=== PATIENT | male | born 1950 | race Caucasian/White ===

== ENCOUNTER 2018-08-16 16:22 | Inpatient (IN) ==
[2018-08-16] MEDS ORDERED: Bisacodyl 10 MG Supp RECTAL PRN (22:28)
[2018-08-16] MEDS ORDERED: Acetaminophen 325 MG Tablet PO PRN (22:28)
[2018-08-16] MEDS ORDERED: Morphine Inj 4 MG/ML Vial IV.PUSH PRN (22:28)
[2018-08-16] MEDS: Enoxaparin Inj 40 MG/0.4 ML Syringe SQ SCH (22:55)
[2018-08-16] MEDS: Azithromycin Inj 500 MG in Sodium Chlor 0.9% Inj 250 ML IV.SIG SCH (22:55)
--- NOTE | 2018-08-16 23:38 | P.HPCC ---
History of Present Illness Primary Care Physician: UNKNOWN History of Present Illness: 68-year-old gentleman with COPD and chronic cough who continues to smoke presented to [facility] emergency department for an evaluation of altered mental status and shortness of breath. The patient went to [employer] this morning and returned on the bus and sat in the garage. The lady that takes care of him did talk to him and he said he was fine and sat down in his chair in the garage. He however did not come to his lunch and she went out and found him unresponsive with labored breathing. This occurred at 2 PM today. Patient was brought into the emergency department with altered mental status and respiratory distress. Pulse ox was in the 60s. Patient was put on high flow oxygen and later changed to BiPAP with improvement in mentation and oxygenation. The chest x-ray obtained in the emergency department shows almost complete opacification of left hemithorax. The CT without contrast shows severe cardiomegaly and no pleural effusion or pericardial effusion. The patient has been transferred to [facility] ICU for higher level of care. Inpatient Certification: I certify that the inpatient services were ordered in accordance with Medicare regulations governing the order. This includes certification that hospital inpatient services are reasonable and necessary and in the case of services not specified as inpatient-only under 42 CFR 419.22(n), that they are appropriately provided as inpatient services in accordance to with the 2-midnight benchmark under 43 CFR 412.3(e) Estimated Total Length of Stay (Days): 5 Plans for Post Hospital Care: Not yet determined Review of Systems unobtainable due to mental condition PMFSH - History History Provided By: Friend - Medical History Medical History: Medical History (Last Reviewed 08/16/18 @ 17:36 by Sakina Gauthier RN) COPD (chronic obstructive pulmonary disease) Surgical history unknown - Tobacco History Tobacco Use In Past 30 Days: Yes Smoking Status: Smoker, status unknown Tobacco Type: Cigarettes - Alcohol History How Often Do You Have a Drink Containing Alcohol: Unable to Obtain - Substance Use History Substance History: Unable to Obtain Medications and Allergies Active Medications: Active Medications Acetaminophen (Tylenol) 650 mg PO Q6H PRN PRN Reason: PAIN 1-10 AND/OR FEVER >101F Al Hydroxide/Mg Hydroxide (Milk Of Magnesia Liq) 30 ml PO Q12H PRN PRN Reason: Mild Constipation Albuterol (Duoneb Neb (Prn)) 1 ampul NEB Q2HR NEB PRN PRN Reason: WHEEZING Albuterol (Duoneb Neb (Sandee)) 1 ampul NEB Q4HR NEB [facility] Last Admin: 08/16/18 23:05 Dose: 1 ampul Bisacodyl (Dulcolax Supp) 10 mg RECTAL DAILY PRN PRN Reason: SEVERE CONSITIPATION Bupropion HCl (Wellbutrin Sr) 150 mg PO DAILY [facility] Chlorhexidine Gluconate (Chlorhexidine 2% Cloth) 3 pack TOPICAL DAILY@0400 [facility]DE[facility] Stop: 08/22/18 03:59 Chlorhexidine Gluconate (Chlorhexidine 2% Cloth) 3 pack TOPICAL DAILY@0400 PRN PRN Reason: Extra cloth needed Stop: 08/22/18 03:59 Enoxaparin Sodium (Lovenox Inj) 40 mg SQ Q24H [facility] Last Admin: 08/16/18 22:55 Dose: 40 mg Famotidine (Pepcid Pf Inj) 20 mg IV.PUSH Q12HR [facility] Gabapentin (Neurontin) 600 mg PO BID [facility] Azithromycin 500 mg/ Sodium (Chloride) 250 mls @ 250 mls/hr IV.SIG Q24H [facility] Last Admin: 08/16/18 22:55 Dose: 250 mls/hr Cefepime HCl 2,000 mg/ Sodium (Chloride) 100 mls @ 200 mls/hr IV.SIG Q12H [facility] Last Admin: 08/16/18 22:59 Dose: 200 mls/hr Lactulose (Lactulose Liq) 30 ml PO DAILY PRN PRN Reason: SEVERE CONSITIPATION Methylprednisolone Sodium Succinate (Solumedrol Inj) 40 mg IV.PUSH Q8HR [facility] Morphine Sulfate (Morphine Inj) 2 mg IV.PUSH Q2H PRN PRN Reason: PAIN SCALE 6 TO 10 Ondansetron HCl (Zofran Inj) 4 mg IV.PUSH Q6H PRN PRN Reason: NAUSEA OR VOMITING Senna/Docusate Sodium (Clare-Colace) 1 tab PO BID [facility] Sennosides (Senokot) 17.2 mg PO Q12H PRN PRN Reason: Moderate Constipation Sodium Chloride (Ns Flush) 2 ml IV.FLUSH BID [facility] Sodium Chloride (Ns Flush) 2 ml IV.FLUSH PRN PRN PRN Reason: FLUSH AFTER USING IV ACCESS Allergies Allergy/AdvReac Type Severity Reaction Status Date / Time No Known Allergies Allergy Unverified 08/16/18 16:33 Home Medications Medication Instructions Recorded Confirmed Type bupropion HCl (smoking deter) 150 mg PO DAILY 08/16/18 08/16/18 History gabapentin 600 mg PO BID 08/16/18 08/16/18 History ibuprofen 800 mg PO TID 08/16/18 08/16/18 History varenicline [Chantix] 1 mg PO BID 08/16/18 08/16/18 History Results - Labs CBC & Chem 7: 08/17/18 00:53 08/17/18 00:53 Exam Vital signs: Vital Signs 08/16/18 22:25 08/16/18 22:29 08/16/18 22:31 Temperature Pulse Rate 116 H 114 H Respiratory Rate 8 L 4 L Blood Pressure 150/88 H 146/93 H Pulse Oximetry 100 98 98 08/16/18 22:33 08/16/18 23:00 08/16/18 23:06 Temperature 100.1 F H Pulse Rate 104 H 104 H Respiratory Rate 21 15 Blood Pressure 139/80 Pulse Oximetry 99 92 L 08/16/18 23:08 Temperature Pulse Rate Respiratory Rate Blood Pressure Pulse Oximetry 92 L Intake & Output 08/16/18 08/16/18 08/17/18 06:59 18:59 06:59 Weight 112.3 kg Other: Weight On Admission 112.3 kg - Constitutional moderate distress, morbidly obese - Routine HEENT Exam Head: Present: atraumatic Eye: Present: PERRL ENT: Present: mucous membranes moist - Routine Neck Exam Present: full ROM. Absent: JVD, carotid bruit - Routine Respiratory Exam Present: accessory muscle use, rhonchi, wheezes. Absent: stridor, crackles - Routine Cardiovascular Exam Present: RRR, S1, S2 - Routine Abdominal Exam Present: soft, normoactive bowel sounds, distended. Absent: tenderness, rebound - Routine Extremities Exam Absent: cyanosis, clubbing, edema - Routine Skin Exam Present: intact. Absent: cyanosis, erythema - Routine Neurological Exam Present: moving all extremities Septic Shock Reassessment Septic shock perfusion: reassessment completed Caprini VTE Risk Assessment Caprini VTE Risk Assessment: Moderate/High Risk (score >= 2) Caprini Risk Assessment Model: Point Value = 1 Point Value = 2 Point Value = 3 Point Value = 5 Age 41-60 Minor surgery BMI > 25 kg/m2 Swollen legs Varicose veins or History of unexplained or recurrent spontaneous Oral contraceptives or hormone replacement Sepsis (< 1 month) Serious lung disease, including pneumonia (< 1 month) Abnormal pulmonary function Acute myocardial infarction Congestive heart failure (< 1 month) History of inflammatory bowel disease Medical patient at bed rest Age 61-74 Arthroscopic surgery Major open surgery (> 45 min) Laparoscopic surgery (> 45 min) Malignancy Confined to bed (> 72 hours) Immobilizing plaster cast Central venous access Age >= 75 History of VTE Family history of VTE Factor V Leiden Prothrombin [id number] Lupus anticoagulant Anticardiolipin antibodies Elevated serum homocysteine Heparin-induced thrombocytopenia Other congenital or acquired thrombophilia Stroke (< 1 month) Elective arthroplasty Hip, pelvis, or leg fracture Acute spinal cord injury (< 1 month) Prophylaxis Regimen: Total Risk Factor Score Risk Level Prophylaxis Regimen 0-1 Low Early ambulation 2 Moderate Order ONE of the following: *Sequential Compression Device (SCD) *Heparin 5000 units SQ BID 3-4 Higher Order ONE of the following medications: *Heparin 5000 units SQ TID *Enoxaparin/Lovenox 40 mg SQ daily (WT < 150 kg, CrCl > 30 mL/min) *Enoxaparin/Lovenox 30 mg SQ daily (WT < 150 kg, CrCl > 10-29 mL/min) *Enoxaparin/Lovenox 30 mg SQ BID (WT < 150 kg, CrCl > 30 mL/min) AND/OR *Sequential Compression Device (SCD) 5 or more Highest Order ONE of the following medications: *Heparin 5000 units SQ TID (Preferred with Epidurals) *Enoxaparin/Lovenox 40 mg SQ daily (WT < 150 kg, CrCl > 30 mL/min) *Enoxaparin/Lovenox 30 mg SQ daily (WT < 150 kg, CrCl > 10-29 mL/min) *Enoxaparin/Lovenox 30 mg SQ BID (WT < 150 kg, CrCl > 30 mL/min) AND *Sequential Compression Device (SCD) Assessment and Plan - Assessment and Plan Plan: Respiratory failure -COPD exacerbation -Obesity hypoventilation syndrome -Lung volume was due to severe cardiomegaly -IV steroid -DuoNeb scheduled and as needed -BiPAP as needed -Empiric antibiotic Cardiomegaly -Unknown EF -2D echo pending Lung nodule -High risk for malignancy -Pulmonary consultation Tobacco dependency -Continue Wellbutrin DVT GI prophylaxis -Teds SCDs -Subcu Lovenox -Pepcid 35 minutes of critical care
[2018-08-17 00:58] LABS: Baso # (Auto) 0.1 th/mm3 (0.0-0.2); Baso % (Auto) 0.4 % (0.0-2.0); Hematocrit 52.5 % (39.0-51.0); Hemoglobin 16.7 gm/dL (13.0-17.0); Lymph # (Auto) 1.1 th/mm3 (1.0-4.8); Lymph % (Auto) 8.4 % (9.0-44.0); Mean Corpuscular HGB Conc 31.8 % (32.0-36.0); Mean Corpuscular Hemoglobin 33.4 pg (27.0-34.0); Mean Corpuscular Volume 104.9 fL (80.0-100.0); Mean Platelet Volume 9.3 fL (7.0-11.0); Mono % (Auto) 7.5 % (0.0-8.0); Neut # (Auto) 11.5 th/mm3 (1.8-7.7); Neut % (Auto) 83.7 % (16.0-70.0); Platelet Count 182 th/mm3 (150-450); Red Blood Count 5.01 mil/mm3 (4.50-5.90); Red Cell Distribution Width 14.8 % (11.6-17.2); White Blood Count 13.7 th/mm3 (4.0-11.0)
[2018-08-17 01:12] LABS: Activated Partial Thrombo Time 28.9 sec (24.3-30.1); INR 1.4 Ratio
[2018-08-17 01:28] LABS: Calcium 8.2 mg/dL (8.5-10.1); Phosphorus 6.6 mg/dL (2.5-4.9); Potassium 4.7 meq/L (3.5-5.1)
[2018-08-17] MEDS ORDERED: Chlorhexidine Gluconate 2% 1 Pack (2 Cloths) TOPICAL PRN (04:00)
[2018-08-17] MEDS: Chlorhexidine Gluconate 2% 1 Pack (2 Cloths) TOPICAL SCH (04:12)
[2018-08-17] MEDS: MethylPREDNISolone Sod Succinate Inj 40 MG/ML Vial IV.PUSH SCH ×3 (05:06→21:09)
[2018-08-17 05:47] LABS: Baso % (Auto) 0.2 % (0.0-2.0); Hematocrit 50.3 % (39.0-51.0); Hemoglobin 16.5 gm/dL (13.0-17.0); Lymph # (Auto) 1.3 th/mm3 (1.0-4.8); Lymph % (Auto) 8.2 % (9.0-44.0); Mean Corpuscular HGB Conc 32.7 % (32.0-36.0); Mean Corpuscular Hemoglobin 33.8 pg (27.0-34.0); Mean Corpuscular Volume 103.2 fL (80.0-100.0); Mean Platelet Volume 9.9 fL (7.0-11.0); Mono # (Auto) 1.2 th/mm3 (0.0-0.9); Neut % (Auto) 83.6 % (16.0-70.0); Platelet Count 184 th/mm3 (150-450); Red Blood Count 4.88 mil/mm3 (4.50-5.90); Red Cell Distribution Width 14.8 % (11.6-17.2); White Blood Count 15.6 th/mm3 (4.0-11.0)
[2018-08-17 05:55] LABS: Activated Partial Thrombo Time 29.2 sec (24.3-30.1); INR 1.4 Ratio; Prothrombin Time 14.2 sec (9.8-11.6)
[2018-08-17 06:19] LABS: Anion Gap 9 meq/L (5-15); Aspartate Aminotransferase 941 U/L (15-37); Blood Urea Nitrogen 41 mg/dL (7-18); Calcium 8.4 mg/dL (8.5-10.1); Carbon Dioxide 27.8 meq/L (21.0-32.0); Chloride 106 meq/L (98-107); Glomerular Filtration Rate 23 mL/min (>89); Glucose,Random 75 mg/dL (74-106); Magnesium 1.9 mg/dL (1.5-2.5); Potassium 4.4 meq/L (3.5-5.1); Sodium 143 meq/L (136-145)
[2018-08-17 06:21] LABS: Alanine Aminotransferase 670 U/L (12-78)
[2018-08-17 06:23] LABS: Alkaline Phosphatase 83 U/L (45-117); Phosphorus 5.9 mg/dL (2.5-4.9); Total Protein 7.3 g/dL (6.4-8.2)
[2018-08-17] MEDS ORDERED: Propofol Inj 500 MG/50 ML Vial ONE (08:09)
[2018-08-17 08:20] LABS: ABG PCO2 74 mmHg (38-42); ABG PO2 187 mmHG (61-120)
[2018-08-17] MEDS ORDERED: Etomidate Inj 40 MG/20 ML Vial IV.PUSH ONE (08:26)
[2018-08-17] MEDS ORDERED: Succinylcholine Inj 200 MG/10 ML Vial ONE (08:26)
[2018-08-17] MEDS ORDERED: Etomidate Inj 20 MG/10 ML Ampul IV.PUSH ONE (08:45)
[2018-08-17] MEDS ORDERED: Succinylcholine Inj 200 MG/10 ML Vial IV.PUSH ONE (08:45)
[2018-08-17] MEDS ORDERED: Famotidine PF Inj 20 MG/2 ML Vial IV.PUSH SCH (09:00)
--- NOTE | 2018-08-17 09:05 | XR ---
EXAM DATE: 08/17/2018 9:01 AM EDT AGE/SEX: 68 years / Male INDICATIONS: Post intubation. CLINICAL DATA: This is the patient's subsequent encounter. Patient reports that signs and symptoms h ave been present for 2 days and indicates a pain score of Nonresponsive. MEDICAL/SURGICAL HISTORY: Chronic obstructive pulmonary disease. None. COMPARISON: [facility], CHEST 1V SINGLE AP, 08/16/2018. . FINDINGS: ETT at the level of the clavicles. NGT coursing beyond the GE junction with tip omitted from the imag e. Improved aeration of the left upper lung zone with persistent pleural-parenchymal opacities at the left lower lung zone and slightly progressed patchy airspace disease in the right lower lung zone. C ardiomediastinal contours are stable. Remainder of exam is unchanged. CONCLUSION: 1. ETT in good position. NGT beyond the GE junction. 2. Improved aeration of the left upper lung zone with persistent pleural-parenchymal disease in the left lower lung zone and worsening patchy airspace disease in the right lower lung zone, presumably a telectasis. Electronically signed by: Pollo Harris MD 08/17/2018 9:03 AM EDT
[2018-08-17 10:06] LABS: ABG Base Excess 2.6 mmol/L (-2-2); ABG PCO2 58 mmHg (38-42); ABG PO2 120 mmHG (61-120)
[2018-08-17] MEDS: buPROPion 150 MG 12 HR Tablet PO SCH (10:07)
[2018-08-17] MEDS: Gabapentin 300 MG Capsule PO SCH ×2 (10:07→21:00)
[2018-08-17] MEDS: Senna/Docusate Sodium 8.6/50 MG Tablet PO SCH ×2 (10:07→21:10)
[2018-08-17] MEDS: Propofol 1000 mg/100 ml Inj 1,000 MG/100 ML BOTTLE IV.CONT PRN ×3 (10:09→21:10)
[2018-08-17] MEDS: Oral Hygiene Kit OROPHARYNG SCH ×2 (11:34→15:48)
--- NOTE | 2018-08-17 11:37 | P.PNCC ---
Subjective Subjective Remarks/Hospital Course: Hospital Course: 68-year-old gentleman with COPD and chronic cough who continues to smoke presented to [facility] emergency department for an evaluation of altered mental status and shortness of breath. The patient went to [employer] this morning and returned on the bus and sat in the garage. The lady that takes care of him did talk to him and he said he was fine and sat down in his chair in the garage. He however did not come to his lunch and she went out and found him unresponsive with labored breathing. This occurred at 2 PM today. Patient was brought into the emergency department with altered mental status and respiratory distress. Pulse ox was in the 60s. Patient was put on high flow oxygen and later changed to BiPAP with improvement in mentation and oxygenation. The chest x-ray obtained in the emergency department shows almost complete opacification of left hemithorax. The CT without contrast shows severe cardiomegaly and no pleural effusion or pericardial effusion. The patient has been transferred to [facility] ICU for higher level of care. Subjective: 08/17: no improvement in respiratory distress- mental status worsened. abg no improvement. clinically declined and emergently intubated. on bedside echo, very difficult windows due to lung disease and obesity, but dilated ivc without respiratory variation and no pericardial effusion. formal echo pending. Objective Vital Signs / I&O: Vital Signs 08/16/18 22:25 08/16/18 22:29 08/16/18 22:31 Temperature Pulse Rate 116 H 114 H Respiratory Rate 8 L 4 L Blood Pressure 150/88 H 146/93 H Pulse Oximetry 100 98 98 08/16/18 22:33 08/16/18 23:00 08/16/18 23:06 Temperature 37.8 C H Pulse Rate 104 H 104 H Respiratory Rate 21 15 Blood Pressure 139/80 Pulse Oximetry 99 92 L 08/16/18 23:08 08/16/18 23:30 08/16/18 23:31 Temperature Pulse Rate 105 H Respiratory Rate 25 H Blood Pressure 108/75 Pulse Oximetry 92 L 94 L 89 L 08/17/18 00:00 08/17/18 00:01 08/17/18 00:30 Temperature Pulse Rate 106 H 106 H 107 H Respiratory Rate 28 H 30 H 28 H Blood Pressure 112/72 110/73 Pulse Oximetry 90 L 92 L 91 L 08/17/18 01:00 08/17/18 01:01 08/17/18 01:21 Temperature Pulse Rate 109 H 111 H Respiratory Rate 30 H 36 H Blood Pressure 92/51 L Pulse Oximetry 90 L 91 L 93 L 08/17/18 01:30 08/17/18 02:00 08/17/18 02:30 Temperature Pulse Rate 105 H 101 H 102 H Respiratory Rate 29 H 28 H 27 H Blood Pressure 126/71 114/68 118/73 Pulse Oximetry 92 L 91 L 91 L 08/17/18 03:00 08/17/18 03:23 08/17/18 03:30 Temperature Pulse Rate 106 H 109 H 108 H Respiratory Rate 30 H 26 H 29 H Blood Pressure 128/80 118/72 Pulse Oximetry 90 L 94 L 08/17/18 03:45 08/17/18 04:00 08/17/18 04:31 Temperature 37.7 C H Pulse Rate 112 H 109 H Respiratory Rate 36 H 36 H Blood Pressure 115/78 140/77 Pulse Oximetry 92 L 92 L 92 L 08/17/18 05:00 08/17/18 05:30 08/17/18 06:00 Temperature Pulse Rate 108 H 109 H 106 H Respiratory Rate 31 H 30 H 29 H Blood Pressure 140/78 140/75 131/71 Pulse Oximetry 92 L 93 L 92 L 08/17/18 06:17 08/17/18 07:00 08/17/18 07:38 Temperature Pulse Rate 108 H 108 H Respiratory Rate 29 H 29 H Blood Pressure 129/79 Pulse Oximetry 93 L 92 L 08/17/18 07:42 08/17/18 08:00 08/17/18 08:30 Temperature 38.6 C H Pulse Rate 111 H Respiratory Rate 30 H 18 Blood Pressure 129/83 Pulse Oximetry 93 L 93 L 100 08/17/18 09:00 08/17/18 10:00 08/17/18 11:15 Temperature Pulse Rate 112 H 86 83 Respiratory Rate 18 18 18 Blood Pressure 113/71 82/54 L Pulse Oximetry 98 93 L 93 L Intake & Output 08/16/18 08/17/18 08/17/18 18:59 06:59 18:59 Intake Total 350 / 350 Output Total 200 / 200 Balance 150 / 150 Weight 117.5 kg Intake: IV 350 / 350 Azithromycin Inj 500 MG In NS 250 / 250 Inj 250 ML @ 250 mls/hr IV.SIG Q24H [facility] Rx#:[id number] Maxipime Inj 2,000 MG In NS Inj 100 / 100 100 ML @ 200 mls/hr IV.SIG Q12H [facility] Rx#:[id number] Output: Urine Amount (Catheter) 200 / 200 Indwelling Urethral Catheter 200 / 200 Other: # Bowel Movements 0 Weight On Admission 112.3 kg Result Diagrams: 08/17/18 05:17 08/17/18 05:17 Objective Remarks: GENERAL: Middle-age male, lying in bed, obtunded on BiPAP HEENT: Normocephalic. Atraumatic. Pupils equal, round, reactive, conjugate. Mucous membranes are moist NECK: Trachea is midline. JVD difficult to assess due to BiPAP and navarro. CHEST: Tachypneic. Labored. Barrel chested. SPO2 88% on 100% FiO2 BiPAP CARDIOVASCULAR: Tachycardic rate, regular rhythm. Sinus. ABDOMEN: Obese, soft, nontender, nondistended. No guarding. MUSCULOSKELETAL: Pulses 2+. 1+ peripheral edema NEUROLOGICAL: RASS -2/-3. Will arouse to sternal rub and weakly follows commands, but more somnolent than previously documented. Assessment and Plan - Assessment and Plan Plan: Assessment: 68-year-old male with most likely COPD, obesity hypoventilation, and likely congestive heart failure, unknown type who presents with acute hypoxic hypercarbic respiratory failure likely combination of COPD exacerbation , OHS exacerbation, and possibly CHF exacerbation. Now intubated with worsening respiratory failure. Critically ill. Acute hypoxic and hypercarbic Respiratory failure- worsening Acute severe COPD Exacerbation Obesity Hypoventilation Syndrome -COPD exacerbation -Obesity hypoventilation syndrome -Lung volume loss due to severe cardiomegaly -IV steroid -DuoNeb scheduled and as needed -vent bundle - hob elevated -Empiric antibiotic Cardiomegaly Congestive Heart Failure, unknown type Suspected Acute CHF Exacerbation, unknown type -Unknown EF -2D echo pending - does not appear to need mivf - may need diuresis, will await formal echo. Lung nodule -High risk for malignancy -Pulmonary consultation Tobacco dependency -Continue Wellbutrin Obesity - place OG tube - start tube feeds DVT GI prophylaxis -Teds SCDs -Subcu Lovenox -Pepcid Critical care time: 33 minutes, exclusive of separately billed procedures. specifically managed decompensating respiratory failure.
--- NOTE | 2018-08-17 11:38 | P.PCN ---
Date of procedure: 08/17/18 Pre-op diagnosis: Acute hypoxic and hypercarbic respiratory failure Post-op diagnosis: same Procedure: Endotracheal Intubation Diagnosis: Acute hypoxic hypercarbic respiratory failure Indications: Worsening acute hypoxic and hypercarbic respiratory failure Consent: Emergent Anesthesia: Etomidate 10 mg IV, succinylcholine 160 mg IV Description of the Procedure: The patient was positioned in the sniffing position. Pre-oxygenation was performed using a 100% FiO2 BiPAP. Anesthesia was induced via rapid sequence. Initially, a video laryngoscope was used, but due to a floppy epiglottis, only a grade 3 view was obtained. On second direct laryngoscopy, a Queen #3 was used and a grade 1 view of the cords was obtained. A 8.0 cuffed endotracheal tube was inserted atraumatically through the vocal cords. Confirmation of correct endotracheal tube placement was made by equal and bilateral breath sounds and colorimetric CO2 detection. The endotracheal tube was secured at 23 cm at the teeth. There were no immediate complications noted. The patient remained hemodynamically stable throughout the procedure. A chest x-ray has been ordered. I personally performed the procedure.
[2018-08-17] MEDS ORDERED: Potassium Chlor 40 mEq Premix 40 MEQ/100 ML PIGGYBACK IV.SIG PRN ×2 (11:39)
[2018-08-17] MEDS ORDERED: Potassium Phosphate Inj 30 MMOL in Sodium Chlor 0.9% Inj 250 ML IV.SIG PRN (11:39)
[2018-08-17] MEDS ORDERED: Magnesium Oxide 400 MG Tablet PO PRN (11:39)
[2018-08-17] MEDS ORDERED: Magnesium Sulfate Inj 4 GM in Sodium Chlor 0.9% Inj 92 ML IV.SIG PRN (11:39)
[2018-08-17] MEDS ORDERED: Potassium Phosphate 500 MG Soluble Tablet PO PRN ×2 (11:39)
[2018-08-17] MEDS ORDERED: Magnesium Sulfate Inj 2 GM in Sodium Chlor 0.9% Inj 96 ML IV.SIG PRN (11:39)
[2018-08-17] MEDS ORDERED: Sodium Phosphate Inj 30 MMOL in Sodium Chlor 0.9% Inj 250 ML IV.SIG PRN (11:39)
[2018-08-17] MEDS ORDERED: Potassium Chlor 20 mEq Premix 20 MEQ/100 ML PIGGYBACK IV.SIG PRN ×2 (11:39)
[2018-08-17] MEDS ORDERED: Potassium Chloride 25 MEQ Effervescent Tablet PO PRN (11:39)
--- NOTE | 2018-08-17 17:25 | ECHRPT ---
Indication: Cardiomyopathy CONCLUSIONS The left ventricular systolic function is severely reduced with an estimated ejection fraction in th e range of 30-35%. Moderately dilated left ventricle with normal wall thickness. There is diffuse global hypokinesis. Findings consistent with Grade 1 diastolic dysfunction. The RV is likely moderately enlarged with decreased systolic function. No significant valvular heart disease seen on the images that were obtained. Unable to obtain a proper maximum TR velocity to estimate the RVSP. Using the pulmonary regurgitant velocity at the begining of diastole, the mean PA is estimated at 31 mmHg. The inferior vena cava is normal in size with less than 50% collape with inspiration. (RAP is estima grace at 15 mmHg) There is a small pericardial effusion present. Overall images are poor quality making regional wall motion assessment and RV assessment less accura te. BP: / HR: Rhythm: sinus MEASUREMENTS (Male / Female) Normal Values Technical Quality:very poor 2D ECHO LV Diastolic Diameter PLAX 5.5 cm 4.2 - 5.9 / 3.9 - 5.3 cm LV Systolic Diameter PLAX 4.9 cm IVS Diastolic Thickness 1.4 cm 0.6 - 1.0 / 0.6 - 0.9 cm LVPW Diastolic Thickness 1.5 cm 0.6 - 1.0 / 0.6 - 0.9 cm LV Relative Wall Thickness 0.5 RV Internal Dim ED PLAX 4.2 cm LVOT Diameter 1.8 cm Aortic Root Diameter 3.6 cm LA Systolic Diameter LX 3.4 cm 3.0 - 4.0 / 2.7 - 3.8 cm LV Ejection Fraction MOD BP 32.0 % >= 55 % LV Ejection Fraction MOD 4C 34.2 % LV Ejection Fraction 4C AL 36.4 % LV Ejection Fraction MOD 2C 30.4 % LV Ejection Fraction 2C AL 32.8 % M-MODE Aortic Root Diameter MM 3.7 cm LA Systolic Diameter MM 3.1 cm LA Ao Ratio MM 0.8 AV Cusp Separation MM 1.8 cm DOPPLER AV Peak Velocity 129.0 cm/s AV Peak Gradient 6.7 mmHg LVOT Peak Velocity 112.0 cm/s LVOT Peak Gradient 5.0 mmHg AV Area Cont Eq pk 2.2 cm Mitral E Point Velocity 44.4 cm/s Mitral A Point Velocity 62.2 cm/s Mitral E to A Ratio 0.7 LV E' Lateral Velocity 5.7 cm/s Mitral E to LV E' Lateral Ratio 7.9 LV E' Septal Velocity 4.3 cm/s Mitral E to LV E' Septal Ratio 10.3 TV Peak Velocity 138.0 cm/s TR Peak Velocity 145.0 cm/s TR Peak Gradient 8.4 mmHg Right Atrial Pressure 10.0 mmHg Pulmonary Artery Systolic Pressu 18.4 mmHg Right Ventricular Systolic Press 18.4 mmHg PV Peak Velocity 138.0 cm/s PV Peak Gradient 7.6 mmHg FINDINGS LEFT VENTRICLE Moderately dilated left ventricle. Wall thickness is normal. The left ventricular systolic function is severely reduced with an estimated ejection fraction in th e range of 30-35%. There is diffuse global hypokinesis with distinct regional wall motion abnormalities. Findings consistent with Grade 1 diastolic dysfunction. RIGHT VENTRICLE Likely moderately enlarged RV with reduced systolic function. LEFT ATRIUM The left atrial size is normal. RIGHT ATRIUM The right atrial size is normal. ATRIAL SEPTUM Normal atrial septal thickness without atrial level shunting by limited color doppler interrogation. AORTA The aortic root and proximal ascending aorta are normal in size on limited imaging. MITRAL VALVE Structurally normal mitral valve. No mitral valve stenosis or regurgitation. AORTIC VALVE Trileaflet aortic valve. No aortic valve stenosis or regurgitation. TRICUSPID VALVE There is trace tricuspid valve regurgitation. The estimated pulmonary arterial pressure is 18. mmHg. PULMONARY VALVE No pulmonary valve regurgitation or stenosis. VESSELS The inferior vena cava is normal in size with less than 50% collape with inspiration. PERICARDIUM There is a small pericardial effusion present. Sameer Best MD (Electronically Signed) Final Date:17 August 2018 17:24
[2018-08-17] MEDS: Chlorhexidine 0.12% Oral Kit 15 ML UDC OROPHARYNG SCH (21:10)
[2018-08-17] MEDS: Enoxaparin Inj 40 MG/0.4 ML Syringe SQ SCH (22:11)
[2018-08-17] MEDS: Azithromycin Inj 500 MG in Sodium Chlor 0.9% Inj 250 ML IV.SIG SCH (22:11)
--- NOTE | 2018-08-17 22:47 | MB ---
cc: Randall Ott MD DATE: 08/17/2018 REQUESTING PHYSICIAN: Darron Grider MD REASON FOR CONSULTATION: Respiratory failure. HISTORY OF PRESENT ILLNESS: Mr. Menchaca is a 68-year-old white male with history of COPD. The patient presented to the Emergency Room because he was found to be in altered mental status and nonresponsive while he was sitting in the garage and he did not report for the dinner. The patient was brought to the emergency room. He was put on BiPAP. The patient was transferred to the intensive care. He is now intubated and sedated. Initially, CT scan of the chest showed that he had significant volume loss on the left lung. His blood gas shows pH 7.31, pCO2 58, pO2 120 on 100% oxygen. He has a CBC with WBC count 15.6, hemoglobin 16.5, hematocrit 50.3, MCV 103, platelet count is 184. Sodium 143, potassium 4.4, chloride 106, CO2 27, BUN 41, creatinine 2.76. PAST MEDICAL HISTORY: Significant for history of COPD. No other history available. The patient is unresponsive. No family member available. MEDICATIONS: He is currently takin. Albuterol nebulizer treatment with Atrovent. 2. Zithromax 500 mg a day. 2. Fluconazole 150 mg a day. 3. Cefepime 2 g every 24 hours. 4. Lovenox 40 mg a day. 5. Famotidine 10 mg every 12 hours. 6. Lasix 40 mg IV push. ALLERGIES: NO KNOWN DRUG ALLERGIES. SOCIAL HISTORY: Not available. FAMILY HISTORY: Not available. REVIEW OF SYSTEMS: Cannot assess. PHYSICAL EXAMINATION: GENERAL: WBWN WM , on ventilator. He is sedated. VITAL SIGNS: His blood pressure 100/60, heart rate 82, respirations 18, temperature 99.6. HEENT: Pupils equal, reactive to light. He had a lesion 1.5 x 1 cm in the right temporal area suspicious for skin cancer. NECK: Supple. JVP not raised. CHEST: Good BS. No rhonchi. HEART: S1, S2 normal. ABDOMEN: Distended. Bowel sounds are present. EXTREMITIES: No edema. IMPRESSION: 1. Hypoxic, hypercapnic respiratory failure. 2. Left lung volume loss, possible atelectasis or infiltrate. 3. Left lung nodule. 4. Chronic obstructive pulmonary disease. 5. Renal insufficiency. PLAN: We will maintain on the ventilator. He is currently on FiO2 of 80%. Continue aerosol treatment, antibiotics, check cultures. Monitor his renal function. Once he gets better, he will need a workup for his COPD as well as repeat CT scan for follow up of the lung nodule. Further treatment pending the course in the hospital. Thank you, Dr. Grider, for this consult. MD JOSHUA Bran/rik/ , 06:49 PM , 06:59 PM ABIGAIL
[2018-08-18] MEDS: Propofol 1000 mg/100 ml Inj 1,000 MG/100 ML BOTTLE IV.CONT PRN ×4 (00:40→20:02)
[2018-08-18] MEDS: Oral Hygiene Kit OROPHARYNG SCH ×4 (01:03→19:22)
[2018-08-18 05:04] LABS: Hemoglobin 15.9 gm/dL (13.0-17.0); Mean Corpuscular HGB Conc 33.1 % (32.0-36.0); Mean Corpuscular Hemoglobin 33.7 pg (27.0-34.0); Mean Corpuscular Volume 101.8 fL (80.0-100.0); Mean Platelet Volume 9.8 fL (7.0-11.0); Platelet Count 184 th/mm3 (150-450); Red Blood Count 4.71 mil/mm3 (4.50-5.90); Red Cell Distribution Width 15.1 % (11.6-17.2); White Blood Count 14.4 th/mm3 (4.0-11.0)
[2018-08-18 05:14] LABS: INR 1.3 Ratio; Prothrombin Time 13.5 sec (9.8-11.6)
[2018-08-18 05:27] LABS: Alanine Aminotransferase 542 U/L (12-78); Albumin 2.8 g/dL (3.4-5.0); Alkaline Phosphatase 73 U/L (45-117); Anion Gap 11 meq/L (5-15); Aspartate Aminotransferase 420 U/L (15-37); Blood Urea Nitrogen 55 mg/dL (7-18); Calcium 8.6 mg/dL (8.5-10.1); Carbon Dioxide 28.1 meq/L (21.0-32.0); Chloride 106 meq/L (98-107); Glomerular Filtration Rate 22 mL/min (>89); Glucose,Random 101 mg/dL (74-106); Phosphorus 4.4 mg/dL (2.5-4.9); Potassium 4.1 meq/L (3.5-5.1); Sodium 145 meq/L (136-145); Total Protein 6.8 g/dL (6.4-8.2)
[2018-08-18] MEDS: Chlorhexidine Gluconate 2% 1 Pack (2 Cloths) TOPICAL SCH (05:56)
--- NOTE | 2018-08-18 06:05 | XR ---
EXAM DATE: 08/18/2018 5:43 AM EDT AGE/SEX: 68 years / Male INDICATIONS: Short of breath. CLINICAL DATA: This is the patient's subsequent encounter. Patient reports that signs and symptoms h ave been present for 2 days and indicates a pain score of 0/10. MEDICAL/SURGICAL HISTORY: Chronic obstructive pulmonary disease. None. COMPARISON: DL, CT CHEST W/O CONTRAST, 08/16/2018. . FINDINGS: 2 AP views of the chest. Endotracheal tube and nasogastric tube remain in place. There is now near co mplete opacification of the left hemithorax. Air-fluid level is seen at the top of the opacity. Shift of the mediastinum to the left. Confluent left lower lung zone opacity is now seen likely representi ng a combination of parenchymal opacity and pleural effusion. CONCLUSION: 1. Marked interval increase in left hemithorax opacity with near complete opacification of the left hemithorax. Air-fluid level is seen at the top of the opacity. Findings may represent a hydropneumoth orax and left lung collapse versus postsurgical change. 2. Right lung base consolidation versus atelectasis and small pleural effusion now seen. Electronically signed by: Gt Menon MD 08/18/2018 6:03 AM EDT
[2018-08-18 06:11] LABS: ABG Base Excess 3.1 mmol/L (-2-2); ABG PCO2 52 mmHg (38-42); ABG PO2 91 mmHG (61-120)
[2018-08-18] MEDS: MethylPREDNISolone Sod Succinate Inj 40 MG/ML Vial IV.PUSH SCH ×3 (06:12→22:42)
--- NOTE | 2018-08-18 07:42 | P.PNCC ---
Subjective Subjective Remarks/Hospital Course: Hospital Course: 68-year-old gentleman with COPD and chronic cough who continues to smoke presented to [facility] emergency department for an evaluation of altered mental status and shortness of breath. The patient went to [employer] this morning and returned on the bus and sat in the garage. The lady that takes care of him did talk to him and he said he was fine and sat down in his chair in the garage. He however did not come to his lunch and she went out and found him unresponsive with labored breathing. This occurred at 2 PM today. Patient was brought into the emergency department with altered mental status and respiratory distress. Pulse ox was in the 60s. Patient was put on high flow oxygen and later changed to BiPAP with improvement in mentation and oxygenation. The chest x-ray obtained in the emergency department shows almost complete opacification of left hemithorax. The CT without contrast shows severe cardiomegaly and no pleural effusion or pericardial effusion. The patient has been transferred to [facility] ICU for higher level of care. Subjective: 08/17: no improvement in respiratory distress- mental status worsened. abg no improvement. clinically declined and emergently intubated. on bedside echo, very difficult windows due to lung disease and obesity, but dilated ivc without respiratory variation and no pericardial effusion. formal echo pending. 08/18: remains intubated. abg slowly improving. tran removed yesterday but unable to straight cath. Objective Vital Signs / I&O: Vital Signs 08/17/18 07:38 08/17/18 07:42 08/17/18 08:00 Temperature 38.6 C H Pulse Rate 108 H 111 H Respiratory Rate 29 H 30 H Blood Pressure 129/83 Pulse Oximetry 93 L 93 L 08/17/18 08:30 08/17/18 09:00 08/17/18 10:00 Temperature Pulse Rate 112 H 86 Respiratory Rate 18 18 18 Blood Pressure 113/71 82/54 L Pulse Oximetry 100 98 93 L 08/17/18 11:00 08/17/18 11:15 08/17/18 11:30 Temperature Pulse Rate 83 83 83 Respiratory Rate 18 18 18 Blood Pressure 88/57 L 90/57 L Pulse Oximetry 93 L 93 L 92 L 08/17/18 12:00 08/17/18 12:30 08/17/18 13:00 Temperature 37.7 C H Pulse Rate 84 85 85 Respiratory Rate 18 18 18 Blood Pressure 90/57 L 96/57 L 95/57 L Pulse Oximetry 92 L 93 L 93 L 08/17/18 13:30 08/17/18 14:00 08/17/18 14:30 Temperature Pulse Rate 85 85 86 Respiratory Rate 18 18 18 Blood Pressure 94/57 L 96/60 L 102/64 Pulse Oximetry 93 L 93 L 93 L 08/17/18 15:00 08/17/18 15:23 08/17/18 15:30 Temperature Pulse Rate 86 85 86 Respiratory Rate 18 18 18 Blood Pressure 101/62 102/62 Pulse Oximetry 93 L 93 L 93 L 08/17/18 16:00 08/17/18 16:30 08/17/18 17:00 Temperature 37.6 C Pulse Rate 89 92 H 91 H Respiratory Rate 17 19 16 Blood Pressure 111/69 116/71 99/62 L Pulse Oximetry 93 L 93 L 92 L 08/17/18 17:30 08/17/18 18:00 08/17/18 18:30 Temperature Pulse Rate 86 82 81 Respiratory Rate 18 18 18 Blood Pressure 96/62 L 97/62 L 100/64 Pulse Oximetry 93 L 92 L 92 L 08/17/18 19:00 08/17/18 19:31 08/17/18 20:00 Temperature 37.7 C H Pulse Rate 81 80 80 Respiratory Rate 18 15 11 L Blood Pressure 104/67 113/74 111/69 Pulse Oximetry 93 L 93 L 93 L 08/17/18 20:05 08/17/18 20:30 08/17/18 21:00 Temperature Pulse Rate 82 79 81 Respiratory Rate 18 18 18 Blood Pressure 109/70 114/74 Pulse Oximetry 93 L 94 L 08/17/18 22:00 08/17/18 22:10 08/17/18 22:30 Temperature Pulse Rate 82 81 80 Respiratory Rate 13 18 18 Blood Pressure 111/73 109/74 Pulse Oximetry 93 L 92 L 92 L 08/17/18 23:00 08/17/18 23:30 08/17/18 23:51 Temperature Pulse Rate 81 82 81 Respiratory Rate 47 H 18 18 Blood Pressure 92/67 L 94/68 L Pulse Oximetry 91 L 91 L 93 L 08/18/18 00:00 08/18/18 00:30 08/18/18 01:00 Temperature Pulse Rate 80 82 82 Respiratory Rate 18 18 18 Blood Pressure 103/73 108/76 113/74 Pulse Oximetry 92 L 92 L 92 L 08/18/18 01:30 08/18/18 02:00 08/18/18 02:30 Temperature Pulse Rate 81 82 81 Respiratory Rate 18 18 18 Blood Pressure 109/73 112/77 114/78 Pulse Oximetry 91 L 93 L 92 L 08/18/18 03:00 08/18/18 03:30 08/18/18 04:00 Temperature 36.9 C Pulse Rate 80 79 80 Respiratory Rate 18 18 18 Blood Pressure 116/78 115/77 118/78 Pulse Oximetry 92 L 92 L 93 L 08/18/18 04:29 08/18/18 04:30 08/18/18 05:00 Temperature Pulse Rate 79 79 79 Respiratory Rate 18 18 19 Blood Pressure 111/77 113/74 Pulse Oximetry 92 L 92 L 91 L 08/18/18 05:30 08/18/18 06:00 08/18/18 06:01 Temperature Pulse Rate 78 77 79 Respiratory Rate 19 30 H 61 H Blood Pressure 110/69 110/67 Pulse Oximetry 92 L 93 L 96 08/18/18 06:30 Temperature Pulse Rate 77 Respiratory Rate 18 Blood Pressure 112/73 Pulse Oximetry 92 L Intake & Output 08/17/18 08/18/18 08/18/18 18:59 06:59 18:59 Intake Total 200 / 200 550 / 550 Output Total 550 / 550 0 / 0 Balance -350 / -350 550 / 550 Weight 114.5 kg Intake: IV 200 / 200 550 / 550 Diprivan 1000 mg/100 ml Inj 1, 100 / 100 300 / 300 000 mg In 100 ml @ 5 MCG/KG/MIN 3.525 mls/hr IV.CONT TITRATE PRN Rx#:[id number] Azithromycin Inj 500 MG In NS 250 / 250 Inj 250 ML @ 250 mls/hr IV.SIG Q24H HORACE Rx#:[id number] Maxipime Inj 2,000 MG In NS Inj 100 / 100 100 ML @ 200 mls/hr IV.SIG Q12H HORACE Rx#:[id number] Output: Urine 0 / 0 Urine Amount (Catheter) 550 / 550 Indwelling Urethral Catheter 550 / 550 Other: Date of Last Bowel Movement 08/17/18 08/18/18 # Bowel Movements 1 Result Diagrams: 08/18/18 03:58 08/18/18 03:58 Objective Remarks: GENERAL: Middle-age male, lying in bed, intubated, sedated HEENT: Normocephalic. Atraumatic. Pupils equal, round, reactive, conjugate. Mucous membranes are moist NECK: Trachea is midline. no JVD. CHEST: prvc, peep 5, fio2 70%. spo2 93%. CARDIOVASCULAR: normal rate, regular rhythm. Sinus. ABDOMEN: Obese, soft, nontender, nondistended. No guarding. MUSCULOSKELETAL: Pulses 2+. 1+ peripheral edema NEUROLOGICAL: RASS -2. withdraws x 4. does not follow commands this morning. Assessment and Plan - Assessment and Plan Plan: Assessment: 68-year-old male with most likely COPD, obesity hypoventilation, and likely congestive heart failure, unknown type who presents with acute hypoxic hypercarbic respiratory failure likely combination of COPD exacerbation , OHS exacerbation, and possibly CHF exacerbation. Now intubated with worsening respiratory failure. Critically ill. Acute hypoxic and hypercarbic Respiratory failure Acute severe COPD Exacerbation Obesity Hypoventilation Syndrome -COPD exacerbation -Obesity hypoventilation syndrome -Lung volume loss due to severe cardiomegaly -IV steroid -DuoNeb scheduled and as needed -vent bundle - hob elevated -Empiric antibiotic - start daily SBTs Cardiomegaly Congestive Heart Failure, unknown type Suspected Acute CHF Exacerbation, unknown type -Unknown EF -2D echo pending - does not appear to need mivf - may need diuresis, will await formal echo. Lung nodule -High risk for malignancy -Pulmonary consultation Tobacco dependency -Continue Wellbutrin Obesity - tube feeds DVT GI prophylaxis -Teds SCDs -Subcu Lovenox -Pepcid Critical care time: 31 minutes, exclusive of separately billed procedures.
[2018-08-18] MEDS: Gabapentin 300 MG Capsule PO SCH ×2 (08:59→20:03)
[2018-08-18] MEDS: Senna/Docusate Sodium 8.6/50 MG Tablet PO SCH ×2 (08:59→20:04)
[2018-08-18] MEDS: buPROPion 150 MG 12 HR Tablet PO SCH (09:00)
[2018-08-18] MEDS: Chlorhexidine 0.12% Oral Kit 15 ML UDC OROPHARYNG SCH ×2 (09:00→20:04)
[2018-08-18] MEDS: Famotidine PF Inj 20 MG/2 ML Vial IV.PUSH SCH ×2 (09:00→20:03)
--- NOTE | 2018-08-18 11:21 | P.PNPL ---
Subjective Interval history: 68 YOWM with VDRF, COPD CXr worsening left lung aeration On AC, Fi02 80%, PEEP increased to 10 Sedated with Diprivan Physical Exam Vital signs: Vital Signs 08/17/18 11:30 08/17/18 12:00 08/17/18 12:30 Temperature 99.8 F H Pulse Rate 83 84 85 Respiratory Rate 18 18 18 Blood Pressure 90/57 L 90/57 L 96/57 L Pulse Oximetry 92 L 92 L 93 L 08/17/18 13:00 08/17/18 13:30 08/17/18 14:00 Temperature Pulse Rate 85 85 85 Respiratory Rate 18 18 18 Blood Pressure 95/57 L 94/57 L 96/60 L Pulse Oximetry 93 L 93 L 93 L 08/17/18 14:30 08/17/18 15:00 08/17/18 15:23 Temperature Pulse Rate 86 86 85 Respiratory Rate 18 18 18 Blood Pressure 102/64 101/62 Pulse Oximetry 93 L 93 L 93 L 08/17/18 15:30 08/17/18 16:00 08/17/18 16:30 Temperature 99.6 F Pulse Rate 86 89 92 H Respiratory Rate 18 17 19 Blood Pressure 102/62 111/69 116/71 Pulse Oximetry 93 L 93 L 93 L 08/17/18 17:00 08/17/18 17:30 08/17/18 18:00 Temperature Pulse Rate 91 H 86 82 Respiratory Rate 16 18 18 Blood Pressure 99/62 L 96/62 L 97/62 L Pulse Oximetry 92 L 93 L 92 L 08/17/18 18:30 08/17/18 19:00 08/17/18 19:31 Temperature Pulse Rate 81 81 80 Respiratory Rate 18 18 15 Blood Pressure 100/64 104/67 113/74 Pulse Oximetry 92 L 93 L 93 L 08/17/18 20:00 08/17/18 20:05 08/17/18 20:30 Temperature 99.8 F H Pulse Rate 80 82 79 Respiratory Rate 11 L 18 18 Blood Pressure 111/69 109/70 Pulse Oximetry 93 L 93 L 08/17/18 21:00 08/17/18 22:00 08/17/18 22:10 Temperature Pulse Rate 81 82 81 Respiratory Rate 18 13 18 Blood Pressure 114/74 111/73 Pulse Oximetry 94 L 93 L 92 L 08/17/18 22:30 08/17/18 23:00 08/17/18 23:30 Temperature Pulse Rate 80 81 82 Respiratory Rate 18 47 H 18 Blood Pressure 109/74 92/67 L 94/68 L Pulse Oximetry 92 L 91 L 91 L 08/17/18 23:51 08/18/18 00:00 08/18/18 00:30 Temperature Pulse Rate 81 80 82 Respiratory Rate 18 18 18 Blood Pressure 103/73 108/76 Pulse Oximetry 93 L 92 L 92 L 08/18/18 01:00 08/18/18 01:30 08/18/18 02:00 Temperature Pulse Rate 82 81 82 Respiratory Rate 18 18 18 Blood Pressure 113/74 109/73 112/77 Pulse Oximetry 92 L 91 L 93 L 08/18/18 02:30 08/18/18 03:00 08/18/18 03:30 Temperature Pulse Rate 81 80 79 Respiratory Rate 18 18 18 Blood Pressure 114/78 116/78 115/77 Pulse Oximetry 92 L 92 L 92 L 08/18/18 04:00 08/18/18 04:29 08/18/18 04:30 Temperature 98.5 F Pulse Rate 80 79 79 Respiratory Rate 18 18 18 Blood Pressure 118/78 111/77 Pulse Oximetry 93 L 92 L 92 L 08/18/18 05:00 08/18/18 05:30 08/18/18 06:00 Temperature Pulse Rate 79 78 77 Respiratory Rate 19 19 30 H Blood Pressure 113/74 110/69 Pulse Oximetry 91 L 92 L 93 L 08/18/18 06:01 08/18/18 06:30 08/18/18 07:00 Temperature Pulse Rate 79 77 78 Respiratory Rate 61 H 18 18 Blood Pressure 110/67 112/73 115/73 Pulse Oximetry 96 92 L 93 L 08/18/18 07:37 08/18/18 08:00 Temperature 98.4 F Pulse Rate 77 77 Respiratory Rate 18 18 Blood Pressure 112/73 Pulse Oximetry 92 L 92 L Intake & Output 08/17/18 08/18/18 08/18/18 18:59 06:59 18:59 Intake Total 200 / 200 550 / 550 Output Total 550 / 550 0 / 0 Balance -350 / -350 550 / 550 Weight 114.5 kg Intake: IV 200 / 200 550 / 550 Diprivan 1000 mg/100 ml Inj 1, 100 / 100 300 / 300 000 mg In 100 ml @ 5 MCG/KG/MIN 3.525 mls/hr IV.CONT TITRATE PRN Rx#:[id number] Azithromycin Inj 500 MG In NS 250 / 250 Inj 250 ML @ 250 mls/hr IV.SIG Q24H HORACE Rx#:[id number] Maxipime Inj 2,000 MG In NS Inj 100 / 100 100 ML @ 200 mls/hr IV.SIG Q12H HORACE Rx#:[id number] Output: Urine 0 / 0 Urine Amount (Catheter) 550 / 550 Indwelling Urethral Catheter 550 / 550 Other: Date of Last Bowel Movement 08/17/18 08/18/18 08/18/18 # Bowel Movements 1 GENERAL: WBWN, on Vent sedated SKIN: Warm and dry. HEAD: Normocephalic. EYES: No scleral icterus. No injection or drainage. NECK: Supple, trachea midline. No JVD or lymphadenopathy. CARDIOVASCULAR: Regular rate and rhythm without murmurs, gallops, or rubs. RESPIRATORY: Breath sounds equal bilaterally. No accessory muscle use. Decreased BS left GASTROINTESTINAL: Abdomen soft, non-tender, nondistended. MUSCULOSKELETAL: No cyanosis, or edema. BACK: Nontender without obvious deformity. No CVA tenderness. - Urinary Catheter Management Indwelling Urethral Catheter Cath placed during this visit: yes, but has since been removed by the nurse Reason for continuing: Decision to DC catheter Removal date: 08/17/18 Removal time: 16:30 Assessment and Plan - Plan IMPRESSION: 1. Hypoxic, hypercapnic respiratory failure. 2. Left lung volume loss, possible atelectasis or infiltrate. 3. Left lung nodule. 4. Chronic obstructive pulmonary disease. 5. Renal insufficiency. 6. Atelactesis left lung PLAN: Vent Support, ACV, Fi02 80%, PEEP 10 Aerosol nebs Add Mucomyst nebs Cont Abx Sedation with Diprivan Cont Abx If CXr does;t improve, may need Bronch
[2018-08-18] MEDS: Enoxaparin Inj 40 MG/0.4 ML Syringe SQ SCH (22:41)
[2018-08-18] MEDS: Azithromycin Inj 500 MG in Sodium Chlor 0.9% Inj 250 ML IV.SIG SCH (22:42)
[2018-08-19] MEDS: Oral Hygiene Kit OROPHARYNG SCH ×4 (00:26→15:31)
[2018-08-19] MEDS: Propofol 1000 mg/100 ml Inj 1,000 MG/100 ML BOTTLE IV.CONT PRN ×5 (01:11→20:25)
[2018-08-19] MEDS: Chlorhexidine Gluconate 2% 1 Pack (2 Cloths) TOPICAL SCH (04:22)
[2018-08-19 04:32] LABS: INR 1.2 Ratio
[2018-08-19 04:48] LABS: Hemoglobin 16.3 gm/dL (13.0-17.0); Mean Corpuscular HGB Conc 32.5 % (32.0-36.0); Mean Corpuscular Hemoglobin 33.6 pg (27.0-34.0); Mean Corpuscular Volume 103.3 fL (80.0-100.0); Mean Platelet Volume 9.8 fL (7.0-11.0); Platelet Count 169 th/mm3 (150-450); Red Blood Count 4.85 mil/mm3 (4.50-5.90); White Blood Count 13.9 th/mm3 (4.0-11.0)
[2018-08-19 04:56] LABS: Alanine Aminotransferase 491 U/L (12-78); Albumin 2.8 g/dL (3.4-5.0); Alkaline Phosphatase 77 U/L (45-117); Anion Gap 12 meq/L (5-15); Aspartate Aminotransferase 266 U/L (15-37); Blood Urea Nitrogen 72 mg/dL (7-18); Calcium 8.5 mg/dL (8.5-10.1); Carbon Dioxide 27.1 meq/L (21.0-32.0); Chloride 104 meq/L (98-107); Glomerular Filtration Rate 19 mL/min (>89); Glucose,Random 126 mg/dL (74-106); Magnesium 2.1 mg/dL (1.5-2.5); Phosphorus 5.4 mg/dL (2.5-4.9); Potassium 4.1 meq/L (3.5-5.1); Sodium 143 meq/L (136-145); Total Protein 6.9 g/dL (6.4-8.2)
[2018-08-19 05:22] LABS: ABG PCO2 47 mmHg (38-42); ABG PO2 116 mmHG (61-120)
[2018-08-19] MEDS: MethylPREDNISolone Sod Succinate Inj 40 MG/ML Vial IV.PUSH SCH ×3 (05:42→22:20)
[2018-08-19] MEDS: buPROPion 150 MG 12 HR Tablet PO SCH (08:52)
[2018-08-19] MEDS: Chlorhexidine 0.12% Oral Kit 15 ML UDC OROPHARYNG SCH ×2 (08:52→20:26)
[2018-08-19] MEDS: Senna/Docusate Sodium 8.6/50 MG Tablet PO SCH ×2 (08:52→20:25)
[2018-08-19] MEDS: Gabapentin 300 MG Capsule PO SCH ×2 (08:52→20:25)
[2018-08-19] MEDS: Famotidine PF Inj 20 MG/2 ML Vial IV.PUSH SCH (08:53)
--- NOTE | 2018-08-19 12:40 | P.PNCC ---
Subjective Subjective Remarks/Hospital Course: 68-year-old gentleman with COPD and chronic cough who continues to smoke presented to [facility] emergency department for an evaluation of altered mental status and shortness of breath. The patient went to [employer] this morning and returned on the bus and sat in the garage. The lady that takes care of him did talk to him and he said he was fine and sat down in his chair in the garage. He however did not come to his lunch and she went out and found him unresponsive with labored breathing. This occurred at 2 PM today. Patient was brought into the emergency department with altered mental status and respiratory distress. Pulse ox was in the 60s. Patient was put on high flow oxygen and later changed to BiPAP with improvement in mentation and oxygenation. The chest x-ray obtained in the emergency department shows almost complete opacification of left hemithorax. The CT without contrast shows severe cardiomegaly and no pleural effusion or pericardial effusion. The patient has been transferred to [facility] ICU for higher level of care. 08/17: no improvement in respiratory distress- mental status worsened. abg no improvement. clinically declined and emergently intubated. on bedside echo, very difficult windows due to lung disease and obesity, but dilated ivc without respiratory variation and no pericardial effusion. formal echo pending. 08/18: remains intubated. abg slowly improving. tran removed yesterday but unable to straight cath. Subjective: 08/19: FiO2 down to 55%. Will re-CT the chest today. Likely just a gigantic heart causing opacification left hemithorax.. No other issues overnight. Creatinine slowly increasing. Objective Vital Signs / I&O: Vital Signs 08/18/18 13:00 08/18/18 13:30 08/18/18 14:00 Temperature Pulse Rate 81 81 81 Respiratory Rate 18 18 18 Blood Pressure 123/79 123/81 124/81 Pulse Oximetry 93 L 94 L 94 L 08/18/18 14:30 08/18/18 15:00 08/18/18 15:30 Temperature Pulse Rate 82 85 83 Respiratory Rate 18 18 18 Blood Pressure 127/86 131/89 128/84 Pulse Oximetry 94 L 94 L 94 L 08/18/18 15:43 08/18/18 15:44 08/18/18 16:00 Temperature 98.7 F Pulse Rate 83 81 Respiratory Rate 18 18 18 Blood Pressure 127/82 Pulse Oximetry 94 L 94 L 08/18/18 16:30 08/18/18 17:00 08/18/18 17:30 Temperature Pulse Rate 81 84 86 Respiratory Rate 18 18 18 Blood Pressure 126/82 131/88 131/86 Pulse Oximetry 94 L 94 L 94 L 08/18/18 18:00 08/18/18 18:30 08/18/18 19:00 Temperature Pulse Rate 87 87 89 Respiratory Rate 18 18 18 Blood Pressure 131/89 133/88 133/89 Pulse Oximetry 94 L 94 L 94 L 08/18/18 19:30 08/18/18 19:57 08/18/18 20:00 Temperature 99.3 F Pulse Rate 90 92 H 91 H Respiratory Rate 18 18 18 Blood Pressure 131/86 130/87 Pulse Oximetry 94 L 94 L 94 L 08/18/18 20:30 08/18/18 21:00 08/18/18 21:30 Temperature Pulse Rate 92 H 92 H 92 H Respiratory Rate 19 18 18 Blood Pressure 132/85 132/85 131/84 Pulse Oximetry 94 L 93 L 93 L 08/18/18 22:00 08/18/18 22:30 08/18/18 23:00 Temperature 99.7 F H Pulse Rate 93 H 93 H 93 H Respiratory Rate 16 18 21 Blood Pressure 132/84 129/84 118/82 Pulse Oximetry 93 L 93 L 94 L 08/18/18 23:30 08/18/18 23:56 08/18/18 23:57 Temperature Pulse Rate 95 H 95 H Respiratory Rate 19 18 18 Blood Pressure 114/78 Pulse Oximetry 94 L 94 L 08/19/18 00:00 08/19/18 00:30 08/19/18 01:00 Temperature Pulse Rate 96 H 93 H 91 H Respiratory Rate 18 18 18 Blood Pressure 106/75 114/80 118/81 Pulse Oximetry 94 L 95 95 08/19/18 01:30 08/19/18 02:00 08/19/18 02:30 Temperature Pulse Rate 89 86 85 Respiratory Rate 18 18 18 Blood Pressure 120/78 120/75 120/76 Pulse Oximetry 95 95 94 L 08/19/18 03:00 08/19/18 03:30 08/19/18 03:47 Temperature Pulse Rate 80 78 Respiratory Rate 23 18 18 Blood Pressure 114/73 115/71 Pulse Oximetry 93 L 93 L 96 08/19/18 04:00 08/19/18 07:47 08/19/18 08:00 Temperature 98.6 F Pulse Rate 74 64 74 Respiratory Rate 18 18 18 Blood Pressure 114/69 115/73 Pulse Oximetry 94 L 96 94 L 08/19/18 12:00 08/19/18 12:02 Temperature 97.8 F Pulse Rate 59 L 57 L Respiratory Rate 18 18 Blood Pressure 111/66 Pulse Oximetry 95 96 Intake & Output 08/18/18 08/19/18 08/19/18 18:59 06:59 18:59 Intake Total 200 / 200 550 / 550 200 / 200 Output Total 575 / 575 800 / 800 Balance -375 / -375 -250 / -250 200 / 200 Weight 114.6 kg Intake: IV 200 / 200 550 / 550 200 / 200 Diprivan 1000 mg/100 ml Inj 1, 100 / 100 300 / 300 100 / 100 000 mg In 100 ml @ 5 MCG/KG/MIN 3.525 mls/hr IV.CONT TITRATE PRN Rx#:[id number] Azithromycin Inj 500 MG In NS 250 / 250 Inj 250 ML @ 250 mls/hr IV.SIG Q24H HORACE Rx#:[id number] Maxipime Inj 2,000 MG In NS Inj 100 / 100 100 / 100 100 ML @ 200 mls/hr IV.SIG Q24H HORACE Rx#:[id number] Output: Urine Amount (Catheter) 575 / 575 800 / 800 Indwelling Urethral Catheter 575 / 575 800 / 800 Other: Date of Last Bowel Movement 08/18/18 08/18/18 08/18/18 Result Diagrams: 08/19/18 02:57 08/19/18 02:57 Other Results: Microbiology 08/17/18 09:45 Sputum - Endotracheal Gram Stain - Final 08/17/18 09:45 Sputum - Endotracheal Sputum Culture - Final Light growth normal respiratory ada Imaging: Chest X-Ray 08/17/18 08:41 CONCLUSION: 1. ETT in good position. NGT beyond the GE junction. 2. Improved aeration of the left upper lung zone with persistent pleural- parenchymal disease in the left lower lung zone and worsening patchy airspace disease in the right lower lung zone, presumably atelectasis. Chest X-Ray 08/18/18 05:00 CONCLUSION: 1. Marked interval increase in left hemithorax opacity with near complete opacification of the left hemithorax. Air-fluid level is seen at the top of the opacity. Findings may represent a hydropneumothorax and left lung collapse versus postsurgical change. 2. Right lung base consolidation versus atelectasis and small pleural effusion now seen. Objective Remarks: GENERAL: 68-year-old male lying in bed, intubated, sedated HEENT: Normocephalic. Atraumatic. Pupils equal, round, reactive, round 1 mm bilaterally conjugate. Mucous membranes are moist NECK: Trachea is midline. no JVD. CHEST: prvc, peep 5, fio2 70%. spo2 93%. CARDIOVASCULAR: normal rate, regular rhythm. Sinus. ABDOMEN: Obese, soft, nontender, nondistended. No guarding. MUSCULOSKELETAL: Pulses 2+. 1+ peripheral edema NEUROLOGICAL: RASS -2. withdraws x 4. Positive gag and cough. Does not follow commands this morning. Assessment and Plan - Assessment and Plan Plan: Neuro/Psych: Depression Currently on propofol at 30 mcg/kg/min and as needed fentanyl drip for sedation/ analgesia while intubated Goal of RA SS -2 Daily sedation vacation Acetaminophen 650 every 6 hours as needed fever Continue bupropion 50 mg daily and gabapentin 6 mg twice daily Holding varincline 1 mg twice daily for tobacco cessation CV: Cardiomegaly Congestive Heart Failure, acute systolic and diastolic Essential hypertension -2D echo- left ventricular systolic function is severely reduced with an estimated ejection fraction in the range of 30-35%. Moderately dilated left ventricle with normal wall thickness.There is diffuse global hypokinesis. Findings consistent with Grade 1 diastolic dysfunction. The RV is likely moderately enlarged with decreased systolic function. No significant valvular heart disease seen on the images that were obtained. Unable to obtain a proper maximum TR velocity to estimate the RVSP. Using the pulmonary regurgitant velocity at the begining of diastole, the mean PA is estimated at 31 mmHg. The inferior vena cava is normal in size with less than 50% collape with inspiration. (RAP is estimated at 15 mmHg) There is a small pericardial effusion present. Currently on bumetanide 1 mg twice daily and attempt diuresis Resp: Acute hypoxic and hypercarbic Respiratory failure Acute severe COPD Exacerbation Obesity Hypoventilation Syndrome Left lower lobe lung nodule Tobacco abuse -PRVC ventilation 18/550/0.9/5/60 Ventilator bundle Albuterol/ipratropium aerosols every 6 hours with albuterol aerosols every 2 hours as needed for dyspnea Spontaneous breathing trials when clinically indicated Head of bed at 30 Methylprednisolone succinate 40 g IV every 8 hours Pulmonary/Dr. Ott following CT chest now On Mucomyst nebulizers per pulmonology every 6 hours GI: Transaminitis Start tube feedings with Nepro goal 50 cc an hour Lansoprazole for GI prophylaxis Docusate sodium/senna 1 tablet twice daily for bowel regimen Check liver ultrasound, CPK/hepatitis panel : Tran catheter due to urinary retention/BPH Endo: Sliding scale insulin Accu-Cheks to maintain euglycemia/to 6 hours aspart medium regimen Renal: Acute kidney injury unknown baseline Check renal ultrasound/urine sodium, creatinine and eosinophils We would check urine urea however takes greater than equal to 1 weeks return Renal ultrasound ordered Nephrology consultation Heme: Macrocytosis Leukocytosis Monitor CBC daily. Follow trends. No indication for transfusion of blood products at this time. ID: Currently on cefepime, azithromycin since 08/16 Negative blood cultures 08/16. Negative UA 08/17. Negative sputum 08/17 Check influenza Bronchoscopy samples from left upper lobe 7 08/19 FEN: Replace electrolytes as clinically indicated MSK: Elevated BMI Weight loss encouraged Access -Utilize peripheral IV. Central line if indicated Prophylaxis - GI -Lansoprazole - DVT -SCDs enoxaparin Follow-up 35 minutes critical care time Code Status: Full code
--- NOTE | 2018-08-19 13:44 | CT ---
EXAM DATE: 08/19/2018 12:49 PM EDT AGE/SEX: 68 years / Male INDICATIONS: Left hydropneumothorax CLINICAL DATA: This is the patient's initial encounter. Patient reports that signs and symptoms have been present for 1 day and indicates a pain score of Nonresponsive. MEDICAL/SURGICAL HISTORY: Chronic obstructive pulmonary disease. None. RADIATION DOSE: 19.70 CTDI (mGy) COMPARISON: [facility], CT CHEST W/O CONTRAST, 08/16/2018. . TECHNIQUE: Multiple contiguous axial images were obtained through the chest without contrast. Image s were obtained in suspended respiration using multiple row detector helical technique. Using automa grace exposure control and adjustment of the mA and/or kV according to patient size, radiation dose was kept as low as reasonably achievable to obtain optimal diagnostic quality images. DICOM format imag e data is available electronically for review and comparison. FINDINGS: Lung: Patient is intubated with ETT in good position. There is progressive airspace consolidation an d collapse involving now nearly the entire left lung with only minimal residual aeration of the left lung apex. There are air bronchograms noted throughout with progressive mediastinal shift to the left . Pleura: No effusion, significant pleural thickening or pneumothorax. Mediastinum: Heart is unremarkable without pericardial effusion. Scattered subcentimeter mediastinal nodes. Densely calcified subcarinal nodes. Osseous Structures: No abnormal focal lytic or blastic bony lesions. Soft Tissues: Soft tissues are unremarkable. No significant axillary adenopathy. Other: 4 cm cyst in the superior pole the right kidney. There is an NGT in the stomach. CONCLUSION: 1. Progressive airspace consolidation and collapse involving now nearly the entire left lung with on ly minimal residual aeration of the left lung apex. Air bronchograms are noted throughout the left jadyn ng making a significant endobronchial lesion less likely. There is progressive mediastinal shift to t he left. 2. No evidence for hydropneumothorax as questioned. 3. Scattered subcentimeter mediastinal nodes are nonspecific and may be reactive in etiology. Electronically signed by: Pollo Harris MD 08/19/2018 1:43 PM EDT
[2018-08-19] MEDS ORDERED: Midazolam Inj 5 MG/ML 1 ML Vial ONE (14:37)
--- NOTE | 2018-08-19 15:25 | P.PCN ---
Date of procedure: 08/19/18 Pre-op diagnosis: Acute respiratory failure Post-op diagnosis: same Procedure: DATE: 08/19/2018 Fiberoptic bronchoscopy/diagnostic and therapeutic INDICATION: Collapsed left lung on CAT scan CONSENT Informed consent for procedure was obtained from . DESCRIPTION OF THE PROCEDURE The patient was placed in supine position. PRVC ventilation 10 of PEEP 100% FiO2. Patient was sedated with propofol and fentanyl drips. Patient received 50 mg rocuronium. Saturations were at 100%. I entered the 8.0 ET tube with direct bronchoscopy. There is thick white secretions of the helen. These were suctioned with saline. The left upper lobe was evaluated with thick white secretions. This was suctioned with saline and collected with a Lukens trap and sent for appropriate samples. The lingula/lower lobe was evaluated thick mucous plugs and lavaged until clear. Mucosa was normal with no masses noted. No bleeding. Scope withdrawn the helen and I evaluated the right upper, middle and lower lobes. Thick whitish mucous plugs throughout. These were lavaged with sterile saline. Mucosa was normal. No masses or lesions. Scope was withdrawn. Patient tolerated procedure well. Saturations remained above 95 % all times. Postprocedure chest x-ray pending. Blood loss minimal per
[2018-08-19] MEDS: Carboxymethylcellulose 0.5% Opth Drops 15 ML Bottle EACH EYE SCH ×2 (15:31→17:06)
--- NOTE | 2018-08-19 15:52 | XR ---
EXAM DATE: 08/19/2018 3:17 PM EDT AGE/SEX: 68 years / Male INDICATIONS: Post brochoscopy CLINICAL DATA: This is the patient's initial encounter. Patient reports that signs and symptoms have been present for 1 day and indicates a pain score of Nonresponsive. MEDICAL/SURGICAL HISTORY: Chronic obstructive pulmonary disease. None. COMPARISON: C, CHEST 1V SINGLE AP, 08/18/2018. . FINDINGS: Stable ETT with NGT coursing beyond the GE junction. Improved aeration of the left upper lung zone wi th slightly decreased mediastinal shift following bronchoscopy. No significant pneumothorax. Persiste nt airspace consolidation and volume loss in the left mid to lower lung zones. Remainder of exam is u nchanged. CONCLUSION: 1. Improved aeration of the left upper lung zone following bronchoscopy without pneumothorax. Electronically signed by: Pollo Harris MD 08/19/2018 3:51 PM EDT
--- NOTE | 2018-08-19 16:00 | P.CONNP ---
History of Present Illness Service: Nephrology Consult date: 08/19/18 Requesting Physician: Michael Palomares Reason for Consult: Acute renal failure on chronic kidney disease Primary Care Provider: UNKNOWN Family Provider: Trace Chung Chief Complaint: Intubated with shortness of breath History of Present Illness: Patient is a 68-year-old white male with history of COPD, chronic kidney disease admitting creatinine around 2.5 and now with diuretics went up to 3.2, patient is on ventilator unable to get any information, there is no contact number and history is gathered from the chart that he went to [facility] and was sitting in the garage and was found unresponsive, short of breath, brought to [place] ER subsequently transferred to intensive care unit at [facility]. Patient was found to have a left lung white out with pneumonia and respiratory failure along with congestive heart failure, he was given Lasix with good response. Due to elevation in the creatinine Lasix has been discontinued after morning dose. Review of Systems unobtainable due to endotracheal tube PMFSH - History History Provided By: Friend - Medical History Medical History: Medical History (Last Reviewed 08/19/18 @ 15:54 by Nicolás Olivares MD) COPD (chronic obstructive pulmonary disease) Surgical history unknown - Tobacco History Tobacco Use In Past 30 Days: Yes Smoking Status: Smoker, status unknown Tobacco Type: Cigarettes - Alcohol History How Often Do You Have a Drink Containing Alcohol: Unable to Obtain - Substance Use History Substance History: Unable to Obtain Medications and Allergies Active Medications: Active Medications Acetaminophen (Tylenol) 650 mg PO Q6H PRN PRN Reason: PAIN 1-10 AND/OR FEVER >101F Acetylcysteine (Mucomyst 20% Neb) 2 ml NEB Q6HR NEB [facility] Last Admin: 08/19/18 15:25 Dose: 2 ml Al Hydroxide/Mg Hydroxide (Milk Of Magnmelvina Liq) 30 ml PO Q12H PRN PRN Reason: Mild Constipation Albuterol (Albuterol Neb (Prn)) 2.5 mg NEB Q2HR NEB PRN PRN Reason: DYSPNEA Albuterol (Duoneb Neb (Sandee)) 1 ampul NEB Q6HR NEB SANDEE Last Admin: 08/19/18 15:25 Dose: 1 ampul Artificial Tears (Refresh Tears 0.5% Opth Drops) 1 drop EACH EYE TID [facility]E Last Admin: 08/19/18 15:31 Dose: Not Given Bisacodyl (Dulcolax Supp) 10 mg RECTAL DAILY PRN PRN Reason: SEVERE CONSITIPATION Bumetanide (Bumex Inj) 1 mg IV.PUSH BID@0900,1800 [facility] Bupropion HCl (Wellbutrin Sr) 150 mg PO DAILY [facility] Last Admin: 08/19/18 08:52 Dose: 150 mg Chlorhexidine Gluconate (Chlorhexidine 2% Cloth) 3 pack TOPICAL DAILY@0400 [facility] Stop: 08/22/18 03:59 Last Admin: 08/19/18 04:22 Dose: 3 pack Chlorhexidine Gluconate (Chlorhexidine 2% Cloth) 3 pack TOPICAL DAILY@0400 PRN PRN Reason: Extra cloth needed Stop: 08/22/18 03:59 Chlorhexidine Gluconate (Peridex 0.12% Oral Kit) 15 ml OROPHARYNG BID@0800, 2000 [facility] Last Admin: 08/19/18 08:52 Dose: 15 ml Enoxaparin Sodium (Lovenox Inj) 30 mg SQ Q24H [facility] Gabapentin (Neurontin) 600 mg PO BID [facility] Last Admin: 08/19/18 08:52 Dose: 600 mg Azithromycin 500 mg/ Sodium (Chloride) 250 mls @ 250 mls/hr IV.SIG Q24H [facility] Last Infusion: 08/19/18 00:22 Dose: Infused Propofol (Diprivan 1000 Mg/100 Ml Inj) 1,000 mg in 100 mls @ 3.525 mls/hr IV.CONT TITRATE PRN; Protocol PRN Reason: Per Protocol Last Admin: 08/19/18 11:15 Dose: 30 mcg/kg/min, 21.15 mls/hr Cefepime HCl 2,000 mg/ Sodium (Chloride) 100 mls @ 200 mls/hr IV.SIG Q24H [facility] Last Infusion: 08/19/18 12:14 Dose: Infused Fentanyl (Fentanyl 10 Mcg/Ml Premix Drip) 2,500 mcg in 250 mls @ 5 mls/hr IV.SIG TITRATE PRN; Protocol PRN Reason: Per Protocol Lactulose (Lactulose Liq) 30 ml PO DAILY PRN PRN Reason: SEVERE CONSITIPATION Lansoprazole (Prevacid Solutab) 30 mg NG/OG DAILY [facility] Methylprednisolone Sodium Succinate (Solumedrol Inj) 40 mg IV.PUSH Q8HR [facility] Last Admin: 08/19/18 13:59 Dose: 40 mg Miscellaneous Medication () 1 each OROPHARYNG 0000,0400,1200,1600 [facility] Last Admin: 08/19/18 15:31 Dose: 1 each Ondansetron HCl (Zofran Inj) 4 mg IV.PUSH Q6H PRN PRN Reason: NAUSEA OR VOMITING Senna/Docusate Sodium (Clare-Colace) 1 tab PO BID [facility] Last Admin: 08/19/18 08:52 Dose: 1 tab Sennosides (Senokot) 17.2 mg PO Q12H PRN PRN Reason: Moderate Constipation Sodium Chloride (Ns Flush) 2 ml IV.FLUSH BID [facility] Last Admin: 08/19/18 08:53 Dose: 2 ml Sodium Chloride (Ns Flush) 2 ml IV.FLUSH PRN PRN PRN Reason: FLUSH AFTER USING IV ACCESS Thiamine HCl (Vitamin B1) 100 mg PO BID [facility] Allergies Allergy/AdvReac Type Severity Reaction Status Date / Time No Known Allergies Allergy Unverified 08/16/18 16:33 Home Medications Medication Instructions Recorded Confirmed Type bupropion HCl (smoking deter) 150 mg PO DAILY 08/16/18 08/16/18 History gabapentin 600 mg PO BID 08/16/18 08/16/18 History ibuprofen 800 mg PO TID 08/16/18 08/16/18 History varenicline [Chantix] 1 mg PO BID 08/16/18 08/16/18 History Exam Vital signs: Vital Signs 08/18/18 16:00 08/18/18 16:30 08/18/18 17:00 Temperature 98.7 F Pulse Rate 81 81 84 Respiratory Rate 18 18 18 Blood Pressure 127/82 126/82 131/88 Pulse Oximetry 94 L 94 L 94 L 08/18/18 17:30 08/18/18 18:00 08/18/18 18:30 Temperature Pulse Rate 86 87 87 Respiratory Rate 18 18 18 Blood Pressure 131/86 131/89 133/88 Pulse Oximetry 94 L 94 L 94 L 08/18/18 19:00 08/18/18 19:30 08/18/18 19:57 Temperature Pulse Rate 89 90 92 H Respiratory Rate 18 18 18 Blood Pressure 133/89 131/86 Pulse Oximetry 94 L 94 L 94 L 09/25/18 20:00 08/18/18 20:30 08/18/18 21:00 Temperature 99.3 F Pulse Rate 91 H 92 H 92 H Respiratory Rate 18 19 18 Blood Pressure 130/87 132/85 132/85 Pulse Oximetry 94 L 94 L 93 L 08/18/18 21:30 08/18/18 22:00 08/18/18 22:30 Temperature Pulse Rate 92 H 93 H 93 H Respiratory Rate 18 16 18 Blood Pressure 131/84 132/84 129/84 Pulse Oximetry 93 L 93 L 93 L 08/18/18 23:00 08/18/18 23:30 08/18/18 23:56 Temperature 99.7 F H Pulse Rate 93 H 95 H Respiratory Rate 21 19 18 Blood Pressure 118/82 114/78 Pulse Oximetry 94 L 94 L 94 L 08/18/18 23:57 08/19/18 00:00 08/19/18 00:30 Temperature Pulse Rate 95 H 96 H 93 H Respiratory Rate 18 18 18 Blood Pressure 106/75 114/80 Pulse Oximetry 94 L 95 08/19/18 01:00 08/19/18 01:30 08/19/18 02:00 Temperature Pulse Rate 91 H 89 86 Respiratory Rate 18 18 18 Blood Pressure 118/81 120/78 120/75 Pulse Oximetry 95 95 95 08/19/18 02:30 08/19/18 03:00 08/19/18 03:30 Temperature Pulse Rate 85 80 78 Respiratory Rate 18 23 18 Blood Pressure 120/76 114/73 115/71 Pulse Oximetry 94 L 93 L 93 L 08/19/18 03:47 08/19/18 04:00 08/19/18 07:47 Temperature Pulse Rate 74 64 Respiratory Rate 18 18 18 Blood Pressure 114/69 Pulse Oximetry 96 94 L 96 08/19/18 08:00 08/19/18 12:00 08/19/18 12:02 Temperature 98.6 F 97.8 F Pulse Rate 74 59 L 57 L Respiratory Rate 18 18 18 Blood Pressure 115/73 111/66 Pulse Oximetry 94 L 95 96 08/19/18 13:10 08/19/18 14:00 08/19/18 15:00 Temperature Pulse Rate 57 L 59 L Respiratory Rate 18 Blood Pressure Pulse Oximetry 98 08/19/18 15:23 Temperature Pulse Rate Respiratory Rate Blood Pressure Pulse Oximetry 100 Intake & Output 08/18/18 08/19/18 08/19/18 18:59 06:59 18:59 Intake Total 200 / 200 550 / 550 200 / 200 Output Total 575 / 575 800 / 800 1650 / 1650 Balance -375 / -375 -250 / -250 -1450 / -1450 Weight 114.6 kg Intake: IV 200 / 200 550 / 550 200 / 200 Diprivan 1000 mg/100 ml Inj 1, 100 / 100 300 / 300 100 / 100 000 mg In 100 ml @ 5 MCG/KG/MIN 3.525 mls/hr IV.CONT TITRATE PRN Rx#:[id number] Azithromycin Inj 500 MG In NS 250 / 250 Inj 250 ML @ 250 mls/hr IV.SIG Q24H [facility] Rx#:[id number] Maxipime Inj 2,000 MG In NS Inj 100 / 100 100 / 100 100 ML @ 200 mls/hr IV.SIG Q24H [facility] Rx#:[id number] Output: Urine Amount (Catheter) 575 / 575 800 / 800 1650 / 1650 Indwelling Urethral Catheter 575 / 575 800 / 800 1650 / 1650 Other: Date of Last Bowel Movement 08/18/18 08/18/18 08/18/18 Narrative: GENERAL: Well-nourished, well-developed patient on ventilator. SKIN: Warm and dry. HEAD: Normocephalic. EYES: No scleral icterus. No injection or drainage. NECK: Supple, trachea midline. No JVD or lymphadenopathy. CARDIOVASCULAR: Regular rate and rhythm without murmurs, gallops, or rubs. RESPIRATORY: Breath sounds equal bilaterally. No accessory muscle use. GASTROINTESTINAL: Abdomen soft, non-tender, nondistended. EXTREMITIES: No edema NEUROLOGICAL: Under sedation Results - Lab Results 08/19/18 02:57 08/19/18 02:57 Most recent lab results ABG pH 7.39 (7.380-7.420) 08/19/18 05:04 ABG pCO2 47 mmHg (38-42) H 08/19/18 05:04 ABG pO2 116 mmHG (61-120) 08/19/18 05:04 ABG HCO3 28 mmol/L (22-26) H 08/19/18 05:04 Calcium 8.5 mg/dL (8.5-10.1) 08/19/18 02:57 Phosphorus 5.4 mg/dL (2.5-4.9) H D 08/19/18 02:57 Magnesium 2.1 mg/dL (1.5-2.5) 08/19/18 02:57 Assessment and Plan - Assessment (1) Acute renal failure Code(s): N17.9 - Acute kidney failure, unspecified Status: Acute (2) Chronic kidney disease Code(s): N18.9 - Chronic kidney disease, unspecified Status: Acute (3) COPD (chronic obstructive pulmonary disease) Code(s): J44.9 - Chronic obstructive pulmonary disease, unspecified Status: Acute (4) Pneumonia Code(s): J18.9 - Pneumonia, unspecified organism Status: Acute (5) Congestive heart failure Code(s): I50.9 - Heart failure, unspecified Status: Acute (6) Respiratory failure Code(s): J96.90 - Respiratory failure, unspecified, unspecified whether with hypoxia or hypercapnia Status: Acute (7) Abnormal liver function Code(s): K76.89 - Other specified diseases of liver Status: Acute - Plan Agree with observation after stopping Lasix and avoid nephrotoxic agents Patient did receive Lasix 40 mg q. 6 hourly which was stopped Ejection fraction is about 30-35% He has pneumonia and on broad-spectrum antibiotic azithromycin and cefepime Avoid nephrotoxic agent Avoid dye studies Follow BMP Order kidney ultrasound Most likely infectious etiology causing respiratory failure, he came in with renal failure as well, differential includes autoimmune disease Order CARLOS/protein electrophoresis/hepatitis screen/ANCA/Anti GBM/ complements rule out autoimmune diseases
--- NOTE | 2018-08-19 17:25 | P.PNPL ---
Subjective Interval history: 68 YOWM with VDRF, COPD On AC, Fi02 55%, PEEP increased to 10 Sedated with Diprivan had Bronch, mucous plugs suctioned CXR improved aeration Physical Exam Vital signs: Vital Signs 08/18/18 17:30 08/18/18 18:00 08/18/18 18:30 Temperature Pulse Rate 86 87 87 Respiratory Rate 18 18 18 Blood Pressure 131/86 131/89 133/88 Pulse Oximetry 94 L 94 L 94 L 08/18/18 19:00 08/18/18 19:30 08/18/18 19:57 Temperature Pulse Rate 89 90 92 H Respiratory Rate 18 18 18 Blood Pressure 133/89 131/86 Pulse Oximetry 94 L 94 L 94 L 08/18/18 20:00 08/18/18 20:30 08/18/18 21:00 Temperature 99.3 F Pulse Rate 91 H 92 H 92 H Respiratory Rate 18 19 18 Blood Pressure 130/87 132/85 132/85 Pulse Oximetry 94 L 94 L 93 L 08/18/18 21:30 08/18/18 22:00 08/18/18 22:30 Temperature Pulse Rate 92 H 93 H 93 H Respiratory Rate 18 16 18 Blood Pressure 131/84 132/84 129/84 Pulse Oximetry 93 L 93 L 93 L 08/18/18 23:00 08/18/18 23:30 08/18/18 23:56 Temperature 99.7 F H Pulse Rate 93 H 95 H Respiratory Rate 21 19 18 Blood Pressure 118/82 114/78 Pulse Oximetry 94 L 94 L 94 L 08/18/18 23:57 08/19/18 00:00 08/19/18 00:30 Temperature Pulse Rate 95 H 96 H 93 H Respiratory Rate 18 18 18 Blood Pressure 106/75 114/80 Pulse Oximetry 94 L 95 08/19/18 01:00 08/19/18 01:30 08/19/18 02:00 Temperature Pulse Rate 91 H 89 86 Respiratory Rate 18 18 18 Blood Pressure 118/81 120/78 120/75 Pulse Oximetry 95 95 95 08/19/18 02:30 08/19/18 03:00 08/19/18 03:30 Temperature Pulse Rate 85 80 78 Respiratory Rate 18 23 18 Blood Pressure 120/76 114/73 115/71 Pulse Oximetry 94 L 93 L 93 L 08/19/18 03:47 08/19/18 04:00 08/19/18 07:47 Temperature Pulse Rate 74 64 Respiratory Rate 18 18 18 Blood Pressure 114/69 Pulse Oximetry 96 94 L 96 08/19/18 08:00 08/19/18 12:00 08/19/18 12:02 Temperature 98.6 F 97.8 F Pulse Rate 74 59 L 57 L Respiratory Rate 18 18 18 Blood Pressure 115/73 111/66 Pulse Oximetry 94 L 95 96 08/19/18 13:10 08/19/18 14:00 08/19/18 15:00 Temperature Pulse Rate 57 L 59 L Respiratory Rate 18 Blood Pressure Pulse Oximetry 98 08/19/18 15:23 08/19/18 16:00 08/19/18 16:13 Temperature 97.9 F Pulse Rate 54 L Respiratory Rate 18 18 Blood Pressure 119/71 Pulse Oximetry 100 96 96 Intake & Output 08/18/18 08/19/18 08/19/18 18:59 06:59 18:59 Intake Total 200 / 200 550 / 550 300 / 300 Output Total 575 / 575 800 / 800 2400 / 2400 Balance -375 / -375 -250 / -250 -2100 / -2100 Weight 114.6 kg Intake: IV 200 / 200 550 / 550 300 / 300 Diprivan 1000 mg/100 ml Inj 1, 100 / 100 300 / 300 200 / 200 000 mg In 100 ml @ 5 MCG/KG/MIN 3.525 mls/hr IV.CONT TITRATE PRN Rx#:[id number] Azithromycin Inj 500 MG In NS 250 / 250 Inj 250 ML @ 250 mls/hr IV.SIG Q24H [facility] Rx#:[id number] Maxipime Inj 2,000 MG In NS Inj 100 / 100 100 / 100 100 ML @ 200 mls/hr IV.SIG Q24H [facility] Rx#:[id number] Output: Urine Amount (Catheter) 575 / 575 800 / 800 2400 / 2400 Indwelling Urethral Catheter 575 / 575 800 / 800 2400 / 2400 Other: Date of Last Bowel Movement 08/18/18 08/18/18 08/18/18 GENERAL: WBWn, on vent, sedated SKIN: Warm and dry. HEAD: Normocephalic. EYES: No scleral icterus. No injection or drainage. NECK: Supple, trachea midline. No JVD or lymphadenopathy. CARDIOVASCULAR: Regular rate and rhythm without murmurs, gallops, or rubs. RESPIRATORY: Breath sounds equal bilaterally. No accessory muscle use. GASTROINTESTINAL: Abdomen soft, non-tender, nondistended. MUSCULOSKELETAL: No cyanosis, or edema. BACK: Nontender without obvious deformity. No CVA tenderness. - Urinary Catheter Management Indwelling Urethral Catheter Cath placed during this visit: yes, but has since been removed by the nurse Reason for continuing: Decision to DC catheter Removal date: 08/17/18 Removal time: 16:30 Assessment and Plan - Plan IMPRESSION: 1. Hypoxic, hypercapnic respiratory failure. 2. Left lung volume loss, possible atelectasis or infiltrate. 3. Left lung nodule. 4. Chronic obstructive pulmonary disease. 5. Renal insufficiency. 6. Atelactesis left lung PLAN: Vent Support, ACV, Fi02 55%, PEEP 10 Aerosol nebs Mucomyst nebs Cont Abx Sedation with Diprivan Cont Abx
--- NOTE | 2018-08-19 17:33 | US ---
EXAM DATE: 08/19/2018 12:00 AM EDT AGE/SEX: 68 years / Male INDICATIONS: Increased lab values. CLINICAL DATA: This is the patient's initial encounter. Patient reports that signs and symptoms have been present for 1 day and indicates a pain score of Nonresponsive. MEDICAL/SURGICAL HISTORY: Chronic obstructive pulmonary disease. None. COMPARISON: No prior exams available for comparison. MEASUREMENTS: Liver:__ 19.7 cm. Common Bile Duct:___ 4mm. Right Kidney:___10.3 x 4.7 x 5.4 cm. Left Kidney:___9.9 x x 5.0 cm. Spleen:___9.7 cm. FINDINGS: Liver: The liver is enlarged and demonstrates a diffuse coarse hyperechoic texture. There are no foc al lesions or evidence of biliary duct dilatation. Portal Vein: Hepatopedal flow seen in portal vein. Common Duct: No intraluminal mass or stone visualized. Gallbladder: Not visualized. Pancreas: Not well visualized. Right Kidney: 2 cysts are identified. A 3.9 cm cyst is identified in the midpole and a 1.7 cm cyst i n the lower pole. There is no evidence of hydronephrosis Left Kidney: A 4.8 cm cyst is identified in the midpole. There is no evidence of hydronephrosis. Ascites: None Pleural Effusion: None Spleen: No focal lesion. Aorta: Non aneurysmal. IVC: Within normal limits Other: None. CONCLUSION: 1. Hepatomegaly with diffuse hyperechoic texture characteristic of steatosis or diffuse hepatocellul ar disease. 2. Bilateral renal cysts. 3. Nonvisualization of the gallbladder and pancreas. 4. No evidence of hydronephrosis or abnormal fluid collections. Electronically signed by: Rahul Partida MD 08/19/2018 5:31 PM EDT
[2018-08-19 17:41] LABS: Bacteria,Urine Occasional /hpf; Bilirubin,Urine Negative (Negative); Clarity,Urine Hazy (Clear); Color,Urine Yellow (Yellw/Straw); Glucose,Urine (UA) Negative (Negative); Hyaline Casts,Urine 1 /lpf (0-3); Leukocyte Esterase,Urine Small (Negative); Mucus,Urine Few /lpf (Occasional); Nitrite,Urine Negative (Negative); Specific Gravity,Urine 1.009 (1.002-1.035); Squamous Epithelial Cell,Urine 1 /hpf (0-5)
[2018-08-19] MEDS: Enoxaparin Inj 30 MG/0.3 ML Syringe SQ SCH (22:20)
[2018-08-19] MEDS: Azithromycin Inj 500 MG in Sodium Chlor 0.9% Inj 250 ML IV.SIG SCH (22:21)
[2018-08-19 23:24] LABS: Creatinine,Urine Random 26 mg/dL (27-300)
[2018-08-20 00:10] LABS: Hepatitis A IgM Antibody Indeterminate (Nonreactive); Hepatitits B Surface Antigen Nonreactive (Nonreactive)
[2018-08-20] MEDS: Oral Hygiene Kit OROPHARYNG SCH ×4 (00:33→16:58)
[2018-08-20] MEDS: Propofol 1000 mg/100 ml Inj 1,000 MG/100 ML BOTTLE IV.CONT PRN ×4 (01:22→19:59)
[2018-08-20 04:53] LABS: Hematocrit 49.6 % (39.0-51.0); Hemoglobin 16.2 gm/dL (13.0-17.0); Mean Corpuscular HGB Conc 32.8 % (32.0-36.0); Mean Corpuscular Hemoglobin 33.3 pg (27.0-34.0); Mean Corpuscular Volume 101.5 fL (80.0-100.0); Mean Platelet Volume 9.5 fL (7.0-11.0); Platelet Count 176 th/mm3 (150-450); Red Blood Count 4.88 mil/mm3 (4.50-5.90); Red Cell Distribution Width 14.4 % (11.6-17.2); White Blood Count 12.4 th/mm3 (4.0-11.0)
[2018-08-20 04:59] LABS: INR 1.2 Ratio; Prothrombin Time 12.3 sec (9.8-11.6)
[2018-08-20 05:32] LABS: ABG Base Excess 8.6 mmol/L (-2-2); ABG PCO2 41 mmHg (38-42); ABG PO2 96 mmHG (61-120)
[2018-08-20 05:42] LABS: Alanine Aminotransferase 465 U/L (12-78); Albumin 2.7 g/dL (3.4-5.0); Alkaline Phosphatase 72 U/L (45-117); Anion Gap 10 meq/L (5-15); Aspartate Aminotransferase 224 U/L (15-37); Blood Urea Nitrogen 75 mg/dL (7-18); Calcium 8.6 mg/dL (8.5-10.1); Carbon Dioxide 32.5 meq/L (21.0-32.0); Chloride 105 meq/L (98-107); Creatine Kinase 506 U/L (39-308); Glomerular Filtration Rate 26 mL/min (>89); Glucose,Random 116 mg/dL (74-106); Magnesium 2.5 mg/dL (1.5-2.5); Phosphorus 3.6 mg/dL (2.5-4.9); Potassium 3.1 meq/L (3.5-5.1); Sodium 147 meq/L (136-145); Total Protein 6.6 g/dL (6.4-8.2); Troponin I 0.05 ng/mL (0.02-0.05)
[2018-08-20 06:00] LABS: CKMB Percent 0.7 % (0.0-4.0); Creatine Kinase MB 3.5 ng/mL (0.5-3.6)
[2018-08-20] MEDS ORDERED: Potassium Chloride 25 MEQ Effervescent Tablet PO ONE (06:34)
[2018-08-20] MEDS: MethylPREDNISolone Sod Succinate Inj 40 MG/ML Vial IV.PUSH SCH ×3 (06:58→22:08)
[2018-08-20] MEDS: Chlorhexidine Gluconate 2% 1 Pack (2 Cloths) TOPICAL SCH (06:58)
[2018-08-20] MEDS: Potassium Chlor 10 mEq Premix 10 MEQ/100 ML PIGGYBACK IV.SIG SCH ×3 (06:59→09:29)
[2018-08-20] MEDS: Senna/Docusate Sodium 8.6/50 MG Tablet PO SCH ×2 (08:55→20:44)
[2018-08-20] MEDS: buPROPion 150 MG 12 HR Tablet PO SCH (08:55)
[2018-08-20] MEDS: Carboxymethylcellulose 0.5% Opth Drops 15 ML Bottle EACH EYE SCH ×3 (08:55→17:05)
[2018-08-20] MEDS: Gabapentin 300 MG Capsule PO SCH ×2 (08:56→20:44)
[2018-08-20] MEDS: Chlorhexidine 0.12% Oral Kit 15 ML UDC OROPHARYNG SCH ×2 (09:03→19:57)
--- NOTE | 2018-08-20 09:35 | P.PNCC ---
Subjective Subjective Remarks/Hospital Course: 68-year-old gentleman with COPD and chronic cough who continues to smoke presented to [facility] emergency department for an evaluation of altered mental status and shortness of breath. The patient went to [employer] this morning and returned on the bus and sat in the garage. The lady that takes care of him did talk to him and he said he was fine and sat down in his chair in the garage. He however did not come to his lunch and she went out and found him unresponsive with labored breathing. This occurred at 2 PM today. Patient was brought into the emergency department with altered mental status and respiratory distress. Pulse ox was in the 60s. Patient was put on high flow oxygen and later changed to BiPAP with improvement in mentation and oxygenation. The chest x-ray obtained in the emergency department shows almost complete opacification of left hemithorax. The CT without contrast shows severe cardiomegaly and no pleural effusion or pericardial effusion. The patient has been transferred to [facility] ICU for higher level of care. 08/17: no improvement in respiratory distress- mental status worsened. abg no improvement. clinically declined and emergently intubated. on bedside echo, very difficult windows due to lung disease and obesity, but dilated ivc without respiratory variation and no pericardial effusion. formal echo pending. 08/18: remains intubated. abg slowly improving. tran removed yesterday but unable to straight cath. 08/19: FiO2 down to 55%. Will re-CT the chest today. Likely just a gigantic heart causing opacification left hemithorax.. No other issues overnight. Creatinine slowly increasing. Subjective: 08/20: Febrile. Status post bronchoscopy yesterday due to mucous plug in the left lungs. Improved aeration currently 50% FiO2. We will continue to wean today. Tolerating tube feeding. Creatinine improving. Objective Vital Signs / I&O: Vital Signs 08/19/18 12:00 08/19/18 12:02 08/19/18 13:10 Temperature 97.8 F Pulse Rate 59 L 57 L Respiratory Rate 18 18 Blood Pressure 111/66 Pulse Oximetry 95 96 98 08/19/18 14:00 08/19/18 15:00 08/19/18 15:23 Temperature Pulse Rate 57 L 59 L Respiratory Rate 18 Blood Pressure Pulse Oximetry 100 08/19/18 16:00 08/19/18 16:13 08/19/18 16:30 Temperature 97.9 F Pulse Rate 54 L 54 L Respiratory Rate 18 18 18 Blood Pressure 119/71 114/70 Pulse Oximetry 96 96 96 08/19/18 17:00 08/19/18 17:30 08/19/18 18:00 Temperature Pulse Rate 55 L 54 L 53 L Respiratory Rate 18 18 18 Blood Pressure 114/69 117/75 116/71 Pulse Oximetry 96 97 97 08/19/18 18:30 08/19/18 19:00 08/19/18 19:30 Temperature Pulse Rate 55 L 58 L 58 L Respiratory Rate 18 18 18 Blood Pressure 116/73 123/77 125/75 Pulse Oximetry 96 95 96 08/19/18 19:46 08/19/18 20:00 08/19/18 20:01 Temperature 98.5 F Pulse Rate 58 L 65 Respiratory Rate 19 18 19 Blood Pressure 125/76 Pulse Oximetry 97 98 08/19/18 20:30 08/19/18 21:00 08/19/18 21:30 Temperature Pulse Rate 60 60 68 Respiratory Rate 18 18 19 Blood Pressure 126/78 128/80 129/81 Pulse Oximetry 98 96 98 08/19/18 22:00 08/19/18 22:30 08/19/18 23:00 Temperature Pulse Rate 63 64 67 Respiratory Rate 18 18 18 Blood Pressure 131/81 134/81 125/78 Pulse Oximetry 98 98 98 08/19/18 23:20 08/19/18 23:30 08/20/18 00:00 Temperature Pulse Rate 64 60 Respiratory Rate 18 18 18 Blood Pressure 118/75 114/71 Pulse Oximetry 95 95 94 L 08/20/18 00:30 08/20/18 01:00 08/20/18 01:30 Temperature Pulse Rate 58 L 56 L 56 L Respiratory Rate 18 18 18 Blood Pressure 114/71 112/70 112/71 Pulse Oximetry 93 L 93 L 93 L 08/20/18 02:00 08/20/18 02:30 08/20/18 03:00 Temperature Pulse Rate 55 L 55 L 54 L Respiratory Rate 18 18 18 Blood Pressure 113/71 119/75 116/75 Pulse Oximetry 93 L 94 L 93 L 08/20/18 03:30 08/20/18 03:32 08/20/18 03:42 Temperature Pulse Rate 53 L 59 L Respiratory Rate 18 18 18 Blood Pressure 116/73 Pulse Oximetry 93 L 93 L 08/20/18 03:59 08/20/18 04:00 08/20/18 04:30 Temperature Pulse Rate 52 L 52 L 52 L Respiratory Rate 19 18 18 Blood Pressure 116/72 117/72 Pulse Oximetry 94 L 93 L 93 L 08/20/18 05:00 08/20/18 05:30 08/20/18 06:00 Temperature Pulse Rate 54 L 56 L 54 L Respiratory Rate 18 Blood Pressure 126/82 119/74 114/70 Pulse Oximetry 96 99 98 08/20/18 07:38 Temperature Pulse Rate 65 Respiratory Rate 16 Blood Pressure Pulse Oximetry 100 Intake & Output 08/19/18 08/20/18 08/20/18 18:59 06:59 18:59 Intake Total 300 / 300 845 / 845 200 / 200 Output Total 2400 / 2400 1250 / 1250 Balance -2100 / -2100 -405 / -405 200 / 200 Weight 114.6 kg Intake: IV 300 / 300 550 / 550 200 / 200 Diprivan 1000 mg/100 ml Inj 1, 200 / 200 300 / 300 000 mg In 100 ml @ 5 MCG/KG/MIN 3.525 mls/hr IV.CONT TITRATE PRN Rx#:[id number] Azithromycin Inj 500 MG In NS 250 / 250 Inj 250 ML @ 250 mls/hr IV.SIG Q24H [facility] Rx#:[id number] Maxipime Inj 2,000 MG In NS Inj 100 / 100 100 ML @ 200 mls/hr IV.SIG Q24H [facility] Rx#:[id number] KCl 10 mEq Premix Inj 10 meq In 200 / 200 100 ml @ 100 mls/hr IV.SIG Q1H [facility] Rx#:[id number] Tube Feeding 195 / 195 Water Bolus Amount 100 / 100 Output: Urine Amount (Catheter) 2400 / 2400 1250 / 1250 Indwelling Urethral Catheter 2400 / 2400 1250 / 1250 Other: Date of Last Bowel Movement 08/18/18 08/18/18 Result Diagrams: 08/20/18 03:10 08/20/18 03:10 Other Results: Microbiology 08/19/18 15:09 Bronchial Washings - Left Upper Lobe Fungal Smear - Final No fungal elements seen 08/19/18 15:09 Bronchial - Left Upper Lobe Gram Stain - Final 08/17/18 09:45 Sputum - Endotracheal Gram Stain - Final 08/17/18 09:45 Sputum - Endotracheal Sputum Culture - Final Light growth normal respiratory ada Imaging: ITS Impressions Abdomen Ultrasound 08/19/18 00:00 CONCLUSION: 1. Hepatomegaly with diffuse hyperechoic texture characteristic of steatosis or diffuse hepatocellular disease. 2. Bilateral renal cysts. 3. Nonvisualization of the gallbladder and pancreas. 4. No evidence of hydronephrosis or abnormal fluid collections. Chest CT 08/19/18 12:41 CONCLUSION: 1. Progressive airspace consolidation and collapse involving now nearly the entire left lung with only minimal residual aeration of the left lung apex. Air bronchograms are noted throughout the left lung making a significant endobronchial lesion less likely. There is progressive mediastinal shift to the left. 2. No evidence for hydropneumothorax as questioned. 3. Scattered subcentimeter mediastinal nodes are nonspecific and may be reactive in etiology. Chest X-Ray 08/19/18 15:17 CONCLUSION: 1. Improved aeration of the left upper lung zone following bronchoscopy without pneumothorax. Objective Remarks: GENERAL: 68-year-old male lying in bed, intubated, sedated HEENT: Normocephalic. Atraumatic. Pupils equal, round, reactive, round 1 mm bilaterally conjugate. Mucous membranes are moist NECK: Trachea is midline. no JVD. CHEST: prvc, peep 5, fio2 70%. spo2 93%. CARDIOVASCULAR: normal rate, regular rhythm. Sinus. ABDOMEN: Obese, soft, nontender, nondistended. No guarding. MUSCULOSKELETAL: Pulses 2+. 1+ peripheral edema NEUROLOGICAL: RASS -2. withdraws x 4. Positive gag and cough. Does not follow commands this morning. Assessment and Plan - Assessment and Plan Plan: Neuro/Psych: Depression Currently on propofol at 30 mcg/kg/min and as needed fentanyl drip for sedation/ analgesia while intubated Goal of RASS -2 Daily sedation vacation Acetaminophen 650 every 6 hours as needed fever Continue bupropion 50 mg daily and gabapentin 6 mg twice daily Holding varincline 1 mg twice daily for tobacco cessation CV: Cardiomegaly Congestive Heart Failure, acute systolic and diastolic Essential hypertension -2D echo- left ventricular systolic function is severely reduced with an estimated ejection fraction in the range of 30-35%. Moderately dilated left ventricle with normal wall thickness.There is diffuse global hypokinesis. Findings consistent with Grade 1 diastolic dysfunction. The RV is likely moderately enlarged with decreased systolic function. No significant valvular heart disease seen on the images that were obtained. Unable to obtain a proper maximum TR velocity to estimate the RVSP. Using the pulmonary regurgitant velocity at the begining of diastole, the mean PA is estimated at 31 mmHg. The inferior vena cava is normal in size with less than 50% collape with inspiration. (RAP is estimated at 15 mmHg) There is a small pericardial effusion present. Currently on bumetanide 1 mg twice daily and attempt diuresis Resp: Acute hypoxic and hypercarbic Respiratory failure Acute severe COPD Exacerbation Obesity Hypoventilation Syndrome Left lower lobe lung nodule Tobacco abuse -PRVC ventilation 16/550/0.9/10/40 Ventilator bundle Albuterol/ipratropium aerosols every 6 hours with albuterol aerosols every 2 hours as needed for dyspnea Spontaneous breathing trials when clinically indicated Head of bed at 30 Methylprednisolone succinate 40 g IV every 8 hours Pulmonary/Dr. Ott following CT chest revealed mucous plugging involving the left lung. Post bronchoscopy 08/19. See report On Mucomyst nebulizers per pulmonology every 6 hours GI: Transaminitis Indeterminate hepatitis A IgM-laboratory recommends 2 months follow-up. Start tube feedings with Nepro goal 50 cc an hour Lansoprazole for GI prophylaxis Docusate sodium/senna 1 tablet twice daily for bowel regimen Check liver ultrasound -revealed enlarged liver likely hepatic steatosis versus inflammatory : Tran catheter due to urinary retention/BPH Endo: Sliding scale insulin Accu-Cheks to maintain euglycemia/to 6 hours aspart medium regimen Renal: Acute kidney injury unknown baseline Bilateral renal cysts Creatinine decreased to two-point We would check urine urea however takes greater than equal to 1 weeks return Renal ultrasound revealed bilateral renal cyst. No hydronephrosis Nephrology consultation appreciated.ANCA/complements all pending. Heme: Macrocytosis Leukocytosis Monitor CBC daily. Follow trends. No indication for transfusion of blood products at this time. ID: Currently on cefepime, azithromycin since 08/16 Negative blood cultures 08/16. Negative UA 08/17. Negative sputum 08/17 Check influenza Bronchoscopy samples from left upper lobe 08/19. Gram stain negative FEN: Hypernatremia Hypopotassemia Replace electrolytes as clinically indicated Added free water 100 cc every 4 hours. Potassium chloride 30 mEq IV x1, 25 mEq by tube x1 now. Recheck in a.m. MSK: Elevated BMI Weight loss encouraged Access -Utilize peripheral IV. Central line if indicated Prophylaxis - GI -Lansoprazole - DVT -SCDs enoxaparin Follow-up 35 minutes critical care time
--- NOTE | 2018-08-20 10:12 | P.DIET ---
Nutritional Evaluation Type of nutrition evaluation: initial Nutrition consult regarding: Tube Feeding Objective - Diagnosis Respiratory Failure with CO2 retention, white out - Objective % IBW: 147 (IBW = 172#) Body Weight Used for Calculations: IBW (78.2 kg) Energy Needs - Lower Range (kCal/kg): 25 Energy Needs - Upper Range (kCal/kg): 30 Lower Limit kCal/kg (kCals): 1,955 Upper Limit kCal/kg (kCals): 2,346 Lower Limit Protein Factor (Grams per Kg): 1.0 Upper Limit Protein Factor (Grams per Kg): 1.5 Lower Protein Needs (Protein): 78 Upper Protein Needs (Protein): 117 Dietitian Reviewed in Medical Record: Curent medications, Intake & Output, Labs , Medical history, Tube feeding Objective Comments: Labs: Na 147, BUN/creat 75/2.46, Est GFR 26, glu 116, LFTs elev Assessment Assessment: Pt is at high nutrition risk, intubated and sedated and needs TFing to meet nutritional needs. Current TF order is for Nepro @ 50 mls/hr goal and the pt is currently receiving 30 mls/hr. Nepro @ 50 mls/hr will provide 2160 kcals, 97 gms protein and 872 mls of free water. This adequately meets needs. Some additional kcals will be provided by propofol (1.1 kcal/ml) with the pt currently receiving 21 mls/hr (554 kcals). Will monitor renal labs closely to evaluate if pt needs formula change to Suplena. Recommendations: Nepro @ 50 mls/hr meets needs Dietitian to Monitor: Lab values, Renal labs, Intake & Output, Tube feeding tolerance, Weight change, Medical course
--- NOTE | 2018-08-20 16:34 | P.PNNP ---
Subjective Interval history: Patient is on ventilator Physical Exam Vital signs: Vital Signs 08/19/18 17:00 08/19/18 17:30 08/19/18 18:00 Temperature Pulse Rate 55 L 54 L 53 L Respiratory Rate 18 18 18 Blood Pressure 114/69 117/75 116/71 Pulse Oximetry 96 97 97 08/19/18 18:30 08/19/18 19:00 08/19/18 19:30 Temperature Pulse Rate 55 L 58 L 58 L Respiratory Rate 18 18 18 Blood Pressure 116/73 123/77 125/75 Pulse Oximetry 96 95 96 08/19/18 19:46 08/19/18 20:00 08/19/18 20:01 Temperature 98.5 F Pulse Rate 58 L 65 Respiratory Rate 19 18 19 Blood Pressure 125/76 Pulse Oximetry 97 98 08/19/18 20:30 08/19/18 21:00 08/19/18 21:30 Temperature Pulse Rate 60 60 68 Respiratory Rate 18 18 19 Blood Pressure 126/78 128/80 129/81 Pulse Oximetry 98 96 98 08/19/18 22:00 08/19/18 22:30 08/19/18 23:00 Temperature Pulse Rate 63 64 67 Respiratory Rate 18 18 18 Blood Pressure 131/81 134/81 125/78 Pulse Oximetry 98 98 98 08/19/18 23:20 08/19/18 23:30 08/20/18 00:00 Temperature Pulse Rate 64 60 Respiratory Rate 18 18 18 Blood Pressure 118/75 114/71 Pulse Oximetry 95 95 94 L 08/20/18 00:30 08/20/18 01:00 08/20/18 01:30 Temperature Pulse Rate 58 L 56 L 56 L Respiratory Rate 18 18 18 Blood Pressure 114/71 112/70 112/71 Pulse Oximetry 93 L 93 L 93 L 08/20/18 02:00 08/20/18 02:30 08/20/18 03:00 Temperature Pulse Rate 55 L 55 L 54 L Respiratory Rate 18 18 18 Blood Pressure 113/71 119/75 116/75 Pulse Oximetry 93 L 94 L 93 L 08/20/18 03:30 08/20/18 03:32 08/20/18 03:42 Temperature Pulse Rate 53 L 59 L Respiratory Rate 18 18 18 Blood Pressure 116/73 Pulse Oximetry 93 L 93 L 08/20/18 03:59 08/20/18 04:00 08/20/18 04:30 Temperature Pulse Rate 52 L 52 L 52 L Respiratory Rate 19 18 18 Blood Pressure 116/72 117/72 Pulse Oximetry 94 L 93 L 93 L 08/20/18 05:00 08/20/18 05:30 08/20/18 06:00 Temperature Pulse Rate 54 L 56 L 54 L Respiratory Rate 18 18 18 Blood Pressure 126/82 119/74 114/70 Pulse Oximetry 96 99 98 08/20/18 07:38 08/20/18 08:00 08/20/18 10:00 Temperature 98.9 F Pulse Rate 65 65 63 Respiratory Rate 16 18 Blood Pressure 146/86 H Pulse Oximetry 100 99 08/20/18 11:17 08/20/18 12:00 08/20/18 14:00 Temperature 98.4 F Pulse Rate 73 64 Respiratory Rate 16 18 Blood Pressure 128/84 Pulse Oximetry 95 99 08/20/18 15:21 Temperature Pulse Rate 62 Respiratory Rate 18 Blood Pressure Pulse Oximetry 98 Intake & Output 08/19/18 08/20/18 08/20/18 18:59 06:59 18:59 Intake Total 300 / 300 845 / 845 500 / 500 Output Total 2400 / 2400 1250 / 1250 Balance -2100 / -2100 -405 / -405 500 / 500 Weight 114.6 kg Intake: IV 300 / 300 550 / 550 500 / 500 Diprivan 1000 mg/100 ml Inj 1, 200 / 200 300 / 300 100 / 100 000 mg In 100 ml @ 5 MCG/KG/MIN 3.525 mls/hr IV.CONT TITRATE PRN Rx#:[id number] Azithromycin Inj 500 MG In NS 250 / 250 Inj 250 ML @ 250 mls/hr IV.SIG Q24H [facility] Rx#:[id number] Maxipime Inj 2,000 MG In NS Inj 100 / 100 100 / 100 100 ML @ 200 mls/hr IV.SIG Q24H [facility] Rx#:[id number] KCl 10 mEq Premix Inj 10 meq In 300 / 300 100 ml @ 100 mls/hr IV.SIG Q1H [facility] Rx#:[id number] Tube Feeding 195 / 195 Water Bolus Amount 100 / 100 Output: Urine Amount (Catheter) 2400 / 2400 1250 / 1250 Indwelling Urethral Catheter 2400 / 2400 1250 / 1250 Other: Date of Last Bowel Movement 08/18/18 08/18/18 08/18/18 Narrative: GENERAL: On ventilator. SKIN: Warm and dry. HEAD: Normocephalic. EYES: No scleral icterus. No injection or drainage. NECK: Supple, intubated CARDIOVASCULAR: Regular rate and rhythm without murmurs, gallops, or rubs. RESPIRATORY: Breath sounds equal bilaterally. No accessory muscle use. GASTROINTESTINAL: Abdomen soft, non-tender, nondistended. EXTREMITIES: 1+ NEUROLOGICAL: Sedated - Urinary Catheter Management Indwelling Urethral Catheter Cath placed during this visit: yes, but has since been removed by the nurse Reason for continuing: Decision to DC catheter Removal date: 08/17/18 Removal time: 16:30 Assessment and Plan - Assessment (1) Acute renal failure Code(s): N17.9 - Acute kidney failure, unspecified Status: Acute (2) Chronic kidney disease Code(s): N18.9 - Chronic kidney disease, unspecified Status: Acute (3) COPD (chronic obstructive pulmonary disease) Code(s): J44.9 - Chronic obstructive pulmonary disease, unspecified Status: Acute (4) Pneumonia Code(s): J18.9 - Pneumonia, unspecified organism Status: Acute (5) Congestive heart failure Code(s): I50.9 - Heart failure, unspecified Status: Acute (6) Respiratory failure Code(s): J96.90 - Respiratory failure, unspecified, unspecified whether with hypoxia or hypercapnia Status: Acute (7) Abnormal liver function Code(s): K76.89 - Other specified diseases of liver Status: Acute - Plan Creatinine declined, potassium replacement Ejection fraction is about 30-35% He has pneumonia and on broad-spectrum antibiotic azithromycin and cefepime Avoid nephrotoxic agent Avoid dye studies Follow BMP Creatinine decline C4 normal Most likely infectious etiology causing respiratory failure, he came in with renal failure as well, differential includes autoimmune disease Order CARLOS/protein electrophoresis/hepatitis screen/ANCA/Anti GBM/ complements rule out autoimmune diseases
--- NOTE | 2018-08-20 18:38 | P.PNPL ---
Subjective Interval history: 68 YOWM with VDRF, COPD On AC, Fi02 40%, PEEP decreased to 8 Sedated with Diprivan CXR improved aeration Physical Exam Vital signs: Vital Signs 08/19/18 19:00 08/19/18 19:30 08/19/18 19:46 Temperature Pulse Rate 58 L 58 L Respiratory Rate 18 18 19 Blood Pressure 123/77 125/75 Pulse Oximetry 95 96 97 08/19/18 20:00 08/19/18 20:01 08/19/18 20:30 Temperature 98.5 F Pulse Rate 58 L 65 60 Respiratory Rate 18 19 18 Blood Pressure 125/76 126/78 Pulse Oximetry 98 98 08/19/18 21:00 08/19/18 21:30 08/19/18 22:00 Temperature Pulse Rate 60 68 63 Respiratory Rate 18 19 18 Blood Pressure 128/80 129/81 131/81 Pulse Oximetry 96 98 98 08/19/18 22:30 08/19/18 23:00 08/19/18 23:20 Temperature Pulse Rate 64 67 Respiratory Rate 18 18 18 Blood Pressure 134/81 125/78 Pulse Oximetry 98 98 95 08/19/18 23:30 08/20/18 00:00 08/20/18 00:30 Temperature Pulse Rate 64 60 58 L Respiratory Rate 18 18 18 Blood Pressure 118/75 114/71 114/71 Pulse Oximetry 95 94 L 93 L 08/20/18 01:00 08/20/18 01:30 08/20/18 02:00 Temperature Pulse Rate 56 L 56 L 55 L Respiratory Rate 18 18 18 Blood Pressure 112/70 112/71 113/71 Pulse Oximetry 93 L 93 L 93 L 08/20/18 02:30 08/20/18 03:00 08/20/18 03:30 Temperature Pulse Rate 55 L 54 L 53 L Respiratory Rate 18 18 18 Blood Pressure 119/75 116/75 116/73 Pulse Oximetry 94 L 93 L 93 L 08/20/18 03:32 08/20/18 03:42 08/20/18 03:59 Temperature Pulse Rate 59 L 52 L Respiratory Rate 18 18 19 Blood Pressure Pulse Oximetry 93 L 94 L 08/20/18 04:00 08/20/18 04:30 08/20/18 05:00 Temperature Pulse Rate 52 L 52 L 54 L Respiratory Rate 18 18 18 Blood Pressure 116/72 117/72 126/82 Pulse Oximetry 93 L 93 L 96 08/20/18 05:30 08/20/18 06:00 08/20/18 07:38 Temperature Pulse Rate 56 L 54 L 65 Respiratory Rate 18 18 16 Blood Pressure 119/74 114/70 Pulse Oximetry 99 98 100 08/20/18 08:00 08/20/18 10:00 08/20/18 11:17 Temperature 98.9 F Pulse Rate 65 63 Respiratory Rate 18 16 Blood Pressure 146/86 H Pulse Oximetry 99 95 08/20/18 12:00 08/20/18 14:00 08/20/18 15:21 Temperature 98.4 F Pulse Rate 73 64 62 Respiratory Rate 18 18 Blood Pressure 128/84 Pulse Oximetry 99 98 08/20/18 16:00 Temperature 97.9 F Pulse Rate 63 Respiratory Rate 16 Blood Pressure 124/84 Pulse Oximetry 94 L Intake & Output 08/19/18 08/20/18 08/20/18 18:59 06:59 18:59 Intake Total 300 / 300 845 / 845 500 / 500 Output Total 2400 / 2400 1250 / 1250 Balance -2100 / -2100 -405 / -405 500 / 500 Weight 114.6 kg Intake: IV 300 / 300 550 / 550 500 / 500 Diprivan 1000 mg/100 ml Inj 1, 200 / 200 300 / 300 100 / 100 000 mg In 100 ml @ 5 MCG/KG/MIN 3.525 mls/hr IV.CONT TITRATE [facility]N Rx#:[id number] Azithromycin Inj 500 MG In NS 250 / 250 Inj 250 ML @ 250 mls/hr IV.SIG Q24H [facility] Rx#:[id number] Maxipime Inj 2,000 MG In NS Inj 100 / 100 100 / 100 100 ML @ 200 mls/hr IV.SIG Q24H [facility] Rx#:[id number] KCl 10 mEq Premix Inj 10 meq In 300 / 300 100 ml @ 100 mls/hr IV.SIG Q1H [facility] Rx#:[id number] Tube Feeding 195 / 195 Water Bolus Amount 100 / 100 Output: Urine Amount (Catheter) 2400 / 2400 1250 / 1250 Indwelling Urethral Catheter 2400 / 2400 1250 / 1250 Other: Date of Last Bowel Movement 08/18/18 08/18/18 08/18/18 GENERAL: WBWN,WM on vent, sedated SKIN: Warm and dry. HEAD: Normocephalic. EYES: No scleral icterus. No injection or drainage. NECK: Supple, trachea midline. No JVD or lymphadenopathy. CARDIOVASCULAR: Regular rate and rhythm without murmurs, gallops, or rubs. RESPIRATORY: Breath sounds equal bilaterally. No accessory muscle use. GASTROINTESTINAL: Abdomen soft, non-tender, nondistended. MUSCULOSKELETAL: No cyanosis, or edema. BACK: Nontender without obvious deformity. No CVA tenderness. - Urinary Catheter Management Indwelling Urethral Catheter Cath placed during this visit: yes, but has since been removed by the nurse Reason for continuing: Decision to DC catheter Removal date: 08/17/18 Removal time: 16:30 Assessment and Plan - Plan IMPRESSION: 1. Hypoxic, hypercapnic respiratory failure. 2. Left lung volume loss, possible atelectasis or infiltrate. 3. Left lung nodule. 4. Chronic obstructive pulmonary disease. 5. Renal insufficiency. 6. Atelactesis left lung PLAN: Vent Support, PRVC_AC, Fi02 40%, PEEP 8 Aerosol nebs Mucomyst nebs Cont Abx Sedation with Diprivan Cont Abx
[2018-08-20] MEDS: Enoxaparin Inj 30 MG/0.3 ML Syringe SQ SCH (22:08)
[2018-08-20] MEDS: Azithromycin Inj 500 MG in Sodium Chlor 0.9% Inj 250 ML IV.SIG SCH (22:08)
[2018-08-21] MEDS: Oral Hygiene Kit OROPHARYNG SCH ×5 (00:10→23:02)
[2018-08-21] MEDS: Propofol 1000 mg/100 ml Inj 1,000 MG/100 ML BOTTLE IV.CONT PRN ×2 (01:07→05:47)
[2018-08-21] MEDS: Chlorhexidine Gluconate 2% 1 Pack (2 Cloths) TOPICAL SCH (03:02)
[2018-08-21 04:17] LABS: Hematocrit 52.3 % (39.0-51.0); Hemoglobin 17.2 gm/dL (13.0-17.0); Mean Corpuscular HGB Conc 32.9 % (32.0-36.0); Mean Corpuscular Hemoglobin 33.2 pg (27.0-34.0); Mean Corpuscular Volume 101.1 fL (80.0-100.0); Mean Platelet Volume 9.6 fL (7.0-11.0); Platelet Count 158 th/mm3 (150-450); Red Blood Count 5.18 mil/mm3 (4.50-5.90); Red Cell Distribution Width 14.7 % (11.6-17.2); White Blood Count 14.8 th/mm3 (4.0-11.0)
--- NOTE | 2018-08-21 04:18 | XR ---
EXAM DATE: 08/21/2018 6:00 AM EDT AGE/SEX: 68 years / Male INDICATIONS: Shortness of breath CLINICAL DATA: This is the patient's subsequent encounter. Patient reports that signs and symptoms h ave been present for 4 - 6 days and indicates a pain score of Nonresponsive. MEDICAL/SURGICAL HISTORY: Chronic obstructive pulmonary disease. None. COMPARISON: [facility] – [place] 1V SINGLE AP, 08/19/2018. . FINDINGS: Mild consolidation and small effusion at the right base unchanged. There is considerably improved con solidation of the left mid and lower lung, now mild. A small left pleural effusion is suspected. No p neumothorax. Heart size stable, upper limits of normal. Endotracheal tube tip is approximately 4 cm above the helen. Nasogastric tube courses into the stoma ch. CONCLUSION: Mild consolidation and small effusions at each lung base, not significantly changed on the right and improved on the left. Electronically signed by: Олег Velez MD 08/21/2018 4:17 AM EDT
[2018-08-21 04:25] LABS: INR 1.1 Ratio; Prothrombin Time 11.6 sec (9.8-11.6)
[2018-08-21 04:51] LABS: Alanine Aminotransferase 413 U/L (12-78); Albumin 2.8 g/dL (3.4-5.0); Alkaline Phosphatase 74 U/L (45-117); Anion Gap 9 meq/L (5-15); Aspartate Aminotransferase 141 U/L (15-37); Blood Urea Nitrogen 90 mg/dL (7-18); Calcium 8.6 mg/dL (8.5-10.1); Carbon Dioxide 32.7 meq/L (21.0-32.0); Chloride 104 meq/L (98-107); Glomerular Filtration Rate 28 mL/min (>89); Glucose,Random 140 mg/dL (74-106); Magnesium 2.4 mg/dL (1.5-2.5); Phosphorus 4.5 mg/dL (2.5-4.9); Potassium 3.9 meq/L (3.5-5.1); Sodium 146 meq/L (136-145); Total Protein 7.1 g/dL (6.4-8.2)
[2018-08-21] MEDS: MethylPREDNISolone Sod Succinate Inj 40 MG/ML Vial IV.PUSH SCH ×3 (05:42→23:02)
--- NOTE | 2018-08-21 08:16 | P.PNCC ---
Subjective Subjective Remarks/Hospital Course: 68-year-old gentleman with COPD and chronic cough who continues to smoke presented to [place] emergency department for an evaluation of altered mental status and shortness of breath. The patient went to voodoo this morning and returned on the bus and sat in the garage. The lady that takes care of him did talk to him and he said he was fine and sat down in his chair in the garage. He however did not come to his lunch and she went out and found him unresponsive with labored breathing. This occurred at 2 PM today. Patient was brought into the emergency department with altered mental status and respiratory distress. Pulse ox was in the 60s. Patient was put on high flow oxygen and later changed to BiPAP with improvement in mentation and oxygenation. The chest x-ray obtained in the emergency department shows almost complete opacification of left hemithorax. The CT without contrast shows severe cardiomegaly and no pleural effusion or pericardial effusion. The patient has been transferred to [facility] ICU for higher level of care. 08/17: no improvement in respiratory distress- mental status worsened. abg no improvement. clinically declined and emergently intubated. on bedside echo, very difficult windows due to lung disease and obesity, but dilated ivc without respiratory variation and no pericardial effusion. formal echo pending. 08/18: remains intubated. abg slowly improving. tran removed yesterday but unable to straight cath. 08/19: FiO2 down to 55%. Will re-CT the chest today. Likely just a gigantic heart causing opacification left hemithorax.. No other issues overnight. Creatinine slowly increasing. Subjective: 08/20: Febrile. Status post bronchoscopy yesterday due to mucous plug in the left lungs. Improved aeration currently 50% FiO2. We will continue to wean today. Tolerating tube feeding. Creatinine improving. 08/21 Patient remains intubated and sedated with Diprivan. Afebrile. Objective Vital Signs / I&O: Vital Signs 08/20/18 08:30 08/20/18 09:00 08/20/18 09:30 Temperature Pulse Rate 66 71 112 H Respiratory Rate 16 16 16 Blood Pressure 149/88 H 144/92 H 147/99 H Pulse Oximetry 100 99 98 08/20/18 10:00 08/20/18 10:30 09/27/18 11:00 Temperature Pulse Rate 75 75 68 Respiratory Rate 16 16 16 Blood Pressure 142/93 H 141/94 H 128/85 Pulse Oximetry 98 97 95 08/20/18 11:17 08/20/18 11:30 08/20/18 12:00 Temperature 98.4 F Pulse Rate 64 63 Respiratory Rate 16 16 16 Blood Pressure 125/84 127/86 Pulse Oximetry 95 95 95 08/20/18 12:30 08/20/18 13:00 08/20/18 13:30 Temperature Pulse Rate 65 72 73 Respiratory Rate 16 16 16 Blood Pressure 133/89 128/84 133/86 Pulse Oximetry 97 95 96 08/20/18 14:00 08/20/18 14:30 08/20/18 15:00 Temperature Pulse Rate 66 64 62 Respiratory Rate 16 16 16 Blood Pressure 125/82 121/82 122/82 Pulse Oximetry 94 L 94 L 94 L 08/20/18 15:21 08/20/18 15:30 08/20/18 16:00 Temperature 97.9 F Pulse Rate 62 63 63 Respiratory Rate 18 16 16 Blood Pressure 123/86 124/84 Pulse Oximetry 98 94 L 94 L 08/20/18 16:30 08/20/18 17:00 08/20/18 17:30 Temperature Pulse Rate 65 64 66 Respiratory Rate 16 16 16 Blood Pressure 126/90 124/79 125/83 Pulse Oximetry 94 L 93 L 93 L 08/20/18 18:00 08/20/18 18:30 08/20/18 19:00 Temperature Pulse Rate 66 68 68 Respiratory Rate 16 16 16 Blood Pressure 124/81 127/84 120/84 Pulse Oximetry 92 L 93 L 92 L 08/20/18 19:30 08/20/18 20:00 08/20/18 20:10 Temperature 98.3 F Pulse Rate 68 68 Respiratory Rate 16 16 16 Blood Pressure 118/78 114/78 Pulse Oximetry 93 L 92 L 93 L 08/20/18 20:16 08/20/18 20:30 08/20/18 21:00 Temperature Pulse Rate 71 69 69 Respiratory Rate 16 16 16 Blood Pressure 120/80 121/80 Pulse Oximetry 93 L 93 L 08/20/18 21:30 08/20/18 22:00 08/20/18 22:30 Temperature Pulse Rate 67 67 68 Respiratory Rate 16 16 16 Blood Pressure 119/77 120/78 116/76 Pulse Oximetry 93 L 93 L 94 L 08/20/18 23:00 08/20/18 23:30 08/20/18 23:42 Temperature Pulse Rate 81 83 Respiratory Rate 16 16 16 Blood Pressure 116/77 121/81 Pulse Oximetry 93 L 93 L 100 08/21/18 00:00 08/21/18 00:30 08/21/18 01:00 Temperature 98.8 F Pulse Rate 84 83 82 Respiratory Rate 16 16 16 Blood Pressure 124/90 125/92 H 129/88 Pulse Oximetry 93 L 93 L 93 L 08/21/18 01:30 08/21/18 02:00 08/21/18 02:30 Temperature Pulse Rate 83 82 79 Respiratory Rate 16 16 16 Blood Pressure 129/87 129/89 125/81 Pulse Oximetry 93 L 93 L 92 L 08/21/18 03:00 08/21/18 04:00 08/21/18 04:03 Temperature 98.8 F Pulse Rate 77 74 74 Respiratory Rate 16 25 H 17 Blood Pressure 122/82 Pulse Oximetry 92 L 92 L 94 L 08/21/18 06:00 08/21/18 07:23 Temperature Pulse Rate 69 69 Respiratory Rate 16 Blood Pressure Pulse Oximetry 93 L Intake & Output 08/20/18 08/21/18 08/21/18 18:59 06:59 18:59 Intake Total 600 / 600 1119 / 1119 Output Total 650 / 650 Balance 600 / 600 469 / 469 Weight 113.5 kg Intake: IV 600 / 600 450 / 450 Diprivan 1000 mg/100 ml Inj 1, 200 / 200 200 / 200 000 mg In 100 ml @ 5 MCG/KG/MIN 3.525 mls/hr IV.CONT TITRATE PRN Rx#:[id number] Azithromycin Inj 500 MG In NS 250 / 250 Inj 250 ML @ 250 mls/hr IV.SIG Q24H HORACE Rx#:[id number] Maxipime Inj 2,000 MG In NS Inj 100 / 100 100 ML @ 200 mls/hr IV.SIG Q24H HORACE Rx#:[id number] KCl 10 mEq Premix Inj 10 meq In 300 / 300 100 ml @ 100 mls/hr IV.SIG Q1H HORACE Rx#:[id number] Tube Feeding 469 / 469 Water Bolus Amount 200 / 200 Output: Urine Amount (Catheter) 650 / 650 Indwelling Urethral Catheter 650 / 650 Other: Date of Last Bowel Movement 08/18/18 08/18/18 # Bowel Movements 1 Result Diagrams: 08/21/18 03:34 08/21/18 03:37 Other Results: Laboratory Results - last 12 hr 08/21/18 08/21/18 08/21/18 03:34 03:37 03:37 WBC 14.8 H RBC 5.18 Hgb 17.2 H Hct 52.3 H MCV 101.1 H MCH 33.2 MCHC 32.9 RDW 14.7 Plt Count 158 MPV 9.6 PT 11.6 INR 1.1 Sodium 146 H Potassium 3.9 D Chloride 104 Carbon Dioxide 32.7 H Anion Gap 9 BUN 90 H Creatinine 2.37 H Estimated GFR 28 L Random Glucose 140 H Calcium 8.6 Phosphorus 4.5 Magnesium 2.4 Total Bilirubin 0.9 AST 141 H ALT 413 H Alkaline Phosphatase 74 Total Protein 7.1 Albumin 2.8 L Imaging: Abdomen Ultrasound 08/19/18 00:00 CONCLUSION: 1. Hepatomegaly with diffuse hyperechoic texture characteristic of steatosis or diffuse hepatocellular disease. 2. Bilateral renal cysts. 3. Nonvisualization of the gallbladder and pancreas. 4. No evidence of hydronephrosis or abnormal fluid collections. Chest CT 08/19/18 12:41 CONCLUSION: 1. Progressive airspace consolidation and collapse involving now nearly the entire left lung with only minimal residual aeration of the left lung apex. Air bronchograms are noted throughout the left lung making a significant endobronchial lesion less likely. There is progressive mediastinal shift to the left. 2. No evidence for hydropneumothorax as questioned. 3. Scattered subcentimeter mediastinal nodes are nonspecific and may be reactive in etiology. Chest X-Ray 08/21/18 06:00 CONCLUSION: Mild consolidation and small effusions at each lung base, not significantly changed on the right and improved on the left. Objective Remarks: GENERAL: 68-year-old male lying in bed, intubated, sedated HEENT: Normocephalic. Atraumatic. Pupils equal, round, reactive, round 1 mm bilaterally conjugate. Mucous membranes are moist NECK: Trachea is midline. no JVD. CHEST: prvc, peep 5, fio2 70%. spo2 93%. CARDIOVASCULAR: normal rate, regular rhythm. Sinus. ABDOMEN: Obese, soft, nontender, nondistended. No guarding. MUSCULOSKELETAL: Pulses 2+. 1+ peripheral edema NEUROLOGICAL: RASS -2. withdraws x 4. Positive gag and cough. Does not follow commands this morning. Assessment and Plan - Assessment and Plan Plan: Neuro/Psych: Depression Currently on propofol at 25 mcg/kg/min and as needed fentanyl drip for sedation/ analgesia while intubated Goal of RASS -2 Daily sedation vacation Acetaminophen 650 every 6 hours as needed fever Continue bupropion 50 mg daily and gabapentin 6 mg twice daily CV: Cardiomegaly Congestive Heart Failure, acute systolic and diastolic Essential hypertension -2D echo- left ventricular systolic function is severely reduced with an estimated ejection fraction in the range of 30-35%. Moderately dilated left ventricle with normal wall thickness.There is diffuse global hypokinesis. Findings consistent with Grade 1 diastolic dysfunction. The RV is likely moderately enlarged with decreased systolic function. No significant valvular heart disease seen on the images that were obtained. Unable to obtain a proper maximum TR velocity to estimate the RVSP. Using the pulmonary regurgitant velocity at the beginning of diastole, the mean PA is estimated at 31 mmHg. The inferior vena cava is normal in size with less than 50% collape with inspiration. (RAP is estimated at 15 mmHg) There is a small pericardial effusion present. Currently on bumetanide 1 mg twice daily and attempt diuresis Resp: Acute hypoxic and hypercarbic Respiratory failure Acute severe COPD Exacerbation Obesity Hypoventilation Syndrome Left lower lobe lung nodule Tobacco abuse -[facility] ventilation 16/12/01/44 Ventilator bundle Albuterol/ipratropium aerosols every 6 hours with albuterol aerosols every 2 hours as needed for dyspnea Spontaneous breathing trials when clinically indicated Head of bed at 30 Methylprednisolone succinate 40 g IV every 8 hours Pulmonary/Dr. Ott following CT chest revealed mucous plugging involving the left lung. Post bronchoscopy 08/19. On Mucomyst nebulizers per pulmonology every 6 hours GI: Transaminitis Indeterminate hepatitis A IgM-laboratory recommends 2 months follow-up. On tube feedings with Nepro goal 50 cc an hour Lansoprazole for GI prophylaxis Docusate sodium/senna 1 tablet twice daily for bowel regimen liver ultrasound -revealed enlarged liver likely hepatic steatosis versus inflammatory Hepatitis panel: Hep A IgM Indeterminate Endo: Sliding scale insulin Accu-Cheks to maintain euglycemia/to 6 hours aspart medium regimen Renal: Acute kidney injury unknown baseline Bilateral renal cysts Monitor renal function, I/O's, avoid nephrotoxins Renal function slightly improving with Cr: 2.37 today On Free water 100ml Q4 Renal ultrasound revealed bilateral renal cyst. No hydronephrosis Nephrology consultation appreciated.ANCA/complements all pending. Renal- Dr. Olivares Heme: Macrocytosis Leukocytosis Monitor CBC daily. Follow trends. No indication for transfusion of blood products at this time. ID: Currently on cefepime, azithromycin since 08/16 Negative blood cultures 08/16. Negative UA 08/17. Negative sputum 08/17 Bronchoscopy samples from left upper lobe 08/19. Gram stain negative Bronch washing AFB pending MSK: Elevated BMI Weight loss encouraged Access -Utilize peripheral IV. Central line if indicated Prophylaxis - GI -Lansoprazole - DVT -SCDs enoxaparin Level 3
[2018-08-21] MEDS: Chlorhexidine 0.12% Oral Kit 15 ML UDC OROPHARYNG SCH ×2 (08:28→20:26)
[2018-08-21] MEDS: buPROPion 150 MG 12 HR Tablet PO SCH (08:28)
[2018-08-21] MEDS: Carboxymethylcellulose 0.5% Opth Drops 15 ML Bottle EACH EYE SCH ×3 (08:29→19:18)
[2018-08-21] MEDS: Senna/Docusate Sodium 8.6/50 MG Tablet PO SCH ×2 (08:29→20:27)
[2018-08-21] MEDS: Gabapentin 300 MG Capsule PO SCH ×2 (08:29→20:26)
--- NOTE | 2018-08-21 10:54 | P.PNNP ---
Subjective Interval history: On CPAP open eyes Physical Exam Vital signs: Vital Signs 08/20/18 11:00 08/20/18 11:17 08/20/18 11:30 Temperature Pulse Rate 68 64 Respiratory Rate 16 16 16 Blood Pressure 128/85 125/84 Pulse Oximetry 95 95 95 08/20/18 12:00 08/20/18 12:30 08/20/18 13:00 Temperature 98.4 F Pulse Rate 63 65 72 Respiratory Rate 16 16 16 Blood Pressure 127/86 133/89 128/84 Pulse Oximetry 95 97 95 08/20/18 13:30 08/20/18 14:00 08/20/18 14:30 Temperature Pulse Rate 73 66 64 Respiratory Rate 16 16 16 Blood Pressure 133/86 125/82 121/82 Pulse Oximetry 96 94 L 94 L 08/20/18 15:00 08/20/18 15:21 08/20/18 15:30 Temperature Pulse Rate 62 62 63 Respiratory Rate 16 18 16 Blood Pressure 122/82 123/86 Pulse Oximetry 94 L 98 94 L 08/20/18 16:00 08/20/18 16:30 08/20/18 17:00 Temperature 97.9 F Pulse Rate 63 65 64 Respiratory Rate 16 16 16 Blood Pressure 124/84 126/90 124/79 Pulse Oximetry 94 L 94 L 93 L 08/20/18 17:30 08/20/18 18:00 08/20/18 18:30 Temperature Pulse Rate 66 66 68 Respiratory Rate 16 16 16 Blood Pressure 125/83 124/81 127/84 Pulse Oximetry 93 L 92 L 93 L 08/20/18 19:00 08/20/18 19:30 08/20/18 20:00 Temperature 98.3 F Pulse Rate 68 68 68 Respiratory Rate 16 16 16 Blood Pressure 120/84 118/78 114/78 Pulse Oximetry 92 L 93 L 92 L 08/20/18 20:10 08/20/18 20:16 08/20/18 20:30 Temperature Pulse Rate 71 69 Respiratory Rate 16 16 16 Blood Pressure 120/80 Pulse Oximetry 93 L 93 L 08/20/18 21:00 08/20/18 21:30 08/20/18 22:00 Temperature Pulse Rate 69 67 67 Respiratory Rate 16 16 16 Blood Pressure 121/80 119/77 120/78 Pulse Oximetry 93 L 93 L 93 L 08/20/18 22:30 08/20/18 23:00 08/20/18 23:30 Temperature Pulse Rate 68 81 83 Respiratory Rate 16 16 16 Blood Pressure 116/76 116/77 121/81 Pulse Oximetry 94 L 93 L 93 L 08/20/18 23:42 08/21/18 00:00 08/21/18 00:30 Temperature 98.8 F Pulse Rate 84 83 Respiratory Rate 16 16 16 Blood Pressure 124/90 125/92 H Pulse Oximetry 100 93 L 93 L 08/21/18 01:00 08/21/18 01:30 08/21/18 02:00 Temperature Pulse Rate 82 83 82 Respiratory Rate 16 16 16 Blood Pressure 129/88 129/87 129/89 Pulse Oximetry 93 L 93 L 93 L 08/21/18 02:30 08/21/18 03:00 08/21/18 04:00 Temperature 98.8 F Pulse Rate 79 77 74 Respiratory Rate 16 16 25 H Blood Pressure 125/81 122/82 Pulse Oximetry 92 L 92 L 92 L 08/21/18 04:03 08/21/18 06:00 08/21/18 07:23 Temperature Pulse Rate 74 69 69 Respiratory Rate 17 16 Blood Pressure Pulse Oximetry 94 L 93 L 08/21/18 08:00 08/21/18 10:00 Temperature 99.2 F Pulse Rate 76 93 H Respiratory Rate 16 Blood Pressure 122/78 Pulse Oximetry 93 L Intake & Output 08/20/18 08/21/18 08/21/18 18:59 06:59 18:59 Intake Total 600 / 600 1119 / 1119 Output Total 650 / 650 Balance 600 / 600 469 / 469 Weight 113.5 kg Intake: IV 600 / 600 450 / 450 Diprivan 1000 mg/100 ml Inj 1, 200 / 200 200 / 200 000 mg In 100 ml @ 5 MCG/KG/MIN 3.525 mls/hr IV.CONT TITRATE PRN Rx#:[id number] Azithromycin Inj 500 MG In NS 250 / 250 Inj 250 ML @ 250 mls/hr IV.SIG Q24H HORACE Rx#:[id number] Maxipime Inj 2,000 MG In NS Inj 100 / 100 100 ML @ 200 mls/hr IV.SIG Q24H HORACE Rx#:[id number] KCl 10 mEq Premix Inj 10 meq In 300 / 300 100 ml @ 100 mls/hr IV.SIG Q1H HORACE Rx#:[id number] Tube Feeding 469 / 469 Water Bolus Amount 200 / 200 Output: Urine Amount (Catheter) 650 / 650 Indwelling Urethral Catheter 650 / 650 Other: Date of Last Bowel Movement 08/18/18 08/18/18 08/18/18 # Bowel Movements 1 Narrative: GENERAL: On ventilator. SKIN: Warm and dry. HEAD: Normocephalic. EYES: No scleral icterus. No injection or drainage. NECK: Supple, intubated CARDIOVASCULAR: Regular rate and rhythm without murmurs, gallops, or rubs. RESPIRATORY: Breath sounds equal bilaterally. No accessory muscle use. GASTROINTESTINAL: Abdomen soft, non-tender, nondistended. EXTREMITIES: 1+ NEUROLOGICAL: Sedated - Urinary Catheter Management Indwelling Urethral Catheter Cath placed during this visit: yes, but has since been removed by the nurse Reason for continuing: Decision to DC catheter Removal date: 08/17/18 Removal time: 16:30 Assessment and Plan - Assessment (1) Acute renal failure Code(s): N17.9 - Acute kidney failure, unspecified Status: Acute (2) Chronic kidney disease Code(s): N18.9 - Chronic kidney disease, unspecified Status: Acute (3) COPD (chronic obstructive pulmonary disease) Code(s): J44.9 - Chronic obstructive pulmonary disease, unspecified Status: Acute (4) Pneumonia Code(s): J18.9 - Pneumonia, unspecified organism Status: Acute (5) Congestive heart failure Code(s): I50.9 - Heart failure, unspecified Status: Acute (6) Respiratory failure Code(s): J96.90 - Respiratory failure, unspecified, unspecified whether with hypoxia or hypercapnia Status: Acute (7) Abnormal liver function Code(s): K76.89 - Other specified diseases of liver Status: Acute - Plan Creatinine declined, potassium replacement Ejection fraction is about 30-35% He has pneumonia and on broad-spectrum antibiotic azithromycin and cefepime Avoid nephrotoxic agent Avoid dye studies Follow BMP creatinine 2.37 Doing better Most likely infectious etiology causing respiratory failure, he came in with renal failure as well, differential includes autoimmune disease Most likely urinary retention may need straight catheterization as he did not pass urine after Peters was DC'd
--- NOTE | 2018-08-21 11:27 | P.PNPL ---
Subjective Interval history: 68 YOWM with VDRF, COPD Weaned to CPAP, fi02 50% Off sedation opens eyes Physical Exam Vital signs: Vital Signs 08/20/18 11:30 08/20/18 12:00 08/20/18 12:30 Temperature 98.4 F Pulse Rate 64 63 65 Respiratory Rate 16 16 16 Blood Pressure 125/84 127/86 133/89 Pulse Oximetry 95 95 97 08/20/18 13:00 08/20/18 13:30 08/20/18 14:00 Temperature Pulse Rate 72 73 66 Respiratory Rate 16 16 16 Blood Pressure 128/84 133/86 125/82 Pulse Oximetry 95 96 94 L 08/20/18 14:30 08/20/18 15:00 08/20/18 15:21 Temperature Pulse Rate 64 62 62 Respiratory Rate 16 16 18 Blood Pressure 121/82 122/82 Pulse Oximetry 94 L 94 L 98 08/20/18 15:30 08/20/18 16:00 08/20/18 16:30 Temperature 97.9 F Pulse Rate 63 63 65 Respiratory Rate 16 16 16 Blood Pressure 123/86 124/84 126/90 Pulse Oximetry 94 L 94 L 94 L 08/20/18 17:00 08/20/18 17:30 08/20/18 18:00 Temperature Pulse Rate 64 66 66 Respiratory Rate 16 16 16 Blood Pressure 124/79 125/83 124/81 Pulse Oximetry 93 L 93 L 92 L 08/20/18 18:30 08/20/18 19:00 08/20/18 19:30 Temperature Pulse Rate 68 68 68 Respiratory Rate 16 16 16 Blood Pressure 127/84 120/84 118/78 Pulse Oximetry 93 L 92 L 93 L 08/20/18 20:00 08/20/18 20:10 08/20/18 20:16 Temperature 98.3 F Pulse Rate 68 71 Respiratory Rate 16 16 16 Blood Pressure 114/78 Pulse Oximetry 92 L 93 L 08/20/18 20:30 08/20/18 21:00 08/20/18 21:30 Temperature Pulse Rate 69 69 67 Respiratory Rate 16 16 16 Blood Pressure 120/80 121/80 119/77 Pulse Oximetry 93 L 93 L 93 L 08/20/18 22:00 08/20/18 22:30 08/20/18 23:00 Temperature Pulse Rate 67 68 81 Respiratory Rate 16 16 16 Blood Pressure 120/78 116/76 116/77 Pulse Oximetry 93 L 94 L 93 L 08/20/18 23:30 08/20/18 23:42 08/21/18 00:00 Temperature 98.8 F Pulse Rate 83 84 Respiratory Rate 16 16 16 Blood Pressure 121/81 124/90 Pulse Oximetry 93 L 100 93 L 08/21/18 00:30 08/21/18 01:00 08/21/18 01:30 Temperature Pulse Rate 83 82 83 Respiratory Rate 16 16 16 Blood Pressure 125/92 H 129/88 129/87 Pulse Oximetry 93 L 93 L 93 L 08/21/18 02:00 08/21/18 02:30 08/21/18 03:00 Temperature Pulse Rate 82 79 77 Respiratory Rate 16 16 16 Blood Pressure 129/89 125/81 122/82 Pulse Oximetry 93 L 92 L 92 L 08/21/18 04:00 08/21/18 04:03 08/21/18 06:00 Temperature 98.8 F Pulse Rate 74 74 69 Respiratory Rate 25 H 17 Blood Pressure Pulse Oximetry 92 L 94 L 08/21/18 07:23 08/21/18 08:00 08/21/18 10:00 Temperature 99.2 F Pulse Rate 69 76 93 H Respiratory Rate 16 16 Blood Pressure 122/78 Pulse Oximetry 93 L 93 L Intake & Output 08/20/18 08/21/18 08/21/18 18:59 06:59 18:59 Intake Total 600 / 600 1119 / 1119 Output Total 650 / 650 Balance 600 / 600 469 / 469 Weight 113.5 kg Intake: IV 600 / 600 450 / 450 Diprivan 1000 mg/100 ml Inj 1, 200 / 200 200 / 200 000 mg In 100 ml @ 5 MCG/KG/MIN 3.525 mls/hr IV.CONT TITRATE PRN Rx#:[id number] Azithromycin Inj 500 MG In NS 250 / 250 Inj 250 ML @ 250 mls/hr IV.SIG Q24H HORACE Rx#:[id number] Maxipime Inj 2,000 MG In NS Inj 100 / 100 100 ML @ 200 mls/hr IV.SIG Q24H HORACE Rx#:[id number] KCl 10 mEq Premix Inj 10 meq In 300 / 300 100 ml @ 100 mls/hr IV.SIG Q1H HORACE Rx#:[id number] Tube Feeding 469 / 469 Water Bolus Amount 200 / 200 Output: Urine Amount (Catheter) 650 / 650 Indwelling Urethral Catheter 650 / 650 Other: Date of Last Bowel Movement 08/18/18 08/18/18 08/18/18 # Bowel Movements 1 GENERAL: WBWN NAD, on vent SKIN: Warm and dry. HEAD: Normocephalic. EYES: No scleral icterus. No injection or drainage. NECK: Supple, trachea midline. No JVD or lymphadenopathy. CARDIOVASCULAR: Regular rate and rhythm without murmurs, gallops, or rubs. RESPIRATORY: Breath sounds equal bilaterally. No accessory muscle use. GASTROINTESTINAL: Abdomen soft, non-tender, nondistended. MUSCULOSKELETAL: No cyanosis, or edema. BACK: Nontender without obvious deformity. No CVA tenderness. - Urinary Catheter Management Indwelling Urethral Catheter Cath placed during this visit: yes, but has since been removed by the nurse Reason for continuing: Decision to DC catheter Removal date: 08/17/18 Removal time: 16:30 Assessment and Plan - Plan IMPRESSION: 1. Hypoxic, hypercapnic respiratory failure. 2. Left lung volume loss, possible atelectasis or infiltrate. 3. Left lung nodule. 4. Chronic obstructive pulmonary disease. 5. Renal insufficiency. 6. Atelactesis left lung PLAN: Vent Support, CPAP trial and weaning parameters Aerosol nebs Mucomyst nebs Cont Abx
[2018-08-21] MEDS: Azithromycin Inj 500 MG in Sodium Chlor 0.9% Inj 250 ML IV.SIG SCH (23:02)
[2018-08-21] MEDS: Enoxaparin Inj 30 MG/0.3 ML Syringe SQ SCH (23:02)
[2018-08-22] MEDS: Oral Hygiene Kit OROPHARYNG SCH ×4 (04:47→23:56)
[2018-08-22 05:13] LABS: Hemoglobin 17.7 gm/dL (13.0-17.0); Mean Corpuscular HGB Conc 32.8 % (32.0-36.0); Mean Corpuscular Volume 100.7 fL (80.0-100.0); Mean Platelet Volume 9.5 fL (7.0-11.0); Platelet Count 139 th/mm3 (150-450); Red Blood Count 5.37 mil/mm3 (4.50-5.90); Red Cell Distribution Width 14.9 % (11.6-17.2); White Blood Count 19.3 th/mm3 (4.0-11.0)
[2018-08-22 05:25] LABS: INR 1.2 Ratio; Prothrombin Time 11.7 sec (9.8-11.6)
[2018-08-22 05:27] LABS: Alanine Aminotransferase 324 U/L (12-78); Albumin 2.7 g/dL (3.4-5.0); Alkaline Phosphatase 79 U/L (45-117); Anion Gap 8 meq/L (5-15); Aspartate Aminotransferase 122 U/L (15-37); Blood Urea Nitrogen 103 mg/dL (7-18); Calcium 8.9 mg/dL (8.5-10.1); Carbon Dioxide 35.5 meq/L (21.0-32.0); Chloride 108 meq/L (98-107); Glomerular Filtration Rate 30 mL/min (>89); Glucose,Random 84 mg/dL (74-106); Magnesium 2.6 mg/dL (1.5-2.5); Potassium 3.6 meq/L (3.5-5.1); Sodium 151 meq/L (136-145); Total Protein 6.8 g/dL (6.4-8.2)
[2018-08-22] MEDS: MethylPREDNISolone Sod Succinate Inj 40 MG/ML Vial IV.PUSH SCH ×3 (06:44→22:10)
--- NOTE | 2018-08-22 07:06 | P.PNCC ---
Subjective Subjective Remarks/Hospital Course: 68-year-old gentleman with COPD and chronic cough who continues to smoke presented to [place] emergency department for an evaluation of altered mental status and shortness of breath. The patient went to latter day this morning and returned on the bus and sat in the garage. The lady that takes care of him did talk to him and he said he was fine and sat down in his chair in the garage. He however did not come to his lunch and she went out and found him unresponsive with labored breathing. This occurred at 2 PM today. Patient was brought into the emergency department with altered mental status and respiratory distress. Pulse ox was in the 60s. Patient was put on high flow oxygen and later changed to BiPAP with improvement in mentation and oxygenation. The chest x-ray obtained in the emergency department shows almost complete opacification of left hemithorax. The CT without contrast shows severe cardiomegaly and no pleural effusion or pericardial effusion. The patient has been transferred to [facility] ICU for higher level of care. 08/17: no improvement in respiratory distress- mental status worsened. abg no improvement. clinically declined and emergently intubated. on bedside echo, very difficult windows due to lung disease and obesity, but dilated ivc without respiratory variation and no pericardial effusion. formal echo pending. 08/18: remains intubated. abg slowly improving. tran removed yesterday but unable to straight cath. 08/19: FiO2 down to 55%. Will re-CT the chest today. Likely just a gigantic heart causing opacification left hemithorax.. No other issues overnight. Creatinine slowly increasing. Subjective: 08/20: Febrile. Status post bronchoscopy yesterday due to mucous plug in the left lungs. Improved aeration currently 50% FiO2. We will continue to wean today. Tolerating tube feeding. Creatinine improving. 08/21 Patient remains intubated and sedated with Diprivan. Afebrile. 08/22 No events overnight off sedation tolerated CPAP for several hrs yesterday. T:100.7 last night Objective Vital Signs / I&O: Vital Signs 08/21/18 07:23 08/21/18 08:00 08/21/18 10:00 Temperature 99.2 F Pulse Rate 69 76 93 H Respiratory Rate 16 16 Blood Pressure 122/78 Pulse Oximetry 93 L 93 L 08/21/18 11:25 08/21/18 12:00 08/21/18 14:00 Temperature 100.2 F H Pulse Rate 100 H 101 H Respiratory Rate 18 19 Blood Pressure 138/90 Pulse Oximetry 91 L 92 L 08/21/18 14:40 08/21/18 15:21 08/21/18 16:00 Temperature 100.7 F H Pulse Rate 104 H 98 H Respiratory Rate 18 17 16 Blood Pressure 141/87 H Pulse Oximetry 96 94 L 93 L 08/21/18 18:00 08/21/18 19:58 08/21/18 20:00 Temperature 100.7 F H Pulse Rate 94 H 94 H 94 H Respiratory Rate 16 18 Blood Pressure 138/80 Pulse Oximetry 93 L 91 L 08/21/18 22:00 08/21/18 22:39 08/22/18 00:00 Temperature 99.7 F H Pulse Rate 94 H 97 H Respiratory Rate 16 16 Blood Pressure 128/79 Pulse Oximetry 93 L 97 08/22/18 02:00 08/22/18 03:43 08/22/18 04:00 Temperature 99.5 F Pulse Rate 79 81 80 Respiratory Rate 16 16 Blood Pressure 104/66 Pulse Oximetry 93 L 93 L 08/22/18 06:00 Temperature Pulse Rate 87 Respiratory Rate Blood Pressure Pulse Oximetry Intake & Output 08/21/18 08/21/18 08/22/18 06:59 18:59 06:59 Intake Total 1119 / 1119 798 / 798 1445 / 1445 Output Total 650 / 650 550 / 550 1945 / 1945 Balance 469 / 469 248 / 248 -500 / -500 Weight 113.5 kg 110 kg Intake: IV 450 / 450 370 / 370 Diprivan 1000 mg/100 ml Inj 1, 200 / 200 20 / 20 000 mg In 100 ml @ 5 MCG/KG/MIN 3.525 mls/hr IV.CONT TITRATE PRN Rx#:[id number] Azithromycin Inj 500 MG In NS 250 / 250 250 / 250 Inj 250 ML @ 250 mls/hr IV.SIG Q24H [facility] Rx#:[id number] Maxipime Inj 2,000 MG In NS Inj 100 / 100 100 ML @ 200 mls/hr IV.SIG Q24H [facility] Rx#:[id number] Tube Feeding 469 / 469 498 / 498 475 / 475 Water Bolus Amount 200 / 200 300 / 300 600 / 600 Output: Urine Amount (Catheter) 650 / 650 550 / 550 1944 Coude 550 / 550 1944 Indwelling Urethral Catheter 650 / 650 Other: Date of Last Bowel Movement 08/18/18 08/18/18 08/18/18 # Bowel Movements 1 1 Result Diagrams: 08/22/18 03:41 08/22/18 03:41 Other Results: Laboratory Results - last 12 hr 08/22/18 08/22/18 08/22/18 03:41 03:41 03:41 WBC 19.3 H RBC 5.37 Hgb 17.7 H Hct 54.0 H MCV 100.7 H MCH 33.0 MCHC 32.8 RDW 14.9 Plt Count 139 L MPV 9.5 PT 11.7 H INR 1.2 Sodium 151 H Potassium 3.6 Chloride 108 H Carbon Dioxide 35.5 H Anion Gap 8 BUN 103 H Creatinine 2.17 H Estimated GFR 30 L Random Glucose 84 Calcium 8.9 Phosphorus 3.0 D Magnesium 2.6 H Total Bilirubin 0.9 AST 122 H ALT 324 H Alkaline Phosphatase 79 Total Protein 6.8 Albumin 2.7 L Imaging: Abdomen Ultrasound 08/19/18 00:00 CONCLUSION: 1. Hepatomegaly with diffuse hyperechoic texture characteristic of steatosis or diffuse hepatocellular disease. 2. Bilateral renal cysts. 3. Nonvisualization of the gallbladder and pancreas. 4. No evidence of hydronephrosis or abnormal fluid collections. Chest CT 08/19/18 12:41 CONCLUSION: 1. Progressive airspace consolidation and collapse involving now nearly the entire left lung with only minimal residual aeration of the left lung apex. Air bronchograms are noted throughout the left lung making a significant endobronchial lesion less likely. There is progressive mediastinal shift to the left. 2. No evidence for hydropneumothorax as questioned. 3. Scattered subcentimeter mediastinal nodes are nonspecific and may be reactive in etiology. Chest X-Ray 08/21/18 06:00 CONCLUSION: Mild consolidation and small effusions at each lung base, not significantly changed on the right and improved on the left. Objective Remarks: GENERAL: 68-year-old male lying in bed, intubated, sedated HEENT: Normocephalic. Atraumatic. Pupils equal, round, reactive, round 1 mm bilaterally conjugate. Mucous membranes are moist NECK: Trachea is midline. no JVD. CHEST: prvc, peep 5, fio2 70%. spo2 93%. CARDIOVASCULAR: normal rate, regular rhythm. Sinus. ABDOMEN: Obese, soft, nontender, nondistended. No guarding. MUSCULOSKELETAL: Pulses 2+. 1+ peripheral edema NEUROLOGICAL: RASS -2. withdraws x 4. Positive gag and cough. Does not follow commands this morning. Assessment and Plan - Assessment and Plan Plan: Neuro/Psych: Depression Off sedation, monitor neuro status. Acetaminophen 650 every 6 hours as needed fever Continue bupropion 50 mg daily and gabapentin 6 mg twice daily On Thiamine 100mg BID CV: Cardiomegaly Congestive Heart Failure, acute systolic and diastolic Essential hypertension Monitor HR and BP keep MAP>65mmHg -2D echo- left ventricular systolic function is severely reduced with an estimated ejection fraction in the range of 30-35%. Moderately dilated left ventricle with normal wall thickness.There is diffuse global hypokinesis. Findings consistent with Grade 1 diastolic dysfunction. The RV is likely moderately enlarged with decreased systolic function. No significant valvular heart disease seen on the images that were obtained. Unable to obtain a proper maximum TR velocity to estimate the RVSP. Using the pulmonary regurgitant velocity at the beginning of diastole, the mean PA is estimated at 31 mmHg. The inferior vena cava is normal in size with less than 50% collape with inspiration. (RAP is estimated at 15 mmHg) There is a small pericardial effusion present. Resp: Acute hypoxic and hypercarbic Respiratory failure Acute severe COPD Exacerbation Obesity Hypoventilation Syndrome Left lower lobe lung nodule Tobacco abuse -PRVC ventilation 16/12/01/49 Ventilator bundle Albuterol/ipratropium aerosols every 6 hours with albuterol aerosols every 2 hours as needed for dyspnea Spontaneous breathing trials as fortino Head of bed at 30 Methylprednisolone succinate 40 g IV every 8 hours Pulmonary/Dr. Ott following CT chest revealed mucous plugging involving the left lung. Post bronchoscopy 08/19. On Mucomyst nebulizers per pulmonology every 6 hours Check CXR GI: Transaminitis Indeterminate hepatitis A IgM-laboratory recommends 2 months follow-up. On tube feedings with Nepro @c an hour Lansoprazole for GI prophylaxis Docusate sodium/senna 1 tablet twice daily for bowel regimen liver ultrasound -revealed enlarged liver likely hepatic steatosis versus inflammatory Hepatitis panel: Hep A IgM Indeterminate Endo: Sliding scale insulin Accu-Cheks to maintain euglycemia/to 6 hours aspart medium regimen Renal: Acute kidney injury unknown baseline Hypernatremia Bilateral renal cysts Monitor renal function, I/O's, avoid nephrotoxins Renal function slowly improving with Cr 2.17 today from 2.37 Increase Free water 250ml Q6 Renal ultrasound revealed bilateral renal cyst. No hydronephrosis Nephrology consultation appreciated.ANCA/complements all pending. Decrease Bumex 1mg daily Renal- Dr. Olivares Heme: Macrocytosis Leukocytosis Monitor CBC daily. Follow trends. No indication for transfusion of blood products at this time. ID: Currently on cefepime, azithromycin since 08/16, will give Vanco 1gram x1 Will panculture today given worsening leukocytosis and low grade fever. Check CXR Negative blood cultures 08/16. Negative UA 08/17. Negative sputum 08/17 Bronchoscopy samples from left upper lobe 08/19. Gram stain negative Bronch washing AFB pending MSK: Elevated BMI Weight loss encouraged Access -Utilize peripheral IV. Central line if indicated Prophylaxis - GI -Lansoprazole - DVT -SCDs enoxaparin Level 3
[2018-08-22] MEDS ORDERED: Dextrose 50% in Water 50 ML Vial IV.PUSH PRN (07:07)
[2018-08-22] MEDS ORDERED: Vancomycin Inj 1,000 MG in Sodium Chlor 0.9% Inj 250 ML IV.SIG ONE (07:09)
--- NOTE | 2018-08-22 07:45 | XR ---
EXAM DATE: 08/22/2018 7:03 AM EDT AGE/SEX: 68 years / Male INDICATIONS: Ileus. CLINICAL DATA: This is the patient's subsequent encounter. Patient reports that signs and symptoms h ave been present for 4 - 6 days and indicates a pain score of Nonresponsive. MEDICAL/SURGICAL HISTORY: Chronic obstructive pulmonary disease. None. COMPARISON: [facility], CHEST 1V SINGLE AP, 08/22/2018. . FINDINGS: 2 supine frontal views of the abdomen demonstrate air within bowel in a nonobstructive pattern. Ther e are no features to suggest ileus. Round density in the left pelvis measures 1.8 cm and overlies the sigmoid colon air. No organomegaly or abnormal mass effect is appreciated. Nasogastric tube distal t ip is in the gastric body. There are degenerative changes of the lumbar spine and hip joints. Opacity is visualized at the left lung base. CONCLUSION: 1. There are no features to indicate ileus. No acute abdominal abnormality is identified. 2. Nonspecific 18 mm density in the left pelvis represent a calcification or could represent materia l within the sigmoid colon. 3. Opacity at the left lung base. Please refer to today's chest x-ray for further description. Electronically signed by: Олег Kee MD 08/22/2018 7:43 AM EDT
--- NOTE | 2018-08-22 07:47 | XR ---
EXAM DATE: 08/22/2018 7:02 AM EDT AGE/SEX: 68 years / Male INDICATIONS: Respiratory distress. CLINICAL DATA: This is the patient's subsequent encounter. Patient reports that signs and symptoms h ave been present for 4 - 6 days and indicates a pain score of Nonresponsive. MEDICAL/SURGICAL HISTORY: Chronic obstructive pulmonary disease. None. COMPARISON: [facility] [place] 1[place] SINGLE AP, [place]/21/2018. . FINDINGS: Portable AP view of the chest demonstrates a normal-sized cardiac silhouette. ETT and nasogastric tub e remain present. Multiple lines overlie the patient. There is left basilar pleural-parenchymal opaci ty, increased from the prior study. Small pleural-parenchymal opacity is present at the right base. N o pneumothorax is visualized. CONCLUSION: Increased left basilar opacity characteristic of pleural effusion with associated volume loss and/or airspace consolidation. There is very small volume of right pleural fluid with likely atelectasis at the right base. Electronically signed by: Олег Kee MD 08/22/2018 7:46 AM EDT
[2018-08-22] MEDS: Chlorhexidine 0.12% Oral Kit 15 ML UDC OROPHARYNG SCH ×2 (08:48→20:24)
[2018-08-22] MEDS: Gabapentin 300 MG Capsule PO SCH ×2 (08:48→20:24)
[2018-08-22] MEDS: buPROPion 150 MG 12 HR Tablet PO SCH (08:49)
[2018-08-22] MEDS: Senna/Docusate Sodium 8.6/50 MG Tablet PO SCH ×2 (08:49→20:25)
[2018-08-22] MEDS: Carboxymethylcellulose 0.5% Opth Drops 15 ML Bottle EACH EYE SCH ×3 (08:49→17:10)
--- NOTE | 2018-08-22 11:24 | P.PNNP ---
Subjective Interval history: Intubated and sedated. Creatinine improved at 2.17 today. Having to be I+O catheterized secondary to retention. <Mary Anne Paul - Last Filed: 08/22/18 11:17> Physical Exam Vital signs: Vital Signs 08/21/18 11:25 08/21/18 12:00 08/21/18 14:00 Temperature 100.2 F H Pulse Rate 100 H 101 H Respiratory Rate 18 19 Blood Pressure 138/90 Pulse Oximetry 91 L 92 L 08/21/18 14:40 08/21/18 15:21 08/21/18 16:00 Temperature 100.7 F H Pulse Rate 104 H 98 H Respiratory Rate 18 17 16 Blood Pressure 141/87 H Pulse Oximetry 96 94 L 93 L 08/21/18 18:00 08/21/18 19:58 08/21/18 20:00 Temperature 100.7 F H Pulse Rate 94 H 94 H 94 H Respiratory Rate 16 18 Blood Pressure 138/80 Pulse Oximetry 93 L 91 L 08/21/18 22:00 08/21/18 22:39 08/22/18 00:00 Temperature 99.7 F H Pulse Rate 94 H 97 H Respiratory Rate 16 16 Blood Pressure 128/79 Pulse Oximetry 93 L 97 08/22/18 02:00 08/22/18 03:43 08/22/18 04:00 Temperature 99.5 F Pulse Rate 79 81 80 Respiratory Rate 16 16 Blood Pressure 104/66 Pulse Oximetry 93 L 93 L 08/22/18 06:00 08/22/18 07:33 Temperature Pulse Rate 87 Respiratory Rate 17 Blood Pressure Pulse Oximetry 96 Intake & Output 08/21/18 08/22/18 08/22/18 18:59 06:59 18:59 Intake Total 798 / 798 1445 / 1445 Output Total 550 / 550 1945 / 1945 Balance 248 / 248 -500 / -500 Weight 110 kg Intake: IV 370 / 370 Diprivan 1000 mg/100 ml Inj 1, 20 / 20 000 mg In 100 ml @ 5 MCG/KG/MIN 3.525 mls/hr IV.CONT TITRATE PRN Rx#:[id number] Azithromycin Inj 500 MG In NS 250 / 250 Inj 250 ML @ 250 mls/hr IV.SIG Q24H [facility] Rx#:[id number] Maxipime Inj 2,000 MG In NS Inj 100 / 100 100 ML @ 200 mls/hr IV.SIG Q24H [facility] Rx#:[id number] Tube Feeding 498 / 498 475 / 475 Water Bolus Amount 300 / 300 600 / 600 Output: Urine Amount (Catheter) 550 / 550 1944 Coude 550 / 550 1944 Other: Date of Last Bowel Movement 08/18/18 08/18/18 # Bowel Movements 1 Narrative: GENERAL: On ventilator, sedated SKIN: Warm and dry. HEAD: Normocephalic. EYES: No scleral icterus. No injection or drainage. NECK: Supple, No JVD CARDIOVASCULAR: Regular rate and rhythm without murmurs, gallops, or rubs. RESPIRATORY: Breath sounds equal bilaterally. No accessory muscle use. GASTROINTESTINAL: Abdomen soft, non-tender, nondistended. - Urinary Catheter Management Indwelling Urethral Catheter Cath placed during this visit: yes, but has since been removed by the nurse Reason for continuing: Decision to DC catheter Removal date: 08/17/18 Removal time: 16:30 Coude Cath placed during this visit: no <Mary Anne Paul - Last Filed: 08/22/18 11:17> Vital signs: Vital Signs 08/22/18 11:30 08/22/18 11:33 08/22/18 12:00 Temperature 100.5 F H Pulse Rate 75 79 Respiratory Rate 16 16 16 Blood Pressure 110/64 114/70 Pulse Oximetry 93 L 93 L 93 L 08/22/18 12:30 08/22/18 13:00 08/22/18 13:30 Temperature Pulse Rate 84 82 80 Respiratory Rate 16 16 16 Blood Pressure 109/70 115/71 115/69 Pulse Oximetry 93 L 92 L 92 L 08/22/18 14:00 08/22/18 14:30 08/22/18 15:00 Temperature Pulse Rate 82 83 86 Respiratory Rate 16 16 16 Blood Pressure 120/73 122/77 134/80 Pulse Oximetry 92 L 92 L 92 L 08/22/18 15:09 08/22/18 15:30 08/22/18 16:00 Temperature 99.9 F H Pulse Rate 86 93 H Respiratory Rate 16 16 16 Blood Pressure 127/75 132/78 Pulse Oximetry 92 L 91 L 91 L 08/22/18 16:30 08/22/18 18:00 08/22/18 19:00 Temperature Pulse Rate 96 H 101 H Respiratory Rate 16 Blood Pressure 137/79 146/84 H Pulse Oximetry 92 L 08/22/18 19:30 08/22/18 20:00 08/22/18 20:30 Temperature 101.5 F H Pulse Rate 96 H 96 H 97 H Respiratory Rate 16 16 16 Blood Pressure 138/78 139/80 140/80 Pulse Oximetry 91 L 91 L 92 L 08/22/18 20:39 08/22/18 20:40 08/22/18 21:00 Temperature Pulse Rate 96 H 97 H Respiratory Rate 16 16 16 Blood Pressure 140/80 Pulse Oximetry 92 L 92 L 08/22/18 21:30 08/22/18 22:00 08/22/18 22:30 Temperature Pulse Rate 92 H 91 H 92 H Respiratory Rate 16 16 16 Blood Pressure 131/75 134/78 133/78 Pulse Oximetry 91 L 91 L 90 L 08/22/18 23:00 08/22/18 23:20 08/22/18 23:30 Temperature Pulse Rate 90 93 H Respiratory Rate 16 16 16 Blood Pressure 133/77 137/80 Pulse Oximetry 91 L 93 L 91 L 08/23/18 00:00 08/23/18 00:30 08/23/18 01:00 Temperature 99.2 F Pulse Rate 91 H 90 90 Respiratory Rate 16 16 16 Blood Pressure 131/77 130/76 134/79 Pulse Oximetry 91 L 90 L 89 L 08/23/18 01:30 08/23/18 02:00 08/23/18 02:30 Temperature Pulse Rate 96 H 99 H 97 H Respiratory Rate 16 16 16 Blood Pressure 140/81 143/84 H 140/81 Pulse Oximetry 91 L 91 L 91 L 08/23/18 03:00 08/23/18 03:30 08/23/18 04:00 Temperature 99.4 F Pulse Rate 98 H 93 H 92 H Respiratory Rate 16 16 16 Blood Pressure 147/84 H 145/82 H 137/83 Pulse Oximetry 91 L 91 L 93 L 08/23/18 04:01 08/23/18 04:30 08/23/18 05:00 Temperature Pulse Rate 91 H 89 100 H Respiratory Rate 16 16 12 Blood Pressure 130/81 Pulse Oximetry 91 L 96 08/23/18 05:09 08/23/18 06:00 08/23/18 07:00 Temperature Pulse Rate 97 H 85 91 H Respiratory Rate 15 16 16 Blood Pressure 115/66 104/64 122/66 Pulse Oximetry 90 L 91 L 91 L 08/23/18 07:15 08/23/18 07:51 08/23/18 08:00 Temperature Pulse Rate 109 H 109 H Respiratory Rate 14 21 18 Blood Pressure 136/79 Pulse Oximetry 92 L 92 L 08/23/18 09:00 08/23/18 11:03 08/23/18 11:04 Temperature Pulse Rate 104 H 94 H Respiratory Rate 20 19 18 Blood Pressure 132/70 Pulse Oximetry 92 L 91 L Intake & Output 08/22/18 08/23/18 08/23/18 18:59 06:59 18:59 Intake Total 765 / 765 1270 / 1270 Output Total 1000 / 1000 Balance -235 / -235 1270 / 1270 Weight 111 kg Intake: IV 350 / 350 250 / 250 Azithromycin Inj 500 MG In NS 250 / 250 Inj 250 ML @ 250 mls/hr IV.SIG Q24H [facility] Rx#:[id number] Maxipime Inj 2,000 MG In NS Inj 100 / 100 100 ML @ 200 mls/hr IV.SIG Q24H [facility] Rx#:[id number] Vancomycin Inj 1,000 MG In NS 250 / 250 Inj 250 ML @ 200 mls/hr IV.SIG ONCE ONE Rx#:[id number] Tube Feeding 415 / 415 420 / 420 Water Bolus Amount 600 / 600 Output: Urine Amount (Catheter) 1000 / 1000 Indwelling Urethral Catheter 1000 / 1000 Other: # Voids 1 Date of Last Bowel Movement 08/18/18 08/23/18 08/23/18 # Bowel Movements 0 - Urinary Catheter Management Indwelling Urethral Catheter Cath placed during this visit: no Coude Cath placed during this visit: no <Manpreet Haynes - Last Filed: 08/23/18 11:07> Assessment and Plan - Assessment (1) Acute renal failure Code(s): N17.9 - Acute kidney failure, unspecified Status: Acute (2) Chronic kidney disease Code(s): N18.9 - Chronic kidney disease, unspecified Status: Acute (3) COPD (chronic obstructive pulmonary disease) Code(s): J44.9 - Chronic obstructive pulmonary disease, unspecified Status: Acute (4) Pneumonia Code(s): J18.9 - Pneumonia, unspecified organism Status: Acute (5) Congestive heart failure Code(s): I50.9 - Heart failure, unspecified Status: Acute (6) Respiratory failure Code(s): J96.90 - Respiratory failure, unspecified, unspecified whether with hypoxia or hypercapnia Status: Acute (7) Abnormal liver function Code(s): K76.89 - Other specified diseases of liver Status: Acute - Plan Most likely infectious etiology causing respiratory failure, he came in with renal failure as well, differential includes autoimmune disease CARLOS/protein electrophoresis/ANCA/Anti GBM/ complements rule out autoimmune diseases Renal ultrasound with bilateral renal cysts, no hydronephrosis CARLOS and complements normal, others pending Creatinine improving at 2.17 from 2.37 today On antibiotics for pneumonia, renal dose as appropriate Hypernatremia with sodium level of 151, free water increased and Bumex decreased Avoid nephrotoxic agent and dye studies. Follow BMP and urinary output Labs in AM <Mary Anne Paul - Last Filed: 08/22/18 11:17> - Assessment (1) Acute renal failure Code(s): N17.9 - Acute kidney failure, unspecified Status: Acute (2) Chronic kidney disease Code(s): N18.9 - Chronic kidney disease, unspecified Status: Acute (3) COPD (chronic obstructive pulmonary disease) Code(s): J44.9 - Chronic obstructive pulmonary disease, unspecified Status: Acute (4) Pneumonia Code(s): J18.9 - Pneumonia, unspecified organism Status: Acute (5) Congestive heart failure Code(s): I50.9 - Heart failure, unspecified Status: Acute (6) Respiratory failure Code(s): J96.90 - Respiratory failure, unspecified, unspecified whether with hypoxia or hypercapnia Status: Acute (7) Abnormal liver function Code(s): K76.89 - Other specified diseases of liver Status: Acute - Plan Patient seen and examined, agree with above. Creatinine is better. On free water , Sodium is still elevated. <Manpreet Haynes - Last Filed: 08/23/18 11:07>
[2018-08-22] MEDS: Insulin NovoLIN Regular Correctional Sugar Inj SQ SCH ×3 (13:00→23:56)
[2018-08-22 13:24] LABS: Bacteria,Urine Rare /hpf; Bilirubin,Urine Negative (Negative); Clarity,Urine Clear (Clear); Color,Urine Yellow (Yellw/Straw); Glucose,Urine (UA) Negative (Negative); Leukocyte Esterase,Urine Negative (Negative); Nitrite,Urine Negative (Negative); Specific Gravity,Urine 1.014 (1.002-1.035); Squamous Epithelial Cell,Urine 1 /hpf (0-5)
--- NOTE | 2018-08-22 14:18 | P.PNPL ---
Subjective Interval history: 68 YOWM with VDRF, COPD On Vent, sedated No fever Physical Exam Vital signs: Vital Signs 08/21/18 14:40 08/21/18 15:21 08/21/18 16:00 Temperature 100.7 F H Pulse Rate 104 H 98 H Respiratory Rate 18 17 16 Blood Pressure 141/87 H Pulse Oximetry 96 94 L 93 L 08/21/18 18:00 08/21/18 19:58 08/21/18 20:00 Temperature 100.7 F H Pulse Rate 94 H 94 H 94 H Respiratory Rate 16 18 Blood Pressure 138/80 Pulse Oximetry 93 L 91 L 08/21/18 22:00 08/21/18 22:39 08/22/18 00:00 Temperature 99.7 F H Pulse Rate 94 H 97 H Respiratory Rate 16 16 Blood Pressure 128/79 Pulse Oximetry 93 L 97 08/22/18 02:00 08/22/18 03:43 08/22/18 04:00 Temperature 99.5 F Pulse Rate 79 81 80 Respiratory Rate 16 16 Blood Pressure 104/66 Pulse Oximetry 93 L 93 L 08/22/18 06:00 08/22/18 07:33 08/22/18 11:33 Temperature Pulse Rate 87 Respiratory Rate 17 16 Blood Pressure Pulse Oximetry 96 93 L Intake & Output 08/21/18 08/22/18 08/22/18 18:59 06:59 18:59 Intake Total 798 / 798 1445 / 1445 350 / 350 Output Total 550 / 550 1945 / 1945 Balance 248 / 248 -500 / -500 350 / 350 Weight 110 kg Intake: IV 370 / 370 350 / 350 Diprivan 1000 mg/100 ml Inj 1, 20 / 20 000 mg In 100 ml @ 5 MCG/KG/MIN 3.525 mls/hr IV.CONT TITRATE PRN Rx#:[id number] Azithromycin Inj 500 MG In NS 250 / 250 Inj 250 ML @ 250 mls/hr IV.SIG Q24H [facility] Rx#:[id number] Maxipime Inj 2,000 MG In NS Inj 100 / 100 100 / 100 100 ML @ 200 mls/hr IV.SIG Q24H [facility] Rx#:[id number] Vancomycin Inj 1,000 MG In NS 250 / 250 Inj 250 ML @ 200 mls/hr IV.SIG ONCE ONE Rx#:[id number] Tube Feeding 498 / 498 475 / 475 Water Bolus Amount 300 / 300 600 / 600 Output: Urine Amount (Catheter) 550 / 550 1944 Coude 550 / 550 1944 Other: Date of Last Bowel Movement 08/18/18 08/18/18 # Bowel Movements 1 GENERAL: WBWn NAD SKIN: Warm and dry. HEAD: Normocephalic. EYES: No scleral icterus. No injection or drainage. NECK: Supple, trachea midline. No JVD or lymphadenopathy. CARDIOVASCULAR: Regular rate and rhythm without murmurs, gallops, or rubs. RESPIRATORY: Breath sounds equal bilaterally. No accessory muscle use. GASTROINTESTINAL: Abdomen soft, non-tender, nondistended. MUSCULOSKELETAL: No cyanosis, or edema. BACK: Nontender without obvious deformity. No CVA tenderness. - Urinary Catheter Management Indwelling Urethral Catheter Cath placed during this visit: yes, but has since been removed by the nurse Reason for continuing: Decision to DC catheter Removal date: 08/17/18 Removal time: 16:30 Coude Cath placed during this visit: no Assessment and Plan - Plan IMPRESSION: 1. Hypoxic, hypercapnic respiratory failure. 2. Left lung volume loss, possible atelectasis or infiltrate. 3. Left lung nodule. 4. Chronic obstructive pulmonary disease. 5. Renal insufficiency. 6. Atelactesis left lung PLAN: Vent Support, CPAP trial and weaning parameters Aerosol nebs Mucomyst nebs Cont Abx
[2018-08-22] MEDS: Azithromycin Inj 500 MG in Sodium Chlor 0.9% Inj 250 ML IV.SIG SCH (22:10)
[2018-08-22] MEDS: Enoxaparin Inj 30 MG/0.3 ML Syringe SQ SCH (22:10)
[2018-08-23] MEDS: Oral Hygiene Kit OROPHARYNG SCH ×3 (03:47→16:20)
[2018-08-23 04:45] LABS: Hematocrit 56.6 % (39.0-51.0); Hemoglobin 18.1 gm/dL (13.0-17.0); Mean Corpuscular Volume 103.2 fL (80.0-100.0); Mean Platelet Volume 9.6 fL (7.0-11.0); Platelet Count 119 th/mm3 (150-450); Red Blood Count 5.49 mil/mm3 (4.50-5.90); White Blood Count 19.7 th/mm3 (4.0-11.0)
[2018-08-23 04:51] LABS: INR 1.2 Ratio; Prothrombin Time 11.8 sec (9.8-11.6)
[2018-08-23] MEDS: Insulin NovoLIN Regular Correctional Sugar Inj SQ SCH ×3 (05:20→19:07)
[2018-08-23] MEDS: MethylPREDNISolone Sod Succinate Inj 40 MG/ML Vial IV.PUSH SCH ×3 (05:20→21:06)
[2018-08-23 05:43] LABS: Alanine Aminotransferase 252 U/L (12-78); Albumin 2.6 g/dL (3.4-5.0); Alkaline Phosphatase 86 U/L (45-117); Anion Gap 5 meq/L (5-15); Aspartate Aminotransferase 87 U/L (15-37); Blood Urea Nitrogen 87 mg/dL (7-18); Calcium 8.9 mg/dL (8.5-10.1); Carbon Dioxide 37.6 meq/L (21.0-32.0); Chloride 111 meq/L (98-107); Glomerular Filtration Rate 40 mL/min (>89); Glucose,Random 139 mg/dL (74-106); Magnesium 2.6 mg/dL (1.5-2.5); Phosphorus 2.4 mg/dL (2.5-4.9); Potassium 3.8 meq/L (3.5-5.1); Sodium 154 meq/L (136-145); Total Protein 6.9 g/dL (6.4-8.2)
--- NOTE | 2018-08-23 06:56 | P.PNCC ---
Subjective Subjective Remarks/Hospital Course: 68-year-old gentleman with COPD and chronic cough who continues to smoke presented to [facility] emergency department for an evaluation of altered mental status and shortness of breath. The patient went to [employer] this morning and returned on the bus and sat in the garage. The lady that takes care of him did talk to him and he said he was fine and sat down in his chair in the garage. He however did not come to his lunch and she went out and found him unresponsive with labored breathing. This occurred at 2 PM today. Patient was brought into the emergency department with altered mental status and respiratory distress. Pulse ox was in the 60s. Patient was put on high flow oxygen and later changed to BiPAP with improvement in mentation and oxygenation. The chest x-ray obtained in the emergency department shows almost complete opacification of left hemithorax. The CT without contrast shows severe cardiomegaly and no pleural effusion or pericardial effusion. The patient has been transferred to [facility] ICU for higher level of care. 08/17: no improvement in respiratory distress- mental status worsened. abg no improvement. clinically declined and emergently intubated. on bedside echo, very difficult windows due to lung disease and obesity, but dilated ivc without respiratory variation and no pericardial effusion. formal echo pending. 08/18: remains intubated. abg slowly improving. tran removed yesterday but unable to straight cath. 08/19: FiO2 down to 55%. Will re-CT the chest today. Likely just a gigantic heart causing opacification left hemithorax.. No other issues overnight. Creatinine slowly increasing. Subjective: 08/20: Febrile. Status post bronchoscopy yesterday due to mucous plug in the left lungs. Improved aeration currently 50% FiO2. We will continue to wean today. Tolerating tube feeding. Creatinine improving. 08/21 Patient remains intubated and sedated with Diprivan. Afebrile. 08/22 No events overnight off sedation tolerated CPAP for several hrs yesterday. T:100.7 last night 08/23 Patient remains intubated off sedation. T:101.4 last night. Objective Vital Signs / I&O: Vital Signs 08/22/18 07:00 08/22/18 07:30 08/22/18 07:33 Temperature Pulse Rate 76 76 Respiratory Rate 16 16 17 Blood Pressure 115/69 111/67 Pulse Oximetry 91 L 92 L 96 08/22/18 08:00 08/22/18 08:30 08/22/18 09:00 Temperature Pulse Rate 77 78 79 Respiratory Rate 16 16 16 Blood Pressure 111/66 114/66 117/72 Pulse Oximetry 93 L 93 L 93 L 08/22/18 09:30 08/22/18 10:00 08/22/18 10:30 Temperature Pulse Rate 80 77 79 Respiratory Rate 16 16 16 Blood Pressure 122/75 117/72 114/70 Pulse Oximetry 92 L 92 L 93 L 08/22/18 11:00 08/22/18 11:30 08/22/18 11:33 Temperature Pulse Rate 77 75 Respiratory Rate 16 16 16 Blood Pressure 115/69 110/64 Pulse Oximetry 92 L 93 L 93 L 08/22/18 12:00 08/22/18 12:30 08/22/18 13:00 Temperature 100.5 F H Pulse Rate 79 84 82 Respiratory Rate 16 16 16 Blood Pressure 114/70 109/70 115/71 Pulse Oximetry 93 L 93 L 92 L 08/22/18 13:30 08/22/18 14:00 08/22/18 14:30 Temperature Pulse Rate 80 82 83 Respiratory Rate 16 16 16 Blood Pressure 115/69 120/73 122/77 Pulse Oximetry 92 L 92 L 92 L 08/22/18 15:00 08/22/18 15:09 08/22/18 15:30 Temperature Pulse Rate 86 86 Respiratory Rate 16 16 16 Blood Pressure 134/80 127/75 Pulse Oximetry 92 L 92 L 91 L 08/22/18 16:00 08/22/18 16:30 08/22/18 18:00 Temperature 99.9 F H Pulse Rate 93 H 96 H 101 H Respiratory Rate 16 16 Blood Pressure 132/78 137/79 Pulse Oximetry 91 L 92 L 08/22/18 20:00 08/22/18 20:39 08/22/18 20:40 Temperature 101.4 F H Pulse Rate 96 H 96 H Respiratory Rate 16 16 16 Blood Pressure 139/80 Pulse Oximetry 91 L 92 L 08/22/18 22:00 08/22/18 23:20 08/23/18 00:00 Temperature 99.2 F Pulse Rate 91 H 91 H Respiratory Rate 16 16 Blood Pressure 131/77 Pulse Oximetry 93 L 91 L 08/23/18 02:00 08/23/18 04:00 08/23/18 04:01 Temperature 99.4 F Pulse Rate 99 H 100 H 91 H Respiratory Rate 12 16 Blood Pressure 115/66 Pulse Oximetry 96 08/23/18 06:00 Temperature Pulse Rate 85 Respiratory Rate Blood Pressure Pulse Oximetry Intake & Output 08/22/18 08/22/18 08/23/18 06:59 18:59 06:59 Intake Total 1445 / 1445 765 / 765 1270 / 1270 Output Total 1944 1000 / 1000 Balance -500 / -500 -235 / -235 1270 / 1270 Weight 110 kg 111 kg Intake: IV 370 / 370 350 / 350 250 / 250 Diprivan 1000 mg/100 ml Inj 1, 20 / 20 000 mg In 100 ml @ 5 MCG/KG/MIN 3.525 mls/hr IV.CONT TITRATE PRN Rx#:[id number] Azithromycin Inj 500 MG In NS 250 / 250 250 / 250 Inj 250 ML @ 250 mls/hr IV.SIG Q24H [facility] Rx#:[id number] Maxipime Inj 2,000 MG In NS Inj 100 / 100 100 / 100 100 ML @ 200 mls/hr IV.SIG Q24H [facility] Rx#:[id number] Vancomycin Inj 1,000 MG In NS 250 / 250 Inj 250 ML @ 200 mls/hr IV.SIG ONCE ONE Rx#:[id number] Tube Feeding 475 / 475 415 / 415 420 / 420 Water Bolus Amount 600 / 600 600 / 600 Output: Urine Amount (Catheter) 1944 1000 / 1000 Coude 1944 Indwelling Urethral Catheter 1000 / 1000 Other: # Voids 1 Date of Last Bowel Movement 08/18/18 08/18/18 08/23/18 # Bowel Movements 1 0 Result Diagrams: 08/23/18 03:26 08/23/18 03:26 Other Results: Laboratory Results - last 12 hr 08/22/18 08/23/18 08/23/18 23:49 03:26 03:26 WBC 19.7 H RBC 5.49 Hgb 18.1 H Hct 56.6 H MCV 103.2 H MCH 33.0 MCHC 32.0 RDW 15.0 Plt Count 119 L MPV 9.6 PT 11.8 H INR 1.2 Sodium Potassium Chloride Carbon Dioxide Anion Gap BUN Creatinine Estimated GFR POC Glucose 131 H Random Glucose Calcium Phosphorus Magnesium Total Bilirubin AST ALT Alkaline Phosphatase Total Protein Albumin 08/23/18 03:26 WBC RBC Hgb Hct MCV MCH MCHC RDW Plt Count MPV PT INR Sodium 154 H Potassium 3.8 Chloride 111 H Carbon Dioxide 37.6 H Anion Gap 5 BUN 87 H Creatinine 1.72 H Estimated GFR 40 L POC Glucose Random Glucose 139 H Calcium 8.9 Phosphorus 2.4 L Magnesium 2.6 H Total Bilirubin 1.0 AST 87 H ALT 252 H Alkaline Phosphatase 86 Total Protein 6.9 Albumin 2.6 L Imaging: Abdomen Ultrasound 08/19/18 00:00 CONCLUSION: 1. Hepatomegaly with diffuse hyperechoic texture characteristic of steatosis or diffuse hepatocellular disease. 2. Bilateral renal cysts. 3. Nonvisualization of the gallbladder and pancreas. 4. No evidence of hydronephrosis or abnormal fluid collections. Chest CT 08/19/18 12:41 CONCLUSION: 1. Progressive airspace consolidation and collapse involving now nearly the entire left lung with only minimal residual aeration of the left lung apex. Air bronchograms are noted throughout the left lung making a significant endobronchial lesion less likely. There is progressive mediastinal shift to the left. 2. No evidence for hydropneumothorax as questioned. 3. Scattered subcentimeter mediastinal nodes are nonspecific and may be reactive in etiology. Chest X-Ray 08/22/18 07:02 CONCLUSION: Increased left basilar opacity characteristic of pleural effusion with associated volume loss and/or airspace consolidation. There is very small volume of right pleural fluid with likely atelectasis at the right base. Abdomen X-Ray 08/22/18 07:03 CONCLUSION: 1. There are no features to indicate ileus. No acute abdominal abnormality is identified. 2. Nonspecific 18 mm density in the left pelvis represent a calcification or could represent material within the sigmoid colon. 3. Opacity at the left lung base. Please refer to today's chest x-ray for further description. Objective Remarks: GENERAL: 68-year-old male lying in bed, intubated, sedated HEENT: Normocephalic. Atraumatic. Pupils equal, round, reactive, round 1 mm bilaterally conjugate. Mucous membranes are moist NECK: Trachea is midline. no JVD. CHEST: B/l equal air entry CARDIOVASCULAR: normal rate, regular rhythm. Sinus. ABDOMEN: Obese, soft, nontender, nondistended. No guarding. MUSCULOSKELETAL: Pulses 2+. 1+ peripheral edema NEUROLOGICAL: Awake, follows commands Assessment and Plan - Assessment and Plan Plan: Neuro/Psych: Depression Off sedation, monitor neuro status. Acetaminophen 650 every 6 hours as needed fever Continue bupropion 50 mg daily and gabapentin 6 mg twice daily On Thiamine 100mg BID CV: Cardiomegaly Congestive Heart Failure, acute systolic and diastolic Essential hypertension Monitor HR and BP keep MAP>65mmHg -2D echo- left ventricular systolic function is severely reduced with an estimated ejection fraction in the range of 30-35%. Moderately dilated left ventricle with normal wall thickness.There is diffuse global hypokinesis. Findings consistent with Grade 1 diastolic dysfunction. The RV is likely moderately enlarged with decreased systolic function. No significant valvular heart disease seen on the images that were obtained. Unable to obtain a proper maximum TR velocity to estimate the RVSP. Using the pulmonary regurgitant velocity at the beginning of diastole, the mean PA is estimated at 31 mmHg. The inferior vena cava is normal in size with less than 50% collape with inspiration. (RAP is estimated at 15 mmHg) There is a small pericardial effusion present. Resp: Acute hypoxic and hypercarbic Respiratory failure Acute severe COPD Exacerbation Obesity Hypoventilation Syndrome Left lower lobe lung nodule Tobacco abuse -PRVC ventilation /12/01/49 Ventilator bundle Albuterol/ipratropium aerosols every 6 hours with albuterol aerosols every 2 hours as needed for dyspnea Spontaneous breathing trials as fortino Head of bed at 30 Methylprednisolone succinate 40 g IV every 8 hours Pulmonary/Dr. Ott following CT chest 08/19 revealed mucous plugging involving the left lung. Post bronchoscopy 08/19. On Mucomyst nebulizers per pulmonology every [address] chest today GI: Transaminitis Indeterminate hepatitis A IgM-laboratory recommends 2 months follow-up. On tube feedings with Nepro @c an hour Lansoprazole for GI prophylaxis Docusate sodium/senna 1 tablet twice daily for bowel regimen liver ultrasound -revealed enlarged liver likely hepatic steatosis versus inflammatory Hepatitis panel: Hep A IgM Indeterminate KUB abdomen: There are no features to indicate ileus. No acute abdominal abnormality is identified. Nonspecific 18 mm density in the left pelvis represent a calcification or could represent material within the sigmoid colon For CT abd/pelvis today Endo: Sliding scale insulin Accu-Cheks to maintain euglycemia/to 6 hours aspart medium regimen Renal: Acute kidney injury unknown baseline Hypernatremia Bilateral renal cysts Monitor renal function, I/O's, avoid nephrotoxins Renal function improving with Cr 1.72 today from 2.17 Increase Free water 300ml Q4, add D5W@50ml/hr, monitor sodium level. Renal ultrasound revealed bilateral renal cyst. No hydronephrosis Nephrology consultation appreciated.ANCA/complements all pending. On Bumex 1mg daily Renal- Dr. Olivares CT abdomen/pelvis today showed severe left hydronephrosis and hydroureter 2nd 2cm stone in the distal left ureter. Discussed with Dr. Kay from Urology and recommended IR for nephrostomy tube placement. Spoke to Dr. Davonte Singh from IR plan to proceed with Nephrostomy tube placement today Heme: Macrocytosis Leukocytosis Monitor CBC daily. Follow trends. No indication for transfusion of blood products at this time. ID: Currently on cefepime, azithromycin add Vanco s/p Vanco 1gram x1 08/22 Panculture 08/22 ( Blood, sputum, urine) ID eval Negative blood cultures 08/16. Negative UA 08/17. Negative sputum 08/17 Bronchoscopy samples from left upper lobe 08/19. Gram stain negative Bronch washing AFB pending MSK: Elevated BMI Weight loss encouraged Access -Utilize peripheral IV. Central line if indicated Prophylaxis - GI -Lansoprazole - DVT -SCDs enoxaparin Level 3
[2018-08-23] MEDS ORDERED: Vancomycin Consult Pharmacy OTHER PRN (06:57)
[2018-08-23] MEDS: Dextrose 5% in Water Inj 1,000 ML IV.CONT SCH (08:00)
[2018-08-23] MEDS ORDERED: Magnesium Sulfate Inj 2 GM in Sodium Chlor 0.9% Inj 96 ML IV.SIG PRN (08:03)
[2018-08-23] MEDS ORDERED: Potassium Phosphate 500 MG Soluble Tablet PO PRN ×2 (08:03)
[2018-08-23] MEDS ORDERED: Magnesium Sulfate Inj 4 GM in Sodium Chlor 0.9% Inj 92 ML IV.SIG PRN (08:03)
[2018-08-23] MEDS ORDERED: Potassium Phosphate Inj 30 MMOL in Sodium Chlor 0.9% Inj 250 ML IV.SIG PRN (08:03)
[2018-08-23] MEDS ORDERED: Sodium Phosphate Inj 30 MMOL in Sodium Chlor 0.9% Inj 250 ML IV.SIG PRN (08:03)
[2018-08-23] MEDS ORDERED: Magnesium Oxide 400 MG Tablet PO PRN (08:03)
[2018-08-23] MEDS ORDERED: Potassium Chlor 40 mEq Premix 40 MEQ/100 ML PIGGYBACK IV.SIG PRN ×2 (08:03)
[2018-08-23] MEDS: Gabapentin 300 MG Capsule PO SCH ×2 (08:19→21:10)
[2018-08-23] MEDS: buPROPion 150 MG 12 HR Tablet PO SCH (08:23)
[2018-08-23] MEDS: Vancomycin Inj 1,750 MG in Sodium Chlor 0.9% Inj 500 ML IV.SIG SCH (09:15)
[2018-08-23] MEDS: Chlorhexidine 0.12% Oral Kit 15 ML UDC OROPHARYNG SCH ×2 (09:16→21:07)
[2018-08-23] MEDS: Carboxymethylcellulose 0.5% Opth Drops 15 ML Bottle EACH EYE SCH ×3 (09:17→19:05)
[2018-08-23] MEDS: Senna/Docusate Sodium 8.6/50 MG Tablet PO SCH ×2 (09:17→21:08)
--- NOTE | 2018-08-23 10:47 | CT ---
EXAM DATE: 08/23/2018 10:05 AM EDT AGE/SEX: 68 years / Male INDICATIONS: Left Lower Consolidation, on vent, respiratory failure CLINICAL DATA: This is the patient's initial encounter. Patient reports that signs and symptoms have been present for 4 - 6 days and indicates a pain score of Nonresponsive. MEDICAL/SURGICAL HISTORY: Congestive heart failure. Chronic obstructive pulmonary disease. Renal d isease None. RADIATION DOSE: 12.07 CTDI (mGy) ; Combined studies COMPARISON: [facility] [place], CT CHEST W/O CONTRAST, 08/19/2018. . TECHNIQUE: Multiple contiguous axial images were obtained through the chest without contrast. Image s were obtained in suspended respiration using multiple row detector helical technique. Using automa grace exposure control and adjustment of the mA and/or kV according to patient size, radiation dose was kept as low as reasonably achievable to obtain optimal diagnostic quality images. DICOM format imag e data is available electronically for review and comparison. FINDINGS: Lungs: There is left lower lobe volume loss/collapse with mild atelectasis of the left upper lobe. T here is improved aeration compared to the prior CT but findings are stable compared to yesterday's est x-ray. Additionally, there is collapse/volume loss of the right lower lobe. There is a calcified granuloma in the right lower lobe. No pneumothorax is present. There is no pleural effusion. Mediastinum: Heart and great vessels demonstrate no acute finding on this noncontrast examination. T he main pulmonary artery is enlarged measuring 4.1 cm in diameter compared to 3.6 cm of the adjacent aorta. No lymphadenopathy is identified. There are calcified mediastinal and right hilar lymph nodes. Pleurae: No pleural effusion or pleural thickening. Axillae: No lymphadenopathy. Musculoskeletal: The bones and soft tissues demonstrate no acute abnormality. There are degenerativ e changes of the lumbar spine. Other: Please refer to abdomen and pelvis CT report for description of the subdiaphragmatic findings . CONCLUSION: 1. There is continued volume loss/collapse of the left upper lobe with mild atelectasis in the left upper lobe. Aeration is improved compared to the study from 4 days ago and stable compared to the mos t recent chest x-ray. There is also volume loss in the right lower lobe. No pleural effusion is prese nt. 2. Stable enlargement of the main pulmonary artery which may indicate pulmonary arterial hypertensio n. 3. Findings consistent with prior granulomatous infection. Please refer to abdomen and CT report for description of the subdiaphragmatic findings. Electronically signed by: Олег Kee MD 08/23/2018 10:45 AM EDT
--- NOTE | 2018-08-23 11:05 | CT ---
EXAM DATE: 08/23/2018 9:58 AM EDT AGE/SEX: 68 years / Male INDICATIONS: Abnormal density seen in pelvis on KUB x-ray CLINICAL DATA: This is the patient's initial encounter. Patient reports that signs and symptoms have been present for 4 - 6 days and indicates a pain score of Nonresponsive. MEDICAL/SURGICAL HISTORY: Chronic obstructive pulmonary disease. Congestive heart failure. Shane al failure None. RADIATION DOSE: 12.07 CTDI (mGy) ; Combined studies COMPARISON: No prior exams available for comparison. TECHNIQUE: Multiple contiguous axial images were obtained through the abdomen. Images were obtained using multiple row detector helical technique. Using automated exposure control and adjustment of the mA and/or kV according to patient size, radiation dose was kept as low as reasonably achievable to o btain optimal diagnostic quality images. DICOM format image data is available electronically for rev iew and comparison. FINDINGS: Lower chest: Please refer to chest CT report for description of the supradiaphragmatic findings. Hepatobiliary: Mild decreased liver density indicating steatosis. No focal lesion is seen on this non contrast examination. Gallbladder is not visualized. Kidneys: There are multiple low-density lesions on each kidney that have density measurements charact eristic of simple cysts. The largest in the right kidney is at the upper pole measuring 4.2 cm and th e largest in the left kidney is in the midportion measuring 4.5 cm. There is a linear nonobstructing stone in the left lower pole collecting system measuring 5 mm. Severe left hydronephrosis and hydrour eter is present with the abnormality caused by a 2 cm stone in the distal left ureter correlating wit h the density seen on yesterday's abdominal x-ray. Adrenal Glands: Within normal limits. Spleen: Spleen is normal in size and contains innumerable punctate calcifications related to prior gr anulomatous infection. Pancreas: Within normal limits. Vascular: The aorta is nonaneurysmal. Normal aorta is mildly tortuous with mild atherosclerotic disea se. Celiac trunk is mildly dilated measuring up to 1.5 cm. Bowel/Mesentery: The stomach and small bowel demonstrate no abnormality. No acute colon abnormality i s seen. There is no free intraperitoneal air or fluid. Nasogastric tube distal tip is in the distal g astric body. There is sigmoid diverticulosis and right colon diverticulosis. Abdominal Wall: There is abdominal wall laxity. Subcutaneous edema is present on the left lateral abd ominal wall. Retroperitoneum: No lymphadenopathy. Bladder: No wall thickening or mass. There is a small amount of air in the bladder lumen. Reproductive: Prostate gland is mildly enlarged. Inguinal: No lymphadenopathy or hernia. Musculoskeletal: No acute osseous abnormality is identified. There are degenerative changes of the jadyn mbar spine. CONCLUSION: 1. Severe left hydronephrosis and hydroureter caused by a 2 cm stone in the distal left ureter. 2. Trace air within the bladder lumen. Although nonspecific this may be related to a recent catheter ization. 3. Nonacute findings include multiple bilateral renal cysts, mild atherosclerotic disease, and mild hepatic steatosis. Electronically signed by: Олег Kee MD 08/23/2018 11:04 AM EDT
--- NOTE | 2018-08-23 11:09 | P.PNNP ---
Subjective Interval history: Patient seen, clinically same, remain on the vent. and awake. Physical Exam Vital signs: Vital Signs 08/22/18 11:30 08/22/18 11:33 08/22/18 12:00 Temperature 100.5 F H Pulse Rate 75 79 Respiratory Rate 16 16 16 Blood Pressure 110/64 114/70 Pulse Oximetry 93 L 93 L 93 L 08/22/18 12:30 08/22/18 13:00 08/22/18 13:30 Temperature Pulse Rate 84 82 80 Respiratory Rate 16 16 16 Blood Pressure 109/70 115/71 115/69 Pulse Oximetry 93 L 92 L 92 L 08/22/18 14:00 08/22/18 14:30 08/22/18 15:00 Temperature Pulse Rate 82 83 86 Respiratory Rate 16 16 16 Blood Pressure 120/73 122/77 134/80 Pulse Oximetry 92 L 92 L 92 L 08/22/18 15:09 08/22/18 15:30 08/22/18 16:00 Temperature 99.9 F H Pulse Rate 86 93 H Respiratory Rate 16 16 16 Blood Pressure 127/75 132/78 Pulse Oximetry 92 L 91 L 91 L 08/22/18 16:30 08/22/18 18:00 08/22/18 19:00 Temperature Pulse Rate 96 H 101 H Respiratory Rate 16 Blood Pressure 137/79 146/84 H Pulse Oximetry 92 L 08/22/18 19:30 08/22/18 20:00 08/22/18 20:30 Temperature 101.5 F H Pulse Rate 96 H 96 H 97 H Respiratory Rate 16 16 16 Blood Pressure 138/78 139/80 140/80 Pulse Oximetry 91 L 91 L 92 L 08/22/18 20:39 08/22/18 20:40 08/22/18 21:00 Temperature Pulse Rate 96 H 97 H Respiratory Rate 16 16 16 Blood Pressure 140/80 Pulse Oximetry 92 L 92 L 08/22/18 21:30 08/22/18 22:00 08/22/18 22:30 Temperature Pulse Rate 92 H 91 H 92 H Respiratory Rate 16 16 16 Blood Pressure 131/75 134/78 133/78 Pulse Oximetry 91 L 91 L 90 L 08/22/18 23:00 08/22/18 23:20 08/22/18 23:30 Temperature Pulse Rate 90 93 H Respiratory Rate 16 16 16 Blood Pressure 133/77 137/80 Pulse Oximetry 91 L 93 L 91 L 08/23/18 00:00 08/23/18 00:30 08/23/18 01:00 Temperature 99.2 F Pulse Rate 91 H 90 90 Respiratory Rate 16 16 16 Blood Pressure 131/77 130/76 134/79 Pulse Oximetry 91 L 90 L 89 L 08/23/18 01:30 08/23/18 02:00 08/23/18 02:30 Temperature Pulse Rate 96 H 99 H 97 H Respiratory Rate 16 16 16 Blood Pressure 140/81 143/84 H 140/81 Pulse Oximetry 91 L 91 L 91 L 08/23/18 03:00 08/23/18 03:30 08/23/18 04:00 Temperature 99.4 F Pulse Rate 98 H 93 H 92 H Respiratory Rate 16 16 16 Blood Pressure 147/84 H 145/82 H 137/83 Pulse Oximetry 91 L 91 L 93 L 08/23/18 04:01 08/23/18 04:30 08/23/18 05:00 Temperature Pulse Rate 91 H 89 100 H Respiratory Rate 16 16 12 Blood Pressure 130/81 Pulse Oximetry 91 L 96 08/23/18 05:09 08/23/18 06:00 08/23/18 07:00 Temperature Pulse Rate 97 H 85 91 H Respiratory Rate 15 16 16 Blood Pressure 115/66 104/64 122/66 Pulse Oximetry 90 L 91 L 91 L 08/23/18 07:15 08/23/18 07:51 08/23/18 08:00 Temperature Pulse Rate 109 H 109 H Respiratory Rate 14 21 18 Blood Pressure 136/79 Pulse Oximetry 92 L 92 L 08/23/18 09:00 08/23/18 11:03 08/23/18 11:04 Temperature Pulse Rate 104 H 94 H Respiratory Rate 20 19 18 Blood Pressure 132/70 Pulse Oximetry 92 L 91 L Intake & Output 08/22/18 08/23/18 08/23/18 18:59 06:59 18:59 Intake Total 765 / 765 1270 / 1270 Output Total 1000 / 1000 Balance -235 / -235 1270 / 1270 Weight 111 kg Intake: IV 350 / 350 250 / 250 Azithromycin Inj 500 MG In NS 250 / 250 Inj 250 ML @ 250 mls/hr IV.SIG Q24H [facility] Rx#:[id number] Maxipime Inj 2,000 MG In NS Inj 100 / 100 100 ML @ 200 mls/hr IV.SIG Q24H [facility] Rx#:[id number] Vancomycin Inj 1,000 MG In NS 250 / 250 Inj 250 ML @ 200 mls/hr IV.SIG ONCE ONE Rx#:[id number] Tube Feeding 415 / 415 420 / 420 Water Bolus Amount 600 / 600 Output: Urine Amount (Catheter) 1000 / 1000 Indwelling Urethral Catheter 1000 / 1000 Other: # Voids 1 Date of Last Bowel Movement 08/18/18 08/23/18 08/23/18 # Bowel Movements 0 Narrative: GENERAL: On ventilator, sedated SKIN: Warm and dry. HEAD: Normocephalic. EYES: No scleral icterus. No injection or drainage. NECK: Supple, No JVD CARDIOVASCULAR: Regular rate and rhythm without murmurs, gallops, or rubs. RESPIRATORY: Breath sounds equal bilaterally. No accessory muscle use. GASTROINTESTINAL: Abdomen soft, non-tender, nondistended. - Urinary Catheter Management Indwelling Urethral Catheter Cath placed during this visit: yes, but has since been removed by the nurse Reason for continuing: Decision to DC catheter Removal date: 08/17/18 Removal time: 16:30 Coude Cath placed during this visit: no Assessment and Plan - Assessment (1) Acute renal failure Code(s): N17.9 - Acute kidney failure, unspecified Status: Acute Plan: (1) Acute renal failure Code(s): N17.9 - Acute kidney failure, unspecified Status: Acute (2) Chronic kidney disease Code(s): N18.9 - Chronic kidney disease, unspecified Status: Acute (3) COPD (chronic obstructive pulmonary disease) Code(s): J44.9 - Chronic obstructive pulmonary disease, unspecified Status: Acute (4) Pneumonia Code(s): J18.9 - Pneumonia, unspecified organism Status: Acute (5) Congestive heart failure Code(s): I50.9 - Heart failure, unspecified Status: Acute (6) Respiratory failure Code(s): J96.90 - Respiratory failure, unspecified, unspecified whether with hypoxia or hypercapnia Status: Acute (7) Abnormal liver function Code(s): K76.89 - Other specified diseases of liver Status: Acute Creatinine continue to improve. Sodium is now 154, Free water increased, now 300 ml. Follow the BMP. (2) Chronic kidney disease Code(s): N18.9 - Chronic kidney disease, unspecified Status: Acute (3) COPD (chronic obstructive pulmonary disease) Code(s): J44.9 - Chronic obstructive pulmonary disease, unspecified Status: Acute (4) Pneumonia Code(s): J18.9 - Pneumonia, unspecified organism Status: Acute (5) Congestive heart failure Code(s): I50.9 - Heart failure, unspecified Status: Acute (6) Respiratory failure Code(s): J96.90 - Respiratory failure, unspecified, unspecified whether with hypoxia or hypercapnia Status: Acute (7) Abnormal liver function Code(s): K76.89 - Other specified diseases of liver Status: Acute
--- NOTE | 2018-08-23 13:36 | MB ---
cc: Damon Jauregui MD DATE: 08/23/2018 REQUESTING PHYSICIAN: Nazia Carrizales MD REASON: Fever and worsening leukocytosis. HISTORY OF PRESENT ILLNESS: This is a 68-year-old white male who has a history of COPD. The patient was found with altered mental status and unresponsive later on while sitting in his garage. He was brought to [facility] facility and then subsequently transferred here to [facility]. The patient was noted to be hypoxic and a CT scan of the chest showed significant volume loss on the left lung with almost entire collapse of the left lung. He was subsequently intubated. He underwent bronchoscopy with lavage of the left lung. There was thick mucus plugs noted. The patient also had elevated white blood cell count of 13.7 on admission and the white count has remained elevated. Today it is higher at 19.7. Several cultures have been obtained and the results are pending. This includes blood culture, sputum culture, and urine culture. Prior cultures on 08/19/2018 had no growth on urine, sputum, and endobronchial washings. New sputum culture was taken from the endotracheal tube yesterday. The patient started having elevated temperature on 08/21/2018 when he had 100.7 max and yesterday max went up to 101.5 and this morning it was also 101 degrees. The patient is somewhat lethargic appearing, but awakens easily on the ventilator. He follows commands. He was noted to have large loose bowel movement last night and again this morning, had a smaller loose bowel movement. The patient was noted to have a moderate amount of endotracheal secretions. PAST MEDICAL HISTORY: COPD. ALLERGIES: NO KNOWN DRUG ALLERGIES. MEDICATIONS: 1. Azithromycin. 2. Cefepime. 3. Neurontin. 4. Lovenox. 5. Wellbutrin. 6. Bumex. 7. DuoNeb. SOCIAL HISTORY: Unknown. Unable to obtain. REVIEW OF SYSTEMS: Unable to obtain. PHYSICAL EXAMINATION: GENERAL: Well-developed male who is on the ventilator. He easily awakens. No distress. The patient is on CPAP at 50% FiO2. HEAD: Head is atraumatic. Extraocular movements appear grossly intact. No icterus. Oropharynx, moist mucosa. Oropharynx intubated. NECK: Supple without swelling or adenopathy. LUNGS: Diminished breath sounds bilateral. HEART: Normal S1 and S2, without audible murmurs, rubs or gallops. ABDOMEN: Bowel sounds present, distended, soft, no tenderness appreciated. RECTAL: Not performed. EXTREMITIES: No clubbing or cyanosis or edema. SKIN: No rash. NEURO: Unable to fully assess. PSYCHIATRIC: Unable to fully assess. LABORATORY DATA: WBC 19.7, platelet count 119, hemoglobin 18.1. Creatinine 1.72, BUN 87. Estimated GFR 40, sodium 154. AST 87, ALT 252, alkaline phosphatase 86. Hepatitis A IgM antibody indeterminate. IMPRESSION: 1. Pneumonia. The patient with whiteout of the left lung. Status post bronchoscopy. Sputum culture pending. 2. Leukocytosis secondary to pneumonia. 3. Acute respiratory failure. 4. Chronic obstructive pulmonary disease. RECOMMENDATIONS: 1. Continue cefepime. 2. Continue azithromycin. 3. Monitor sputum culture. 4. Monitor blood culture. 5. Monitor urine culture. 6. Follow the clinical status. I will monitor the patient's progress with you and make further recommendations upon followup on culture data. Thank you for this consultation. I will follow the patient's progress. MD SHAHRZAD Bravo/parish/brittani , 11:11 AM , 11:24 AM MTDMana
[2018-08-23] MEDS ORDERED: Potassium Phosphate Inj 15 MMOL in Sodium Chlor 0.9% Inj 150 ML IV.SIG ONE (15:00)
[2018-08-23] MEDS ORDERED: Midazolam Inj 5 MG/ML 1 ML Vial ONE (15:06)
--- NOTE | 2018-08-23 16:13 | P.PNPL ---
Subjective Interval history: 68 YOWM with VDRF, COPD On Vent, sedated No fever CT chest showed colapse of EDITA Emergent bronch done at [facility] Mucous plugs suctioned Physical Exam Vital signs: Vital Signs 08/22/18 16:30 08/22/18 18:00 08/22/18 19:00 Temperature Pulse Rate 96 H 101 H Respiratory Rate 16 Blood Pressure 137/79 146/84 H Pulse Oximetry 92 L 08/22/18 19:30 08/22/18 20:00 08/22/18 20:30 Temperature 101.5 F H Pulse Rate 96 H 96 H 97 H Respiratory Rate 16 16 16 Blood Pressure 138/78 139/80 140/80 Pulse Oximetry 91 L 91 L 92 L 08/22/18 20:39 08/22/18 20:40 08/22/18 21:00 Temperature Pulse Rate 96 H 97 H Respiratory Rate 16 16 16 Blood Pressure 140/80 Pulse Oximetry 92 L 92 L 08/22/18 21:30 08/22/18 22:00 08/22/18 22:30 Temperature Pulse Rate 92 H 91 H 92 H Respiratory Rate 16 16 16 Blood Pressure 131/75 134/78 133/78 Pulse Oximetry 91 L 91 L 90 L 08/22/18 23:00 08/22/18 23:20 08/22/18 23:30 Temperature Pulse Rate 90 93 H Respiratory Rate 16 16 16 Blood Pressure 133/77 137/80 Pulse Oximetry 91 L 93 L 91 L 08/23/18 00:00 08/23/18 00:30 08/23/18 01:00 Temperature 99.2 F Pulse Rate 91 H 90 90 Respiratory Rate 16 16 16 Blood Pressure 131/77 130/76 134/79 Pulse Oximetry 91 L 90 L 89 L 08/23/18 01:30 08/23/18 02:00 08/23/18 02:30 Temperature Pulse Rate 96 H 99 H 97 H Respiratory Rate 16 16 16 Blood Pressure 140/81 143/84 H 140/81 Pulse Oximetry 91 L 91 L 91 L 08/23/18 03:00 08/23/18 03:30 08/23/18 04:00 Temperature 99.4 F Pulse Rate 98 H 93 H 92 H Respiratory Rate 16 16 16 Blood Pressure 147/84 H 145/82 H 137/83 Pulse Oximetry 91 L 91 L 93 L 08/23/18 04:01 08/23/18 04:30 08/23/18 05:00 Temperature Pulse Rate 91 H 89 100 H Respiratory Rate 16 16 12 Blood Pressure 130/81 Pulse Oximetry 91 L 96 08/23/18 05:09 08/23/18 06:00 08/23/18 07:00 Temperature Pulse Rate 97 H 85 91 H Respiratory Rate 15 16 16 Blood Pressure 115/66 104/64 122/66 Pulse Oximetry 90 L 91 L 91 L 08/23/18 07:15 08/23/18 07:51 08/23/18 08:00 Temperature Pulse Rate 109 H 109 H Respiratory Rate 14 21 18 Blood Pressure 136/79 Pulse Oximetry 92 L 92 L 08/23/18 09:00 08/23/18 10:00 08/23/18 10:08 Temperature Pulse Rate 104 H 100 H 100 H Respiratory Rate 20 16 37 H Blood Pressure 132/70 126/68 128/69 Pulse Oximetry 92 L 94 L 94 L 08/23/18 11:00 08/23/18 11:03 08/23/18 11:04 Temperature Pulse Rate 95 H 94 H Respiratory Rate 19 19 18 Blood Pressure Pulse Oximetry 91 L 91 L 08/23/18 12:00 08/23/18 12:02 08/23/18 13:00 Temperature 98.6 F Pulse Rate 86 87 80 Respiratory Rate 25 H 25 H 19 Blood Pressure 114/56 L 107/56 L Pulse Oximetry 93 L 97 94 L 08/23/18 14:00 08/23/18 14:01 08/23/18 14:02 Temperature Pulse Rate 75 77 73 Respiratory Rate 16 16 16 Blood Pressure 94/52 L 92/50 L 95/54 L Pulse Oximetry 94 L 94 L 94 L 08/23/18 14:03 08/23/18 14:04 08/23/18 14:05 Temperature Pulse Rate 74 73 71 Respiratory Rate 16 16 16 Blood Pressure 100/57 L 98/57 L 97/57 L Pulse Oximetry 94 L 94 L 94 L 08/23/18 14:06 08/23/18 14:37 08/23/18 14:55 Temperature Pulse Rate 72 62 Respiratory Rate 16 16 16 Blood Pressure 93/54 L Pulse Oximetry 94 L 95 08/23/18 15:24 Temperature Pulse Rate Respiratory Rate Blood Pressure Pulse Oximetry 98 Intake & Output 08/22/18 08/23/1808/23/18 18:59 06:59 18:59 Intake Total 765 / 765 1270 / 1270 617.5 / 617.5 Output Total 1000 / 1000 Balance -235 / -235 1270 / 1270 617.5 / 617.5 Weight 111 kg Intake: IV 350 / 350 250 / 250 617.5 / 617.5 Azithromycin Inj 500 MG In NS 250 / 250 Inj 250 ML @ 250 mls/hr IV.SIG Q24H [facility] Rx#:[id number] Maxipime Inj 2,000 MG In NS Inj 100 / 100 100 / 100 100 ML @ 200 mls/hr IV.SIG Q24H [facility] Rx#:[id number] Vancomycin Inj 1,000 MG In NS 250 / 250 Inj 250 ML @ 200 mls/hr IV.SIG ONCE ONE Rx#:[id number] Vancomycin Inj 1,750 MG In NS 517.5 / 517.5 Inj 500 ML @ 250 mls/hr IV.SIG Q24H [facility] Rx#:[id number] Tube Feeding 415 / 415 420 / 420 Water Bolus Amount 600 / 600 Output: Urine Amount (Catheter) 1000 / 1000 Indwelling Urethral Catheter 1000 / 1000 Other: # Voids 1 Date of Last Bowel Movement 08/18/18 08/23/18 08/23/18 # Bowel Movements 0 GENERAL: WBWn Wm, on Vent SKIN: Warm and dry. HEAD: Normocephalic. EYES: No scleral icterus. No injection or drainage. NECK: Supple, trachea midline. No JVD or lymphadenopathy. CARDIOVASCULAR: Regular rate and rhythm without murmurs, gallops, or rubs. RESPIRATORY: Breath sounds equal bilaterally. No accessory muscle use. GASTROINTESTINAL: Abdomen soft, non-tender, nondistended. MUSCULOSKELETAL: No cyanosis, or edema. BACK: Nontender without obvious deformity. No CVA tenderness. - Urinary Catheter Management Indwelling Urethral Catheter Cath placed during this visit: yes, but has since been removed by the nurse Reason for continuing: Decision to DC catheter Removal date: 08/17/18 Removal time: 16:30 Coude Cath placed during this visit: no Assessment and Plan - Plan IMPRESSION: 1. Hypoxic, hypercapnic respiratory failure. 2. Left lung volume loss, possible atelectasis or infiltrate. 3. Left lung nodule. 4. Chronic obstructive pulmonary disease. 5. Renal insufficiency. 6. Atelactesis left lung PLAN: Vent Support, CPAP trial and weaning parameters Aerosol nebs Mucomyst nebs Cont Abx Check Bronch cultures
[2018-08-23] MEDS ORDERED: fentaNYL Citrate Inj 100 MCG/2 ML Ampul ONE (17:00)
--- NOTE | 2018-08-23 17:41 | P.RAD ---
Post Procedure Progress Note - Pre Procedure Diagnosis (1) Acute renal failure - Post Procedure Diagnosis (1) Acute renal failure - Procedure Information Procedure Date: 08/23/18 Supervising Radiologist: Jose Singh MD Estimated blood loss (mL): 2 Anesthesia: Local, Conscious Sedation - Plan of Activity Patient to Unit: Critical Care Patient Condition: Poor Additional Comments: Left Nephrostomy tube place without difficulty. Copious amount of clear urine returning 10 Azeri nephrostomy tube in good position See PACS Report for procedural detail/treatment.
[2018-08-23] MEDS ORDERED: Iohexol 350 MG/ML 50 ML Vial (for Rad Diag) IV.SIG ONE (17:47)
--- NOTE | 2018-08-23 18:07 | MP ---
cc: Randall Ott MD DATE OF OPERATION: 08/23/2018 PROCEDURE PERFORMED: Bronchoscopy. PREOPERATIVE DIAGNOSIS: Atelectasis of the left lung. POSTOPERATIVE DIAGNOSIS: Mucus plugging. DESCRIPTION OF PROCEDURE: Bronchoscopy was done as an emergent basis. He has a collapse of the lung and is on a ventilator. No consent could be obtained because his roommate who had been giving consent was not available and I had tried multiple times. I discussed with Dr. Munguia and decided to proceed with emergent basis. Bronchoscopy was done through the endotracheal tube. The patient is already intubated. Bronchoscope was advanced to the right lung. Right upper, middle, lower lobe were visualized. Small amount of mucus was suctioned. Then, bronchoscope was pulled back around to the left lung. There were lot of thick mucus plugs seen in the left lung, which was suctioned. After repeated suctioning, the airways were examined. There are collapsing pires of the left upper lobe, which makes the lumen narrow. However, no endobronchial lesion was seen in the left upper lingular or lower lobe. After washing, the airways are clean. Bronchial washings sent for routine cultures. He tolerated the procedure well. MD JOSHUA Bran/placido , 03:27 PM , 03:34 PM
--- NOTE | 2018-08-23 18:34 | IR ---
EXAM DATE: 08/23/2018 12:00 AM EDT AGE/SEX: 68 years / Male INDICATIONS: Patient with a history of ureteral obstruction. CLINICAL DATA: This is the patient's initial encounter. Patient reports that signs and symptoms have been present for 1 day and indicates a pain score of Nonresponsive. MEDICAL/SURGICAL HISTORY: . COPD . Unknown COMPARISON: No prior exams available for comparison. FLUORO TIME (min): 7.56 IMAGE SERIES: 5 CONTRAST (cc): 20cc Omnipaque (iohexol) 350 MEDICATION(S): 50mcg fentanyl (Sublimaze) IV DEVICE(S): 10 Ethiopian nephrostomy catheter PROCEDURE : 1. Ultrasound-guided puncture of the kidney. 2. Antegrade percutaneous pyelogram. 3. Percutaneous nephrostomy placement. 4. Conscious sedation with continuous EKG and oximetry monitoring. The patient is currently intubated. Consent was deemed emergent by the treating physicians. The site was prepped in sterile fashion. Full sterile technique was used, including cap, mask, sterile gloves and gown and a large sterile sheet. Hand hygiene and 2% chlorhexidine and/or betadine/alcohol prep was utilized per protocol for cutaneous antisepsis. Sterile gel and sterile probe cover were utiliz ed for ultrasound guidance. The skin and subcutaneous tissues were infiltrated with local anesthetic solution. With ultrasound and fluoroscopic guidance the left kidney was punctured and a percutaneous antegrade pyelogram was performed demonstrating a dilated collecting system. Serial dilatation was performed a nd a 10 Ethiopian nephrostomy tube was placed within the renal pelvis and sutured in place. Conscious sedation was performed with the prescribed dosages and duration as above in the presence of an independent trained radiology nurse to assist in the monitoring of the patient. EKG and oximetry remained stable throughout the procedure. The patient tolerated the procedure well and there were n o complications. The patient was sent to post anesthesia recovery in stable condition. CONCLUSION: 1. Uncomplicated nephrostomy tube placement as above. Electronically signed by: Jose Singh MD 08/23/2018 6:33 PM EDT
[2018-08-24] MEDS: Azithromycin Inj 500 MG in Sodium Chlor 0.9% Inj 250 ML IV.SIG SCH ×2 (00:06→22:02)
[2018-08-24] MEDS: Enoxaparin Inj 30 MG/0.3 ML Syringe SQ SCH ×2 (00:07→22:01)
[2018-08-24] MEDS: Oral Hygiene Kit OROPHARYNG SCH ×4 (00:07→16:05)
[2018-08-24] MEDS: Insulin NovoLIN Regular Correctional Sugar Inj SQ SCH ×4 (00:14→17:58)
[2018-08-24] MEDS: MethylPREDNISolone Sod Succinate Inj 40 MG/ML Vial IV.PUSH SCH ×3 (06:02→21:52)
[2018-08-24] MEDS: Dextrose 5% in Water Inj 1,000 ML IV.CONT SCH (06:42)
[2018-08-24 06:56] LABS: Baso % (Auto) 0.1 % (0.0-2.0); Hematocrit 52.6 % (39.0-51.0); Lymph # (Auto) 0.4 th/mm3 (1.0-4.8); Lymph % (Auto) 1.9 % (9.0-44.0); Mean Corpuscular HGB Conc 32.2 % (32.0-36.0); Mean Corpuscular Hemoglobin 33.2 pg (27.0-34.0); Mean Corpuscular Volume 103.1 fL (80.0-100.0); Mean Platelet Volume 10.6 fL (7.0-11.0); Mono # (Auto) 1.3 th/mm3 (0.0-0.9); Mono % (Auto) 6.7 % (0.0-8.0); Neut # (Auto) 18.4 th/mm3 (1.8-7.7); Neut % (Auto) 91.3 % (16.0-70.0); Platelet Count 112 th/mm3 (150-450); Red Blood Count 5.11 mil/mm3 (4.50-5.90); Red Cell Distribution Width 15.2 % (11.6-17.2); White Blood Count 20.1 th/mm3 (4.0-11.0)
[2018-08-24 07:04] LABS: INR 1.2 Ratio
[2018-08-24 07:16] LABS: Albumin 2.4 g/dL (3.4-5.0); Anion Gap 8 meq/L (5-15); Aspartate Aminotransferase 64 U/L (15-37); Blood Urea Nitrogen 76 mg/dL (7-18); Calcium 9.1 mg/dL (8.5-10.1); Carbon Dioxide 34.2 meq/L (21.0-32.0); Chloride 108 meq/L (98-107); Glomerular Filtration Rate 53 mL/min (>89); Glucose,Random 142 mg/dL (74-106); Magnesium 2.2 mg/dL (1.5-2.5); Potassium 3.9 meq/L (3.5-5.1); Sodium 150 meq/L (136-145)
[2018-08-24 07:20] LABS: Alanine Aminotransferase 184 U/L (12-78); Alkaline Phosphatase 75 U/L (45-117); Phosphorus 2.5 mg/dL (2.5-4.9); Total Protein 6.3 g/dL (6.4-8.2)
--- NOTE | 2018-08-24 08:00 | P.PNCC ---
Subjective Subjective Remarks/Hospital Course: 68-year-old gentleman with COPD and chronic cough who continues to smoke presented to [place] emergency department for an evaluation of altered mental status and shortness of breath. The patient went to [place] this morning and returned on the bus and sat in the garage. The lady that takes care of him did talk to him and he said he was fine and sat down in his chair in the garage. He however did not come to his lunch and she went out and found him unresponsive with labored breathing. This occurred at 2 PM today. Patient was brought into the emergency department with altered mental status and respiratory distress. Pulse ox was in the 60s. Patient was put on high flow oxygen and later changed to BiPAP with improvement in mentation and oxygenation. The chest x-ray obtained in the emergency department shows almost complete opacification of left hemithorax. The CT without contrast shows severe cardiomegaly and no pleural effusion or pericardial effusion. The patient has been transferred to [facility] ICU for higher level of care. 08/17: no improvement in respiratory distress- mental status worsened. abg no improvement. clinically declined and emergently intubated. on bedside echo, very difficult windows due to lung disease and obesity, but dilated ivc without respiratory variation and no pericardial effusion. formal echo pending. 08/18: remains intubated. abg slowly improving. tran removed yesterday but unable to straight cath. 08/19: FiO2 down to 55%. Will re-CT the chest today. Likely just a gigantic heart causing opacification left hemithorax.. No other issues overnight. Creatinine slowly increasing. Subjective: 08/20: Febrile. Status post bronchoscopy yesterday due to mucous plug in the left lungs. Improved aeration currently 50% FiO2. We will continue to wean today. Tolerating tube feeding. Creatinine improving. 08/21 Patient remains intubated and sedated with Diprivan. Afebrile. 08/22 No events overnight off sedation tolerated CPAP for several hrs yesterday. T:100.7 last night 08/23 Patient remains intubated off sedation. T:101.4 last night. 08/24 Patient remains intubated on no sedation awake and follows commands. Had CT abdomen yesterday showed left hydronephrosis 2nd cm stone in distal left ureter s/p left nephrostomy tube placement by IR. Renal function continue to improve with Cr: 1.35 today from 1.72. Underwent bronch by mucous plugs suctioned from left lung. Objective Vital Signs / I&O: Vital Signs 08/23/18 07:51 08/23/18 08:00 08/23/18 09:00 Temperature Pulse Rate 109 H 109 H 104 H Respiratory Rate 21 18 20 Blood Pressure 136/79 132/70 Pulse Oximetry 92 L 92 L 08/23/18 10:00 08/23/18 10:08 08/23/18 11:00 Temperature Pulse Rate 100 H 100 H 95 H Respiratory Rate 16 37 H 19 Blood Pressure 126/68 128/69 Pulse Oximetry 94 L 94 L 91 L 08/23/18 11:03 08/23/18 11:04 08/23/18 12:00 Temperature 98.6 F Pulse Rate 94 H 86 Respiratory Rate 19 18 25 H Blood Pressure Pulse Oximetry 91 L 93 L 08/23/18 12:02 08/23/18 13:00 08/23/18 14:00 Temperature Pulse Rate 87 80 75 Respiratory Rate 25 H 19 16 Blood Pressure 114/56 L 107/56 L 94/52 L Pulse Oximetry 97 94 L 94 L 08/23/18 14:01 08/23/18 14:02 08/23/18 14:03 Temperature Pulse Rate 77 73 74 Respiratory Rate 16 16 16 Blood Pressure 92/50 L 95/54 L 100/57 L Pulse Oximetry 94 L 94 L 94 L 08/23/18 14:04 08/23/18 14:05 08/23/18 14:06 Temperature Pulse Rate 73 71 72 Respiratory Rate 16 16 16 Blood Pressure 98/57 L 97/57 L 93/54 L Pulse Oximetry 94 L 94 L 94 L 08/23/18 14:37 08/23/18 14:55 08/23/18 15:00 Temperature Pulse Rate 62 65 Respiratory Rate 16 16 16 Blood Pressure 96/53 L Pulse Oximetry 95 94 L 08/23/18 15:05 08/23/18 15:13 08/23/18 15:15 Temperature Pulse Rate 65 79 82 Respiratory Rate 16 31 H 47 H Blood Pressure 98/55 L 113/67 115/65 Pulse Oximetry 97 99 96 08/23/18 15:18 08/23/18 15:20 09/30/18 15:23 Temperature Pulse Rate 85 79 75 Respiratory Rate 42 H 18 16 Blood Pressure 121/64 114/56 L 116/55 L Pulse Oximetry 92 L 94 L 93 L 08/23/18 15:24 08/23/18 16:00 08/23/18 17:38 Temperature 98.9 F 98.6 F Pulse Rate 79 79 Respiratory Rate 16 16 Blood Pressure 97/55 L 106/58 L Pulse Oximetry 98 92 L 95 08/23/18 17:53 08/23/18 18:00 08/23/18 18:13 Temperature 98.6 F Pulse Rate 87 79 75 Respiratory Rate 17 21 16 Blood Pressure 112/66 Pulse Oximetry 94 L 91 L 98 08/23/18 18:30 08/23/18 18:46 08/23/18 18:53 Temperature 98.5 F 98.6 F Pulse Rate 70 66 Respiratory Rate 16 16 Blood Pressure 106/58 L 99/57 L Pulse Oximetry 96 95 08/23/18 19:00 08/23/18 19:17 08/23/18 19:30 Temperature Pulse Rate 65 67 64 Respiratory Rate 16 16 16 Blood Pressure 102/57 L 105/62 96/57 L Pulse Oximetry 95 97 100 08/23/18 19:45 08/23/18 20:00 08/23/18 20:15 Temperature 97.6 F Pulse Rate 63 65 66 Respiratory Rate 16 16 16 Blood Pressure 96/58 L 101/64 102/67 Pulse Oximetry 100 100 99 08/23/18 20:30 08/23/18 20:45 08/23/18 20:46 Temperature Pulse Rate 66 73 71 Respiratory Rate 16 16 20 Blood Pressure 103/68 105/71 Pulse Oximetry 99 100 08/23/18 20:47 08/23/18 21:00 08/23/18 21:06 Temperature Pulse Rate 66 70 Respiratory Rate 16 16 16 Blood Pressure 112/69 Pulse Oximetry 100 99 98 08/23/18 21:15 08/23/18 21:30 08/23/18 21:45 Temperature Pulse Rate 67 69 68 Respiratory Rate 16 16 16 Blood Pressure 109/69 112/69 106/68 Pulse Oximetry 100 97 100 08/23/18 22:00 08/23/18 22:01 08/23/18 22:16 Temperature Pulse Rate 66 64 65 Respiratory Rate 16 16 16 Blood Pressure 114/56 L 102/58 L Pulse Oximetry 100 100 100 08/23/18 22:30 08/23/18 22:45 08/23/18 23:00 Temperature Pulse Rate 64 61 57 L Respiratory Rate 16 16 16 Blood Pressure 97/63 L 101/62 100/60 Pulse Oximetry 100 100 100 08/23/18 23:15 08/23/18 23:30 08/23/18 23:39 Temperature Pulse Rate 57 L 58 L 58 L Respiratory Rate 16 16 16 Blood Pressure 98/63 L 98/61 L Pulse Oximetry 100 100 08/23/18 23:40 08/23/18 23:45 08/24/18 00:00 Temperature Pulse Rate 58 L 59 L Respiratory Rate 16 16 16 Blood Pressure 102/61 100/61 Pulse Oximetry 100 100 100 08/24/18 00:15 08/24/18 00:30 08/24/18 00:45 Temperature Pulse Rate 63 61 60 Respiratory Rate 16 16 16 Blood Pressure 114/66 100/62 99/59 L Pulse Oximetry 100 100 100 08/24/18 01:00 08/24/18 01:15 08/24/18 01:30 Temperature Pulse Rate 63 62 62 Respiratory Rate 16 16 16 Blood Pressure 103/62 105/55 L 101/58 L Pulse Oximetry 100 100 100 08/24/18 01:46 08/24/18 02:00 08/24/18 02:01 Temperature Pulse Rate 68 66 66 Respiratory Rate 16 16 16 Blood Pressure 111/66 110/71 Pulse Oximetry 100 100 100 08/24/18 02:15 08/24/18 02:30 08/24/18 02:45 Temperature Pulse Rate 69 62 62 Respiratory Rate 16 16 16 Blood Pressure 106/70 101/65 100/63 Pulse Oximetry 100 100 100 08/24/18 03:00 08/24/18 03:15 08/24/18 03:30 Temperature Pulse Rate 61 60 68 Respiratory Rate 16 16 68 H Blood Pressure 94/58 L 96/55 L 102/65 Pulse Oximetry 100 100 74 L 08/24/18 03:46 08/24/18 03:47 08/24/18 04:00 Temperature Pulse Rate 70 66 61 Respiratory Rate 25 H 16 16 Blood Pressure 86/61 L 108/64 Pulse Oximetry 97 100 08/24/18 04:15 08/24/18 04:20 08/24/18 04:30 Temperature Pulse Rate 59 L 59 L Respiratory Rate 16 16 16 Blood Pressure 109/64 104/62 Pulse Oximetry 100 100 100 08/24/18 04:45 08/24/18 05:00 08/24/18 05:15 Temperature Pulse Rate 60 62 60 Respiratory Rate 16 16 16 Blood Pressure 112/66 109/65 114/72 Pulse Oximetry 100 97 100 08/24/18 05:30 08/24/18 05:45 08/24/18 06:00 Temperature 97.7 F Pulse Rate 61 62 60 Respiratory Rate 16 16 16 Blood Pressure 104/60 108/63 108/62 Pulse Oximetry 100 100 100 08/24/18 06:15 08/24/18 06:30 Temperature Pulse Rate 60 60 Respiratory Rate 16 16 Blood Pressure 108/65 111/67 Pulse Oximetry 100 100 Intake & Output 08/23/18 08/24/18 08/24/18 18:59 06:59 18:59 Intake Total 1861.5 / 1861.5 2705 / 2705 Output Total 160 / 160 440 / 440 Balance 1701.5 / 1701.5 2265 / 2265 Weight 112.7 kg Intake: IV 617.5 / 617.5 1405 / 1405 D5W Inj 1,000 ML @ 50 mls/hr IV 1000 / 1000 .CONT .Q20H [facility] Rx#:[id number] Azithromycin Inj 500 MG In NS 250 / 250 Inj 250 ML @ 250 mls/hr IV.SIG Q24H [facility] Rx#:[id number] Maxipime Inj 2,000 MG In NS Inj 100 / 100 100 ML @ 200 mls/hr IV.SIG Q24H [facility] Rx#:[id number] Potassium Phosphate Inj 15 MMOL 155 / 155 In NS Inj 150 ML @ 38.75 mls/ hr IV.SIG NOW ONE Rx#:[id number] Vancomycin Inj 1,750 MG In NS 517.5 / 517.5 Inj 500 ML @ 250 mls/hr IV.SIG Q24H [facility] Rx#:[id number] Tube Feeding 244 / 244 400 / 400 Water Bolus Amount 1000 / 1000 900 / 900 Output: Urine Amount (Stoma) 160 / 160 440 / 440 Nephrostomy Tube 160 / 160 440 / 440 Other: # Incontinent Voids 4 1 Date of Last Bowel Movement 09/30/18 10/01/18 # Bowel Movements 2 # Incontinent Bowel Movements 1 Result Diagrams: 08/24/18 05:07 08/24/18 05:07 Other Results: Laboratory Results - last 12 hr 08/24/18 08/24/18 08/24/18 00:13 05:07 05:07 WBC 20.1 H RBC 5.11 Hgb 17.0 Hct 52.6 H MCV 103.1 H MCH 33.2 MCHC 32.2 RDW 15.2 Plt Count 112 L MPV 10.6 Prelim Diff (Auto) Slide review pending Neut % (Auto) 91.3 H Lymph % (Auto) 1.9 L Hickman % (Auto) 6.7 Eos % (Auto) 0.0 Baso % (Auto) 0.1 Neut # (Auto) 18.4 H Lymph # (Auto) 0.4 L Hickman # (Auto) 1.3 H Eos # (Auto) 0.0 Baso # (Auto) 0.0 Differential Comment . PT INR Sodium 150 H Potassium 3.9 Chloride 108 H Carbon Dioxide 34.2 H Anion Gap 8 BUN 76 H Creatinine 1.35 H Estimated GFR 53 L POC Glucose 143 H Random Glucose 142 H Calcium 9.1 Phosphorus 2.5 Magnesium 2.2 Total Bilirubin 1.1 H AST 64 H ALT 184 H Alkaline Phosphatase 75 Total Protein 6.3 L D Albumin 2.4 L 08/24/18 08/24/18 05:07 05:59 WBC RBC Hgb Hct MCV MCH MCHC RDW Plt Count MPV Prelim Diff (Auto) Neut % (Auto) Lymph % (Auto) Hickman % (Auto) Eos % (Auto) Baso % (Auto) Neut # (Auto) Lymph # (Auto) Hickman # (Auto) Eos # (Auto) Baso # (Auto) Differential Comment PT 12.0 H INR 1.2 Sodium Potassium Chloride Carbon Dioxide Anion Gap BUN Creatinine Estimated GFR POC Glucose 167 H Random Glucose Calcium Phosphorus Magnesium Total Bilirubin AST ALT Alkaline Phosphatase Total Protein Albumin Imaging: Abdomen Ultrasound 08/19/18 00:00 CONCLUSION: 1. Hepatomegaly with diffuse hyperechoic texture characteristic of steatosis or diffuse hepatocellular disease. 2. Bilateral renal cysts. 3. Nonvisualization of the gallbladder and pancreas. 4. No evidence of hydronephrosis or abnormal fluid collections. Chest X-Ray 08/22/18 07:02 CONCLUSION: Increased left basilar opacity characteristic of pleural effusion with associated volume loss and/or airspace consolidation. There is very small volume of right pleural fluid with likely atelectasis at the right base. Abdomen X-Ray 08/22/18 07:03 CONCLUSION: 1. There are no features to indicate ileus. No acute abdominal abnormality is identified. 2. Nonspecific 18 mm density in the left pelvis represent a calcification or could represent material within the sigmoid colon. 3. Opacity at the left lung base. Please refer to today's chest x-ray for further description. Abdomen/Pelvis CT 08/23/18 00:00 CONCLUSION: 1. Severe left hydronephrosis and hydroureter caused by a 2 cm stone in the distal left ureter. 2. Trace air within the bladder lumen. Although nonspecific this may be related to a recent catheterization. 3. Nonacute findings include multiple bilateral renal cysts, mild atherosclerotic disease, and mild hepatic steatosis. Chest CT 08/23/18 00:00 CONCLUSION: 1. There is continued volume loss/collapse of the left upper lobe with mild atelectasis in the left upper lobe. Aeration is improved compared to the study from 4 days ago and stable compared to the most recent chest x-ray. There is also volume loss in the right lower lobe. No pleural effusion is present. 2. Stable enlargement of the main pulmonary artery which may indicate pulmonary arterial hypertension. 3. Findings consistent with prior granulomatous infection. Please refer to abdomen and CT report for description of the subdiaphragmatic findings. Nephrostomy 08/23/18 00:00 CONCLUSION: 1. Uncomplicated nephrostomy tube placement as above. Objective Remarks: GENERAL: 68-year-old male lying in bed, intubated, sedated HEENT: Normocephalic. Atraumatic. Pupils equal, round, reactive, round 1 mm bilaterally conjugate. Mucous membranes are moist NECK: Trachea is midline. no JVD. CHEST: B/l equal air entry CARDIOVASCULAR: normal rate, regular rhythm. Sinus. ABDOMEN: Obese, soft, nontender, nondistended. No guarding. MUSCULOSKELETAL: Pulses 2+. 1+ peripheral edema NEUROLOGICAL: Awake, follows commands Assessment and Plan - Assessment and Plan Plan: Neuro/Psych: Depression Off sedation, monitor neuro status. Awake and follows commands Acetaminophen 650 every 6 hours as needed fever Continue bupropion 50 mg daily and gabapentin 6 mg twice daily On Thiamine 100mg BID CV: Cardiomegaly Congestive Heart Failure, acute systolic and diastolic Essential hypertension Monitor HR and BP keep MAP>65mmHg -2D echo- left ventricular systolic function is severely reduced with an estimated ejection fraction in the range of 30-35%. Moderately dilated left ventricle with normal wall thickness.There is diffuse global hypokinesis. Findings consistent with Grade 1 diastolic dysfunction. The RV is likely moderately enlarged with decreased systolic function. No significant valvular heart disease seen on the images that were obtained. Unable to obtain a proper maximum TR velocity to estimate the RVSP. Using the pulmonary regurgitant velocity at the beginning of diastole, the mean PA is estimated at 31 mmHg. The inferior vena cava is normal in size with less than 50% collapse with inspiration. (RAP is estimated at 15 mmHg) There is a small pericardial effusion present. Resp: Acute hypoxic and hypercarbic Respiratory failure Acute severe COPD Exacerbation Obesity Hypoventilation Syndrome Left lower lobe lung nodule Tobacco abuse -PRVC ventilation 16/550/1/8/40 Ventilator bundle Albuterol/ipratropium aerosols every 6 hours with albuterol aerosols every 2 hours as needed for dyspnea Spontaneous breathing trials as fortino Head of bed at 30 Methylprednisolone succinate 40 g IV every 8 hours Pulmonary/Dr. Ott following s/p repeat bronch 08/[address] Ott: Mucous plugs suctioned from left lung, There are collapsing pires of the left upper lobe, which makes the lumen narrow CT chest 08/19 revealed mucous plugging involving the left lung. Post bronchoscopy 08/19. On Mucomyst nebulizers GI: Transaminitis Indeterminate hepatitis A IgM-laboratory recommends 2 months follow-up. Change tube feeds to Glucerna 1.5 with goal rate 45ml/hr Lansoprazole for GI prophylaxis Docusate sodium/senna 1 tablet twice daily for bowel regimen liver ultrasound -revealed enlarged liver likely hepatic steatosis versus inflammatory Hepatitis panel: Hep A IgM Indeterminate KUB abdomen: There are no features to indicate ileus. No acute abdominal abnormality is identified. Nonspecific 18 mm density in the left pelvis represent a calcification or could represent material within the sigmoid colon Endo: Sliding scale insulin Accu-Cheks to maintain euglycemia/to 6 hours aspart medium regimen Renal: Acute kidney injury unknown baseline Hypernatremia Bilateral renal cysts Monitor renal function, I/O's, avoid nephrotoxins Renal function improving with Cr 1.35today from 1.72 CT abd/pelvis 08/23: Severe left hydronephrosis and hydroureter caused by a 2 cm stone in the distal left ureter. s/p Nephrostomy tube placement by IR 08/23 On Free water 300ml Q4, D5W@50ml/hr, monitor sodium level. Renal ultrasound revealed bilateral renal cyst. No hydronephrosis Renal- Dr. Olivares Heme: Macrocytosis Leukocytosis Monitor CBC daily. Follow trends. No indication for transfusion of blood products at this time. ID: Currently on cefepime, azithromycin, Vanco Panculture 08/22 ( Blood, sputum) -NGTD ID is following- Dr. Jauregui Repeat bronch 08/23, follow up on bronch cx from 08/23 Negative UA 08/17. Negative sputum 08/17 Bronchoscopy samples from left upper lobe 08/19. Gram stain negative Bronch washing AFB pending MSK: Elevated BMI Weight loss encouraged Access -Utilize peripheral IV. Central line if indicated Prophylaxis - GI -Lansoprazole - DVT -SCDs enoxaparin Level 3
[2018-08-24] MEDS: Chlorhexidine 0.12% Oral Kit 15 ML UDC OROPHARYNG SCH ×2 (09:22→21:50)
[2018-08-24] MEDS: Gabapentin 300 MG Capsule PO SCH ×2 (09:30→21:51)
[2018-08-24] MEDS: Senna/Docusate Sodium 8.6/50 MG Tablet PO SCH ×2 (09:30→21:51)
[2018-08-24] MEDS: Carboxymethylcellulose 0.5% Opth Drops 15 ML Bottle EACH EYE SCH ×3 (09:31→17:59)
[2018-08-24] MEDS: buPROPion 150 MG 12 HR Tablet PO SCH (09:34)
[2018-08-24] MEDS: Vancomycin Inj 1,750 MG in Sodium Chlor 0.9% Inj 500 ML IV.SIG SCH (09:34)
--- NOTE | 2018-08-24 11:07 | P.PNID ---
Subjective Remarks: Patient has undergone nephrostomy tube placement. On CPAP. Awake and alert and responsive. Denies pain. Afebrile. RN reports no major issues overnight. Cultures have no growth so far. Stool c. dif is negative. HISTORY OF PRESENT ILLNESS: This is a 68-year-old white male who has a history of COPD. The patient was found with altered mental status and unresponsive later on while sitting in his garage. He was brought to [facility] and then subsequently transferred here to [facility]. The patient was noted to be hypoxic and a CT scan of the chest showed significant volume loss on the left lung with almost entire collapse of the left lung. He was subsequently intubated. He underwent bronchoscopy with lavage of the left lung. There was thick mucus plugs noted. ID consult requested for Fever and worsening leukocytosis. Past Medical History: COPD Allergies/Adverse Reactions: Allergies No Known Allergies Allergy (Unverified 08/16/18 16:33) Objective Vital Signs 08/23/18 11:00 08/23/18 11:03 08/23/18 11:04 Temperature Pulse Rate 95 H 94 H Respiratory Rate 19 19 18 Blood Pressure Pulse Oximetry 91 L 91 L 08/23/18 12:00 08/23/18 12:02 08/23/18 13:00 Temperature 98.6 F Pulse Rate 86 87 80 Respiratory Rate 25 H 25 H 19 Blood Pressure 114/56 L 107/56 L Pulse Oximetry 93 L 97 94 L 08/23/18 14:00 08/23/18 14:01 08/23/18 14:02 Temperature Pulse Rate 75 77 73 Respiratory Rate 16 16 16 Blood Pressure 94/52 L 92/50 L 95/54 L Pulse Oximetry 94 L 94 L 94 L 08/23/18 14:03 08/23/18 14:04 08/23/18 14:05 Temperature Pulse Rate 74 73 71 Respiratory Rate 16 16 16 Blood Pressure 100/57 L 98/57 L 97/57 L Pulse Oximetry 94 L 94 L 94 L 08/23/18 14:06 08/23/18 14:37 08/23/18 14:55 Temperature Pulse Rate 72 62 Respiratory Rate 16 16 16 Blood Pressure 93/54 L Pulse Oximetry 94 L 95 08/23/18 15:00 08/23/18 15:05 08/23/18 15:13 Temperature Pulse Rate 65 65 79 Respiratory Rate 16 16 31 H Blood Pressure 96/53 L 98/55 L 113/67 Pulse Oximetry 94 L 97 99 08/23/18 15:15 08/23/18 15:18 08/23/18 15:20 Temperature Pulse Rate 82 85 79 Respiratory Rate 47 H 42 H 18 Blood Pressure 115/65 121/64 114/56 L Pulse Oximetry 96 92 L 94 L 08/23/18 15:23 08/23/18 15:24 08/23/18 16:00 Temperature 98.9 F Pulse Rate 75 79 Respiratory Rate 16 16 Blood Pressure 116/55 L 97/55 L Pulse Oximetry 93 L 98 92 L 08/23/18 17:38 08/23/18 17:53 08/23/18 18:00 Temperature 98.6 F 98.6 F Pulse Rate 79 87 79 Respiratory Rate 16 17 21 Blood Pressure 106/58 L Pulse Oximetry 95 94 L 91 L 08/23/18 18:13 08/23/18 18:30 08/23/18 18:46 Temperature 98.5 F Pulse Rate 75 70 66 Respiratory Rate 16 16 16 Blood Pressure 112/66 106/58 L 99/57 L Pulse Oximetry 98 96 95 08/23/18 18:53 08/23/18 19:00 08/23/18 19:17 Temperature 98.6 F Pulse Rate 65 67 Respiratory Rate 16 16 Blood Pressure 102/57 L 105/62 Pulse Oximetry 95 97 08/23/18 19:30 08/23/18 19:45 08/23/18 20:00 Temperature 97.6 F Pulse Rate 64 63 65 Respiratory Rate 16 16 16 Blood Pressure 96/57 L 96/58 L 101/64 Pulse Oximetry 100 100 100 08/23/18 20:15 08/23/18 20:30 08/23/18 20:45 Temperature Pulse Rate 66 66 73 Respiratory Rate 16 16 16 Blood Pressure 102/67 103/68 105/71 Pulse Oximetry 99 99 100 08/23/18 20:46 08/23/18 20:47 08/23/18 21:00 Temperature Pulse Rate 71 66 Respiratory Rate 20 16 16 Blood Pressure Pulse Oximetry 100 99 08/23/18 21:06 08/23/18 21:15 08/23/18 21:30 Temperature Pulse Rate 70 67 69 Respiratory Rate 16 16 16 Blood Pressure 112/69 109/69 112/69 Pulse Oximetry 98 100 97 08/23/18 21:45 08/23/18 22:00 08/23/18 22:01 Temperature Pulse Rate 68 66 64 Respiratory Rate 16 16 16 Blood Pressure 106/68 114/56 L Pulse Oximetry 100 100 100 08/23/18 22:16 08/23/18 22:30 08/23/18 22:45 Temperature Pulse Rate 65 64 61 Respiratory Rate 16 16 16 Blood Pressure 102/58 L 97/63 L 101/62 Pulse Oximetry 100 100 100 08/23/18 23:00 08/23/18 23:15 08/23/18 23:30 Temperature Pulse Rate 57 L 57 L 58 L Respiratory Rate 16 16 16 Blood Pressure 100/60 98/63 L 98/61 L Pulse Oximetry 100 100 100 08/23/18 23:39 08/23/18 23:40 08/23/18 23:45 Temperature Pulse Rate 58 L 58 L Respiratory Rate 16 16 16 Blood Pressure 102/61 Pulse Oximetry 100 100 08/24/18 00:00 08/24/18 00:15 08/24/18 00:30 Temperature Pulse Rate 59 L 63 61 Respiratory Rate 16 16 16 Blood Pressure 100/61 114/66 100/62 Pulse Oximetry 100 100 100 08/24/18 00:45 08/24/18 01:00 08/24/18 01:15 Temperature Pulse Rate 60 63 62 Respiratory Rate 16 16 16 Blood Pressure 99/59 L 103/62 105/55 L Pulse Oximetry 100 100 100 08/24/18 01:30 08/24/18 01:46 08/24/18 02:00 Temperature Pulse Rate 62 68 66 Respiratory Rate 16 16 16 Blood Pressure 101/58 L 111/66 Pulse Oximetry 100 100 100 08/24/18 02:01 08/24/18 02:15 08/24/18 02:30 Temperature Pulse Rate 66 69 62 Respiratory Rate 16 16 16 Blood Pressure 110/71 106/70 101/65 Pulse Oximetry 100 100 100 08/24/18 02:45 08/24/18 03:00 08/24/18 03:15 Temperature Pulse Rate 62 61 60 Respiratory Rate 16 16 16 Blood Pressure 100/63 94/58 L 96/55 L Pulse Oximetry 100 100 100 08/24/18 03:30 08/24/18 03:46 08/24/18 03:47 Temperature Pulse Rate 68 70 66 Respiratory Rate 68 H 25 H 16 Blood Pressure 102/65 86/61 L Pulse Oximetry 74 L 97 08/24/18 04:00 08/24/18 04:15 08/24/18 04:20 Temperature Pulse Rate 61 59 L Respiratory Rate 16 16 16 Blood Pressure 108/64 109/64 Pulse Oximetry 100 100 100 08/24/18 04:30 08/24/18 04:45 08/24/18 05:00 Temperature Pulse Rate 59 L 60 62 Respiratory Rate 16 16 16 Blood Pressure 104/62 112/66 109/65 Pulse Oximetry 100 100 97 08/24/18 05:15 08/24/18 05:30 08/24/18 05:45 Temperature Pulse Rate 60 61 62 Respiratory Rate 16 16 16 Blood Pressure 114/72 104/60 108/63 Pulse Oximetry 100 100 100 08/24/18 06:00 08/24/18 06:15 08/24/18 06:30 Temperature 97.7 F Pulse Rate 60 60 60 Respiratory Rate 16 16 16 Blood Pressure 108/62 108/65 111/67 Pulse Oximetry 100 100 100 08/24/18 08:50 08/24/18 09:50 Temperature Pulse Rate 74 Respiratory Rate 12 9 L Blood Pressure Pulse Oximetry 100 Intake & Output 08/23/18 08/24/18 08/24/18 18:59 06:59 18:59 Intake Total 1861.5 / 1861.5 2705 / 2705 Output Total 160 / 160 440 / 440 Balance 1701.5 / 1701.5 2265 / 2265 Weight 112.7 kg Intake: IV 617.5 / 617.5 1405 / 1405 D5W Inj 1,000 ML @ 50 mls/hr IV 1000 / 1000 .CONT .Q20H [facility] Rx#:[id number] Azithromycin Inj 500 MG In NS 250 / 250 Inj 250 ML @ 250 mls/hr IV.SIG Q24H [facility] Rx#:[id number] Maxipime Inj 2,000 MG In NS Inj 100 / 100 100 ML @ 200 mls/hr IV.SIG Q24H [facility] Rx#:[id number] Potassium Phosphate Inj 15 MMOL 155 / 155 In NS Inj 150 ML @ 38.75 mls/ hr IV.SIG NOW ONE Rx#:[id number] Vancomycin Inj 1,750 MG In NS 517.5 / 517.5 Inj 500 ML @ 250 mls/hr IV.SIG Q24H [facility] Rx#:[id number] Tube Feeding 244 / 244 400 / 400 Water Bolus Amount 1000 / 1000 900 / 900 Output: Urine Amount (Stoma) 160 / 160 440 / 440 Nephrostomy Tube 160 / 160 440 / 440 Other: # Incontinent Voids 4 1 Date of Last Bowel Movement 08/23/18 08/24/18 # Bowel Movements 2 # Incontinent Bowel Movements 1 08/22/18 11:15 Catheterized Urine Urine Culture - Final No growth in 48 hours 08/23/18 15:20 Bronchial - Left Gram Stain - Pending 08/23/18 15:20 Bronchial - Left Bronchial Culture - Pending 08/22/18 09:00 Sputum - Endotracheal Gram Stain - Final 08/22/18 09:00 Sputum - Endotracheal Sputum Culture - Preliminary Light growth normal respiratory ada at 24 hours 08/22/18 08:49 Blood - Peripheral Aerobic Blood Culture - Preliminary No growth in 1 day 08/22/18 08:49 Blood - Peripheral Anaerobic Blood Culture - Preliminary No growth in 1 day 08/22/18 08:56 Blood - Peripheral Aerobic Blood Culture - Preliminary No growth in 1 day 08/22/18 08:56 Blood - Peripheral Anaerobic Blood Culture - Preliminary No growth in 1 day 08/19/18 15:09 Bronchial Washings - Left Upper Lobe Acid Fast Bacilli Smear - Final No acid fast bacilli seen 08/19/18 15:09 Bronchial Washings - Left Upper Lobe Mycobacterial Culture - Pending 08/19/18 15:09 Bronchial - Left Upper Lobe Gram Stain - Final 08/19/18 15:09 Bronchial - Left Upper Lobe Bronchial Culture - Final No growth in 48 hours 08/19/18 14:53 Catheterized Urine Urine Culture - Final No growth in 48 hours Lab - Hematology Results 08/23/18 08/24/18 03:26 05:07 WBC 19.7 H 20.1 H RBC 5.49 5.11 Hgb 18.1 H 17.0 Hct 56.6 H 52.6 H MCV 103.2 H 103.1 H MCH 33.0 33.2 MCHC 32.0 32.2 RDW 15.0 15.2 Plt Count 119 L 112 L MPV 9.6 10.6 Prelim Diff (Auto) Slide review pending Neut % (Auto) 91.3 H Lymph % (Auto) 1.9 L Robeson % (Auto) 6.7 Eos % (Auto) 0.0 Baso % (Auto) 0.1 Neut # (Auto) 18.4 H Lymph # (Auto) 0.4 L Robeson # (Auto) 1.3 H Eos # (Auto) 0.0 Baso # (Auto) 0.0 WBC Differential . Diff Scan Auto diff confirmed Differential Comment . Lab - Chemistry Results 08/22/18 08/22/18 08/23/18 12:54 23:49 03:26 Sodium 154 H Potassium 3.8 Chloride 111 H Carbon Dioxide 37.6 H Anion Gap 5 BUN 87 H Creatinine 1.72 H Estimated GFR 40 L POC Glucose 90 131 H Random Glucose 139 H Calcium 8.9 Phosphorus 2.4 L Magnesium 2.6 H Total Bilirubin 1.0 AST 87 H ALT 252 H Alkaline Phosphatase 86 Total Protein 6.9 Albumin 2.6 L 08/23/18 08/23/18 08/24/18 11:49 18:26 00:13 Sodium Potassium Chloride Carbon Dioxide Anion Gap BUN Creatinine Estimated GFR POC Glucose 134 H 139 H 143 H Random Glucose Calcium Phosphorus Magnesium Total Bilirubin AST ALT Alkaline Phosphatase Total Protein Albumin 08/24/18 08/24/18 05:07 05:59 Sodium 150 H Potassium 3.9 Chloride 108 H Carbon Dioxide 34.2 H Anion Gap 8 BUN 76 H Creatinine 1.35 H Estimated GFR 53 L POC Glucose 167 H Random Glucose 142 H Calcium 9.1 Phosphorus 2.5 Magnesium 2.2 Total Bilirubin 1.1 H AST 64 H ALT 184 H Alkaline Phosphatase 75 Total Protein 6.3 L D Albumin 2.4 L Imaging: ITS Impressions Abdomen Ultrasound 08/19/18 00:00 CONCLUSION: 1. Hepatomegaly with diffuse hyperechoic texture characteristic of steatosis or diffuse hepatocellular disease. 2. Bilateral renal cysts. 3. Nonvisualization of the gallbladder and pancreas. 4. No evidence of hydronephrosis or abnormal fluid collections. Chest X-Ray 08/22/18 07:02 CONCLUSION: Increased left basilar opacity characteristic of pleural effusion with associated volume loss and/or airspace consolidation. There is very small volume of right pleural fluid with likely atelectasis at the right base. Abdomen X-Ray 08/22/18 07:03 CONCLUSION: 1. There are no features to indicate ileus. No acute abdominal abnormality is identified. 2. Nonspecific 18 mm density in the left pelvis represent a calcification or could represent material within the sigmoid colon. 3. Opacity at the left lung base. Please refer to today's chest x-ray for further description. Abdomen/Pelvis CT 08/23/18 00:00 CONCLUSION: 1. Severe left hydronephrosis and hydroureter caused by a 2 cm stone in the distal left ureter. 2. Trace air within the bladder lumen. Although nonspecific this may be related to a recent catheterization. 3. Nonacute findings include multiple bilateral renal cysts, mild atherosclerotic disease, and mild hepatic steatosis. Chest CT 08/23/18 00:00 CONCLUSION: 1. There is continued volume loss/collapse of the left upper lobe with mild atelectasis in the left upper lobe. Aeration is improved compared to the study from 4 days ago and stable compared to the most recent chest x-ray. There is also volume loss in the right lower lobe. No pleural effusion is present. 2. Stable enlargement of the main pulmonary artery which may indicate pulmonary arterial hypertension. 3. Findings consistent with prior granulomatous infection. Please refer to abdomen and CT report for description of the subdiaphragmatic findings. Nephrostomy 08/23/18 00:00 CONCLUSION: 1. Uncomplicated nephrostomy tube placement as above. Physical Exam: PHYSICAL EXAMINATION: GENERAL: Awake and in no distress. HEAD: Head is atraumatic. Extraocular movements appear grossly intact. No icterus. Oropharynx, moist mucosa. Oropharynx intubated. NECK: Supple without swelling or adenopathy. LUNGS: Diminished breath sounds bilateral. HEART: Normal S1 and S2, without audible murmurs, rubs or gallops. ABDOMEN: Bowel sounds present, distended, soft, no tenderness. left nephrostomy tube in place. No purulence. EXTREMITIES: No clubbing or cyanosis or edema. SKIN: No rash. NEURO: Unable to fully assess. PSYCHIATRIC: Unable to fully assess. Assessment and Plan - Plan IMPRESSION: 1. Pneumonia. The patient with whiteout of the left lung. Status post bronchoscopy. Sputum culture pending. 2. Leukocytosis probably secondary to pneumonia. 3. Acute respiratory failure. 4. Chronic obstructive pulmonary disease. 5. Obstructive uropathy. RECOMMENDATIONS: 1. Continue Cefepime. 2. Continue Azithromycin. 3. Monitor bronch culture. 4. Monitor blood culture. 5. Monitor urine culture. 6. Follow the clinical status. I will be off 08/25 through 09/01. other ID MD covering. Assigned ID physician can be reached via call center.
[2018-08-24 13:27] LABS: ABG Base Excess 10.6 mmol/L (-2-2); ABG PCO2 66 mmHg (38-42); ABG PO2 87 mmHG (61-120)
--- NOTE | 2018-08-24 14:53 | P.CONURO ---
History of Present Illness Service: Urology Consult date: 08/24/18 Reason for Consult: Obstructing stone Primary Care Provider: UNKNOWN Family Provider: Trace Chung Chief Complaint: large left renal stone History of Present Illness: 68-year-old gentleman with COPD and chronic cough who continues to smoke presented to [place] emergency department for an evaluation of altered mental status and shortness of breath. His caregiver found him unresponsive with labored breathing. It all happened a week ago. Patient was brought into the emergency department with altered mental status and respiratory distress. Pulse ox was in the 60s. Patient was put on high flow oxygen and later changed to BiPAP with improvement in mentation and oxygenation. The chest x-ray obtained in the emergency department shows almost complete opacification of left hemithorax. The CT without contrast shows severe cardiomegaly and no pleural effusion or pericardial effusion. The patient has been transferred to [facility] ICU for higher level of care. He is currently intubated. Urology consulted for a 2cm left distal ureteral stone and moderate to severe hydro. UC is negative. Cr is stable. Urology was contacted over the weekend and placement of left PCN was recommended, which was successfully done yesterday. Currently his nephrostomy is working well, draining light red urine Review of Systems All other systems reviewed negative except as stated in HPI PMFSH - History History Provided By: Friend - Medical History Medical History: Medical History (Last Reviewed 08/24/18 @ 08:10 by Qi Matos) COPD (chronic obstructive pulmonary disease) Surgical history unknown - Tobacco History Tobacco Use In Past 30 Days: Yes Smoking Status: Smoker, status unknown Tobacco Type: Cigarettes - Alcohol History How Often Do You Have a Drink Containing Alcohol: Unable to Obtain - Substance Use History Substance History: Unable to Obtain Medications and Allergies Active Medications: Active Medications Acetaminophen (Tylenol) 650 mg PO Q6H PRN PRN Reason: PAIN 1-10 AND/OR FEVER >101F Acetylcysteine (Mucomyst 10% Neb) 2 ml NEB Q4HR NEB [facility] Last Admin: 08/24/18 12:00 Dose: 2 ml Al Hydroxide/Mg Hydroxide (Milk Of Bo Liq) 30 ml PO Q12H PRN PRN Reason: Mild Constipation Albuterol (Albuterol Neb (Prn)) 2.5 mg NEB Q2HR NEB PRN PRN Reason: DYSPNEA Albuterol (Duoneb Neb ([facility])) 1 ampul NEB Q4HR NEB [facility] Last Admin: 08/24/18 11:58 Dose: 1 ampul Artificial Tears (Refresh Tears 0.5% Opth Drops) 1 drop EACH EYE TID [facility] Last Admin: 08/24/18 13:13 Dose: 1 drop Bisacodyl (Dulcolax Supp) 10 mg RECTAL DAILY PRN PRN Reason: SEVERE CONSITIPATION Bupropion HCl (Wellbutrin Sr) 150 mg PO DAILY [facility] Last Admin: 08/24/18 09:34 Dose: 150 mg Chlorhexidine Gluconate (Peridex 0.12% Oral Kit) 15 ml OROPHARYNG BID@0800, 2000 [facility] Last Admin: 08/24/18 09:22 Dose: 15 ml Dextrose (D50w Vial) 50 ml IV.PUSH UNSCH PRN PRN Reason: PER HYPOGLYCEMIA PROTOCOL Enoxaparin Sodium (Lovenox Inj) 30 mg SQ Q24H [facility] Last Admin: 08/24/18 00:07 Dose: 30 mg Gabapentin (Neurontin) 600 mg PO BID [facility] Last Admin: 08/24/18 09:30 Dose: 600 mg Glucagon (Glucagon Inj) 1 mg OTHER PRN PRN PRN Reason: for Hypoglycemia Protocol Azithromycin 500 mg/ Sodium (Chloride) 250 mls @ 250 mls/hr IV.SIG Q24H [facility] Last Infusion: 08/24/18 01:05 Dose: Infused Propofol (Diprivan 1000 Mg/100 Ml Inj) 1,000 mg in 100 mls @ 3.525 mls/hr IV.CONT TITRATE PRN; Protocol PRN Reason: Per Protocol Last Titration: 08/21/18 19:22 Dose: Infused Cefepime HCl 2,000 mg/ Sodium (Chloride) 100 mls @ 200 mls/hr IV.SIG Q24H [facility] Last Admin: 08/24/18 11:12 Dose: 200 mls/hr Fentanyl (Fentanyl 10 Mcg/Ml Premix Drip) 2,500 mcg in 250 mls @ 5 mls/hr IV.SIG TITRATE PRN; Protocol PRN Reason: Per Protocol Dextrose (D5w Inj) 1,000 mls @ 50 mls/hr IV.CONT .Q20H [facility] Last Admin: 08/24/18 06:42 Dose: 50 mls/hr Vancomycin HCl 1,750 mg/ (Sodium Chloride) 517.5 mls @ 250 mls/hr IV.SIG Q24H [facility] Last Admin: 08/24/18 09:34 Dose: 250 mls/hr Magnesium Sulfate 4 gm/ Sodium (Chloride) 100 mls @ 50 mls/hr IV.SIG UNSCH PRN PRN Reason: For Magnesium 0.9 - 1.1 mg/dL Magnesium Sulfate 2 gm/ Sodium (Chloride) 100 mls @ 50 mls/hr IV.SIG UNSCH PRN PRN Reason: For Magnesium 1.2 - 1.6 mg/dL Potassium Chloride (Kcl 20 Meq Premix Inj) 20 meq in 100 mls @ 50 mls/hr IV.SIG Q2H PRN PRN Reason: For Potassium 3.3 - 3.5 mEq/L Potassium Chloride (Kcl 40 Meq Premix Inj) 40 meq in 100 mls @ 25 mls/hr IV.SIG UNSCH PRN PRN Reason: For Potassium 3.3 - 3.5 mEq/L Potassium Chloride (Kcl 20 Meq Premix Inj) 20 meq in 100 mls @ 50 mls/hr IV.SIG Q2H PRN PRN Reason: For Potassium 2.8 - 3.2 mEq/L Potassium Phosphate 30 mmol/ (Sodium Chloride) 260 mls @ 42 mls/hr IV.SIG UNSCH PRN PRN Reason: SEE LABEL COMMENTS Sodium Phosphate 30 mmol/ (Sodium Chloride) 260 mls @ 42 mls/hr IV.SIG UNSCH PRN PRN Reason: For Phosphorus < 2.5 mg/dL Potassium Chloride (Kcl 40 Meq Premix Inj) 40 meq in 100 mls @ 25 mls/hr IV.SIG Q2H PRN PRN Reason: For Potassium 2.8 - 3.2 mEq/L Insulin Human Regular (Novolin R Correctional Sugar Inj) 0 units SQ Q6HR [facility]; Protocol Last Admin: 08/24/18 13:13 Dose: Not Given Lactulose (Lactulose Liq) 30 ml PO DAILY PRN PRN Reason: SEVERE CONSITIPATION Lansoprazole (Prevacid Solutab) 30 mg NG/OG DAILY [facility] Last Admin: 08/24/18 09:31 Dose: 30 mg Magnesium Oxide (Mag-Ox) 800 mg PO UNSCH PRN PRN Reason: For Magnesium 1.2 - 1.6 mg/dL Methylprednisolone Sodium Succinate (Solumedrol Inj) 40 mg IV.PUSH Q8HR [facility] Last Admin: 08/24/18 13:13 Dose: 40 mg Miscellaneous Information ([facility] Ordered Lab Info) 0 each OTHER ONCE ONE Stop: 08/26/18 08:46 Miscellaneous Medication () 1 each OROPHARYNG 0000,0400,1200,1600 [facility] Last Admin: 08/24/18 11:12 Dose: 1 each Ondansetron HCl (Zofran Inj) 4 mg IV.PUSH Q6H PRN PRN Reason: NAUSEA OR VOMITING Pharmacy Profile Note (Vancomycin Consult Pharmacy) 1 each OTHER UNSCH PRN PRN Reason: Pharmacy to dose Potassium Bicarb/Potassium Chloride (K-Lyte Cl Eff) 50 meq PO UNSCH PRN PRN Reason: For Potassium 3.3 - 3.5 mEq/L Potassium Phosphate (K-Phos Original) 2,000 mg PO Q4H PRN PRN Reason: Phosphorus Less Than 2.5 mg/dL Potassium Phosphate (K-Phos Original) 2,000 mg PO UNSCH PRN PRN Reason: SEE LABEL COMMENTS Senna/Docusate Sodium (Clare-Colace) 1 tab PO BID [facility] Last Admin: 08/24/18 09:30 Dose: 1 tab Sennosides (Senokot) 17.2 mg PO Q12H PRN PRN Reason: Moderate Constipation Sodium Chloride (Ns Flush) 2 ml IV.FLUSH BID [facility] Last Admin: 08/24/18 09:30 Dose: 2 ml Sodium Chloride (Ns Flush) 2 ml IV.FLUSH PRN PRN PRN Reason: FLUSH AFTER USING IV ACCESS Last Admin: 08/23/18 09:16 Dose: 2 ml Sterile Water (Free Water) 300 ml G-TUBE Q4HR [facility] Last Admin: 08/24/18 11:12 Dose: 300 ml Thiamine HCl (Vitamin B1) 100 mg PO BID [facility] Last Admin: 08/24/18 09:30 Dose: 100 mg Allergies Allergy/AdvReac Type Severity Reaction Status Date / Time No Known Allergies Allergy Unverified 08/16/18 16:33 Home Medications Medication Instructions Recorded Confirmed Type bupropion HCl (smoking deter) 150 mg PO DAILY 08/16/18 08/16/18 History gabapentin 600 mg PO BID 08/16/18 08/16/18 History ibuprofen 800 mg PO TID 08/16/18 08/16/18 History varenicline [Chantix] 1 mg PO BID 08/16/18 08/16/18 History Physical Exam Vital Signs - 24 hr 08/23/18 14:55 08/23/18 15:00 08/23/18 15:05 Temperature Pulse Rate 65 65 Respiratory Rate 16 16 16 Blood Pressure 96/53 L 98/55 L Pulse Oximetry 95 94 L 97 08/23/18 15:13 08/23/18 15:15 08/23/18 15:18 Temperature Pulse Rate 79 82 85 Respiratory Rate 31 H 47 H 42 H Blood Pressure 113/67 115/65 121/64 Pulse Oximetry 99 96 92 L 08/23/18 15:20 08/23/18 15:23 08/23/18 15:24 Temperature Pulse Rate 79 75 Respiratory Rate 18 16 Blood Pressure 114/56 L 116/55 L Pulse Oximetry 94 L 93 L 98 08/23/18 16:00 08/23/18 17:38 08/23/18 17:53 Temperature 98.9 F 98.6 F 98.6 F Pulse Rate 79 79 87 Respiratory Rate 16 16 17 Blood Pressure 97/55 L 106/58 L Pulse Oximetry 92 L 95 94 L 08/23/18 18:00 08/23/18 18:13 08/23/18 18:30 Temperature Pulse Rate 79 75 70 Respiratory Rate 21 16 16 Blood Pressure 112/66 106/58 L Pulse Oximetry 91 L 98 96 08/23/18 18:46 08/23/18 18:53 08/23/18 19:00 Temperature 98.5 F 98.6 F Pulse Rate 66 65 Respiratory Rate 16 16 Blood Pressure 99/57 L 102/57 L Pulse Oximetry 95 95 08/23/18 19:17 08/23/18 19:30 08/23/18 19:45 Temperature Pulse Rate 67 64 63 Respiratory Rate 16 16 16 Blood Pressure 105/62 96/57 L 96/58 L Pulse Oximetry 97 100 100 08/23/18 20:00 08/23/18 20:15 08/23/18 20:30 Temperature 97.6 F Pulse Rate 65 66 66 Respiratory Rate 16 16 16 Blood Pressure 101/64 102/67 103/68 Pulse Oximetry 100 99 99 08/23/18 20:45 08/23/18 20:46 08/23/18 20:47 Temperature Pulse Rate 73 71 Respiratory Rate 16 20 16 Blood Pressure 105/71 Pulse Oximetry 100 100 08/23/18 21:00 08/23/18 21:06 08/23/18 21:15 Temperature Pulse Rate 66 70 67 Respiratory Rate 16 16 16 Blood Pressure 112/69 109/69 Pulse Oximetry 99 98 100 08/23/18 21:30 08/23/18 21:45 08/23/18 22:00 Temperature Pulse Rate 69 68 66 Respiratory Rate 16 16 16 Blood Pressure 112/69 106/68 Pulse Oximetry 97 100 100 08/23/18 22:01 08/23/18 22:16 08/23/18 22:30 Temperature Pulse Rate 64 65 64 Respiratory Rate 16 16 16 Blood Pressure 114/56 L 102/58 L 97/63 L Pulse Oximetry 100 100 100 08/23/18 22:45 08/23/18 23:00 08/23/18 23:15 Temperature Pulse Rate 61 57 L 57 L Respiratory Rate 16 16 16 Blood Pressure 101/62 100/60 98/63 L Pulse Oximetry 100 100 100 08/23/18 23:30 08/23/18 23:39 08/23/18 23:40 Temperature Pulse Rate 58 L 58 L Respiratory Rate 16 16 16 Blood Pressure 98/61 L Pulse Oximetry 100 100 08/23/18 23:45 08/24/18 00:00 08/24/18 00:15 Temperature Pulse Rate 58 L 59 L 63 Respiratory Rate 16 16 16 Blood Pressure 102/61 100/61 114/66 Pulse Oximetry 100 100 100 08/24/18 00:30 08/24/18 00:45 08/24/18 01:00 Temperature Pulse Rate 61 60 63 Respiratory Rate 16 16 16 Blood Pressure 100/62 99/59 L 103/62 Pulse Oximetry 100 100 100 08/24/18 01:15 08/24/18 01:30 08/24/18 01:46 Temperature Pulse Rate 62 62 68 Respiratory Rate 16 16 16 Blood Pressure 105/55 L 101/58 L 111/66 Pulse Oximetry 100 100 100 08/24/18 02:00 08/24/18 02:01 08/24/18 02:15 Temperature Pulse Rate 66 66 69 Respiratory Rate 16 16 16 Blood Pressure 110/71 106/70 Pulse Oximetry 100 100 100 08/24/18 02:30 08/24/18 02:45 10/01/18 03:00 Temperature Pulse Rate 62 62 61 Respiratory Rate 16 16 16 Blood Pressure 101/65 100/63 94/58 L Pulse Oximetry 100 100 100 08/24/18 03:15 08/24/18 03:30 08/24/18 03:46 Temperature Pulse Rate 60 68 70 Respiratory Rate 16 68 H 25 H Blood Pressure 96/55 L 102/65 86/61 L Pulse Oximetry 100 74 L 97 08/24/18 03:47 08/24/18 04:00 08/24/18 04:15 Temperature Pulse Rate 66 61 59 L Respiratory Rate 16 16 16 Blood Pressure 108/64 109/64 Pulse Oximetry 100 100 08/24/18 04:20 08/24/18 04:30 08/24/18 04:45 Temperature Pulse Rate 59 L 60 Respiratory Rate 16 16 16 Blood Pressure 104/62 112/66 Pulse Oximetry 100 100 100 08/24/18 05:00 08/24/18 05:15 08/24/18 05:30 Temperature Pulse Rate 62 60 61 Respiratory Rate 16 16 16 Blood Pressure 109/65 114/72 104/60 Pulse Oximetry 97 100 100 08/24/18 05:45 08/24/18 06:00 08/24/18 06:15 Temperature 97.7 F Pulse Rate 62 60 60 Respiratory Rate 16 16 16 Blood Pressure 108/63 108/62 108/65 Pulse Oximetry 100 100 100 08/24/18 06:30 08/24/18 08:00 08/24/18 08:50 Temperature Pulse Rate 60 69 74 Respiratory Rate 16 12 Blood Pressure 111/67 Pulse Oximetry 100 08/24/18 09:50 08/24/18 10:00 08/24/18 11:59 Temperature Pulse Rate 71 73 Respiratory Rate 9 L 20 Blood Pressure Pulse Oximetry 100 100 08/24/18 12:00 08/24/18 13:35 08/24/18 14:00 Temperature Pulse Rate 72 60 Respiratory Rate Blood Pressure Pulse Oximetry 94 L Physical Exam: GENERAL: This is a well-nourished, well-developed patient, in no apparent distress. SKIN: No rashes, ecchymoses or lesions. Cool and dry. HEAD: Atraumatic. Normocephalic. CARDIOVASCULAR: Regular rate and rhythm without murmurs, gallops, or rubs. RESPIRATORY: Clear to auscultation. Breath sounds equal bilaterally. GASTROINTESTINAL: Abdomen soft, non-tender, nondistended. GENITOURINARY: Left PCN is in place NEUROLOGICAL: Intubated Laboratory Results - last 24 hr 08/19/18 08/23/18 08/24/18 14:53 18:26 00:13 WBC RBC Hgb Hct MCV MCH MCHC RDW Plt Count MPV Prelim Diff (Auto) Neut % (Auto) Lymph % (Auto) Wolfe % (Auto) Eos % (Auto) Baso % (Auto) Neut # (Auto) Lymph # (Auto) Wolfe # (Auto) Eos # (Auto) Baso # (Auto) WBC Differential Diff Scan Differential Comment PT INR Puncture Site Patient Temperature O2 Saturation ABG pH ABG pCO2 ABG pO2 ABG HCO3 ABG O2 Content ABG Base Excess ABG Methemoglobin Carlo Test Hemoglobin Carboxyhemoglobin O2 Delivery Device Vent Setting Inspired O2 Critical Value Sodium Potassium Chloride Carbon Dioxide Anion Gap BUN Creatinine Estimated GFR POC Glucose 139 H 143 H Random Glucose Calcium Phosphorus Magnesium Total Bilirubin AST ALT Alkaline Phosphatase Total Protein Albumin Urine Immunofixation 08/24/18 08/24/18 08/24/18 05:07 05:07 05:07 WBC 20.1 H RBC 5.11 Hgb 17.0 Hct 52.6 H MCV 103.1 H MCH 33.2 MCHC 32.2 RDW 15.2 Plt Count 112 L MPV 10.6 Prelim Diff (Auto) Slide review pending Neut % (Auto) 91.3 H Lymph % (Auto) 1.9 L Wolfe % (Auto) 6.7 Eos % (Auto) 0.0 Baso % (Auto) 0.1 Neut # (Auto) 18.4 H Lymph # (Auto) 0.4 L Wolfe # (Auto) 1.3 H Eos # (Auto) 0.0 Baso # (Auto) 0.0 WBC Differential . Diff Scan Auto diff confirmed Differential Comment . PT 12.0 H INR 1.2 Puncture Site Patient Temperature O2 Saturation ABG pH ABG pCO2 ABG pO2 ABG HCO3 ABG O2 Content ABG Base Excess ABG Methemoglobin Carlo Test Hemoglobin Carboxyhemoglobin O2 Delivery Device Vent Setting Inspired O2 Critical Value Sodium 150 H Potassium 3.9 Chloride 108 H Carbon Dioxide 34.2 H Anion Gap 8 BUN 76 H Creatinine 1.35 H Estimated GFR 53 L POC Glucose Random Glucose 142 H Calcium 9.1 Phosphorus 2.5 Magnesium 2.2 Total Bilirubin 1.1 H AST 64 H ALT 184 H Alkaline Phosphatase 75 Total Protein 6.3 L D Albumin 2.4 L Urine Immunofixation 08/24/18 08/24/18 08/24/18 05:59 11:19 12:49 WBC RBC Hgb Hct MCV MCH MCHC RDW Plt Count MPV Prelim Diff (Auto) Neut % (Auto) Lymph % (Auto) Wolfe % (Auto) Eos % (Auto) Baso % (Auto) Neut # (Auto) Lymph # (Auto) Wolfe # (Auto) Eos # (Auto) Baso # (Auto) WBC Differential Diff Scan Differential Comment PT INR Puncture Site Right radial Patient Temperature 98.6 O2 Saturation 93 ABG pH 7.36 L ABG pCO2 66 H* ABG pO2 87 ABG HCO3 36 H ABG O2 Content 23.1 H ABG Base Excess 10.6 H ABG Methemoglobin 1.4 Carlo Test Present Hemoglobin 17.6 H Carboxyhemoglobin 0.8 O2 Delivery Device Ventilator Vent Setting [id number] Inspired O2 40 Critical Value Yes Sodium Potassium Chloride Carbon Dioxide Anion Gap BUN Creatinine Estimated GFR POC Glucose 167 H 113 H Random Glucose Calcium Phosphorus Magnesium Total Bilirubin AST ALT Alkaline Phosphatase Total Protein Albumin Urine Immunofixation Microbiology 08/23/18 15:20 Gram Stain - Final Bronchial - Left Bronchial Culture - Preliminary Heavy growth normal respiratory ada at 24 hours 08/22/18 09:00 Gram Stain - Final Sputum - Endotracheal Sputum Culture - Final Moderate growth normal respiratory ada 08/22/18 08:49 Aerobic Blood Culture - Preliminary Blood - Peripheral No growth in 2 days Anaerobic Blood Culture - Preliminary No growth in 2 days 08/22/18 08:56 Aerobic Blood Culture - Preliminary Blood - Peripheral No growth in 2 days Anaerobic Blood Culture - Preliminary No growth in 2 days 08/22/18 11:15 Urine Culture - Final Catheterized Urine No growth in 48 hours Result Diagrams: 08/24/18 05:07 08/24/18 05:07 Imaging: ITS Impressions Abdomen Ultrasound 08/19/18 00:00 CONCLUSION: 1. Hepatomegaly with diffuse hyperechoic texture characteristic of steatosis or diffuse hepatocellular disease. 2. Bilateral renal cysts. 3. Nonvisualization of the gallbladder and pancreas. 4. No evidence of hydronephrosis or abnormal fluid collections. Chest X-Ray 08/22/18 07:02 CONCLUSION: Increased left basilar opacity characteristic of pleural effusion with associated volume loss and/or airspace consolidation. There is very small volume of right pleural fluid with likely atelectasis at the right base. Abdomen X-Ray 08/22/18 07:03 CONCLUSION: 1. There are no features to indicate ileus. No acute abdominal abnormality is identified. 2. Nonspecific 18 mm density in the left pelvis represent a calcification or could represent material within the sigmoid colon. 3. Opacity at the left lung base. Please refer to today's chest x-ray for further description. Abdomen/Pelvis CT 08/23/18 00:00 CONCLUSION: 1. Severe left hydronephrosis and hydroureter caused by a 2 cm stone in the distal left ureter. 2. Trace air within the bladder lumen. Although nonspecific this may be related to a recent catheterization. 3. Nonacute findings include multiple bilateral renal cysts, mild atherosclerotic disease, and mild hepatic steatosis. Chest CT 08/23/18 00:00 CONCLUSION: 1. There is continued volume loss/collapse of the left upper lobe with mild atelectasis in the left upper lobe. Aeration is improved compared to the study from 4 days ago and stable compared to the most recent chest x-ray. There is also volume loss in the right lower lobe. No pleural effusion is present. 2. Stable enlargement of the main pulmonary artery which may indicate pulmonary arterial hypertension. 3. Findings consistent with prior granulomatous infection. Please refer to abdomen and CT report for description of the subdiaphragmatic findings. Nephrostomy 08/23/18 00:00 CONCLUSION: 1. Uncomplicated nephrostomy tube placement as above. Assessment and Plan - Plan 68y.o M with history as per [facility] Urology consulted for large obstructing left ureteral stone Pt is s/p left PCN yesterday - Continue care as per ICU and all other teams - No additional intervention now needed - Monitor I/O. Monitor left PCN output - Start flomax daily 0.4mg - If stable would be beneficial for pt to internalize a left stent by IR in 48- 72hrs - Pt to f/u as outpt after d/c for further stone management with Discussed Condition With: Discussed with Dr Eliza CHAVEZ attending who agrees with this plan
--- NOTE | 2018-08-24 15:59 | P.PNNP ---
Subjective Interval history: Patient over the weekend developed left hydronephrosis a 2 cm stone causing obstructive uropathy and nephrostomy tube was placed on the left side it is draining it now kidney function is improved Physical Exam Vital signs: Vital Signs 08/23/18 16:00 08/23/18 17:38 08/23/18 17:53 Temperature 98.9 F 98.6 F 98.6 F Pulse Rate 79 79 87 Respiratory Rate 16 16 17 Blood Pressure 97/55 L 106/58 L Pulse Oximetry 92 L 95 94 L 08/23/18 18:00 08/23/18 18:13 08/23/18 18:30 Temperature Pulse Rate 79 75 70 Respiratory Rate 21 16 16 Blood Pressure 112/66 106/58 L Pulse Oximetry 91 L 98 96 08/23/18 18:46 08/23/18 18:53 08/23/18 19:00 Temperature 98.5 F 98.6 F Pulse Rate 66 65 Respiratory Rate 16 16 Blood Pressure 99/57 L 102/57 L Pulse Oximetry 95 95 08/23/18 19:17 08/23/18 19:30 08/23/18 19:45 Temperature Pulse Rate 67 64 63 Respiratory Rate 16 16 16 Blood Pressure 105/62 96/57 L 96/58 L Pulse Oximetry 97 100 100 08/23/18 20:00 08/23/18 20:15 08/23/18 20:30 Temperature 97.6 F Pulse Rate 65 66 66 Respiratory Rate 16 16 16 Blood Pressure 101/64 102/67 103/68 Pulse Oximetry 100 99 99 08/23/18 20:45 08/23/18 20:46 08/23/18 20:47 Temperature Pulse Rate 73 71 Respiratory Rate 16 20 16 Blood Pressure 105/71 Pulse Oximetry 100 100 08/23/18 21:00 08/23/18 21:06 08/23/18 21:15 Temperature Pulse Rate 66 70 67 Respiratory Rate 16 16 16 Blood Pressure 112/69 109/69 Pulse Oximetry 99 98 100 08/23/18 21:30 08/23/18 21:45 08/23/18 22:00 Temperature Pulse Rate 69 68 66 Respiratory Rate 16 16 16 Blood Pressure 112/69 106/68 Pulse Oximetry 97 100 100 08/23/18 22:01 08/23/18 22:16 08/23/18 22:30 Temperature Pulse Rate 64 65 64 Respiratory Rate 16 16 16 Blood Pressure 114/56 L 102/58 L 97/63 L Pulse Oximetry 100 100 100 08/23/18 22:45 08/23/18 23:00 08/23/18 23:15 Temperature Pulse Rate 61 57 L 57 L Respiratory Rate 16 16 16 Blood Pressure 101/62 100/60 98/63 L Pulse Oximetry 100 100 100 08/23/18 23:30 08/23/18 23:39 08/23/18 23:40 Temperature Pulse Rate 58 L 58 L Respiratory Rate 16 16 16 Blood Pressure 98/61 L Pulse Oximetry 100 100 08/23/18 23:45 08/24/18 00:00 08/24/18 00:15 Temperature Pulse Rate 58 L 59 L 63 Respiratory Rate 16 16 16 Blood Pressure 102/61 100/61 114/66 Pulse Oximetry 100 100 100 08/24/18 00:30 08/24/18 00:45 08/24/18 01:00 Temperature Pulse Rate 61 60 63 Respiratory Rate 16 16 16 Blood Pressure 100/62 99/59 L 103/62 Pulse Oximetry 100 100 100 08/24/18 01:15 08/24/18 01:30 08/24/18 01:46 Temperature Pulse Rate 62 62 68 Respiratory Rate 16 16 16 Blood Pressure 105/55 L 101/58 L 111/66 Pulse Oximetry 100 100 100 08/24/18 02:00 08/24/18 02:01 08/24/18 02:15 Temperature Pulse Rate 66 66 69 Respiratory Rate 16 16 16 Blood Pressure 110/71 106/70 Pulse Oximetry 100 100 100 08/24/18 02:30 08/24/18 02:45 08/24/18 03:00 Temperature Pulse Rate 62 62 61 Respiratory Rate 16 16 16 Blood Pressure 101/65 100/63 94/58 L Pulse Oximetry 100 100 100 08/24/18 03:15 08/24/18 03:30 08/24/18 03:46 Temperature Pulse Rate 60 68 70 Respiratory Rate 16 68 H 25 H Blood Pressure 96/55 L 102/65 86/61 L Pulse Oximetry 100 74 L 97 08/24/18 03:47 08/24/18 04:00 08/24/18 04:15 Temperature Pulse Rate 66 61 59 L Respiratory Rate 16 16 16 Blood Pressure 108/64 109/64 Pulse Oximetry 100 100 08/24/18 04:20 08/24/18 04:30 08/24/18 04:45 Temperature Pulse Rate 59 L 60 Respiratory Rate 16 16 16 Blood Pressure 104/62 112/66 Pulse Oximetry 100 100 100 08/24/18 05:00 08/24/18 05:15 08/24/18 05:30 Temperature Pulse Rate 62 60 61 Respiratory Rate 16 16 16 Blood Pressure 109/65 114/72 104/60 Pulse Oximetry 97 100 100 08/24/18 05:45 08/24/18 06:00 08/24/18 06:15 Temperature 97.7 F Pulse Rate 62 60 60 Respiratory Rate 16 16 16 Blood Pressure 108/63 108/62 108/65 Pulse Oximetry 100 100 100 08/24/18 06:30 08/24/18 08:00 08/24/18 08:50 Temperature Pulse Rate 60 69 74 Respiratory Rate 16 12 Blood Pressure 111/67 Pulse Oximetry 100 08/24/18 09:50 08/24/18 10:00 08/24/18 11:59 Temperature Pulse Rate 71 73 Respiratory Rate 9 L 20 Blood Pressure Pulse Oximetry 100 100 08/24/18 12:00 08/24/18 13:35 08/24/18 14:00 Temperature Pulse Rate 72 60 Respiratory Rate Blood Pressure Pulse Oximetry 94 L 08/24/18 15:22 Temperature Pulse Rate 56 L Respiratory Rate 16 Blood Pressure Pulse Oximetry 93 L Intake & Output 08/23/18 08/24/18 08/24/18 18:59 06:59 18:59 Intake Total 1861.5 / 1861.5 2705 / 2705 0 / 0 Output Total 160 / 160 440 / 440 Balance 1701.5 / 1701.5 2265 / 2265 0 / 0 Weight 112.7 kg Intake: IV 617.5 / 617.5 1405 / 1405 D5W Inj 1,000 ML @ 50 mls/hr IV 1000 / 1000 .CONT .Q20H [facility] Rx#:[id number] Azithromycin Inj 500 MG In NS 250 / 250 Inj 250 ML @ 250 mls/hr IV.SIG Q24H [facility] Rx#:[id number] Maxipime Inj 2,000 MG In NS Inj 100 / 100 100 ML @ 200 mls/hr IV.SIG Q24H [facility] Rx#:[id number] Potassium Phosphate Inj 15 MMOL 155 / 155 In NS Inj 150 ML @ 38.75 mls/ hr IV.SIG NOW ONE Rx#:[id number] Vancomycin Inj 1,750 MG In NS 517.5 / 517.5 Inj 500 ML @ 250 mls/hr IV.SIG Q24H [facility] Rx#:[id number] Oral 0 / 0 Tube Feeding 244 / 244 400 / 400 Water Bolus Amount 1000 / 1000 900 / 900 Output: Urine Amount (Stoma) 160 / 160 440 / 440 Nephrostomy Tube 160 / 160 440 / 440 Other: # Incontinent Voids 4 1 Date of Last Bowel Movement 08/23/18 08/24/18 08/24/18 # Bowel Movements 2 # Incontinent Bowel Movements 1 Narrative: GENERAL: On ventilator, sedated SKIN: Warm and dry. HEAD: Normocephalic. EYES: No scleral icterus. No injection or drainage. NECK: Supple, No JVD CARDIOVASCULAR: Regular rate and rhythm without murmurs, gallops, or rubs. RESPIRATORY: Breath sounds equal bilaterally. No accessory muscle use. GASTROINTESTINAL: Abdomen soft, non-tender, nondistended. - Urinary Catheter Management Indwelling Urethral Catheter Cath placed during this visit: yes, but has since been removed by the nurse Reason for continuing: Decision to DC catheter Removal date: 08/17/18 Removal time: 16:30 Coude Cath placed during this visit: no Assessment and Plan - Assessment (1) Acute renal failure Code(s): N17.9 - Acute kidney failure, unspecified Status: Acute Plan: (1) Acute renal failure Code(s): N17.9 - Acute kidney failure, unspecified Status: Acute (2) Chronic kidney disease Code(s): N18.9 - Chronic kidney disease, unspecified Status: Acute (3) COPD (chronic obstructive pulmonary disease) Code(s): J44.9 - Chronic obstructive pulmonary disease, unspecified Status: Acute (4) Pneumonia Code(s): J18.9 - Pneumonia, unspecified organism Status: Acute (5) Congestive heart failure Code(s): I50.9 - Heart failure, unspecified Status: Acute (6) Respiratory failure Code(s): J96.90 - Respiratory failure, unspecified, unspecified whether with hypoxia or hypercapnia Status: Acute (7) Abnormal liver function Code(s): K76.89 - Other specified diseases of liver Status: Acute Creatinine continue to improve. Sodium is now 154, Free water increased, now 300 ml. Follow the BMP. (2) Chronic kidney disease Code(s): N18.9 - Chronic kidney disease, unspecified Status: Acute (3) COPD (chronic obstructive pulmonary disease) Code(s): J44.9 - Chronic obstructive pulmonary disease, unspecified Status: Acute (4) Pneumonia Code(s): J18.9 - Pneumonia, unspecified organism Status: Acute (5) Congestive heart failure Code(s): I50.9 - Heart failure, unspecified Status: Acute (6) Respiratory failure Code(s): J96.90 - Respiratory failure, unspecified, unspecified whether with hypoxia or hypercapnia Status: Acute (7) Abnormal liver function Code(s): K76.89 - Other specified diseases of liver Status: Acute - Plan Patient seen and examined, Creatinine is better. On free water , Sodium is improving. Left hydronephrosis status post nephrostomy Kidney stone Urology is following Patient remains on ventilator
--- NOTE | 2018-08-24 18:38 | P.PNPL ---
Subjective Interval history: 68 YOWM with VDRF, COPD On Vent, sedated No fever CT chest showed colapse of EDITA Tolerated CPAP but CO2 was high, back on vent Physical Exam Vital signs: Vital Signs 08/23/18 18:46 08/23/18 18:53 08/23/18 19:00 Temperature 98.5 F 98.6 F Pulse Rate 66 65 Respiratory Rate 16 16 Blood Pressure 99/57 L 102/57 L Pulse Oximetry 95 95 08/23/18 19:17 08/23/18 19:30 08/23/18 19:45 Temperature Pulse Rate 67 64 63 Respiratory Rate 16 16 16 Blood Pressure 105/62 96/57 L 96/58 L Pulse Oximetry 97 100 100 08/23/18 20:00 08/23/18 20:15 08/23/18 20:30 Temperature 97.6 F Pulse Rate 65 66 66 Respiratory Rate 16 16 16 Blood Pressure 101/64 102/67 103/68 Pulse Oximetry 100 99 99 08/23/18 20:45 08/23/18 20:46 08/23/18 20:47 Temperature Pulse Rate 73 71 Respiratory Rate 16 20 16 Blood Pressure 105/71 Pulse Oximetry 100 100 08/23/18 21:00 08/23/18 21:06 08/23/18 21:15 Temperature Pulse Rate 66 70 67 Respiratory Rate 16 16 16 Blood Pressure 112/69 109/69 Pulse Oximetry 99 98 100 08/23/18 21:30 08/23/18 21:45 08/23/18 22:00 Temperature Pulse Rate 69 68 66 Respiratory Rate 16 16 16 Blood Pressure 112/69 106/68 Pulse Oximetry 97 100 100 08/23/18 22:01 08/23/18 22:16 08/23/18 22:30 Temperature Pulse Rate 64 65 64 Respiratory Rate 16 16 16 Blood Pressure 114/56 L 102/58 L 97/63 L Pulse Oximetry 100 100 100 08/23/18 22:45 08/23/18 23:00 08/23/18 23:15 Temperature Pulse Rate 61 57 L 57 L Respiratory Rate 16 16 16 Blood Pressure 101/62 100/60 98/63 L Pulse Oximetry 100 100 100 08/23/18 23:30 08/23/18 23:39 08/23/18 23:40 Temperature Pulse Rate 58 L 58 L Respiratory Rate 16 16 16 Blood Pressure 98/61 L Pulse Oximetry 100 100 08/23/18 23:45 08/24/18 00:00 08/24/18 00:15 Temperature Pulse Rate 58 L 59 L 63 Respiratory Rate 16 16 16 Blood Pressure 102/61 100/61 114/66 Pulse Oximetry 100 100 100 08/24/18 00:30 08/24/18 00:45 08/24/18 01:00 Temperature Pulse Rate 61 60 63 Respiratory Rate 16 16 16 Blood Pressure 100/62 99/59 L 103/62 Pulse Oximetry 100 100 100 08/24/18 01:15 08/24/18 01:30 08/24/18 01:46 Temperature Pulse Rate 62 62 68 Respiratory Rate 16 16 16 Blood Pressure 105/55 L 101/58 L 111/66 Pulse Oximetry 100 100 100 08/24/18 02:00 08/24/18 02:01 08/24/18 02:15 Temperature Pulse Rate 66 66 69 Respiratory Rate 16 16 16 Blood Pressure 110/71 106/70 Pulse Oximetry 100 100 100 08/24/18 02:30 08/24/18 02:45 08/24/18 03:00 Temperature Pulse Rate 62 62 61 Respiratory Rate 16 16 16 Blood Pressure 101/65 100/63 94/58 L Pulse Oximetry 100 100 100 08/24/18 03:15 08/24/18 03:30 08/24/18 03:46 Temperature Pulse Rate 60 68 70 Respiratory Rate 16 68 H 25 H Blood Pressure 96/55 L 102/65 86/61 L Pulse Oximetry 100 74 L 97 08/24/18 03:47 08/24/18 04:00 08/24/18 04:15 Temperature Pulse Rate 66 61 59 L Respiratory Rate 16 16 16 Blood Pressure 108/64 109/64 Pulse Oximetry 100 100 08/24/18 04:20 08/24/18 04:30 08/24/18 04:45 Temperature Pulse Rate 59 L 60 Respiratory Rate 16 16 16 Blood Pressure 104/62 112/66 Pulse Oximetry 100 100 100 08/24/18 05:00 08/24/18 05:15 08/24/18 05:30 Temperature Pulse Rate 62 60 61 Respiratory Rate 16 16 16 Blood Pressure 109/65 114/72 104/60 Pulse Oximetry 97 100 100 08/24/18 05:45 08/24/18 06:00 10/01/18 06:15 Temperature 97.7 F Pulse Rate 62 60 60 Respiratory Rate 16 16 16 Blood Pressure 108/63 108/62 108/65 Pulse Oximetry 100 100 100 08/24/18 06:30 08/24/18 08:00 08/24/18 08:50 Temperature Pulse Rate 60 69 74 Respiratory Rate 16 12 Blood Pressure 111/67 Pulse Oximetry 100 08/24/18 09:50 08/24/18 10:00 08/24/18 11:59 Temperature Pulse Rate 71 73 Respiratory Rate 9 L 20 Blood Pressure Pulse Oximetry 100 100 08/24/18 12:00 08/24/18 13:35 08/24/18 14:00 Temperature Pulse Rate 72 60 Respiratory Rate Blood Pressure Pulse Oximetry 94 L 08/24/18 15:22 08/24/18 16:00 08/24/18 18:00 Temperature Pulse Rate 56 L 60 61 Respiratory Rate 16 Blood Pressure Pulse Oximetry 93 L Intake & Output 08/23/18 08/24/18 08/24/18 18:59 06:59 18:59 Intake Total 1861.5 / 1861.5 2705 / 2705 1817.5 / 1817.5 Output Total 160 / 160 440 / 440 360 / 360 Balance 1701.5 / 1701.5 2265 / 2265 1457.5 / 1457.5 Weight 112.7 kg Intake: IV 617.5 / 617.5 1405 / 1405 617.5 / 617.5 D5W Inj 1,000 ML @ 50 mls/hr IV 1000 / 1000 .CONT .Q20H [facility] Rx#:[id number] Azithromycin Inj 500 MG In NS 250 / 250 Inj 250 ML @ 250 mls/hr IV.SIG Q24H [facility] Rx#:[id number] Maxipime Inj 2,000 MG In NS Inj 100 / 100 100 / 100 100 ML @ 200 mls/hr IV.SIG Q24H [facility] Rx#:[id number] Potassium Phosphate Inj 15 MMOL 155 / 155 In NS Inj 150 ML @ 38.75 mls/ hr IV.SIG NOW ONE Rx#:[id number] Vancomycin Inj 1,750 MG In NS 517.5 / 517.5 517.5 / 517.5 Inj 500 ML @ 250 mls/hr IV.SIG Q24H [facility] Rx#:[id number] Oral 0 / 0 Tube Feeding 244 / 244 400 / 400 300 / 300 Water Bolus Amount 1000 / 1000 900 / 900 900 / 900 Output: Urine Amount (Stoma) 160 / 160 440 / 440 360 / 360 Nephrostomy Tube 160 / 160 440 / 440 360 / 360 Other: # Incontinent Voids 4 1 3 Date of Last Bowel Movement 08/23/18 08/24/18 08/24/18 # Bowel Movements 2 0 # Incontinent Bowel Movements 1 GENERAL: Elderly male on vent, follows commands SKIN: Warm and dry. HEAD: Normocephalic. EYES: No scleral icterus. No injection or drainage. NECK: Supple, trachea midline. No JVD or lymphadenopathy. CARDIOVASCULAR: Regular rate and rhythm without murmurs, gallops, or rubs. RESPIRATORY: Breath sounds equal bilaterally. No accessory muscle use. GASTROINTESTINAL: Abdomen soft, non-tender, nondistended. MUSCULOSKELETAL: No cyanosis, or edema. BACK: Nontender without obvious deformity. No CVA tenderness. - Urinary Catheter Management Indwelling Urethral Catheter Cath placed during this visit: yes, but has since been removed by the nurse Reason for continuing: Decision to DC catheter Removal date: 08/17/18 Removal time: 16:30 Coude Cath placed during this visit: no Assessment and Plan - Plan IMPRESSION: 1. Hypoxic, hypercapnic respiratory failure. 2. Left lung volume loss, possible atelectasis or infiltrate. 3. Left lung nodule. 4. Chronic obstructive pulmonary disease. 5. Renal insufficiency. 6. Atelactesis left lung PLAN: Vent Support, CPAP trial and weaning parameters Aerosol nebs Mucomyst nebs Cont Abx CPAP in AM
[2018-08-25] MEDS: Insulin NovoLIN Regular Correctional Sugar Inj SQ SCH ×5 (01:03→23:48)
[2018-08-25] MEDS: Oral Hygiene Kit OROPHARYNG SCH ×5 (01:03→23:49)
--- NOTE | 2018-08-25 04:54 | XR ---
EXAM DATE: 08/25/2018 12:00 AM EDT AGE/SEX: 68 years / Male INDICATIONS: Short of breath. CLINICAL DATA: This is the patient's subsequent encounter. Patient reports that signs and symptoms h ave been present for 1 week and indicates a pain score of 0/10. MEDICAL/SURGICAL HISTORY: Chronic obstructive pulmonary disease. None. COMPARISON: [facility] [place], CHEST 1V SINGLE AP, 08/22/2018. . FINDINGS: Stable ETT and NGT coursing beyond the GE junction with tip omitted from the image. Progression of bi lateral lower lung zone pleural-parenchymal opacities. Cardiac silhouette is enlarged with indistinct central pulmonary vascularity. Remainder of exam is unchanged. CONCLUSION: 1. Stable ETT and NGT. 2. Cardiomegaly with worsening positive fluid balance. 3. Worsening bilateral, left greater than right, small pleural effusions and associated lower lung z one airspace disease. Electronically signed by: Pollo Harris MD 08/25/2018 4:53 AM EDT
[2018-08-25] MEDS: MethylPREDNISolone Sod Succinate Inj 40 MG/ML Vial IV.PUSH SCH ×3 (05:31→22:32)
[2018-08-25 06:59] LABS: Baso # (Auto) 0.1 th/mm3 (0.0-0.2); Baso % (Auto) 0.3 % (0.0-2.0); Hematocrit 53.5 % (39.0-51.0); Hemoglobin 17.3 gm/dL (13.0-17.0); Lymph # (Auto) 0.4 th/mm3 (1.0-4.8); Mean Corpuscular HGB Conc 32.4 % (32.0-36.0); Mean Corpuscular Hemoglobin 33.3 pg (27.0-34.0); Mean Corpuscular Volume 102.7 fL (80.0-100.0); Mean Platelet Volume 11.1 fL (7.0-11.0); Mono # (Auto) 1.4 th/mm3 (0.0-0.9); Mono % (Auto) 6.7 % (0.0-8.0); Neut # (Auto) 18.4 th/mm3 (1.8-7.7); Platelet Count 102 th/mm3 (150-450); Red Blood Count 5.21 mil/mm3 (4.50-5.90); Red Cell Distribution Width 14.5 % (11.6-17.2); White Blood Count 20.2 th/mm3 (4.0-11.0)
[2018-08-25] MEDS: Gabapentin 300 MG Capsule PO SCH ×2 (09:23→20:00)
[2018-08-25] MEDS: Senna/Docusate Sodium 8.6/50 MG Tablet PO SCH ×2 (09:24→20:00)
[2018-08-25] MEDS: Carboxymethylcellulose 0.5% Opth Drops 15 ML Bottle EACH EYE SCH ×3 (09:24→17:34)
[2018-08-25] MEDS: buPROPion 150 MG 12 HR Tablet PO SCH (09:24)
[2018-08-25] MEDS: Chlorhexidine 0.12% Oral Kit 15 ML UDC OROPHARYNG SCH ×2 (09:24→20:01)
[2018-08-25] MEDS: Vancomycin Inj 1,750 MG in Sodium Chlor 0.9% Inj 500 ML IV.SIG SCH (09:24)
[2018-08-25] MEDS: Dextrose 5% in Water Inj 1,000 ML IV.CONT SCH ×2 (09:31→20:00)
[2018-08-25 10:31] LABS: Alanine Aminotransferase 157 U/L (12-78); Albumin 2.4 g/dL (3.4-5.0); Alkaline Phosphatase 82 U/L (45-117); Anion Gap 5 meq/L (5-15); Aspartate Aminotransferase 58 U/L (15-37); Blood Urea Nitrogen 66 mg/dL (7-18); Calcium 8.8 mg/dL (8.5-10.1); Carbon Dioxide 35.8 meq/L (21.0-32.0); Chloride 107 meq/L (98-107); Glomerular Filtration Rate 58 mL/min (>89); Glucose,Random 165 mg/dL (74-106); Magnesium 2.3 mg/dL (1.5-2.5); Sodium 148 meq/L (136-145); Total Protein 6.2 g/dL (6.4-8.2)
[2018-08-25 10:33] LABS: Potassium 4.5 meq/L (3.5-5.1)
--- NOTE | 2018-08-25 11:24 | P.PNCC ---
Subjective Subjective Remarks/Hospital Course: 68-year-old gentleman with COPD and chronic cough who continues to smoke presented to [place] emergency department for an evaluation of altered mental status and shortness of breath. The patient went to [employer] this morning and returned on the bus and sat in the garage. The lady that takes care of him did talk to him and he said he was fine and sat down in his chair in the garage. He however did not come to his lunch and she went out and found him unresponsive with labored breathing. This occurred at 2 PM today. Patient was brought into the emergency department with altered mental status and respiratory distress. Pulse ox was in the 60s. Patient was put on high flow oxygen and later changed to BiPAP with improvement in mentation and oxygenation. The chest x-ray obtained in the emergency department shows almost complete opacification of left hemithorax. The CT without contrast shows severe cardiomegaly and no pleural effusion or pericardial effusion. The patient has been transferred to [facility] ICU for higher level of care. 08/17: no improvement in respiratory distress- mental status worsened. abg no improvement. clinically declined and emergently intubated. on bedside echo, very difficult windows due to lung disease and obesity, but dilated ivc without respiratory variation and no pericardial effusion. formal echo pending. 08/18: remains intubated. abg slowly improving. tran removed yesterday but unable to straight cath. 08/19: FiO2 down to 55%. Will re-CT the chest today. Likely just a gigantic heart causing opacification left hemithorax.. No other issues overnight. Creatinine slowly increasing. Subjective: 08/20: Febrile. Status post bronchoscopy yesterday due to mucous plug in the left lungs. Improved aeration currently 50% FiO2. We will continue to wean today. Tolerating tube feeding. Creatinine improving. 08/21 Patient remains intubated and sedated with Diprivan. Afebrile. 08/22 No events overnight off sedation tolerated CPAP for several hrs yesterday. T:100.7 last night 08/23 Patient remains intubated off sedation. T:101.4 last night. 08/24 Patient remains intubated on no sedation awake and follows commands. Had CT abdomen yesterday showed left hydronephrosis 2nd cm stone in distal left ureter s/p left nephrostomy tube placement by IR. Renal function continue to improve with Cr: 1.35 today from 1.72. Underwent bronch by mucous plugs suctioned from left lung. 08/25: tolerating 10/5 psv, but cxr much less aerated. may not do well off ventilator: significant OHS and derecruits easily. Objective Vital Signs / I&O: Vital Signs 08/24/18 11:59 08/24/18 12:00 08/24/18 13:35 Temperature Pulse Rate 73 72 Respiratory Rate 20 Blood Pressure Pulse Oximetry 100 94 L 08/24/18 14:00 08/24/18 15:22 08/24/18 16:00 Temperature Pulse Rate 60 56 L 60 Respiratory Rate 16 Blood Pressure Pulse Oximetry 93 L 08/24/18 18:00 08/24/18 20:00 08/24/18 20:19 Temperature 36.5 C Pulse Rate 61 62 62 Respiratory Rate 16 16 Blood Pressure 111/64 Pulse Oximetry 93 L 93 L 08/24/18 22:00 08/25/18 00:00 08/25/18 00:26 Temperature 36.6 C Pulse Rate 65 62 67 Respiratory Rate 16 16 Blood Pressure 116/63 Pulse Oximetry 93 L 93 L 08/25/18 02:00 08/25/18 04:00 08/25/18 04:19 Temperature 36.4 C Pulse Rate 61 66 64 Respiratory Rate 16 16 Blood Pressure 121/62 Pulse Oximetry 92 L 93 L 08/25/18 06:00 08/25/18 07:48 08/25/18 08:00 Temperature Pulse Rate 66 67 Respiratory Rate 16 16 Blood Pressure Pulse Oximetry 91 L 08/25/18 10:00 08/25/18 10:40 Temperature Pulse Rate 75 Respiratory Rate 13 13 Blood Pressure Pulse Oximetry 94 L Intake & Output 08/24/18 08/25/18 08/25/18 18:59 06:59 18:59 Intake Total 1817.5 / 1817.5 Output Total 360 / 360 Balance 1457.5 / 1457.5 Weight 112.3 kg Intake: IV 617.5 / 617.5 Maxipime Inj 2,000 MG In NS Inj 100 / 100 100 ML @ 200 mls/hr IV.SIG Q24H [facility] Rx#:[id number] Vancomycin Inj 1,750 MG In NS 517.5 / 517.5 Inj 500 ML @ 250 mls/hr IV.SIG Q24H [facility] Rx#:[id number] Oral 0 / 0 Tube Feeding 300 / 300 Water Bolus Amount 900 / 900 Output: Urine Amount (Stoma) 360 / 360 Nephrostomy Tube 360 / 360 Other: # Incontinent Voids 3 Date of Last Bowel Movement 08/24/18 08/24/18 08/24/18 # Bowel Movements 0 Result Diagrams: 08/25/18 06:19 08/25/18 09:22 Objective Remarks: GENERAL: 68-year-old male lying in bed, intubated, sedated HEENT: Normocephalic. Atraumatic. Pupils equal, round, reactive, round 1 mm bilaterally conjugate. Mucous membranes are moist NECK: Trachea is midline. no JVD. CHEST: B/l equal air entry CARDIOVASCULAR: normal rate, regular rhythm. Sinus. ABDOMEN: Obese, soft, nontender, nondistended. No guarding. MUSCULOSKELETAL: Pulses 2+. 1+ peripheral edema NEUROLOGICAL: Awake, follows commands Assessment and Plan - Assessment and Plan Plan: Neuro/Psych: Depression Off sedation, monitor neuro status. Awake and follows commands Acetaminophen 650 every 6 hours as needed fever Continue bupropion 50 mg daily and gabapentin 6 mg twice daily On Thiamine 100mg BID CV: Cardiomegaly Congestive Heart Failure, acute systolic and diastolic Essential hypertension Monitor HR and BP keep MAP>65mmHg -2D echo- left ventricular systolic function is severely reduced with an estimated ejection fraction in the range of 30-35%. Moderately dilated left ventricle with normal wall thickness.There is diffuse global hypokinesis. Findings consistent with Grade 1 diastolic dysfunction. The RV is likely moderately enlarged with decreased systolic function. No significant valvular heart disease seen on the images that were obtained. Unable to obtain a proper maximum TR velocity to estimate the RVSP. Using the pulmonary regurgitant velocity at the beginning of diastole, the mean PA is estimated at 31 mmHg. The inferior vena cava is normal in size with less than 50% collapse with inspiration. (RAP is estimated at 15 mmHg) There is a small pericardial effusion present. Resp: Acute hypoxic and hypercarbic Respiratory failure - persistent Acute severe COPD Exacerbation Obesity Hypoventilation Syndrome Left lower lobe lung nodule Tobacco abuse Ventilator bundle Albuterol/ipratropium aerosols every 6 hours with albuterol aerosols every 2 hours as needed for dyspnea Spontaneous breathing trials as fortino Head of bed at 30 Methylprednisolone succinate 40 g IV every 8 hours Pulmonary/Dr. Ott following s/p repeat bronch 08/[address] Ott: Mucous plugs suctioned from left lung, There are collapsing pires of the left upper lobe, which makes the lumen narrow CT chest 08/19 revealed mucous plugging involving the left lung. Post bronchoscopy 08/19. On Mucomyst nebulizers may likely require tracheostomy for successful separation from mechanical ventilation. CXR continues to look worse when on SBT/PSV. will continue daily SBTs as tolerated. GI: Transaminitis Indeterminate hepatitis A IgM-laboratory recommends 2 months follow-up. tube feeds to Glucerna 1.5 with goal rate 45ml/hr Lansoprazole for GI prophylaxis Docusate sodium/senna 1 tablet twice daily for bowel regimen liver ultrasound -revealed enlarged liver likely hepatic steatosis versus inflammatory Hepatitis panel: Hep A IgM Indeterminate KUB abdomen: There are no features to indicate ileus. No acute abdominal abnormality is identified. Nonspecific 18 mm density in the left pelvis represent a calcification or could represent material within the sigmoid colon Endo: Sliding scale insulin Accu-Cheks to maintain euglycemia/to 6 hours aspart medium regimen Renal: Acute kidney injury unknown baseline Hypernatremia Bilateral renal cysts Monitor renal function, I/O's, avoid nephrotoxins Renal function improving CT abd/pelvis 08/23: Severe left hydronephrosis and hydroureter caused by a 2 cm stone in the distal left ureter. s/p Nephrostomy tube placement by IR 08/23 On Free water 300ml Q4, D5W@50ml/hr, monitor sodium level. Renal ultrasound revealed bilateral renal cyst. No hydronephrosis Renal- Dr. Olivares Heme: Macrocytosis Leukocytosis Monitor CBC daily. Follow trends. No indication for transfusion of blood products at this time. ID: Currently on cefepime, d/c azithro, vanc per ID. Panculture 08/22 ( Blood, sputum) -NGTD ID is following- Dr. Jauregui Repeat bronch 08/23, follow up on bronch cx from 08/23 Negative UA 08/17. Negative sputum 08/17 Bronchoscopy samples from left upper lobe 08/19. Gram stain negative Bronch washing AFB pending MSK: Elevated BMI Weight loss encouraged Access -Utilize peripheral IV. Central line if indicated Prophylaxis - GI -Lansoprazole - DVT -SCDs enoxaparin OVERALL IMPRESSION: critically ill, failing vent weanings. may not tolerate separation from mechanical ventilation successfully without tracheostomy.
--- NOTE | 2018-08-25 11:38 | P.PNPL ---
Subjective Interval history: 68 YOWM with VDRF, COPD Weaned to CPAP Awake, follows commands No fever CXr increased left pl eff Physical Exam Vital signs: Vital Signs 08/24/18 11:59 08/24/18 12:00 08/24/18 13:35 Temperature Pulse Rate 73 72 Respiratory Rate 20 Blood Pressure Pulse Oximetry 100 94 L 08/24/18 14:00 08/24/18 15:22 08/24/18 16:00 Temperature Pulse Rate 60 56 L 60 Respiratory Rate 16 Blood Pressure Pulse Oximetry 93 L 08/24/18 18:00 08/24/18 20:00 08/24/18 20:19 Temperature 97.7 F Pulse Rate 61 62 62 Respiratory Rate 16 16 Blood Pressure 111/64 Pulse Oximetry 93 L 93 L 08/24/18 22:00 08/25/18 00:00 08/25/18 00:26 Temperature 97.8 F Pulse Rate 65 62 67 Respiratory Rate 16 16 Blood Pressure 116/63 Pulse Oximetry 93 L 93 L 08/25/18 02:00 08/25/18 04:00 08/25/18 04:19 Temperature 97.6 F Pulse Rate 61 66 64 Respiratory Rate 16 16 Blood Pressure 121/62 Pulse Oximetry 92 L 93 L 08/25/18 06:00 08/25/18 07:48 08/25/18 08:00 Temperature Pulse Rate 66 67 Respiratory Rate 16 16 Blood Pressure Pulse Oximetry 91 L 08/25/18 10:00 08/25/18 10:40 Temperature Pulse Rate 75 Respiratory Rate 13 13 Blood Pressure Pulse Oximetry 94 L Intake & Output 08/24/18 08/25/18 08/25/18 18:59 06:59 18:59 Intake Total 1817.5 / 1817.5 Output Total 360 / 360 Balance 1457.5 / 1457.5 Weight 112.3 kg Intake: IV 617.5 / 617.5 Maxipime Inj 2,000 MG In NS Inj 100 / 100 100 ML @ 200 mls/hr IV.SIG Q24H [facility] Rx#:[id number] Vancomycin Inj 1,750 MG In NS 517.5 / 517.5 Inj 500 ML @ 250 mls/hr IV.SIG Q24H [facility] Rx#:[id number] Oral 0 / 0 Tube Feeding 300 / 300 Water Bolus Amount 900 / 900 Output: Urine Amount (Stoma) 360 / 360 Nephrostomy Tube 360 / 360 Other: # Incontinent Voids 3 Date of Last Bowel Movement 08/24/18 08/24/18 08/24/18 # Bowel Movements 0 GENERAL: Elderly WM, on Vent SKIN: Warm and dry. HEAD: Normocephalic. EYES: No scleral icterus. No injection or drainage. NECK: Supple, trachea midline. No JVD or lymphadenopathy. CARDIOVASCULAR: Regular rate and rhythm without murmurs, gallops, or rubs. RESPIRATORY: Breath sounds equal bilaterally. No accessory muscle use. GASTROINTESTINAL: Abdomen soft, non-tender, nondistended. MUSCULOSKELETAL: No cyanosis, or edema. BACK: Nontender without obvious deformity. No CVA tenderness. - Urinary Catheter Management Indwelling Urethral Catheter Cath placed during this visit: yes, but has since been removed by the nurse Reason for continuing: Decision to DC catheter Removal date: 08/17/18 Removal time: 16:30 Coude Cath placed during this visit: no Assessment and Plan - Plan IMPRESSION: 1. Hypoxic, hypercapnic respiratory failure. 2. Left lung volume loss, possible atelectasis or infiltrate. 3. Left lung nodule. 4. Chronic obstructive pulmonary disease. 5. Renal insufficiency. 6. Atelactesis left lung PLAN: Vent Support, CPAP trial and weaning parameters Aerosol nebs Mucomyst nebs Cont Abx Monitor pl eff, may need TC
--- NOTE | 2018-08-25 14:50 | P.PNID ---
Subjective Remarks: ID [facility] for is a 68-year-old white male who has a history of COPD. The patient was found with altered mental status and unresponsive later on while sitting in his garage. He was brought to [facility] facility and then subsequently transferred here to [facility]. The patient was noted to be hypoxic and a CT scan of the chest showed significant volume loss on the left lung with almost entire collapse of the left lung. He was subsequently intubated. He underwent bronchoscopy with lavage of the left lung. There was thick mucus plugs noted. ID consult requested for Fever and worsening leukocytosis. Patient has undergone nephrostomy tube placement. On CPAP trials, remains on vent Awake and alert and responsive. Denies pain. Afebrile. RN reports no major issues overnight. Cultures have no growth so far. Antibiotics: Cefepime IV Vanco IV Azithro IV Lines: Lines ok Past Medical History: COPD Allergies/Adverse Reactions: Allergies No Known Allergies Allergy (Unverified 08/16/18 16:33) Objective Vital Signs 08/24/18 15:22 08/24/18 16:00 08/24/18 18:00 Temperature Pulse Rate 56 L 60 61 Respiratory Rate 16 Blood Pressure Pulse Oximetry 93 L 08/24/18 20:00 08/24/18 20:19 08/24/18 22:00 Temperature 97.7 F Pulse Rate 62 62 65 Respiratory Rate 16 16 Blood Pressure 111/64 Pulse Oximetry 93 L 93 L 08/25/18 00:00 08/25/18 00:26 08/25/18 02:00 Temperature 97.8 F Pulse Rate 62 67 61 Respiratory Rate 16 16 Blood Pressure 116/63 Pulse Oximetry 93 L 93 L 08/25/18 04:00 08/25/18 04:19 08/25/18 06:00 Temperature 97.6 F Pulse Rate 66 64 66 Respiratory Rate 16 16 Blood Pressure 121/62 Pulse Oximetry 92 L 93 L 08/25/18 07:48 08/25/18 08:00 08/25/18 10:00 Temperature Pulse Rate 67 75 Respiratory Rate 16 16 13 Blood Pressure Pulse Oximetry 91 L 08/25/18 10:40 08/25/18 11:40 08/25/18 11:44 Temperature Pulse Rate 79 Respiratory Rate 13 18 21 Blood Pressure Pulse Oximetry 94 L 95 08/25/18 12:00 08/25/18 13:50 Temperature Pulse Rate 80 Respiratory Rate 12 Blood Pressure Pulse Oximetry 94 L Intake & Output 08/24/18 08/25/18 08/25/18 18:59 06:59 18:59 Intake Total 1817.5 / 1817.5 Output Total 360 / 360 Balance 1457.5 / 1457.5 Weight 112.3 kg Intake: IV 617.5 / 617.5 Maxipime Inj 2,000 MG In NS Inj 100 / 100 100 ML @ 200 mls/hr IV.SIG Q24H [facility] Rx#:[id number] Vancomycin Inj 1,750 MG In NS 517.5 / 517.5 Inj 500 ML @ 250 mls/hr IV.SIG Q24H [facility] Rx#:[id number] Oral 0 / 0 Tube Feeding 300 / 300 Water Bolus Amount 900 / 900 Output: Urine Amount (Stoma) 360 / 360 Nephrostomy Tube 360 / 360 Other: # Incontinent Voids 3 Date of Last Bowel Movement 08/24/18 08/24/18 08/24/18 # Bowel Movements 0 08/23/18 15:20 Bronchial - Left Gram Stain - Final 08/23/18 15:20 Bronchial - Left Bronchial Culture - Final Heavy growth normal respiratory ada 08/22/18 08:49 Blood - Peripheral Aerobic Blood Culture - Preliminary No growth in 3 days 08/22/18 08:49 Blood - Peripheral Anaerobic Blood Culture - Preliminary No growth in 3 days 08/22/18 08:56 Blood - Peripheral Aerobic Blood Culture - Preliminary No growth in 3 days 08/22/18 08:56 Blood - Peripheral Anaerobic Blood Culture - Preliminary No growth in 3 days 08/22/18 09:00 Sputum - Endotracheal Gram Stain - Final 08/22/18 09:00 Sputum - Endotracheal Sputum Culture - Final Moderate growth normal respiratory ada 08/22/18 11:15 Catheterized Urine Urine Culture - Final No growth in 48 hours Lab - Hematology Results 08/24/18 08/25/18 05:07 06:19 WBC 20.1 H 20.2 H RBC 5.11 5.21 Hgb 17.0 17.3 H Hct 52.6 H 53.5 H MCV 103.1 H 102.7 H MCH 33.2 33.3 MCHC 32.2 32.4 RDW 15.2 14.5 Plt Count 112 L 102 L MPV 10.6 11.1 H Prelim Diff (Auto) Slide review pending Slide review pending Neut % (Auto) 91.3 H 91.0 H Lymph % (Auto) 1.9 L 2.0 L Nuckolls % (Auto) 6.7 6.7 Eos % (Auto) 0.0 0.0 Baso % (Auto) 0.1 0.3 Neut # (Auto) 18.4 H 18.4 H Lymph # (Auto) 0.4 L 0.4 L Nuckolls # (Auto) 1.3 H 1.4 H Eos # (Auto) 0.0 0.0 Baso # (Auto) 0.0 0.1 WBC Differential . . Diff Scan Auto diff confirmed Auto diff confirmed Differential Comment . . Platelet Estimate Low L Platelet Morphology Enlarged H Lab - Chemistry Results 08/19/18 08/23/18 08/24/18 20:23 18:26 00:13 Sodium Potassium Chloride Carbon Dioxide Anion Gap BUN Creatinine Estimated GFR POC Glucose 139 H 143 H Random Glucose Calcium Phosphorus Magnesium Total Bilirubin AST ALT Alkaline Phosphatase Total Protein Albumin Albumin (PEP) 3.31 L Albumin/Globulin Ratio 1.04 L Ocrfb-4-Fionjjfho 0.31 H Ijgza-5-Fpuoqvozy 0.80 Beta Globulins 0.99 Gamma Globulins 1.10 08/24/18 08/24/18 08/24/18 05:07 05:59 11:19 Sodium 150 H Potassium 3.9 Chloride 108 H Carbon Dioxide 34.2 H Anion Gap 8 BUN 76 H Creatinine 1.35 H Estimated GFR 53 L POC Glucose 167 H 113 H Random Glucose 142 H Calcium 9.1 Phosphorus 2.5 Magnesium 2.2 Total Bilirubin 1.1 H AST 64 H ALT 184 H Alkaline Phosphatase 75 Total Protein 6.3 L D Albumin 2.4 L Albumin (PEP) Albumin/Globulin Ratio Pkvhf-2-Xnpungxqo Jlpdh-5-Rrngcbsmw Beta Globulins Gamma Globulins 08/24/18 08/25/18 08/25/18 17:58 00:04 05:30 Sodium Potassium Chloride Carbon Dioxide Anion Gap BUN Creatinine Estimated GFR POC Glucose 135 H 110 132 H Random Glucose Calcium Phosphorus Magnesium Total Bilirubin AST ALT Alkaline Phosphatase Total Protein Albumin Albumin (PEP) Albumin/Globulin Ratio Fpirl-1-Tmhpunwlq Dfstn-9-Pucrfwgvq Beta Globulins Gamma Globulins 08/25/18 08/25/18 09:22 11:20 Sodium 148 H Potassium 4.5 Chloride 107 Carbon Dioxide 35.8 H Anion Gap 5 BUN 66 H Creatinine 1.25 Estimated GFR 58 L POC Glucose 142 H Random Glucose 165 H Calcium 8.8 Phosphorus 3.0 Magnesium 2.3 Total Bilirubin 1.1 H AST 58 H ALT 157 H Alkaline Phosphatase 82 Total Protein 6.2 L Albumin 2.4 L Albumin (PEP) Albumin/Globulin Ratio Uajbi-4-Iuanxyklu Jbjyc-8-Prtpivjhc Beta Globulins Gamma Globulins Imaging: ITS Impressions Abdomen Ultrasound 08/19/18 00:00 CONCLUSION: 1. Hepatomegaly with diffuse hyperechoic texture characteristic of steatosis or diffuse hepatocellular disease. 2. Bilateral renal cysts. 3. Nonvisualization of the gallbladder and pancreas. 4. No evidence of hydronephrosis or abnormal fluid collections. Abdomen X-Ray 08/22/18 07:03 CONCLUSION: 1. There are no features to indicate ileus. No acute abdominal abnormality is identified. 2. Nonspecific 18 mm density in the left pelvis represent a calcification or could represent material within the sigmoid colon. 3. Opacity at the left lung base. Please refer to today's chest x-ray for further description. Abdomen/Pelvis CT 08/23/18 00:00 CONCLUSION: 1. Severe left hydronephrosis and hydroureter caused by a 2 cm stone in the distal left ureter. 2. Trace air within the bladder lumen. Although nonspecific this may be related to a recent catheterization. 3. Nonacute findings include multiple bilateral renal cysts, mild atherosclerotic disease, and mild hepatic steatosis. Chest CT 08/23/18 00:00 CONCLUSION: 1. There is continued volume loss/collapse of the left upper lobe with mild atelectasis in the left upper lobe. Aeration is improved compared to the study from 4 days ago and stable compared to the most recent chest x-ray. There is also volume loss in the right lower lobe. No pleural effusion is present. 2. Stable enlargement of the main pulmonary artery which may indicate pulmonary arterial hypertension. 3. Findings consistent with prior granulomatous infection. Please refer to abdomen and CT report for description of the subdiaphragmatic findings. Nephrostomy 08/23/18 00:00 CONCLUSION: 1. Uncomplicated nephrostomy tube placement as above. Chest X-Ray 08/25/18 00:00 CONCLUSION: 1. Stable ETT and NGT. 2. Cardiomegaly with worsening positive fluid balance. 3. Worsening bilateral, left greater than right, small pleural effusions and associated lower lung zone airspace disease. Physical Exam: PHYSICAL EXAMINATION: GENERAL: Awake and in no distress. HEAD: Head is atraumatic. Extraocular movements appear grossly intact. No icterus. Oropharynx, moist mucosa. Oropharynx intubated. NECK: Supple without swelling or adenopathy. LUNGS: Diminished breath sounds bilateral. HEART: Normal S1 and S2, without audible murmurs, rubs or gallops. ABDOMEN: Bowel sounds present, distended, soft, no tenderness. left nephrostomy tube in place. No purulence. EXTREMITIES: No clubbing or cyanosis or edema. SKIN: No rash. NEURO: Unable to fully assess. PSYCHIATRIC: Unable to fully assess. Assessment and Plan - Plan IMPRESSION: 1. Pneumonia. The patient with whiteout of the left lung. Status post bronchoscopy. Sputum culture pending. 2. Leukocytosis probably secondary to pneumonia. 3. Acute respiratory failure. 4. Chronic obstructive pulmonary disease. 5. Obstructive uropathy. RECOMMENDATIONS: Continue Cefepime IV for now. Procalcitonin check. DC Azithromycin. DC Vanco IV Monitor bronch culture. Monitor blood culture. Monitor urine culture. Follow the clinical status. lesli Cruz: concern of left side lung collapse. Patient has had a bronch with neg cultures and no reexpansion of lung noted after bronch. Patient has significant cardiomegaly. Fluid and vent Mment per primary team. Will deescalate based on cultures. Will check procalcitonin to further assess continuing need for antibiotics. lesli RN No family in room. lesli Clinical pharmacist.
[2018-08-25] MEDS: Enoxaparin Inj 30 MG/0.3 ML Syringe SQ SCH (22:32)
--- NOTE | 2018-08-26 02:43 | XR ---
EXAM DATE: 08/26/2018 1:53 AM EDT AGE/SEX: 68 years / Male INDICATIONS: Short of breath. CLINICAL DATA: This is the patient's subsequent encounter. Patient reports that signs and symptoms h ave been present for 1 week and indicates a pain score of 0/10. MEDICAL/SURGICAL HISTORY: Chronic obstructive pulmonary disease. Non-responsive. COMPARISON: C, CHEST 1V SINGLE AP, 08/25/2018. . FINDINGS: Stable ETT and NGT coursing beyond the GE junction. Persistent bilateral lower lung zone pleural pare nchymal opacities. Cardiac silhouette is enlarged. Remainder of exam is unchanged. CONCLUSION: 1. Stable ETT and NGT. 2. Cardiomegaly with positive fluid balance. 3. Stable bilateral, left greater than right, small pleural effusions and associated lower lung zone airspace disease. Electronically signed by: Pollo Harris MD 08/26/2018 2:41 AM EDT
[2018-08-26] MEDS: Oral Hygiene Kit OROPHARYNG SCH ×3 (04:37→17:24)
[2018-08-26] MEDS: MethylPREDNISolone Sod Succinate Inj 40 MG/ML Vial IV.PUSH SCH ×3 (05:24→22:38)
[2018-08-26] MEDS: Insulin NovoLIN Regular Correctional Sugar Inj SQ SCH ×3 (05:24→17:24)
[2018-08-26 07:33] LABS: Baso % (Auto) 0.2 % (0.0-2.0); Eos % (Auto) 0.1 % (0.0-4.0); Hematocrit 53.8 % (39.0-51.0); Hemoglobin 17.3 gm/dL (13.0-17.0); Lymph # (Auto) 0.6 th/mm3 (1.0-4.8); Lymph % (Auto) 3.8 % (9.0-44.0); Mean Corpuscular HGB Conc 32.2 % (32.0-36.0); Mean Corpuscular Volume 102.4 fL (80.0-100.0); Mean Platelet Volume 11.5 fL (7.0-11.0); Mono # (Auto) 1.3 th/mm3 (0.0-0.9); Mono % (Auto) 8.3 % (0.0-8.0); Neut # (Auto) 13.9 th/mm3 (1.8-7.7); Neut % (Auto) 87.6 % (16.0-70.0); Platelet Count 111 th/mm3 (150-450); Red Blood Count 5.25 mil/mm3 (4.50-5.90); Red Cell Distribution Width 14.6 % (11.6-17.2); White Blood Count 15.9 th/mm3 (4.0-11.0)
[2018-08-26] MEDS: Chlorhexidine 0.12% Oral Kit 15 ML UDC OROPHARYNG SCH ×2 (07:37→20:58)
[2018-08-26 07:54] LABS: Alanine Aminotransferase 164 U/L (12-78); Albumin 2.4 g/dL (3.4-5.0); Alkaline Phosphatase 69 U/L (45-117); Anion Gap 8 meq/L (5-15); Aspartate Aminotransferase 69 U/L (15-37); Blood Urea Nitrogen 62 mg/dL (7-18); Calcium 8.9 mg/dL (8.5-10.1); Carbon Dioxide 29.6 meq/L (21.0-32.0); Chloride 107 meq/L (98-107); Glomerular Filtration Rate 55 mL/min (>89); Glucose,Random 106 mg/dL (74-106); Magnesium 2.3 mg/dL (1.5-2.5); Phosphorus 1.4 mg/dL (2.5-4.9); Potassium 5.1 meq/L (3.5-5.1); Sodium 145 meq/L (136-145); Total Protein 6.1 g/dL (6.4-8.2)
[2018-08-26] MEDS: Gabapentin 300 MG Capsule PO SCH ×2 (08:04→20:55)
[2018-08-26] MEDS: buPROPion 150 MG 12 HR Tablet PO SCH (08:04)
[2018-08-26] MEDS: Carboxymethylcellulose 0.5% Opth Drops 15 ML Bottle EACH EYE SCH ×3 (08:04→17:23)
[2018-08-26] MEDS: Senna/Docusate Sodium 8.6/50 MG Tablet PO SCH ×2 (08:06→20:56)
[2018-08-26 08:32] LABS: Lymphocytes 5 % (9-44); Monocytes 11 % (0-8); Myelocytes 1 % (0-0); Platelet Morphology Normal (Normal)
[2018-08-26] MEDS ORDERED: Pharmacy Ordered Lab Info OTHER ONE (08:45)
--- NOTE | 2018-08-26 10:26 | P.PNCC ---
Subjective Subjective Remarks/Hospital Course: 68-year-old gentleman with COPD and chronic cough who continues to smoke presented to [facility] emergency department for an evaluation of altered mental status and shortness of breath. The patient went to [employer] this morning and returned on the bus and sat in the garage. The lady that takes care of him did talk to him and he said he was fine and sat down in his chair in the garage. He however did not come to his lunch and she went out and found him unresponsive with labored breathing. This occurred at 2 PM today. Patient was brought into the emergency department with altered mental status and respiratory distress. Pulse ox was in the 60s. Patient was put on high flow oxygen and later changed to BiPAP with improvement in mentation and oxygenation. The chest x-ray obtained in the emergency department shows almost complete opacification of left hemithorax. The CT without contrast shows severe cardiomegaly and no pleural effusion or pericardial effusion. The patient has been transferred to [facility] ICU for higher level of care. 08/17: no improvement in respiratory distress- mental status worsened. abg no improvement. clinically declined and emergently intubated. on bedside echo, very difficult windows due to lung disease and obesity, but dilated ivc without respiratory variation and no pericardial effusion. formal echo pending. 08/18: remains intubated. abg slowly improving. tran removed yesterday but unable to straight cath. 08/19: FiO2 down to 55%. Will re-CT the chest today. Likely just a gigantic heart causing opacification left hemithorax.. No other issues overnight. Creatinine slowly increasing. Subjective: 08/20: Febrile. Status post bronchoscopy yesterday due to mucous plug in the left lungs. Improved aeration currently 50% FiO2. We will continue to wean today. Tolerating tube feeding. Creatinine improving. 08/21 Patient remains intubated and sedated with Diprivan. Afebrile. 08/22 No events overnight off sedation tolerated CPAP for several hrs yesterday. T:100.7 last night 08/23 Patient remains intubated off sedation. T:101.4 last night. 08/24 Patient remains intubated on no sedation awake and follows commands. Had CT abdomen yesterday showed left hydronephrosis 2nd cm stone in distal left ureter s/p left nephrostomy tube placement by IR. Renal function continue to improve with Cr: 1.35 today from 1.72. Underwent bronch by mucous plugs suctioned from left lung. 08/25: tolerating 10/5 psv, but cxr much less aerated. may not do well off ventilator: significant OHS and derecruits easily. 08/26: CXR significantly improved with APRV ventilation, but clearly going to be a difficult wean from mechanical ventilation. wbc improving. still very volume overloaded, and net+ fluid balance yesterday. needs aggressive diuresis. Objective Vital Signs / I&O: Vital Signs 08/25/18 10:40 08/25/18 11:40 08/25/18 11:44 Pulse Rate 79 Respiratory Rate 13 18 21 Pulse Oximetry 94 L 95 08/25/18 12:00 08/25/18 13:50 08/25/18 14:54 Pulse Rate 80 71 Respiratory Rate 12 14 Pulse Oximetry 94 L 95 08/25/18 19:31 08/25/18 19:48 08/25/18 20:00 Pulse Rate 91 H 91 H Respiratory Rate 12 11 L Pulse Oximetry 94 L 08/25/18 22:00 08/25/18 23:20 08/25/18 23:21 Pulse Rate 93 H 92 H Respiratory Rate 10 L 10 L Pulse Oximetry 94 L 08/26/18 00:00 08/26/18 02:00 08/26/18 03:36 Pulse Rate 90 91 H 83 Respiratory Rate 9 L Pulse Oximetry 08/26/18 03:37 08/26/18 04:00 08/26/18 06:00 Pulse Rate 83 85 Respiratory Rate 9 L Pulse Oximetry 94 L 08/26/18 07:44 08/26/18 08:00 Pulse Rate 85 83 Respiratory Rate 9 L Pulse Oximetry 94 L Intake & Output 08/25/18 08/26/18 08/26/18 18:59 06:59 18:59 Intake Total 1867.5 / 1867.5 1386 / 1386 0 / 0 Output Total 1125 / 1125 Balance 1867.5 / 1867.5 261 / 261 0 / 0 Weight 52.072 kg Intake: IV 1867.5 / 1867.5 100 / 100 D5W Inj 1,000 ML @ 50 mls/hr IV 1000 / 1000 .CONT .Q20H [facility] Rx#:[id number] Azithromycin Inj 500 MG In NS 250 / 250 Inj 250 ML @ 250 mls/hr IV.SIG Q24H [facility] Rx#:[id number] Maxipime Inj 2,000 MG In NS Inj 100 / 100 100 / 100 100 ML @ 200 mls/hr IV.SIG Q12H [facility] Rx#:[id number] Vancomycin Inj 1,750 MG In NS 517.5 / 517.5 Inj 500 ML @ 250 mls/hr IV.SIG Q24H [facility] Rx#:[id number] Oral 0 / 0 Tube Feeding 386 / 386 Water Bolus Amount 900 / 900 Output: Urine 350 / 350 Urine Amount (Stoma) 775 / 775 Nephrostomy Tube 775 / 775 Other: # Incontinent Voids 1 Date of Last Bowel Movement 08/24/18 08/24/18 08/24/18 Result Diagrams: 08/26/18 04:32 08/26/18 04:32 Objective Remarks: GENERAL: 68-year-old male lying in bed, intubated, sedated HEENT: Normocephalic. Atraumatic. Pupils equal, round, reactive, round 1 mm bilaterally conjugate. Mucous membranes are moist NECK: Trachea is midline. no JVD. CHEST: B/l equal air entry, improved aeration today. CARDIOVASCULAR: normal rate, regular rhythm. Sinus. ABDOMEN: Obese, soft, nontender, nondistended. No guarding. MUSCULOSKELETAL: Pulses 2+. 1+ peripheral edema NEUROLOGICAL: Awake, follows commands Assessment and Plan - Assessment and Plan Plan: Neuro/Psych: Depression Off sedation, monitor neuro status. Awake and follows commands Acetaminophen 650 every 6 hours as needed fever Continue bupropion 50 mg daily and gabapentin 6 mg twice daily On Thiamine 100mg BID CV: Cardiomegaly Congestive Heart Failure, acute systolic and diastolic Essential hypertension Monitor HR and BP keep MAP>65mmHg -2D echo- left ventricular systolic function is severely reduced with an estimated ejection fraction in the range of 30-35%. Moderately dilated left ventricle with normal wall thickness.There is diffuse global hypokinesis. Findings consistent with Grade 1 diastolic dysfunction. The RV is likely moderately enlarged with decreased systolic function. No significant valvular heart disease seen on the images that were obtained. Unable to obtain a proper maximum TR velocity to estimate the RVSP. Using the pulmonary regurgitant velocity at the beginning of diastole, the mean PA is estimated at 31 mmHg. The inferior vena cava is normal in size with less than 50% collapse with inspiration. (RAP is estimated at 15 mmHg) There is a small pericardial effusion present. Resp: Acute hypoxic and hypercarbic Respiratory failure - persistent Acute severe COPD Exacerbation Obesity Hypoventilation Syndrome Left lower lobe lung nodule Tobacco abuse Ventilator bundle Albuterol/ipratropium aerosols every 6 hours with albuterol aerosols every 2 hours as needed for dyspnea Head of bed at 30 Methylprednisolone succinate 40 g IV every 8 hours Pulmonary/Dr. Ott following s/p repeat bronch 08/[address] Ott: Mucous plugs suctioned from left lung, There are collapsing pires of the left upper lobe, which makes the lumen narrow CT chest 08/19 revealed mucous plugging involving the left lung. Post bronchoscopy 08/19. On Mucomyst nebulizers continue APRV today. will continue to wean as tolerated hold SBT today. may likely require tracheostomy for successful separation from mechanical ventilation. CXR continues to look worse when on SBT/PSV. GI: Transaminitis Indeterminate hepatitis A IgM-laboratory recommends 2 months follow-up. tube feeds to Glucerna 1.5 with goal rate 45ml/hr Lansoprazole for GI prophylaxis Docusate sodium/senna 1 tablet twice daily for bowel regimen liver ultrasound -revealed enlarged liver likely hepatic steatosis versus inflammatory Hepatitis panel: Hep A IgM Indeterminate KUB abdomen: There are no features to indicate ileus. No acute abdominal abnormality is identified. Nonspecific 18 mm density in the left pelvis represent a calcification or could represent material within the sigmoid colon Endo: Sliding scale insulin Accu-Cheks to maintain euglycemia/to 6 hours aspart medium regimen Renal: Acute kidney injury unknown baseline Hypernatremia Bilateral renal cysts Monitor renal function, I/O's, avoid nephrotoxins Renal function improving CT abd/pelvis 08/23: Severe left hydronephrosis and hydroureter caused by a 2 cm stone in the distal left ureter. s/p Nephrostomy tube placement by IR 08/23 On Free water 300ml Q4, sodium improving. d/c d5w. Renal ultrasound revealed bilateral renal cyst. No hydronephrosis Renal- Dr. Olivares Heme: Macrocytosis Leukocytosis Monitor CBC daily. Follow trends. No indication for transfusion of blood products at this time. ID: Currently on cefepime, d/c azithro, vanc per ID. Panculture 08/22 ( Blood, sputum) -NGTD ID is following- Dr. Jauregui Repeat bronch 08/23, follow up on bronch cx from 08/23 Negative UA 08/17. Negative sputum 08/17 Bronchoscopy samples from left upper lobe 08/19. Gram stain negative Bronch washing AFB pending MSK: Elevated BMI Weight loss encouraged Access -Utilize peripheral IV. Prophylaxis - GI -Lansoprazole - DVT -SCDs enoxaparin OVERALL IMPRESSION: critically ill, failing vent weanings. may not tolerate separation from mechanical ventilation successfully without tracheostomy.
--- NOTE | 2018-08-26 11:23 | P.PNID ---
Subjective Remarks: ID [facility] for is a 68-year-old white male who has a history of COPD. The patient was found with altered mental status and unresponsive later on while sitting in his garage. He was brought to [facility] facility and then subsequently transferred here to [facility]. The patient was noted to be hypoxic and a CT scan of the chest showed significant volume loss on the left lung with almost entire collapse of the left lung. He was subsequently intubated. He underwent bronchoscopy with lavage of the left lung. There was thick mucus plugs noted. ID consult requested for Fever and worsening leukocytosis. Patient has undergone nephrostomy tube placement. On CPAP trials, remains on vent Awake and alert and responsive. Denies pain. Afebrile. Has diffuse rash all over the body van trunk, back and sides of body. RN reports no major issues overnight. Cultures have no growth so far. Not much secretions per dw RT. Antibiotics: Cefepime IV Lines: Lines ok Past Medical History: COPD Allergies/Adverse Reactions: Allergies No Known Allergies Allergy (Unverified 08/16/18 16:33) Objective Vital Signs 08/25/18 11:40 08/25/18 11:44 08/25/18 12:00 Pulse Rate 79 80 Respiratory Rate 18 21 Pulse Oximetry 95 08/25/18 13:50 08/25/18 14:54 08/25/18 19:31 Pulse Rate 71 Respiratory Rate 12 14 12 Pulse Oximetry 94 L 95 94 L 08/25/18 19:48 08/25/18 20:00 08/25/18 22:00 Pulse Rate 91 H 91 H 93 H Respiratory Rate 11 L Pulse Oximetry 08/25/18 23:20 08/25/18 23:21 08/26/18 00:00 Pulse Rate 92 H 90 Respiratory Rate 10 L 10 L Pulse Oximetry 94 L 08/26/18 02:00 08/26/18 03:36 08/26/18 03:37 Pulse Rate 91 H 83 Respiratory Rate 9 L 9 L Pulse Oximetry 94 L 08/26/18 04:00 08/26/18 06:00 08/26/18 07:44 Pulse Rate 83 85 85 Respiratory Rate 9 L Pulse Oximetry 94 L 08/26/18 08:00 Pulse Rate 83 Respiratory Rate Pulse Oximetry Intake & Output 08/25/18 08/26/18 08/26/18 18:59 06:59 18:59 Intake Total 1867.5 / 1867.5 1386 / 1386 0 / 0 Output Total 1125 / 1125 Balance 1867.5 / 1867.5 261 / 261 0 / 0 Weight 52.072 kg Intake: IV 1867.5 / 1867.5 100 / 100 D5W Inj 1,000 ML @ 50 mls/hr IV 1000 / 1000 .CONT .Q20H HORACE Rx#:[id number] Azithromycin Inj 500 MG In NS 250 / 250 Inj 250 ML @ 250 mls/hr IV.SIG Q24H HORACE Rx#:[id number] Maxipime Inj 2,000 MG In NS Inj 100 / 100 100 / 100 100 ML @ 200 mls/hr IV.SIG Q12H HORACE Rx#:[id number] Vancomycin Inj 1,750 MG In NS 517.5 / 517.5 Inj 500 ML @ 250 mls/hr IV.SIG Q24H HORACE Rx#:[id number] Oral 0 / 0 Tube Feeding 386 / 386 Water Bolus Amount 900 / 900 Output: Urine 350 / 350 Urine Amount (Stoma) 775 / 775 Nephrostomy Tube 775 / 775 Other: # Incontinent Voids 1 Date of Last Bowel Movement 08/24/18 08/24/18 08/24/18 08/22/18 08:49 Blood - Peripheral Aerobic Blood Culture - Preliminary No growth in 4 days 08/22/18 08:49 Blood - Peripheral Anaerobic Blood Culture - Preliminary No growth in 4 days 08/22/18 08:56 Blood - Peripheral Aerobic Blood Culture - Preliminary No growth in 4 days 08/22/18 08:56 Blood - Peripheral Anaerobic Blood Culture - Preliminary No growth in 4 days 08/23/18 15:20 Bronchial - Left Gram Stain - Final 08/23/18 15:20 Bronchial - Left Bronchial Culture - Final Heavy growth normal respiratory ada 08/22/18 09:00 Sputum - Endotracheal Gram Stain - Final 08/22/18 09:00 Sputum - Endotracheal Sputum Culture - Final Moderate growth normal respiratory ada 08/22/18 11:15 Catheterized Urine Urine Culture - Final No growth in 48 hours Lab - Hematology Results 08/25/18 08/26/18 06:19 04:32 WBC 20.2 H 15.9 H RBC 5.21 5.25 Hgb 17.3 H 17.3 H Hct 53.5 H 53.8 H MCV 102.7 H 102.4 H MCH 33.3 33.0 MCHC 32.4 32.2 RDW 14.5 14.6 Plt Count 102 L 111 L MPV 11.1 H 11.5 H Prelim Diff (Auto) Slide review pending Slide review pending Neut % (Auto) 91.0 H 87.6 H Lymph % (Auto) 2.0 L 3.8 L Whitley % (Auto) 6.7 8.3 H Eos % (Auto) 0.0 0.1 Baso % (Auto) 0.3 0.2 Neut # (Auto) 18.4 H 13.9 H Lymph # (Auto) 0.4 L 0.6 L Whitley # (Auto) 1.4 H 1.3 H Eos # (Auto) 0.0 0.0 Baso # (Auto) 0.1 0.0 WBC Differential . Manual diff final Diff Scan Auto diff confirmed Seg Neuts % (Manual) 83 H Lymphocytes % (Manual) 5 L Monocytes % (Manual) 11 H Myelocytes % (Man) 1 H Abs Neuts (Manual) 13.4 H Differential Comment . . Platelet Estimate Low L Low L Platelet Morphology Enlarged H Normal Lab - Chemistry Results 08/19/18 08/24/18 08/24/18 20:23 11:19 17:58 Sodium Potassium Chloride Carbon Dioxide Anion Gap BUN Creatinine Estimated GFR POC Glucose 113 H 135 H Random Glucose Calcium Phosphorus Magnesium Total Bilirubin AST ALT Alkaline Phosphatase Total Protein Albumin Albumin (PEP) 3.31 L Albumin/Globulin Ratio 1.04 L Ljfru-6-Hykblqdhj 0.31 H Gzjwr-6-Bqjnlpins 0.80 Beta Globulins 0.99 Gamma Globulins 1.10 08/25/18 08/25/18 08/25/18 00:04 05:30 09:22 Sodium 148 H Potassium 4.5 Chloride 107 Carbon Dioxide 35.8 H Anion Gap 5 BUN 66 H Creatinine 1.25 Estimated GFR 58 L POC Glucose 110 132 H Random Glucose 165 H Calcium 8.8 Phosphorus 3.0 Magnesium 2.3 Total Bilirubin 1.1 H AST 58 H ALT 157 H Alkaline Phosphatase 82 Total Protein 6.2 L Albumin 2.4 L Albumin (PEP) Albumin/Globulin Ratio Ntqqw-6-Hflahmmud Swybd-5-Ahqlokgqu Beta Globulins Gamma Globulins 08/25/18 08/25/18 08/25/18 11:20 17:53 23:47 Sodium Potassium Chloride Carbon Dioxide Anion Gap BUN Creatinine Estimated GFR POC Glucose 142 H 119 H 131 H Random Glucose Calcium Phosphorus Magnesium Total Bilirubin AST ALT Alkaline Phosphatase Total Protein Albumin Albumin (PEP) Albumin/Globulin Ratio Zbcex-2-Bckxpqqgs Uxnyy-4-Egqkdxyic Beta Globulins Gamma Globulins 08/26/18 08/26/18 04:32 05:14 Sodium 145 Potassium 5.1 Chloride 107 Carbon Dioxide 29.6 Anion Gap 8 BUN 62 H Creatinine 1.30 Estimated GFR 55 L POC Glucose 123 H Random Glucose 106 Calcium 8.9 Phosphorus 1.4 L D Magnesium 2.3 Total Bilirubin 1.6 H AST 69 H ALT 164 H Alkaline Phosphatase 69 Total Protein 6.1 L Albumin 2.4 L Albumin (PEP) Albumin/Globulin Ratio Czaxb-6-Coahptrsm Amkkj-2-Qewuatomq Beta Globulins Gamma Globulins Imaging: ITS Impressions Abdomen Ultrasound 08/19/18 00:00 CONCLUSION: 1. Hepatomegaly with diffuse hyperechoic texture characteristic of steatosis or diffuse hepatocellular disease. 2. Bilateral renal cysts. 3. Nonvisualization of the gallbladder and pancreas. 4. No evidence of hydronephrosis or abnormal fluid collections. Abdomen X-Ray 08/22/18 07:03 CONCLUSION: 1. There are no features to indicate ileus. No acute abdominal abnormality is identified. 2. Nonspecific 18 mm density in the left pelvis represent a calcification or could represent material within the sigmoid colon. 3. Opacity at the left lung base. Please refer to today's chest x-ray for further description. Abdomen/Pelvis CT 08/23/18 00:00 CONCLUSION: 1. Severe left hydronephrosis and hydroureter caused by a 2 cm stone in the distal left ureter. 2. Trace air within the bladder lumen. Although nonspecific this may be related to a recent catheterization. 3. Nonacute findings include multiple bilateral renal cysts, mild atherosclerotic disease, and mild hepatic steatosis. Chest CT 08/23/18 00:00 CONCLUSION: 1. There is continued volume loss/collapse of the left upper lobe with mild atelectasis in the left upper lobe. Aeration is improved compared to the study from 4 days ago and stable compared to the most recent chest x-ray. There is also volume loss in the right lower lobe. No pleural effusion is present. 2. Stable enlargement of the main pulmonary artery which may indicate pulmonary arterial hypertension. 3. Findings consistent with prior granulomatous infection. Please refer to abdomen and CT report for description of the subdiaphragmatic findings. Nephrostomy 08/23/18 00:00 CONCLUSION: 1. Uncomplicated nephrostomy tube placement as above. Chest X-Ray 08/26/18 01:53 CONCLUSION: 1. Stable ETT and NGT. 2. Cardiomegaly with positive fluid balance. 3. Stable bilateral, left greater than right, small pleural effusions and associated lower lung zone airspace disease. Physical Exam: PHYSICAL EXAMINATION: GENERAL: Awake and in no distress. HEAD: Head is atraumatic. Extraocular movements appear grossly intact. No icterus. Oropharynx, moist mucosa. Oropharynx intubated. NECK: Supple without swelling or adenopathy. LUNGS: Diminished breath sounds bilateral. HEART: Normal S1 and S2, without audible murmurs, rubs or gallops. ABDOMEN: Bowel sounds present, distended, soft, no tenderness. left nephrostomy tube in place. No purulence. EXTREMITIES: No clubbing or cyanosis or edema. SKIN: Rash petechial type and occ.. macular rash spots NEURO: Unable to fully assess. PSYCHIATRIC: Unable to fully assess. Assessment and Plan - Plan IMPRESSION: 1. Pneumonia. The patient with whiteout of the left lung. Status post bronchoscopy. Sputum culture pending. 2. Leukocytosis probably secondary to pneumonia. 3. Acute respiratory failure. 4. Chronic obstructive pulmonary disease. 5. Obstructive uropathy. Rash ? Drug rash RECOMMENDATIONS: DC Cefepime IV ? rash from Cefepime. Start Levaquin oral (will help reduce fluid overload) Check 12 lead EKG to monitor and baseline for QT interval while on Levaquin. Check Procalcitonin. Follow cultures. Follow the clinical status. dw RN dw patient current clinical issues briefly and also reasons why he continues to remain intubated. Explained CCM trying diuretics to see if lung recruitment improves. May need trach. He voiced understanding. No family in room.
[2018-08-26] MEDS: fentaNYL 10 mcg/mL Premix Drip 2,500 MCG/250 ML BAG IV.SIG PRN (13:14)
[2018-08-26] MEDS: levoFLOXacin 500 MG Tablet PO SCH (13:17)
[2018-08-26 17:42] LABS: Calcium 8.7 mg/dL (8.5-10.1); Carbon Dioxide 30.1 meq/L (21.0-32.0); Magnesium 2.4 mg/dL (1.5-2.5); Potassium 3.9 meq/L (3.5-5.1)
--- NOTE | 2018-08-26 18:04 | P.PNPL ---
Subjective Interval history: 68 YOWM with VDRF, COPD Weaned to CPAP Awake, follows commands No fever On APRV , Fi02 40% Physical Exam Vital signs: Vital Signs 08/25/18 19:31 08/25/18 19:48 08/25/18 20:00 Temperature Pulse Rate 91 H 91 H Respiratory Rate 12 11 L Blood Pressure Pulse Oximetry 94 L 08/25/18 22:00 08/25/18 23:20 08/25/18 23:21 Temperature Pulse Rate 93 H 92 H Respiratory Rate 10 L 10 L Blood Pressure Pulse Oximetry 94 L 08/26/18 00:00 08/26/18 02:00 08/26/18 03:36 Temperature Pulse Rate 90 91 H 83 Respiratory Rate 9 L Blood Pressure Pulse Oximetry 08/26/18 03:37 08/26/18 04:00 08/26/18 06:00 Temperature Pulse Rate 83 85 Respiratory Rate 9 L Blood Pressure Pulse Oximetry 94 L 08/26/18 07:44 08/26/18 08:00 08/26/18 10:00 Temperature Pulse Rate 85 83 84 Respiratory Rate 9 L Blood Pressure Pulse Oximetry 94 L 08/26/18 11:17 08/26/18 12:00 08/26/18 14:00 Temperature 99.4 F Pulse Rate 86 85 89 Respiratory Rate 11 L 16 Blood Pressure 103/67 Pulse Oximetry 94 L 93 L 08/26/18 15:17 08/26/18 16:00 Temperature 98.5 F Pulse Rate 85 83 Respiratory Rate 11 L 16 Blood Pressure 96/56 L Pulse Oximetry 95 94 L Intake & Output 08/25/18 08/26/18 08/26/18 18:59 06:59 18:59 Intake Total 1867.5 / 1867.5 1386 / 1386 2419 / 2419 Output Total 1125 / 1125 1750 / 1750 Balance 1867.5 / 1867.5 261 / 261 669 / 669 Weight 52.072 kg Intake: IV 1867.5 / 1867.5 100 / 100 1000 / 1000 D5W Inj 1,000 ML @ 50 mls/hr IV 1000 / 1000 1000 / 1000 .CONT .Q20H [facility]ACE Rx#:[id number] Azithromycin Inj 500 MG In NS 250 / 250 Inj 250 ML @ 250 mls/hr IV.SIG Q24H [facility]ACE Rx#:[id number] Maxipime Inj 2,000 MG In NS Inj 100 / 100 100 / 100 100 ML @ 200 mls/hr IV.SIG Q12H [facility]ACE Rx#:[id number] Vancomycin Inj 1,750 MG In NS 517.5 / 517.5 Inj 500 ML @ 250 mls/hr IV.SIG Q24H HORACE Rx#:[id number] Oral 0 / 0 Tube Feeding 386 / 386 519 / 519 Water Bolus Amount 900 / 900 900 / 900 Output: Urine 350 / 350 700 / 700 Urine Amount (Stoma) 775 / 775 1050 / 1050 Nephrostomy Tube 775 / 775 1050 / 1050 Other: # Incontinent Voids 1 3 Date of Last Bowel Movement 08/24/18 08/24/18 08/24/18 GENERAL: WBWN On Vent SKIN: Warm and dry. HEAD: Normocephalic. EYES: No scleral icterus. No injection or drainage. NECK: Supple, trachea midline. No JVD or lymphadenopathy. CARDIOVASCULAR: Regular rate and rhythm without murmurs, gallops, or rubs. RESPIRATORY: Breath sounds equal bilaterally. No accessory muscle use. GASTROINTESTINAL: Abdomen soft, non-tender, nondistended. MUSCULOSKELETAL: No cyanosis, or edema. BACK: Nontender without obvious deformity. No CVA tenderness. - Urinary Catheter Management Indwelling Urethral Catheter Cath placed during this visit: yes, but has since been removed by the nurse Reason for continuing: Decision to DC catheter Removal date: 08/17/18 Removal time: 16:30 Coude Cath placed during this visit: no Assessment and Plan - Plan IMPRESSION: 1. Hypoxic, hypercapnic respiratory failure. 2. Left lung volume loss, possible atelectasis or infiltrate. 3. Left lung nodule. 4. Chronic obstructive pulmonary disease. 5. Renal insufficiency. 6. Atelactesis left lung PLAN: Vent Support, APRV mode CPAP trial and weaning parameters Aerosol nebs Mucomyst nebs Cont Abx Diurease
[2018-08-26] MEDS: Enoxaparin Inj 30 MG/0.3 ML Syringe SQ SCH (22:39)
[2018-08-27] MEDS: Insulin NovoLIN Regular Correctional Sugar Inj SQ SCH ×4 (00:59→17:12)
[2018-08-27] MEDS: Oral Hygiene Kit OROPHARYNG SCH ×4 (00:59→16:19)
[2018-08-27 04:35] LABS: Hematocrit 51.3 % (39.0-51.0); Hemoglobin 17.1 gm/dL (13.0-17.0); Mean Corpuscular HGB Conc 33.4 % (32.0-36.0); Mean Corpuscular Hemoglobin 33.4 pg (27.0-34.0); Mean Corpuscular Volume 99.8 fL (80.0-100.0); Mean Platelet Volume 11.9 fL (7.0-11.0); Platelet Count 112 th/mm3 (150-450); Red Blood Count 5.14 mil/mm3 (4.50-5.90); Red Cell Distribution Width 14.8 % (11.6-17.2); White Blood Count 19.4 th/mm3 (4.0-11.0)
[2018-08-27 04:47] LABS: Calcium 8.9 mg/dL (8.5-10.1); Carbon Dioxide 26.8 meq/L (21.0-32.0); Magnesium 2.4 mg/dL (1.5-2.5); Potassium 3.8 meq/L (3.5-5.1)
[2018-08-27 04:55] LABS: Phosphorus 3.6 mg/dL (2.5-4.9)
[2018-08-27] MEDS: MethylPREDNISolone Sod Succinate Inj 40 MG/ML Vial IV.PUSH SCH ×3 (05:32→21:26)
[2018-08-27] MEDS ORDERED: metOLazone 5 MG Tablet PO STA (06:02)
[2018-08-27] MEDS: levoFLOXacin 500 MG Tablet PO SCH (08:16)
[2018-08-27] MEDS: Senna/Docusate Sodium 8.6/50 MG Tablet PO SCH ×2 (08:16→21:26)
[2018-08-27] MEDS: buPROPion 150 MG 12 HR Tablet PO SCH (08:16)
[2018-08-27] MEDS: Gabapentin 300 MG Capsule PO SCH ×2 (08:16→21:25)
[2018-08-27] MEDS: Chlorhexidine 0.12% Oral Kit 15 ML UDC OROPHARYNG SCH ×2 (08:17→21:25)
[2018-08-27] MEDS: Carboxymethylcellulose 0.5% Opth Drops 15 ML Bottle EACH EYE SCH ×3 (08:18→17:12)
--- NOTE | 2018-08-27 10:51 | P.PNCC ---
Subjective Subjective Remarks/Hospital Course: 68-year-old gentleman with COPD and chronic cough who continues to smoke presented to [place] emergency department for an evaluation of altered mental status and shortness of breath. The patient went to [employer] this morning and returned on the bus and sat in the garage. The lady that takes care of him did talk to him and he said he was fine and sat down in his chair in the garage. He however did not come to his lunch and she went out and found him unresponsive with labored breathing. This occurred at 2 PM today. Patient was brought into the emergency department with altered mental status and respiratory distress. Pulse ox was in the 60s. Patient was put on high flow oxygen and later changed to BiPAP with improvement in mentation and oxygenation. The chest x-ray obtained in the emergency department shows almost complete opacification of left hemithorax. The CT without contrast shows severe cardiomegaly and no pleural effusion or pericardial effusion. The patient has been transferred to [facility] ICU for higher level of care. 08/17: no improvement in respiratory distress- mental status worsened. abg no improvement. clinically declined and emergently intubated. on bedside echo, very difficult windows due to lung disease and obesity, but dilated ivc without respiratory variation and no pericardial effusion. formal echo pending. 08/18: remains intubated. abg slowly improving. tran removed yesterday but unable to straight cath. 08/19: FiO2 down to 55%. Will re-CT the chest today. Likely just a gigantic heart causing opacification left hemithorax.. No other issues overnight. Creatinine slowly increasing. Subjective: 08/20: Febrile. Status post bronchoscopy yesterday due to mucous plug in the left lungs. Improved aeration currently 50% FiO2. We will continue to wean today. Tolerating tube feeding. Creatinine improving. 08/21 Patient remains intubated and sedated with Diprivan. Afebrile. 08/22 No events overnight off sedation tolerated CPAP for several hrs yesterday. T:100.7 last night 08/23 Patient remains intubated off sedation. T:101.4 last night. 08/24 Patient remains intubated on no sedation awake and follows commands. Had CT abdomen yesterday showed left hydronephrosis 2nd cm stone in distal left ureter s/p left nephrostomy tube placement by IR. Renal function continue to improve with Cr: 1.35 today from 1.72. Underwent bronch by mucous plugs suctioned from left lung. 08/25: tolerating 10/5 psv, but cxr much less aerated. may not do well off ventilator: significant OHS and derecruits easily. 08/26: CXR significantly improved with APRV ventilation, but clearly going to be a difficult wean from mechanical ventilation. wbc improving. still very volume overloaded, and net+ fluid balance yesterday. needs aggressive diuresis. 08/27: pulmonary mechanics appear somewhat improving. still net+ fluid balance despite aggressive diuresis attempts. Cr slightly worse, but still have not achieved a negative fluid balance. will add metolazone today. continue to wean APRV pressure as tolerated. Objective Vital Signs / I&O: Vital Signs 08/26/18 11:17 08/26/18 12:00 08/26/18 14:00 Temperature 37.4 C Pulse Rate 86 85 89 Respiratory Rate 11 L 16 Blood Pressure 103/67 Pulse Oximetry 94 L 93 L 08/26/18 15:17 08/26/18 16:00 08/26/18 18:00 Temperature 36.9 C Pulse Rate 85 83 90 Respiratory Rate 11 L 16 Blood Pressure 96/56 L Pulse Oximetry 95 94 L 08/26/18 19:01 08/26/18 20:00 08/26/18 20:01 Temperature 36.6 C Pulse Rate 86 88 88 Respiratory Rate 119 H 159 H 9 L Blood Pressure 90/64 L 96/64 L Pulse Oximetry 96 94 L 96 08/26/18 21:00 08/26/18 22:00 08/26/18 23:00 Temperature Pulse Rate 92 H 90 87 Respiratory Rate 161 H 147 H Blood Pressure 93/64 L 102/70 104/69 Pulse Oximetry 94 L 94 L 95 08/27/18 00:00 08/27/18 00:04 08/27/18 01:00 Temperature 36.9 C Pulse Rate 87 91 H 89 Respiratory Rate 0 L 9 L 37 H Blood Pressure 91/69 L 99/72 L Pulse Oximetry 95 97 96 08/27/18 02:00 08/27/18 03:00 08/27/18 03:27 Temperature Pulse Rate 87 87 86 Respiratory Rate 0 L 141 H 10 L Blood Pressure 94/65 L 97/67 L Pulse Oximetry 97 95 96 08/27/18 04:00 08/27/18 05:00 08/27/18 05:01 Temperature 36.8 C Pulse Rate 88 86 86 Respiratory Rate 20 0 L 0 L Blood Pressure 100/71 107/56 L Pulse Oximetry 95 95 93 L 08/27/18 06:00 08/27/18 07:00 08/27/18 07:49 Temperature Pulse Rate 85 91 H Respiratory Rate 24 10 L 6 L Blood Pressure 105/78 106/70 Pulse Oximetry 97 96 95 08/27/18 08:00 08/27/18 09:00 08/27/18 10:00 Temperature 37.1 C Pulse Rate 86 86 81 Respiratory Rate 10 L 7 L 7 L Blood Pressure 107/61 115/65 107/67 Pulse Oximetry 96 95 95 Intake & Output 08/26/18 08/27/18 08/27/18 18:59 06:59 18:59 Intake Total 2419 / 2419 1347 / 1347 Output Total 1750 / 1750 1850 / 1850 Balance 669 / 669 -503 / -503 Weight 111.9 kg Intake: IV 1000 / 1000 D5W Inj 1,000 ML @ 50 mls/hr IV 1000 / 1000 .CONT .Q20H HORACE Rx#:[id number] Oral 0 / 0 Tube Feeding 519 / 519 447 / 447 Water Bolus Amount 900 / 900 900 / 900 Output: Urine 700 / 700 1300 / 1300 Urine Amount (Stoma) 1050 / 1050 550 / 550 Nephrostomy Tube 1050 / 1050 550 / 550 Other: # Incontinent Voids 3 Date of Last Bowel Movement 08/24/18 08/24/18 08/24/18 # Bowel Movements 0 Result Diagrams: 08/27/18 02:45 08/27/18 02:45 Objective Remarks: GENERAL: 68-year-old male lying in bed, intubated, sedated HEENT: Normocephalic. Atraumatic. Pupils equal, round, reactive, round 3 mm bilaterally conjugate. Mucous membranes are moist NECK: Trachea is midline. no JVD. CHEST: B/l equal air entry, improved aeration today. CARDIOVASCULAR: normal rate, regular rhythm. Sinus. ABDOMEN: Obese, soft, nontender, nondistended. No guarding. MUSCULOSKELETAL: Pulses 2+. 1+ peripheral edema NEUROLOGICAL: Awake, follows commands Assessment and Plan - Assessment and Plan Plan: Neuro/Psych: Depression Off sedation, monitor neuro status. Awake and follows commands Acetaminophen 650 every 6 hours as needed fever Continue bupropion 50 mg daily and gabapentin 6 mg twice daily On Thiamine 100mg BID CV: Cardiomegaly Congestive Heart Failure, acute systolic and diastolic Essential hypertension Monitor HR and BP keep MAP>65mmHg -2D echo- left ventricular systolic function is severely reduced with an estimated ejection fraction in the range of 30-35%. Moderately dilated left ventricle with normal wall thickness.There is diffuse global hypokinesis. Findings consistent with Grade 1 diastolic dysfunction. The RV is likely moderately enlarged with decreased systolic function. No significant valvular heart disease seen on the images that were obtained. Unable to obtain a proper maximum TR velocity to estimate the RVSP. Using the pulmonary regurgitant velocity at the beginning of diastole, the mean PA is estimated at 31 mmHg. The inferior vena cava is normal in size with less than 50% collapse with inspiration. (RAP is estimated at 15 mmHg) There is a small pericardial effusion present. Resp: Acute hypoxic and hypercarbic Respiratory failure - persistent Acute severe COPD Exacerbation Obesity Hypoventilation Syndrome Left lower lobe lung nodule Tobacco abuse Ventilator bundle Albuterol/ipratropium aerosols every 6 hours with albuterol aerosols every 2 hours as needed for dyspnea Head of bed at 30 Methylprednisolone succinate 40 g IV every 8 hours Pulmonary/Dr. Ott following s/p repeat bronch 08/[address] Ott: Mucous plugs suctioned from left lung, There are collapsing pires of the left upper lobe, which makes the lumen narrow CT chest 08/19 revealed mucous plugging involving the left lung. Post bronchoscopy 08/19. On Mucomyst nebulizers continue APRV today. will continue to wean as tolerated hold SBT today. may likely require tracheostomy for successful separation from mechanical ventilation. CXR continues to look worse when on SBT/PSV. GI: Transaminitis Indeterminate hepatitis A IgM-laboratory recommends 2 months follow-up. tube feeds to Glucerna 1.5 with goal rate 45ml/hr Lansoprazole for GI prophylaxis Docusate sodium/senna 1 tablet twice daily for bowel regimen liver ultrasound -revealed enlarged liver likely hepatic steatosis versus inflammatory Hepatitis panel: Hep A IgM Indeterminate KUB abdomen: There are no features to indicate ileus. No acute abdominal abnormality is identified. Nonspecific 18 mm density in the left pelvis represent a calcification or could represent material within the sigmoid colon Endo: Sliding scale insulin Accu-Cheks to maintain euglycemia/to 6 hours aspart medium regimen Renal: Acute kidney injury unknown baseline Hypernatremia Bilateral renal cysts Monitor renal function, I/O's, avoid nephrotoxins Renal function improving CT abd/pelvis 08/23: Severe left hydronephrosis and hydroureter caused by a 2 cm stone in the distal left ureter. s/p Nephrostomy tube placement by IR 08/23 On Free water 300ml Q4, sodium improving. Renal ultrasound revealed bilateral renal cyst. No hydronephrosis Renal- Dr. Olivares Heme: Macrocytosis Leukocytosis Monitor CBC daily. Follow trends. No indication for transfusion of blood products at this time. ID: Currently on cefepime, d/c azithro, vanc per ID. Panculture 08/22 ( Blood, sputum) -NGTD ID is following- Dr. Jauregui Repeat bronch 08/23, follow up on bronch cx from 08/23 Negative UA 08/17. Negative sputum 08/17 Bronchoscopy samples from left upper lobe 08/19. Gram stain negative Bronch washing AFB pending MSK: Elevated BMI Weight loss encouraged Access -Utilize peripheral IV. Prophylaxis - GI -Lansoprazole - DVT -SCDs enoxaparin OVERALL IMPRESSION: critically ill, failing vent weanings. may not tolerate separation from mechanical ventilation successfully without tracheostomy.
--- NOTE | 2018-08-27 11:10 | P.PNID ---
Subjective Remarks: ID [facility] for is a 68-year-old white male who has a history of COPD. The patient was found with altered mental status and unresponsive later on while sitting in his garage. He was brought to [facility] facility and then subsequently transferred here to [facility]. The patient was noted to be hypoxic and a CT scan of the chest showed significant volume loss on the left lung with almost entire collapse of the left lung. He was subsequently intubated. He underwent bronchoscopy with lavage of the left lung. There was thick mucus plugs noted. ID consult requested for Fever and worsening leukocytosis. Patient has undergone nephrostomy tube placement. On Biphasic mode, remains on vent Awake and alert and responsive. Denies pain. Afebrile. Has diffuse rash all over the body van trunk, back and sides of body. RN reports no major issues overnight. Cultures have no growth so far. Not much secretions Antibiotics: Cefepime IV Lines: Lines ok Past Medical History: COPD Allergies/Adverse Reactions: Allergies No Known Allergies Allergy (Unverified 08/16/18 16:33) Objective Vital Signs 08/26/18 11:17 08/26/18 12:00 08/26/18 14:00 Temperature 99.4 F Pulse Rate 86 85 89 Respiratory Rate 11 L 16 Blood Pressure 103/67 Pulse Oximetry 94 L 93 L 08/26/18 15:17 08/26/18 16:00 08/26/18 18:00 Temperature 98.5 F Pulse Rate 85 83 90 Respiratory Rate 11 L 16 Blood Pressure 96/56 L Pulse Oximetry 95 94 L 08/26/18 19:01 08/26/18 20:00 08/26/18 20:01 Temperature 97.9 F Pulse Rate 86 88 88 Respiratory Rate 119 H 159 H 9 L Blood Pressure 90/64 L 96/64 L Pulse Oximetry 96 94 L 96 08/26/18 21:00 08/26/18 22:00 08/26/18 23:00 Temperature Pulse Rate 92 H 90 87 Respiratory Rate 161 H 147 H Blood Pressure 93/64 L 102/70 104/69 Pulse Oximetry 94 L 94 L 95 08/27/18 00:00 08/27/18 00:04 08/27/18 01:00 Temperature 98.4 F Pulse Rate 87 91 H 89 Respiratory Rate 0 L 9 L 37 H Blood Pressure 91/69 L 99/72 L Pulse Oximetry 95 97 96 08/27/18 02:00 08/27/18 03:00 08/27/18 03:27 Temperature Pulse Rate 87 87 86 Respiratory Rate 0 L 141 H 10 L Blood Pressure 94/65 L 97/67 L Pulse Oximetry 97 95 96 08/27/18 04:00 08/27/18 05:00 08/27/18 05:01 Temperature 98.2 F Pulse Rate 88 86 86 Respiratory Rate 20 0 L 0 L Blood Pressure 100/71 107/56 L Pulse Oximetry 95 95 93 L 08/27/18 06:00 08/27/18 07:00 08/27/18 07:49 Temperature Pulse Rate 85 91 H Respiratory Rate 24 10 L 6 L Blood Pressure 105/78 106/70 Pulse Oximetry 97 96 95 08/27/18 08:00 08/27/18 09:00 08/27/18 10:00 Temperature 98.7 F Pulse Rate 86 86 82 Respiratory Rate 10 L 7 L 7 L Blood Pressure 107/61 115/65 107/67 Pulse Oximetry 96 95 95 Intake & Output 08/26/18 08/27/18 08/27/18 18:59 06:59 18:59 Intake Total 2419 / 2419 1347 / 1347 Output Total 1750 / 1750 1850 / 1850 Balance 669 / 669 -503 / -503 Weight 111.9 kg Intake: IV 1000 / 1000 D5W Inj 1,000 ML @ 50 mls/hr IV 1000 / 1000 .CONT .Q20H [facility] Rx#:[id number] Oral 0 / 0 Tube Feeding 519 / 519 447 / 447 Water Bolus Amount 900 / 900 900 / 900 Output: Urine 700 / 700 1300 / 1300 Urine Amount (Stoma) 1050 / 1050 550 / 550 Nephrostomy Tube 1050 / 1050 550 / 550 Other: # Incontinent Voids 3 Date of Last Bowel Movement 08/24/18 08/24/18 08/24/18 # Bowel Movements 0 08/22/18 08:49 Blood - Peripheral Aerobic Blood Culture - Final No growth in 5 days 08/22/18 08:49 Blood - Peripheral Anaerobic Blood Culture - Final No growth in 5 days 08/22/18 08:56 Blood - Peripheral Aerobic Blood Culture - Final No growth in 5 days 08/22/18 08:56 Blood - Peripheral Anaerobic Blood Culture - Final No growth in 5 days 08/19/18 15:09 Bronchial Washings - Left Upper Lobe Fungal Smear - Final No fungal elements seen 08/19/18 15:09 Bronchial Washings - Left Upper Lobe Fungal Culture - Preliminary No growth in 1 week 08/19/18 15:09 Bronchial Washings - Left Upper Lobe Acid Fast Bacilli Smear - Final No acid fast bacilli seen 08/19/18 15:09 Bronchial Washings - Left Upper Lobe Mycobacterial Culture - Preliminary No growth in 1 week 08/23/18 15:20 Bronchial - Left Gram Stain - Final 08/23/18 15:20 Bronchial - Left Bronchial Culture - Final Heavy growth normal respiratory ada 08/22/18 09:00 Sputum - Endotracheal Gram Stain - Final 08/22/18 09:00 Sputum - Endotracheal Sputum Culture - Final Moderate growth normal respiratory ada 08/22/18 11:15 Catheterized Urine Urine Culture - Final No growth in 48 hours Lab - Hematology Results 08/26/18 08/27/18 04:32 02:45 WBC 15.9 H 19.4 H RBC 5.25 5.14 Hgb 17.3 H 17.1 H Hct 53.8 H 51.3 H MCV 102.4 H 99.8 MCH 33.0 33.4 MCHC 32.2 33.4 RDW 14.6 14.8 Plt Count 111 L 112 L MPV 11.5 H 11.9 H Prelim Diff (Auto) Slide review pending Neut % (Auto) 87.6 H Lymph % (Auto) 3.8 L [place] % (Auto) 8.3 H Eos % (Auto) 0.1 Baso % (Auto) 0.2 Neut # (Auto) 13.9 H Lymph # (Auto) 0.6 L [place] # (Auto) 1.3 H Eos # (Auto) 0.0 Baso # (Auto) 0.0 WBC Differential Manual diff final Seg Neuts % (Manual) 83 H Lymphocytes % (Manual) 5 L Monocytes % (Manual) 11 H Myelocytes % (Man) 1 H Abs Neuts (Manual) 13.4 H Differential Comment . Platelet Estimate Low L Platelet Morphology Normal Lab - Chemistry Results 08/19/18 08/25/18 08/25/18 20:23 11:20 17:53 Sodium Potassium Chloride Carbon Dioxide Anion Gap BUN Creatinine Estimated GFR POC Glucose 142 H 119 H Random Glucose Calcium Phosphorus Magnesium Total Bilirubin AST ALT Alkaline Phosphatase Total Protein Albumin PEP Pathologist Comment Procalcitonin 08/25/18 08/26/18 08/26/18 23:47 04:32 05:14 Sodium 145 Potassium 5.1 Chloride 107 Carbon Dioxide 29.6 Anion Gap 8 BUN 62 H Creatinine 1.30 Estimated GFR 55 L POC Glucose 131 H 123 H Random Glucose 106 Calcium 8.9 Phosphorus 1.4 L D Magnesium 2.3 Total Bilirubin 1.6 H AST 69 H ALT 164 H Alkaline Phosphatase 69 Total Protein 6.1 L Albumin 2.4 L PEP Pathologist Comment Procalcitonin 08/26/18 08/26/18 08/26/18 11:49 13:15 16:33 Sodium 144 Potassium 3.9 D Chloride 104 Carbon Dioxide 30.1 Anion Gap 10 BUN 71 H Creatinine 1.51 H Estimated GFR 46 L POC Glucose 156 H Random Glucose 134 H Calcium 8.7 Phosphorus Magnesium 2.4 Total Bilirubin AST ALT Alkaline Phosphatase Total Protein Albumin PEP Pathologist Comment Procalcitonin 0.16 H 08/26/18 08/27/18 08/27/18 17:16 00:56 02:45 Sodium 143 Potassium 3.8 Chloride 105 Carbon Dioxide 26.8 Anion Gap 11 BUN 80 H Creatinine 1.87 H Estimated GFR 36 L POC Glucose 147 H 150 H Random Glucose 133 H Calcium 8.9 Phosphorus 3.6 D Magnesium 2.4 Total Bilirubin AST ALT Alkaline Phosphatase Total Protein Albumin PEP Pathologist Comment Procalcitonin 08/27/18 04:52 Sodium Potassium Chloride Carbon Dioxide Anion Gap BUN Creatinine Estimated GFR POC Glucose 147 H Random Glucose Calcium Phosphorus Magnesium Total Bilirubin AST ALT Alkaline Phosphatase Total Protein Albumin PEP Pathologist Comment Procalcitonin Imaging: ITS Impressions Abdomen Ultrasound 08/19/18 00:00 CONCLUSION: 1. Hepatomegaly with diffuse hyperechoic texture characteristic of steatosis or diffuse hepatocellular disease. 2. Bilateral renal cysts. 3. Nonvisualization of the gallbladder and pancreas. 4. No evidence of hydronephrosis or abnormal fluid collections. Abdomen X-Ray 08/22/18 07:03 CONCLUSION: 1. There are no features to indicate ileus. No acute abdominal abnormality is identified. 2. Nonspecific 18 mm density in the left pelvis represent a calcification or could represent material within the sigmoid colon. 3. Opacity at the left lung base. Please refer to today's chest x-ray for further description. Abdomen/Pelvis CT 08/23/18 00:00 CONCLUSION: 1. Severe left hydronephrosis and hydroureter caused by a 2 cm stone in the distal left ureter. 2. Trace air within the bladder lumen. Although nonspecific this may be related to a recent catheterization. 3. Nonacute findings include multiple bilateral renal cysts, mild atherosclerotic disease, and mild hepatic steatosis. Chest CT 08/23/18 00:00 CONCLUSION: 1. There is continued volume loss/collapse of the left upper lobe with mild atelectasis in the left upper lobe. Aeration is improved compared to the study from 4 days ago and stable compared to the most recent chest x-ray. There is also volume loss in the right lower lobe. No pleural effusion is present. 2. Stable enlargement of the main pulmonary artery which may indicate pulmonary arterial hypertension. 3. Findings consistent with prior granulomatous infection. Please refer to abdomen and CT report for description of the subdiaphragmatic findings. Nephrostomy 08/23/18 00:00 CONCLUSION: 1. Uncomplicated nephrostomy tube placement as above. Chest X-Ray 08/26/18 01:53 CONCLUSION: 1. Stable ETT and NGT. 2. Cardiomegaly with positive fluid balance. 3. Stable bilateral, left greater than right, small pleural effusions and associated lower lung zone airspace disease. Physical Exam: PHYSICAL EXAMINATION: GENERAL: Awake and in no distress. HEAD: Head is atraumatic. Extraocular movements appear grossly intact. No icterus. Oropharynx, moist mucosa. Oropharynx intubated. NECK: Supple without swelling or adenopathy. LUNGS: Diminished breath sounds bilateral. HEART: Normal S1 and S2, without audible murmurs, rubs or gallops. ABDOMEN: Bowel sounds present, distended, soft, no tenderness. left nephrostomy tube in place. No purulence. EXTREMITIES: No clubbing or cyanosis or edema. SKIN: Rash petechial type and occ.. macular rash spots NEURO: Unable to fully assess. PSYCHIATRIC: Unable to fully assess. Assessment and Plan - Plan IMPRESSION: 1. Pneumonia. The patient with whiteout of the left lung. Status post bronchoscopy. Sputum culture pending. 2. Leukocytosis probably secondary to pneumonia. 3. Acute respiratory failure. 4. Chronic obstructive pulmonary disease. 5. Obstructive uropathy. Rash ? Drug rash RECOMMENDATIONS: Continue Levaquin oral (will help reduce fluid overload) Check CBC with diff in am to check on eosinophils. Procalcitonin elevated. Recommend follow up procalcitonin in 2 days to assess need for continuing antibiotics. Follow cultures. Follow the clinical status. lesli RN No family in room. Will follow next on Friday. If any interim change in clinical condition please call [facility] receptionist.
--- NOTE | 2018-08-27 15:24 | ECG ---
Date Performed: 08/26/2018 Time Performed: 11:30:04 PTAGE: 68 years EKG: Sinus rhythm . Right axis deviation Right ventricular hypertrophy Anteroseptal T wave changes are probably due to ventricular hypertrophy Abnormal ECG NO PREVIOUS TRACING DOCTOR: Bina Poe Interpretating Date/Time 08/27/2018 15:23:52
--- NOTE | 2018-08-27 15:39 | ECG ---
Date Performed: 08/26/2018 Time Performed: 13:39:00 PTAGE: 68 years EKG: Sinus rhythm INCOMPLETE RIGHT BUNDLE BRANCH BLOCK RIGHT VENTRICULAR HYPERTROPHY NONSPECIFIC T-WAVE ABNORMALITY AB NORMAL ECG PREVIOUS TRACING 08/26/2018 @ 11.30.04 Since the previous tracing, no significant change noted DOCTOR: Bina Poe Interpretating Date/Time 08/27/2018 15:38:45
--- NOTE | 2018-08-27 17:21 | P.PNPL ---
Subjective Interval history: 68 YOWM with VDRF, COPD Awake, follows commands No fever On APRV , Fi02 40% Diureasing, Diamox added Physical Exam Vital signs: Vital Signs 08/26/18 18:00 08/26/18 19:01 08/26/18 20:00 Temperature 97.9 F Pulse Rate 90 86 88 Respiratory Rate 119 H 159 H Blood Pressure 90/64 L 96/64 L Pulse Oximetry 96 94 L 08/26/18 20:01 08/26/18 21:00 08/26/18 22:00 Temperature Pulse Rate 88 92 H 90 Respiratory Rate 9 L 161 H Blood Pressure 93/64 L 102/70 Pulse Oximetry 96 94 L 94 L 08/26/18 23:00 08/27/18 00:00 08/27/18 00:04 Temperature 98.4 F Pulse Rate 87 87 91 H Respiratory Rate 147 H 0 L 9 L Blood Pressure 104/69 91/69 L Pulse Oximetry 95 95 97 08/27/18 01:00 08/27/18 02:00 08/27/18 03:00 Temperature Pulse Rate 89 87 87 Respiratory Rate 37 H 0 L 141 H Blood Pressure 99/72 L 94/65 L 97/67 L Pulse Oximetry 96 97 95 08/27/18 03:27 08/27/18 04:00 08/27/18 05:00 Temperature 98.2 F Pulse Rate 86 88 86 Respiratory Rate 10 L 20 0 L Blood Pressure 100/71 Pulse Oximetry 96 95 95 08/27/18 05:01 08/27/18 06:00 08/27/18 07:00 Temperature Pulse Rate 86 85 91 H Respiratory Rate 0 L 24 10 L Blood Pressure 107/56 L 105/78 106/70 Pulse Oximetry 93 L 97 96 08/27/18 07:49 08/27/18 08:00 08/27/18 09:00 Temperature 98.7 F Pulse Rate 86 86 Respiratory Rate 6 L 10 L 7 L Blood Pressure 107/61 115/65 Pulse Oximetry 95 96 95 08/27/18 10:00 08/27/18 11:00 08/27/18 11:23 Temperature Pulse Rate 82 81 Respiratory Rate 7 L 11 L 9 L Blood Pressure 107/67 115/64 Pulse Oximetry 95 94 L 94 L 08/27/18 12:00 08/27/18 13:00 08/27/18 14:00 Temperature Pulse Rate 77 74 69 Respiratory Rate 13 16 7 L Blood Pressure 104/55 L 88/53 L Pulse Oximetry 93 L 96 94 L 08/27/18 14:01 08/27/18 15:00 08/27/18 16:00 Temperature 98.6 F Pulse Rate 69 67 66 Respiratory Rate 7 L 7 L 5 L Blood Pressure 111/55 L 100/55 L 106/56 L Pulse Oximetry 96 95 93 L 08/27/18 16:08 Temperature Pulse Rate Respiratory Rate 7 L Blood Pressure Pulse Oximetry 95 Intake & Output 08/26/18 08/27/18 08/27/18 18:59 06:59 18:59 Intake Total 2419 / 2419 1347 / 1347 Output Total 1750 / 1750 1850 / 1850 Balance 669 / 669 -503 / -503 Weight 111.9 kg Intake: IV 1000 / 1000 D5W Inj 1,000 ML @ 50 mls/hr IV 1000 / 1000 .CONT .Q20H [facility] Rx#:[id number] Oral 0 / 0 Tube Feeding 519 / 519 447 / 447 Water Bolus Amount 900 / 900 900 / 900 Output: Urine 700 / 700 1300 / 1300 Urine Amount (Stoma) 1050 / 1050 550 / 550 Nephrostomy Tube 1050 / 1050 550 / 550 Other: # Incontinent Voids 3 Date of Last Bowel Movement 08/24/18 08/24/18 08/24/18 # Bowel Movements 0 GENERAL: WBWN WM, on vent, off sedation SKIN: Warm and dry. HEAD: Normocephalic. EYES: No scleral icterus. No injection or drainage. NECK: Supple, trachea midline. No JVD or lymphadenopathy. CARDIOVASCULAR: Regular rate and rhythm without murmurs, gallops, or rubs. RESPIRATORY: Breath sounds equal bilaterally. No accessory muscle use. GASTROINTESTINAL: Abdomen soft, non-tender, nondistended. MUSCULOSKELETAL: No cyanosis, or edema. BACK: Nontender without obvious deformity. No CVA tenderness. - Urinary Catheter Management Indwelling Urethral Catheter Cath placed during this visit: yes, but has since been removed by the nurse Reason for continuing: Decision to DC catheter Removal date: 08/17/18 Removal time: 16:30 Coude Cath placed during this visit: no Assessment and Plan - Plan IMPRESSION: 1. Hypoxic, hypercapnic respiratory failure. 2. Left lung volume loss, possible atelectasis or infiltrate. 3. Left lung nodule. 4. Chronic obstructive pulmonary disease. 5. Renal insufficiency. 6. Atelactesis left lung PLAN: Vent Support, APRV mode Aerosol nebs Mucomyst nebs Cont Abx Diurease CPAP trial in AM.
[2018-08-27] MEDS: fentaNYL 10 mcg/mL Premix Drip 2,500 MCG/250 ML BAG IV.SIG PRN (21:26)
[2018-08-28] MEDS: Enoxaparin Inj 30 MG/0.3 ML Syringe SQ SCH (00:18)
[2018-08-28] MEDS: Insulin NovoLIN Regular Correctional Sugar Inj SQ SCH ×4 (00:19→20:44)
[2018-08-28] MEDS: Oral Hygiene Kit OROPHARYNG SCH ×4 (00:19→15:30)
[2018-08-28 06:30] LABS: Calcium 8.8 mg/dL (8.5-10.1); Magnesium 2.5 mg/dL (1.5-2.5); Potassium 3.1 meq/L (3.5-5.1)
[2018-08-28] MEDS: MethylPREDNISolone Sod Succinate Inj 40 MG/ML Vial IV.PUSH SCH ×2 (06:35→14:09)
[2018-08-28 08:20] LABS: Hematocrit 50.6 % (39.0-51.0); Hemoglobin 16.6 gm/dL (13.0-17.0); Mean Corpuscular HGB Conc 32.7 % (32.0-36.0); Mean Corpuscular Hemoglobin 33.4 pg (27.0-34.0); Mean Corpuscular Volume 101.9 fL (80.0-100.0); Mean Platelet Volume 11.9 fL (7.0-11.0); Platelet Count 113 th/mm3 (150-450); Red Blood Count 4.96 mil/mm3 (4.50-5.90); Red Cell Distribution Width 14.6 % (11.6-17.2); White Blood Count 23.7 th/mm3 (4.0-11.0)
[2018-08-28] MEDS: Senna/Docusate Sodium 8.6/50 MG Tablet PO SCH ×2 (08:33→20:45)
[2018-08-28] MEDS: Gabapentin 300 MG Capsule PO SCH ×2 (08:33→20:44)
[2018-08-28] MEDS: buPROPion 150 MG 12 HR Tablet PO SCH (08:33)
[2018-08-28] MEDS: levoFLOXacin 500 MG Tablet PO SCH (08:33)
[2018-08-28] MEDS: Carboxymethylcellulose 0.5% Opth Drops 15 ML Bottle EACH EYE SCH ×3 (08:34→20:44)
[2018-08-28] MEDS: Chlorhexidine 0.12% Oral Kit 15 ML UDC OROPHARYNG SCH ×2 (08:34→20:44)
[2018-08-28] MEDS: Potassium Chloride 25 MEQ Effervescent Tablet PO PRN (08:59)
[2018-08-28] MEDS: Potassium Chlor 20 mEq Premix 20 MEQ/100 ML PIGGYBACK IV.SIG PRN ×2 (09:23→11:28)
[2018-08-28 09:48] LABS: ABG Base Excess 9.4 mmol/L (-2-2); ABG PCO2 63 mmHg (38-42); ABG PO2 99 mmHG (61-120)
--- NOTE | 2018-08-28 12:43 | P.PNCC ---
Subjective Subjective Remarks/Hospital Course: 68-year-old gentleman with COPD and chronic cough who continues to smoke presented to [place] emergency department for an evaluation of altered mental status and shortness of breath. The patient went to [employer] this morning and returned on the bus and sat in the garage. The lady that takes care of him did talk to him and he said he was fine and sat down in his chair in the garage. He however did not come to his lunch and she went out and found him unresponsive with labored breathing. This occurred at 2 PM today. Patient was brought into the emergency department with altered mental status and respiratory distress. Pulse ox was in the 60s. Patient was put on high flow oxygen and later changed to BiPAP with improvement in mentation and oxygenation. The chest x-ray obtained in the emergency department shows almost complete opacification of left hemithorax. The CT without contrast shows severe cardiomegaly and no pleural effusion or pericardial effusion. The patient has been transferred to [facility] ICU for higher level of care. 08/17: no improvement in respiratory distress- mental status worsened. abg no improvement. clinically declined and emergently intubated. on bedside echo, very difficult windows due to lung disease and obesity, but dilated ivc without respiratory variation and no pericardial effusion. formal echo pending. 08/18: remains intubated. abg slowly improving. tran removed yesterday but unable to straight cath. 08/19: FiO2 down to 55%. Will re-CT the chest today. Likely just a gigantic heart causing opacification left hemithorax.. No other issues overnight. Creatinine slowly increasing. Subjective: 08/20: Febrile. Status post bronchoscopy yesterday due to mucous plug in the left lungs. Improved aeration currently 50% FiO2. We will continue to wean today. Tolerating tube feeding. Creatinine improving. 08/21 Patient remains intubated and sedated with Diprivan. Afebrile. 08/22 No events overnight off sedation tolerated CPAP for several hrs yesterday. T:100.7 last night 08/23 Patient remains intubated off sedation. T:101.4 last night. 08/24 Patient remains intubated on no sedation awake and follows commands. Had CT abdomen yesterday showed left hydronephrosis 2nd cm stone in distal left ureter s/p left nephrostomy tube placement by IR. Renal function continue to improve with Cr: 1.35 today from 1.72. Underwent bronch by mucous plugs suctioned from left lung. 08/25: tolerating 10/5 psv, but cxr much less aerated. may not do well off ventilator: significant OHS and derecruits easily. 08/26: CXR significantly improved with APRV ventilation, but clearly going to be a difficult wean from mechanical ventilation. wbc improving. still very volume overloaded, and net+ fluid balance yesterday. needs aggressive diuresis. 08/27: pulmonary mechanics appear somewhat improving. still net+ fluid balance despite aggressive diuresis attempts. Cr slightly worse, but still have not achieved a negative fluid balance. will add metolazone today. continue to wean APRV pressure as tolerated. 08/28: passed SBT today. will extubate straight to BiPAP given how significantly he de-recruits and has atelectasis. will attempt to wean from BiPAP after this. good diuresis and net negative fluid balance. still alkalotic- will hold lasix today but keep diamox to prevent further alkalosis and compensatory hypoventilation. Objective Vital Signs / I&O: Vital Signs 08/27/18 13:00 08/27/18 14:00 08/27/18 14:01 Temperature Pulse Rate 74 69 69 Respiratory Rate 16 7 L 7 L Blood Pressure 88/53 L 111/55 L Pulse Oximetry 96 94 L 96 08/27/18 15:00 08/27/18 16:00 08/27/18 16:08 Temperature 37.0 C Pulse Rate 67 66 Respiratory Rate 7 L 5 L 7 L Blood Pressure 100/55 L 106/56 L Pulse Oximetry 95 93 L 95 08/27/18 17:00 08/27/18 18:00 08/27/18 19:00 Temperature Pulse Rate 67 69 67 Respiratory Rate 16 15 23 Blood Pressure 110/55 L 108/55 L 100/59 L Pulse Oximetry 93 L 92 L 93 L 08/27/18 20:00 08/27/18 20:05 08/27/18 20:31 Temperature 35.9 C L Pulse Rate 66 65 Respiratory Rate 18 9 L 11 L Blood Pressure 109/60 114/64 Pulse Oximetry 95 96 96 08/27/18 21:00 08/27/18 21:20 08/27/18 22:00 Temperature Pulse Rate 65 62 61 Respiratory Rate 61 H 14 11 L Blood Pressure 114/74 108/60 Pulse Oximetry 96 93 L 08/27/18 23:00 08/27/18 23:48 08/28/18 00:00 Temperature 36.5 C Pulse Rate 60 57 L Respiratory Rate 13 9 L 7 L Blood Pressure 106/60 106/61 Pulse Oximetry 93 L 94 L 94 L 08/28/18 01:00 08/28/18 02:00 08/28/18 03:00 Temperature Pulse Rate 61 58 L 61 Respiratory Rate 11 L 12 21 Blood Pressure 112/66 105/64 109/67 Pulse Oximetry 91 L 92 L 94 L 08/28/18 04:00 08/28/18 04:30 08/28/18 04:40 Temperature 36.6 C Pulse Rate 57 L 59 L Respiratory Rate 16 19 15 Blood Pressure 97/62 L 99/63 L Pulse Oximetry 91 L 92 L 95 08/28/18 05:00 08/28/18 06:00 08/28/18 07:00 Temperature Pulse Rate 58 L 61 60 Respiratory Rate 13 15 14 Blood Pressure 100/56 L 106/64 101/58 L Pulse Oximetry 93 L 94 L 92 L 08/28/18 07:48 08/28/18 08:00 08/28/18 09:00 Temperature 36.4 C Pulse Rate 66 66 Respiratory Rate 15 14 14 Blood Pressure 121/68 120/69 Pulse Oximetry 94 L 90 L 92 L 08/28/18 10:00 08/28/18 11:06 Temperature Pulse Rate 77 Respiratory Rate Blood Pressure Pulse Oximetry 94 L Intake & Output 08/27/18 08/28/18 08/28/18 18:59 06:59 18:59 Intake Total 1459 / 1459 964 / 964 100 / 100 Output Total 950 / 950 2475 / 2475 Balance 509 / 509 -1511 / -1511 100 / 100 Weight 111 kg Intake: IV 250 / 250 100 / 100 KCl 20 mEq Premix Inj 20 meq In 100 / 100 100 ml @ 50 mls/hr IV.SIG Q2H PRN Rx#:[id number] fentaNYL 10 mcg/mL Premix Drip 250 / 250 2,500 mcg In 250 ml @ 50 MCG/HR 5 mls/hr IV.SIG TITRATE PRN Rx #:[id number] Oral 0 / 0 Tube Feeding 559 / 559 114 / 114 Water Bolus Amount 900 / 900 600 / 600 Output: Urine 1225 / 1225 Urine Amount (Catheter) 0 / 0 Indwelling Urethral Catheter 0 / 0 Urine Amount (Stoma) 950 / 950 1250 / 1250 Nephrostomy Tube 950 / 950 1250 / 1250 Other: # Voids 3 # Incontinent Voids 2 3 Date of Last Bowel Movement 08/24/18 08/24/18 08/24/18 # Bowel Movements 0 0 # Incontinent Bowel Movements 0 Result Diagrams: 08/28/18 07:20 08/28/18 05:20 Objective Remarks: GENERAL: 68-year-old male lying in bed, intubated, sedated HEENT: Normocephalic. Atraumatic. Pupils equal, round, reactive, round 3 mm bilaterally conjugate. Mucous membranes are moist NECK: Trachea is midline. no JVD. CHEST: B/l equal air entry, improved aeration today. CARDIOVASCULAR: normal rate, regular rhythm. Sinus. ABDOMEN: Obese, soft, nontender, nondistended. No guarding. MUSCULOSKELETAL: Pulses 2+. 1+ peripheral edema NEUROLOGICAL: Awake, follows commands Assessment and Plan - Assessment and Plan Plan: Neuro/Psych: Depression Off sedation, monitor neuro status. Awake and follows commands Acetaminophen 650 every 6 hours as needed fever Continue bupropion 50 mg daily and gabapentin 6 mg twice daily On Thiamine 100mg BID CV: Cardiomegaly Congestive Heart Failure, acute systolic and diastolic Essential hypertension Monitor HR and BP keep MAP>65mmHg -2D echo- left ventricular systolic function is severely reduced with an estimated ejection fraction in the range of 30-35%. Moderately dilated left ventricle with normal wall thickness.There is diffuse global hypokinesis. Findings consistent with Grade 1 diastolic dysfunction. The RV is likely moderately enlarged with decreased systolic function. No significant valvular heart disease seen on the images that were obtained. Unable to obtain a proper maximum TR velocity to estimate the RVSP. Using the pulmonary regurgitant velocity at the beginning of diastole, the mean PA is estimated at 31 mmHg. The inferior vena cava is normal in size with less than 50% collapse with inspiration. (RAP is estimated at 15 mmHg) There is a small pericardial effusion present. Resp: Acute hypoxic and hypercarbic Respiratory failure - improving Acute severe COPD Exacerbation Obesity Hypoventilation Syndrome Left lower lobe lung nodule Tobacco abuse Ventilator bundle Albuterol/ipratropium aerosols every 6 hours with albuterol aerosols every 2 hours as needed for dyspnea Head of bed at 30 Methylprednisolone succinate 40 g IV every 8 hours Pulmonary/Dr. Ott following s/p repeat bronch 08/[address] Ott: Mucous plugs suctioned from left lung, There are collapsing pires of the left upper lobe, which makes the lumen narrow CT chest 08/19 revealed mucous plugging involving the left lung. Post bronchoscopy 08/19. On Mucomyst nebulizers passed SBT. will extubate to BiPAP. high risk for decompensation requiring re- intubation. If he requires re-intubation, he will likely need tracheostomy to facilitate long-term separation from mechanical ventilation. PT consult, OT consult needs to be OOB aggressive pulmonary toileting. GI: Transaminitis Indeterminate hepatitis A IgM-laboratory recommends 2 months follow-up. tube feeds to Glucerna 1.5 with goal rate 45ml/hr Lansoprazole for GI prophylaxis Docusate sodium/senna 1 tablet twice daily for bowel regimen liver ultrasound -revealed enlarged liver likely hepatic steatosis versus inflammatory Hepatitis panel: Hep A IgM Indeterminate KUB abdomen: There are no features to indicate ileus. No acute abdominal abnormality is identified. Nonspecific 18 mm density in the left pelvis represent a calcification or could represent material within the sigmoid colon speech eval decrease free water replacement. Endo: Sliding scale insulin Accu-Cheks to maintain euglycemia/to 6 hours aspart medium regimen Renal: Acute kidney injury unknown baseline Hypernatremia- improving Bilateral renal cysts Monitor renal function, I/O's, avoid nephrotoxins Renal function improving CT abd/pelvis 08/23: Severe left hydronephrosis and hydroureter caused by a 2 cm stone in the distal left ureter. s/p Nephrostomy tube placement by IR 08/23 On Free water, decrease to 200ml Q6, sodium improving. Renal ultrasound revealed bilateral renal cyst. No hydronephrosis Renal- Dr. Olivares Heme: Macrocytosis Leukocytosis Monitor CBC daily. Follow trends. No indication for transfusion of blood products at this time. ID: Currently on cefepime, d/c azithro, vanc per ID. Panculture 08/22 ( Blood, sputum) -NGTD ID is following- Dr. Jauregui Repeat bronch 08/23, follow up on bronch cx from 08/23 Negative UA 08/17. Negative sputum 08/17 Bronchoscopy samples from left upper lobe 08/19. Gram stain negative Bronch washing AFB pending MSK: Elevated BMI Weight loss encouraged Access -Utilize peripheral IV. Prophylaxis - GI -Lansoprazole - DVT -SCDs enoxaparin OVERALL IMPRESSION: some improvements in pulmonary function. very high risk for decompensation. will need aggressive pulmonary toileting and PT.
--- NOTE | 2018-08-28 16:44 | P.DIET ---
Nutritional Evaluation Type of nutrition evaluation: follow-up Nutrition consult regarding: Tube Feeding Objective - Diagnosis Respiratory Failure with CO2 retention, white out - Objective [place] body weight: 78 kg % IBW: 147 (IBW = 172#) Body Weight Used for Calculations: IBW (78.2 kg) Energy Needs - Lower Range (kCal/kg): 25 Energy Needs - Upper Range (kCal/kg): 30 Lower Limit kCal/kg (kCals): 1,955 Upper Limit kCal/kg (kCals): 2,346 Lower Limit Protein Factor (Grams per Kg): 1.0 Upper Limit Protein Factor (Grams per Kg): 1.5 Lower Protein Needs (Protein): 78 Upper Protein Needs (Protein): 117 Dietitian Reviewed in Medical Record: Curent medications, Intake & Output, Labs , Medical history, Tube feeding Objective Comments: Labs: Na 138, BUN/creat 97/1.81, glu 153, LFTs elev Assessment Assessment: Pt. passed SBT and will be extubated. Last BM on 08/23, monitor, +UOP. Monitor diet advancement, PO intake and labs. Recommendations: Monitor diet advancement, PO intake and labs. Dietitian to Monitor: Lab values, Renal labs, Intake & Output, Tube feeding tolerance, Weight change, Medical course
--- NOTE | 2018-08-28 18:06 | P.PNPL ---
Subjective Interval history: 68 YOWM with VDRF, COPD Extubated ,on NC Alert, awake, follows commands Asking for his glasses Physical Exam Vital signs: Vital Signs 08/27/18 19:00 08/27/18 20:00 08/27/18 20:05 Temperature 96.6 F L Pulse Rate 67 66 Respiratory Rate 23 18 9 L Blood Pressure 100/59 L 109/60 Pulse Oximetry 93 L 95 96 08/27/18 20:31 08/27/18 21:00 08/27/18 21:20 Temperature Pulse Rate 65 65 62 Respiratory Rate 11 L 61 H 14 Blood Pressure 114/64 114/74 Pulse Oximetry 96 96 08/27/18 22:00 08/27/18 23:00 08/27/18 23:48 Temperature Pulse Rate 61 60 Respiratory Rate 11 L 13 9 L Blood Pressure 108/60 106/60 Pulse Oximetry 93 L 93 L 94 L 08/28/18 00:00 08/28/18 01:00 08/28/18 02:00 Temperature 97.7 F Pulse Rate 57 L 61 58 L Respiratory Rate 7 L 11 L 12 Blood Pressure 106/61 112/66 105/64 Pulse Oximetry 94 L 91 L 92 L 08/28/18 03:00 08/28/18 04:00 08/28/18 04:30 Temperature 97.8 F Pulse Rate 61 57 L 59 L Respiratory Rate 21 16 19 Blood Pressure 109/67 97/62 L 99/63 L Pulse Oximetry 94 L 91 L 92 L 08/28/18 04:40 08/28/18 05:00 08/28/18 06:00 Temperature Pulse Rate 58 L 61 Respiratory Rate 15 13 15 Blood Pressure 100/56 L 106/64 Pulse Oximetry 95 93 L 94 L 08/28/18 07:00 08/28/18 07:48 08/28/18 08:00 Temperature 97.6 F Pulse Rate 60 66 Respiratory Rate 14 15 14 Blood Pressure 101/58 L 121/68 Pulse Oximetry 92 L 94 L 90 L 08/28/18 09:00 08/28/18 10:00 08/28/18 10:01 Temperature Pulse Rate 66 64 65 Respiratory Rate 14 17 17 Blood Pressure 120/69 130/64 Pulse Oximetry 92 L 91 L 93 L 08/28/18 11:00 08/28/18 11:06 10/05/18 12:00 Temperature 98.5 F Pulse Rate 67 63 Respiratory Rate 15 35 H Blood Pressure 128/76 108/71 Pulse Oximetry 94 L 94 L 90 L 08/28/18 13:00 08/28/18 14:00 08/28/18 14:17 Temperature Pulse Rate 63 66 Respiratory Rate 28 H 15 Blood Pressure 107/65 114/64 Pulse Oximetry 92 L 89 L 90 L 08/28/18 15:00 08/28/18 16:00 08/28/18 17:00 Temperature 97.7 F Pulse Rate 67 69 74 Respiratory Rate 17 16 25 H Blood Pressure 118/64 110/55 L 106/56 L Pulse Oximetry 89 L 90 L 90 L Intake & Output 08/27/18 08/28/18 08/28/18 18:59 06:59 18:59 Intake Total 1459 / 1459 964 / 964 257 / 257 Output Total 950 / 950 2475 / 2475 Balance 509 / 509 -1511 / -1511 257 / 257 Weight 111 kg Intake: IV 250 / 250 257 / 257 KCl 20 mEq Premix Inj 20 meq In 200 / 200 100 ml @ 50 mls/hr IV.SIG Q2H PRN Rx#:[id number] fentaNYL 10 mcg/mL Premix Drip 250 / 250 57 / 57 2,500 mcg In 250 ml @ 50 MCG/HR 5 mls/hr IV.SIG TITRATE PRN Rx #:[id number] Oral 0 / 0 Tube Feeding 559 / 559 114 / 114 Water Bolus Amount 900 / 900 600 / 600 Output: Urine 1225 / 1225 Urine Amount (Catheter) 0 / 0 Indwelling Urethral Catheter 0 / 0 Urine Amount (Stoma) 950 / 950 1250 / 1250 Nephrostomy Tube 950 / 950 1250 / 1250 Other: # Voids 3 # Incontinent Voids 2 3 Date of Last Bowel Movement 08/24/18 08/24/18 08/24/18 # Bowel Movements 0 0 # Incontinent Bowel Movements 0 GENERAL: WBWn,NAD SKIN: Warm and dry. HEAD: Normocephalic. EYES: No scleral icterus. No injection or drainage. NECK: Supple, trachea midline. No JVD or lymphadenopathy. CARDIOVASCULAR: Regular rate and rhythm without murmurs, gallops, or rubs. RESPIRATORY: Breath sounds equal bilaterally. No accessory muscle use. GASTROINTESTINAL: Abdomen soft, non-tender, nondistended. MUSCULOSKELETAL: No cyanosis, or edema. BACK: Nontender without obvious deformity. No CVA tenderness. - Urinary Catheter Management Indwelling Urethral Catheter Cath placed during this visit: yes, but has since been removed by the nurse Reason for continuing: Decision to DC catheter Removal date: 08/17/18 Removal time: 16:30 Coude Cath placed during this visit: no Assessment and Plan - Plan IMPRESSION: 1. Hypoxic, hypercapnic respiratory failure., s/p extubation 2. Left lung volume loss, possible atelectasis or infiltrate. 3. Left lung nodule. 4. Chronic obstructive pulmonary disease. 5. Renal insufficiency. 6. Atelactesis left lung PLAN: Aerosol nebs Mucomyst nebs Cont Abx Diurease BIPAP at night and PRN
[2018-08-29] MEDS: Enoxaparin Inj 30 MG/0.3 ML Syringe SQ SCH (00:50)
[2018-08-29] MEDS: MethylPREDNISolone Sod Succinate Inj 40 MG/ML Vial IV.PUSH SCH ×4 (00:50→21:34)
[2018-08-29] MEDS: Insulin NovoLIN Regular Correctional Sugar Inj SQ SCH ×4 (00:51→17:36)
[2018-08-29] MEDS: Oral Hygiene Kit OROPHARYNG SCH ×4 (00:51→15:29)
--- NOTE | 2018-08-29 03:41 | XR ---
EXAM DATE: 08/29/2018 5:00 AM EDT AGE/SEX: 68 years / Male INDICATIONS: Shortness of breath, possible pulmonary disease. CLINICAL DATA: This is the patient's subsequent encounter. Patient reports that signs and symptoms h ave been present for 1 week and indicates a pain score of Nonresponsive. MEDICAL/SURGICAL HISTORY: Chronic obstructive pulmonary disease. Non-responsive. COMPARISON: [facility] [place] 1V SINGLE AP, 08/26/2018. . FINDINGS: There has been interval extubation and removal of nasogastric tube. Dense consolidation is present in the lung bases bilaterally, left worse than right. Cardiac contours are largely obscured. CONCLUSION: Interval extubation. Otherwise stable abnormal chest Electronically signed by: Олег Majano MD 08/29/2018 3:40 AM EDT
[2018-08-29 05:33] LABS: Hematocrit 53.8 % (39.0-51.0); Hemoglobin 17.4 gm/dL (13.0-17.0); Mean Corpuscular HGB Conc 32.3 % (32.0-36.0); Mean Corpuscular Hemoglobin 33.1 pg (27.0-34.0); Mean Corpuscular Volume 102.5 fL (80.0-100.0); Mean Platelet Volume 11.9 fL (7.0-11.0); Platelet Count 126 th/mm3 (150-450); Red Blood Count 5.25 mil/mm3 (4.50-5.90); Red Cell Distribution Width 14.3 % (11.6-17.2); White Blood Count 25.5 th/mm3 (4.0-11.0)
[2018-08-29 05:48] LABS: Calcium 8.7 mg/dL (8.5-10.1); Carbon Dioxide 36.9 meq/L (21.0-32.0); Phosphorus 6.2 mg/dL (2.5-4.9); Potassium 3.4 meq/L (3.5-5.1)
[2018-08-29] MEDS: Chlorhexidine 0.12% Oral Kit 15 ML UDC OROPHARYNG SCH ×2 (08:54→21:33)
[2018-08-29] MEDS: buPROPion 150 MG 12 HR Tablet PO SCH (08:55)
[2018-08-29] MEDS: Senna/Docusate Sodium 8.6/50 MG Tablet PO SCH ×2 (08:55→21:32)
[2018-08-29] MEDS: Gabapentin 300 MG Capsule PO SCH (08:55)
[2018-08-29] MEDS: Carboxymethylcellulose 0.5% Opth Drops 15 ML Bottle EACH EYE SCH ×3 (08:56→17:36)
[2018-08-29] MEDS: levoFLOXacin 500 MG Tablet PO SCH (08:58)
[2018-08-29] MEDS: Potassium Chloride 25 MEQ Effervescent Tablet PO PRN (09:52)
--- NOTE | 2018-08-29 10:12 | P.PNCC ---
Subjective Subjective Remarks/Hospital Course: 68-year-old gentleman with COPD and chronic cough who continues to smoke presented to [place] emergency department for an evaluation of altered mental status and shortness of breath. The patient went to latter day this morning and returned on the bus and sat in the garage. The lady that takes care of him did talk to him and he said he was fine and sat down in his chair in the garage. He however did not come to his lunch and she went out and found him unresponsive with labored breathing. This occurred at 2 PM today. Patient was brought into the emergency department with altered mental status and respiratory distress. Pulse ox was in the 60s. Patient was put on high flow oxygen and later changed to BiPAP with improvement in mentation and oxygenation. The chest x-ray obtained in the emergency department shows almost complete opacification of left hemithorax. The CT without contrast shows severe cardiomegaly and no pleural effusion or pericardial effusion. The patient has been transferred to [facility] ICU for higher level of care. 08/17: no improvement in respiratory distress- mental status worsened. abg no improvement. clinically declined and emergently intubated. on bedside echo, very difficult windows due to lung disease and obesity, but dilated ivc without respiratory variation and no pericardial effusion. formal echo pending. 08/18: remains intubated. abg slowly improving. tran removed yesterday but unable to straight cath. 08/19: FiO2 down to 55%. Will re-CT the chest today. Likely just a gigantic heart causing opacification left hemithorax.. No other issues overnight. Creatinine slowly increasing. Subjective: 08/20: Febrile. Status post bronchoscopy yesterday due to mucous plug in the left lungs. Improved aeration currently 50% FiO2. We will continue to wean today. Tolerating tube feeding. Creatinine improving. 08/21 Patient remains intubated and sedated with Diprivan. Afebrile. 08/22 No events overnight off sedation tolerated CPAP for several hrs yesterday. T:100.7 last night 08/23 Patient remains intubated off sedation. T:101.4 last night. 08/24 Patient remains intubated on no sedation awake and follows commands. Had CT abdomen yesterday showed left hydronephrosis 2nd cm stone in distal left ureter s/p left nephrostomy tube placement by IR. Renal function continue to improve with Cr: 1.35 today from 1.72. Underwent bronch by mucous plugs suctioned from left lung. 08/25: tolerating 10/5 psv, but cxr much less aerated. may not do well off ventilator: significant OHS and derecruits easily. 08/26: CXR significantly improved with APRV ventilation, but clearly going to be a difficult wean from mechanical ventilation. wbc improving. still very volume overloaded, and net+ fluid balance yesterday. needs aggressive diuresis. 08/27: pulmonary mechanics appear somewhat improving. still net+ fluid balance despite aggressive diuresis attempts. Cr slightly worse, but still have not achieved a negative fluid balance. will add metolazone today. continue to wean APRV pressure as tolerated. 08/28: passed SBT today. will extubate straight to BiPAP given how significantly he de-recruits and has atelectasis. will attempt to wean from BiPAP after this. good diuresis and net negative fluid balance. still alkalotic- will hold lasix today but keep diamox to prevent further alkalosis and compensatory hypoventilation. 08/29: successfully extubated yesterday and remains extubated. CXR with worse atelectasis, but expected due to body habitus. remains on intermittent BiPAP. net negative 2L/24h with associated improvement in renal function. remains high risk for reintubation. Objective Vital Signs / I&O: Vital Signs 08/28/18 11:00 08/28/18 11:06 08/28/18 12:00 Temperature 36.9 C Pulse Rate 67 63 Respiratory Rate 15 35 H Blood Pressure 128/76 108/71 Pulse Oximetry 94 L 94 L 90 L 08/28/18 13:00 08/28/18 14:00 08/28/18 14:17 Temperature Pulse Rate 63 66 Respiratory Rate 28 H 15 Blood Pressure 107/65 114/64 Pulse Oximetry 92 L 89 L 90 L 08/28/18 15:00 08/28/18 16:00 08/28/18 17:00 Temperature 36.5 C Pulse Rate 67 69 74 Respiratory Rate 17 16 25 H Blood Pressure 118/64 110/55 L 106/56 L Pulse Oximetry 89 L 90 L 90 L 08/28/18 18:00 08/28/18 19:00 08/28/18 20:00 Temperature 35.9 C L Pulse Rate 73 70 70 Respiratory Rate 17 17 17 Blood Pressure 108/60 115/63 108/61 Pulse Oximetry 94 L 94 L 92 L 08/28/18 21:00 08/28/18 21:44 08/28/18 22:00 Temperature Pulse Rate 68 64 Respiratory Rate 17 26 H Blood Pressure 102/61 Pulse Oximetry 94 L 95 92 L 08/28/18 23:00 08/28/18 23:30 08/28/18 23:49 Temperature Pulse Rate 67 65 Respiratory Rate 17 20 Blood Pressure 96/52 L 96/57 L Pulse Oximetry 92 L 97 98 08/29/18 00:00 08/29/18 00:30 08/29/18 01:00 Temperature 36.2 C L Pulse Rate 65 63 63 Respiratory Rate 18 18 22 Blood Pressure 98/63 L 98/57 L 99/57 L Pulse Oximetry 97 98 100 08/29/18 01:30 08/29/18 02:00 08/29/18 02:30 Temperature Pulse Rate 61 60 60 Respiratory Rate 6 L 21 18 Blood Pressure 99/59 L 94/54 L 95/54 L Pulse Oximetry 100 100 100 08/29/18 03:00 08/29/18 03:30 08/29/18 04:00 Temperature 36.2 C L Pulse Rate 64 62 68 Respiratory Rate 16 20 17 Blood Pressure 115/69 108/67 106/70 Pulse Oximetry 95 97 94 L 08/29/18 04:30 08/29/18 05:00 08/29/18 05:30 Temperature Pulse Rate 69 63 64 Respiratory Rate 18 18 19 Blood Pressure 115/68 104/60 109/62 Pulse Oximetry 96 92 L 91 L 08/29/18 06:00 08/29/18 06:30 08/29/18 07:00 Temperature Pulse Rate 64 61 58 L Respiratory Rate 21 19 16 Blood Pressure 105/61 105/59 L 102/59 L Pulse Oximetry 90 L 92 L 93 L 08/29/18 07:30 08/29/18 08:00 08/29/18 08:09 Temperature 36.5 C Pulse Rate 60 63 Respiratory Rate 19 21 Blood Pressure 102/63 99/57 L Pulse Oximetry 91 L 89 L 89 L 08/29/18 08:30 08/29/18 09:00 10/06/18 10:00 Temperature Pulse Rate 61 63 64 Respiratory Rate 20 20 Blood Pressure 100/56 L 101/59 L Pulse Oximetry 89 L 87 L Intake & Output 08/28/18 08/29/18 08/29/18 18:59 06:59 18:59 Intake Total 557 / 557 0 / 0 Output Total 1750 / 1750 1275 / 1275 Balance -1193 / -1193 -1275 / -1275 Weight 108 kg Intake: IV 257 / 257 KCl 20 mEq Premix Inj 20 meq In 200 / 200 100 ml @ 50 mls/hr IV.SIG Q2H PRN Rx#:[id number] fentaNYL 10 mcg/mL Premix Drip 57 / 57 2,500 mcg In 250 ml @ 50 MCG/HR 5 mls/hr IV.SIG TITRATE PRN Rx #:[id number] Oral 0 / 0 Tube Feeding 0 / 0 0 / 0 Tube Irrigant 300 / 300 0 / 0 Water Bolus Amount 0 / 0 Output: Urine 1250 / 1250 800 / 800 Urine Amount (Catheter) 0 / 0 Indwelling Urethral Catheter 0 / 0 Urine Amount (Stoma) 500 / 500 475 / 475 Nephrostomy Tube 500 / 500 475 / 475 Other: # Voids 0 # Incontinent Voids 0 Date of Last Bowel Movement 08/24/18 08/24/18 08/24/18 # Bowel Movements 0 # Incontinent Bowel Movements 0 Result Diagrams: 08/29/18 04:24 08/29/18 04:24 Objective Remarks: GENERAL: 68-year-old male lying in bed, BiPAP in place. HEENT: Normocephalic. Atraumatic. Pupils equal, round, reactive, round 3 mm bilaterally conjugate. Mucous membranes are moist NECK: Trachea is midline. no JVD. CHEST: equal chest rise. BiPAP in place. fio2 45%. spo2 92%. CARDIOVASCULAR: normal rate, regular rhythm. Sinus. ABDOMEN: Obese, soft, nontender, nondistended. No guarding. MUSCULOSKELETAL: Pulses 2+. 1+ peripheral edema NEUROLOGICAL: Awake, follows commands Assessment and Plan - Assessment and Plan Plan: Neuro/Psych: Depression Off sedation, monitor neuro status. Awake and follows commands Acetaminophen 650 every 6 hours as needed fever Continue bupropion 50 mg daily decrease gabapentin to 200mg BID for GFR. On Thiamine 100mg BID CV: Cardiomegaly Congestive Heart Failure, acute systolic and diastolic Essential hypertension Monitor HR and BP keep MAP>65mmHg -2D echo- left ventricular systolic function is severely reduced with an estimated ejection fraction in the range of 30-35%. Moderately dilated left ventricle with normal wall thickness.There is diffuse global hypokinesis. Findings consistent with Grade 1 diastolic dysfunction. The RV is likely moderately enlarged with decreased systolic function. No significant valvular heart disease seen on the images that were obtained. Unable to obtain a proper maximum TR velocity to estimate the RVSP. Using the pulmonary regurgitant velocity at the beginning of diastole, the mean PA is estimated at 31 mmHg. The inferior vena cava is normal in size with less than 50% collapse with inspiration. (RAP is estimated at 15 mmHg) There is a small pericardial effusion present. Resp: Acute hypoxic and hypercarbic Respiratory failure - improving Acute severe COPD Exacerbation Obesity Hypoventilation Syndrome Left lower lobe lung nodule Tobacco abuse Ventilator bundle Albuterol/ipratropium aerosols every 6 hours with albuterol aerosols every 2 hours as needed for dyspnea Head of bed at 30 Methylprednisolone succinate 40 g IV every 8 hours Pulmonary/Dr. Ott following s/p repeat bronch 08/[address] Ott: Mucous plugs suctioned from left lung, There are collapsing pires of the left upper lobe, which makes the lumen narrow CT chest 08/19 revealed mucous plugging involving the left lung. Post bronchoscopy 08/19. On Mucomyst nebulizers continue prn BiPAP. wean fio2 as tolerated needs to be OOB with PT aggressive pulmonary toilet. high risk for decompensation requiring re-intubation. If he requires re- intubation, he will likely need tracheostomy to facilitate long-term separation from mechanical ventilation. PT consult, OT consult needs to be OOB aggressive pulmonary toileting. GI: Transaminitis Indeterminate hepatitis A IgM-laboratory recommends 2 months follow-up. tube feeds to Glucerna 1.5 with goal rate 45ml/hr formal swallow eval. Lansoprazole for GI prophylaxis Docusate sodium/senna 1 tablet twice daily for bowel regimen liver ultrasound -revealed enlarged liver likely hepatic steatosis versus inflammatory Hepatitis panel: Hep A IgM Indeterminate KUB abdomen: There are no features to indicate ileus. No acute abdominal abnormality is identified. Nonspecific 18 mm density in the left pelvis represent a calcification or could represent material within the sigmoid colon decrease free water replacement. Endo: Sliding scale insulin Accu-Cheks to maintain euglycemia/to 6 hours aspart medium regimen Renal: Acute kidney injury unknown baseline Hypernatremia- improving Bilateral renal cysts Monitor renal function, I/O's, avoid nephrotoxins Renal function improving CT abd/pelvis 08/23: Severe left hydronephrosis and hydroureter caused by a 2 cm stone in the distal left ureter. s/p Nephrostomy tube placement by IR 08/23 On Free water, decrease to 200ml Q8, sodium improving. Renal ultrasound revealed bilateral renal cyst. No hydronephrosis Renal- Dr. Olivares Heme: Macrocytosis Leukocytosis Monitor CBC daily. Follow trends. No indication for transfusion of blood products at this time. ID: Currently on cefepime, d/c azithro, vanc per ID. Panculture 08/22 ( Blood, sputum) -NGTD ID is following- Dr. Jauregui Repeat bronch 08/23, follow up on bronch cx from 08/23 Negative UA 08/17. Negative sputum 08/17 Bronchoscopy samples from left upper lobe 08/19. Gram stain negative Bronch washing AFB pending MSK: Elevated BMI Weight loss encouraged Access -Utilize peripheral IV. Prophylaxis - GI -Lansoprazole - DVT -SCDs enoxaparin OVERALL IMPRESSION: some improvements in pulmonary function. very high risk for decompensation. will need aggressive pulmonary toileting and PT.
--- NOTE | 2018-08-29 13:15 | XR ---
EXAM DATE: 08/29/2018 12:00 AM EDT AGE/SEX: 68 years / Male INDICATIONS: Dobbhoff placement. CLINICAL DATA: This is the patient's initial encounter. Patient reports that signs and symptoms have been present for 1 day and indicates a pain score of Nonresponsive. MEDICAL/SURGICAL HISTORY: Chronic obstructive pulmonary disease. Non-responsive. COMPARISON: C, CHEST 1V SINGLE AP, 08/29/2018. . FINDINGS: Today's exam is compared to the prior study of 08/29/2018. There continues to be parenchymal consolida tion predominantly in the left mid to left lower lung which is unchanged compared to the prior exam. There is some consolidation the right lung base which is stable. There is no evidence of pneumothorax . There are no new or significant changes compared to the prior examination. There is a Dobbhoff feed ing tube in the patient's stomach. CONCLUSION: 1. There is a Dobbhoff feeding tube in the patient's stomach. 2. There continues to be bibasilar parenchymal consolidation without significant change, left greate r than right. Electronically signed by: Shayne Boss MD 08/29/2018 1:14 PM EDT
[2018-08-29] MEDS: Gabapentin 100 MG Capsule PO SCH (21:32)
[2018-08-29] MEDS: Enoxaparin Inj 40 MG/0.4 ML Syringe SQ SCH (21:34)
[2018-08-30] MEDS: Insulin NovoLIN Regular Correctional Sugar Inj SQ SCH ×4 (00:32→17:33)
[2018-08-30] MEDS: Oral Hygiene Kit OROPHARYNG SCH ×4 (00:32→15:50)
[2018-08-30 05:05] LABS: Hematocrit 54.8 % (39.0-51.0); Hemoglobin 17.8 gm/dL (13.0-17.0); Mean Corpuscular HGB Conc 32.5 % (32.0-36.0); Mean Corpuscular Hemoglobin 33.3 pg (27.0-34.0); Mean Corpuscular Volume 102.5 fL (80.0-100.0); Mean Platelet Volume 12.5 fL (7.0-11.0); Platelet Count 154 th/mm3 (150-450); Red Blood Count 5.35 mil/mm3 (4.50-5.90); Red Cell Distribution Width 14.6 % (11.6-17.2); White Blood Count 23.9 th/mm3 (4.0-11.0)
[2018-08-30 05:24] LABS: Calcium 8.7 mg/dL (8.5-10.1); Magnesium 2.9 mg/dL (1.5-2.5); Phosphorus 4.6 mg/dL (2.5-4.9)
[2018-08-30 05:26] LABS: Potassium 3.7 meq/L (3.5-5.1)
[2018-08-30] MEDS: MethylPREDNISolone Sod Succinate Inj 40 MG/ML Vial IV.PUSH SCH ×3 (05:54→21:05)
[2018-08-30] MEDS: buPROPion 150 MG 12 HR Tablet PO SCH (08:23)
[2018-08-30] MEDS: Gabapentin 100 MG Capsule PO SCH ×2 (08:23→21:04)
[2018-08-30] MEDS: levoFLOXacin 500 MG Tablet PO SCH (08:23)
[2018-08-30] MEDS: Senna/Docusate Sodium 8.6/50 MG Tablet PO SCH ×2 (08:23→21:05)
[2018-08-30] MEDS: Carboxymethylcellulose 0.5% Opth Drops 15 ML Bottle EACH EYE SCH ×3 (08:24→17:34)
[2018-08-30] MEDS: Chlorhexidine 0.12% Oral Kit 15 ML UDC OROPHARYNG SCH ×2 (08:24→21:03)
--- NOTE | 2018-08-30 11:52 | P.PNIM ---
Subjective Interval history: Patient appears weak. He is responding to my questions appropriately however is very difficult to understand given his current condition. Physical Exam Vital signs: Vital Signs 08/29/18 12:00 08/29/18 12:30 08/29/18 13:00 Temperature 97.6 F Pulse Rate 65 66 68 Respiratory Rate 21 21 22 Blood Pressure 105/61 115/68 112/64 Pulse Oximetry 93 L 91 L 91 L 08/29/18 13:30 08/29/18 14:00 08/29/18 14:30 Temperature Pulse Rate 67 65 65 Respiratory Rate 21 22 20 Blood Pressure 112/64 115/65 121/65 Pulse Oximetry 92 L 91 L 94 L 08/29/18 15:00 08/29/18 15:30 08/29/18 16:00 Temperature 97.7 F Pulse Rate 63 64 65 Respiratory Rate 20 23 19 Blood Pressure 118/63 121/62 123/67 Pulse Oximetry 92 L 95 93 L 08/29/18 16:30 08/29/18 17:00 08/29/18 17:30 Temperature Pulse Rate 67 66 66 Respiratory Rate 18 19 22 Blood Pressure 123/69 121/68 111/62 Pulse Oximetry 93 L 92 L 92 L 08/29/18 18:00 08/29/18 18:30 08/29/18 19:00 Temperature Pulse Rate 66 65 66 Respiratory Rate 22 21 20 Blood Pressure 115/68 116/67 116/66 Pulse Oximetry 92 L 94 L 93 L 08/29/18 19:30 08/29/18 20:00 08/29/18 20:30 Temperature 97.8 F Pulse Rate 68 70 70 Respiratory Rate 20 21 20 Blood Pressure 119/67 122/68 116/66 Pulse Oximetry 93 L 92 L 91 L 08/29/18 21:00 08/29/18 21:30 08/29/18 22:00 Temperature Pulse Rate 69 72 71 Respiratory Rate 19 19 20 Blood Pressure 119/67 122/69 118/67 Pulse Oximetry 94 L 92 L 92 L 08/29/18 23:00 08/30/18 00:00 08/30/18 00:08 Temperature 97.9 F Pulse Rate 72 71 Respiratory Rate 18 23 Blood Pressure 126/67 122/68 Pulse Oximetry 91 L 92 L 96 08/30/18 01:00 08/30/18 02:00 08/30/18 03:00 Temperature Pulse Rate 63 68 67 Respiratory Rate 38 H 21 24 Blood Pressure 115/63 117/63 117/64 Pulse Oximetry 91 L 91 L 91 L 08/30/18 03:44 08/30/18 04:00 08/30/18 05:00 Temperature 97.7 F Pulse Rate 71 68 Respiratory Rate 28 H 34 H Blood Pressure 122/65 117/65 Pulse Oximetry 93 L 91 L 91 L 08/30/18 06:00 08/30/18 07:00 08/30/18 07:42 Temperature Pulse Rate 71 66 Respiratory Rate 34 H 21 Blood Pressure 122/67 123/68 Pulse Oximetry 92 L 94 L 94 L 08/30/18 08:00 08/30/18 09:00 08/30/18 10:00 Temperature 96.8 F L Pulse Rate 69 80 86 Respiratory Rate 20 38 H Blood Pressure 128/71 129/73 Pulse Oximetry 92 L 92 L Intake & Output 08/29/18 08/30/18 08/30/18 18:59 06:59 18:59 Intake Total 54 / 54 601 / 601 Output Total 1300 / 1300 Balance 54 / 54 -699 / -699 Weight 103.5 kg Intake: Oral 0 / 0 Tube Feeding 54 / 54 381 / 381 Tube Irrigant 20 / 20 Water Bolus Amount 200 / 200 Output: Urine 500 / 500 Urine Amount (Catheter) 0 / 0 Indwelling Urethral Catheter 0 / 0 Urine Amount (Stoma) 800 / 800 Nephrostomy Tube 800 / 800 Other: # Voids 3 2 # Incontinent Voids 0 Date of Last Bowel Movement 08/24/18 08/24/18 08/24/18 # Bowel Movements 0 # Incontinent Bowel Movements 0 Narrative: General patient is sitting upright in bed. He says that he feels much better than yesterday. Patient appears weak. HEENT extraocular movements are intact, nasal cannula in place. NG tube in place. Cardiovascular S1-S2 audible Respiratory decreased breath sounds in the left lung. Coarseness on the right. Abdomen soft, distended, nontender, bowel sounds present Extremities trace edema of bilateral lower extremities Neuro patient is responding appropriately to commands. He is difficult to understand as he is weak. He can move his extremities however power is significantly decreased due to his current condition. Sensation is intact bilaterally. - Urinary Catheter Management Indwelling Urethral Catheter Cath placed during this visit: yes, but has since been removed by the nurse Reason for continuing: Decision to DC catheter Removal date: 08/17/18 Removal time: 16:30 Coude Cath placed during this visit: no Results - Labs CBC & Chem 7: 08/30/18 03:42 08/30/18 03:42 Laboratory Results - last 24 hr 08/29/18 08/29/18 08/29/18 11:56 14:58 17:33 WBC RBC Hgb Hct MCV MCH MCHC RDW Plt Count MPV Sodium Potassium 4.2 D Chloride Carbon Dioxide Anion Gap BUN Creatinine Estimated GFR POC Glucose 133 H 127 H Random Glucose Calcium Phosphorus Magnesium 08/29/18 08/30/18 08/30/18 23:39 03:42 03:42 WBC 23.9 H RBC 5.35 Hgb 17.8 H Hct 54.8 H MCV 102.5 H MCH 33.3 MCHC 32.5 RDW 14.6 Plt Count 154 MPV 12.5 H Sodium 144 Potassium 3.7 Chloride 100 Carbon Dioxide 34.0 H Anion Gap 10 BUN 103 H Creatinine 1.50 H Estimated GFR 47 L POC Glucose 107 Random Glucose 146 H Calcium 8.7 Phosphorus 4.6 D Magnesium 2.9 H 08/30/18 08/30/18 05:49 05:50 WBC RBC Hgb Hct MCV MCH MCHC RDW Plt Count MPV Sodium Potassium Chloride Carbon Dioxide Anion Gap BUN Creatinine Estimated GFR POC Glucose 159 H 157 H Random Glucose Calcium Phosphorus Magnesium - Imaging Impressions Chest X-Ray 08/29/18 00:00 CONCLUSION: 1. There is a Dobbhoff feeding tube in the patient's stomach. 2. There continues to be bibasilar parenchymal consolidation without significant change, left greater than right. Assessment and Plan - Plan This patient is a 68-year-old male with a diagnosis of COPD, systolic CHF with an ejection fraction of approximately 35%. The patient initially presented to [place] emergency department with shortness of breath and acute encephalopathy. The patient was found to be in acute hypoxic hypercapnic respiratory failure. CT scan of the chest showed nearly complete opacification of the left hemithorax and severe cardiomegaly. He was then transferred to [facility] intensive care unit for higher level of care. 1. Acute hypoxic hypercapnic respiratory failure secondary nearly complete opacification of the left hemithorax status post bronchoscopy 2. COPD 3. Tobacco smoking The patient says he feels better than he did yesterday. WBC count is elevated at 23. No fevers overnight. Continue supplemental oxygen Continue with breathing treatments as needed. IV steroids Pulmonary/Dr. Ott following Status post repeat bronchoscopy 08/23 and mucous plugs suctioned from the left. There are collapsing pires of the left upper lobe which makes the lumen narrow. I will discuss the case with pulmonary. I evaluated the patient's left lung with the bedside ultrasound and no free fluid was seen on my bedside ultrasound examination however due to the patient' s size and positioning the evaluation was difficult. Continue IV antibiotics. Patient was advised to not smoke. 4. Systolic CHF exacerbation Ejection fraction is approximately 33%. Continue IV diuresis with Diamox as the patient's bicarb has been continuously elevating. Once the patient is diuresed he would benefit from being started on a beta- jose and aspirin. No KARINA inhibitor as the patient is currently in what appears to be acute kidney injury. 5. Depression Continue current management with bupropion. Lovenox for DVT prophylaxis, continue with GI prophylaxis as well. This patient is a high risk patient and low threshold for transfer to critical care if he decompensates. If you have any questions regarding my evaluation today please call me at [phone]. I will attempt to discuss this case today with Dr. Ott.
[2018-08-30] MEDS: Enoxaparin Inj 40 MG/0.4 ML Syringe SQ SCH (21:04)
--- NOTE | 2018-08-30 23:28 | CT ---
EXAM DATE: 08/30/2018 10:28 PM EDT AGE/SEX: 68 years / Male INDICATIONS: Respiratory distress; evaluate left consolidation and pleural effusion. CLINICAL DATA: This is the patient's subsequent encounter. Patient reports that signs and symptoms h ave been present for 4 - 6 days and indicates a pain score of Nonresponsive. MEDICAL/SURGICAL HISTORY: Renal failure, chronic. Chronic obstructive pulmonary disease. Congesti ve heart failure. Abnormal liver enzymes None. RADIATION DOSE: 10.62 CTDI (mGy) COMPARISON: [facility] [place]ST [place]/O CONTRAST, 08/23/2018. . TECHNIQUE: Multiple contiguous axial images were obtained through the chest without contrast. Image s were obtained in suspended respiration using multiple row detector helical technique. Using automa grace exposure control and adjustment of the mA and/or kV according to patient size, radiation dose was kept as low as reasonably achievable to obtain optimal diagnostic quality images. DICOM format imag e data is available electronically for review and comparison. FINDINGS: Lungs: Mesial evaluation of the lung parenchyma is limited by respiratory motion artifact. There is persistent volume loss/collapse of the left lower lobe. Mild patchy groundglass opacity versus consol idation is present in the left upper lobe. There is fluidlike material in the left main bronchus. Vol ume loss versus consolidation remains present in the right lower lobe. No pneumothorax is present. Mediastinum: R vessels demonstrate no acute abnormality on this noncontrast examination. The main pu lmonary artery remains enlarged measuring approximately 4.3 cm on this examination. There is leftward shift of the mediastinum secondary to the left lung volume loss. No lymphadenopathy is present. Ther e is a stable calcified subcarinal lymph node and calcified right hilar lymph node. Pleurae: No pleural effusion or pleural thickening. Axillae: No lymphadenopathy. Musculoskeletal: The bones and soft tissues demonstrate no acute abnormality. There are degenerativ e changes of the thoracic spine. Other: The visualized upper abdominal structures demonstrate no acute abnormality. Nasogastric tube distal tip is in the stomach. There is stable enlargement of the left lobe of the thyroid gland whic h likely contains a hypodense nodule measuring approximately 3.3 cm. CONCLUSION: 1. Persistent left lower lobe volume loss/collapse with likely some degree of consolidation. This is very similar to the prior examination. No significant pleural effusion is present. The fluidlike mat erial is visualized within the left main bronchus suggesting aspiration. 2. Slightly increased consolidation/volume loss in the right lower lobe. 3. Stable enlarged main pulmonary artery suggesting pulmonary arterial hypertension. 4. Stable 3.3 cm left thyroid nodule. Electronically signed by: Олег Kee MD 08/30/2018 11:26 PM EDT
[2018-08-31] MEDS: Insulin NovoLIN Regular Correctional Sugar Inj SQ SCH ×4 (00:49→19:42)
[2018-08-31] MEDS: Oral Hygiene Kit OROPHARYNG SCH ×4 (00:50→19:53)
[2018-08-31] MEDS: MethylPREDNISolone Sod Succinate Inj 40 MG/ML Vial IV.PUSH SCH ×3 (05:29→21:35)
[2018-08-31 06:04] LABS: Baso % (Auto) 0.1 % (0.0-2.0); Hematocrit 56.1 % (39.0-51.0); Lymph # (Auto) 0.3 th/mm3 (1.0-4.8); Lymph % (Auto) 1.2 % (9.0-44.0); Mean Corpuscular HGB Conc 32.1 % (32.0-36.0); Mean Corpuscular Hemoglobin 33.3 pg (27.0-34.0); Mean Corpuscular Volume 103.6 fL (80.0-100.0); Mean Platelet Volume 12.7 fL (7.0-11.0); Mono # (Auto) 1.3 th/mm3 (0.0-0.9); Mono % (Auto) 5.9 % (0.0-8.0); Neut # (Auto) 20.8 th/mm3 (1.8-7.7); Neut % (Auto) 92.8 % (16.0-70.0); Platelet Count 149 th/mm3 (150-450); Red Blood Count 5.41 mil/mm3 (4.50-5.90); Red Cell Distribution Width 14.5 % (11.6-17.2); White Blood Count 22.4 th/mm3 (4.0-11.0)
[2018-08-31 06:24] LABS: Calcium 9.5 mg/dL (8.5-10.1); Carbon Dioxide 31.5 meq/L (21.0-32.0); Magnesium 2.8 mg/dL (1.5-2.5); Phosphorus 3.4 mg/dL (2.5-4.9); Potassium 3.2 meq/L (3.5-5.1)
[2018-08-31] MEDS: Senna/Docusate Sodium 8.6/50 MG Tablet PO SCH ×2 (08:25→21:35)
[2018-08-31] MEDS: levoFLOXacin 500 MG Tablet PO SCH (08:25)
[2018-08-31] MEDS: buPROPion 150 MG 12 HR Tablet PO SCH (08:25)
[2018-08-31] MEDS: Gabapentin 100 MG Capsule PO SCH ×2 (08:27→21:34)
[2018-08-31] MEDS: Carboxymethylcellulose 0.5% Opth Drops 15 ML Bottle EACH EYE SCH ×3 (08:28→19:54)
[2018-08-31] MEDS: Chlorhexidine 0.12% Oral Kit 15 ML UDC OROPHARYNG SCH ×2 (08:42→21:34)
--- NOTE | 2018-08-31 11:39 | P.PN ---
Subjective Interval history: technology specialist Notes: 68-year-old gentleman with COPD and chronic cough who continues to smoke presented to [place] emergency department for an evaluation of altered mental status and shortness of breath. The patient went to [employer] this morning and returned on the bus and sat in the garage. The lady that takes care of him did talk to him and he said he was fine and sat down in his chair in the garage. He however did not come to his lunch and she went out and found him unresponsive with labored breathing. This occurred at 2 PM today. Patient was brought into the emergency department with altered mental status and respiratory distress. Pulse ox was in the 60s. Patient was put on high flow oxygen and later changed to BiPAP with improvement in mentation and oxygenation. The chest x-ray obtained in the emergency department shows almost complete opacification of left hemithorax. The CT without contrast shows severe cardiomegaly and no pleural effusion or pericardial effusion. The patient has been transferred to [facility] ICU for higher level of care. 08/17: no improvement in respiratory distress- mental status worsened. abg no improvement. clinically declined and emergently intubated. on bedside echo, very difficult windows due to lung disease and obesity, but dilated ivc without respiratory variation and no pericardial effusion. formal echo pending. 08/18: remains intubated. abg slowly improving. tran removed yesterday but unable to straight cath. 08/19: FiO2 down to 55%. Will re-CT the chest today. Likely just a gigantic heart causing opacification left hemithorax.. No other issues overnight. Creatinine slowly increasing. 08/20: Febrile. Status post bronchoscopy yesterday due to mucous plug in the left lungs. Improved aeration currently 50% FiO2. We will continue to wean today. Tolerating tube feeding. Creatinine improving. 08/21 Patient remains intubated and sedated with Diprivan. Afebrile. 08/22 No events overnight off sedation tolerated CPAP for several hrs yesterday. T:100.7 last night 08/23 Patient remains intubated off sedation. T:101.4 last night. 08/24 Patient remains intubated on no sedation awake and follows commands. Had CT abdomen yesterday showed left hydronephrosis 2nd cm stone in distal left ureter s/p left nephrostomy tube placement by IR. Renal function continue to improve with Cr: 1.35 today from 1.72. Underwent bronch by mucous plugs suctioned from left lung. 08/25: tolerating 10/5 psv, but cxr much less aerated. may not do well off ventilator: significant OHS and derecruits easily. 08/26: CXR significantly improved with APRV ventilation, but clearly going to be a difficult wean from mechanical ventilation. wbc improving. still very volume overloaded, and net+ fluid balance yesterday. needs aggressive diuresis. 08/27: pulmonary mechanics appear somewhat improving. still net+ fluid balance despite aggressive diuresis attempts. Cr slightly worse, but still have not achieved a negative fluid balance. will add metolazone today. continue to wean APRV pressure as tolerated. 08/28: passed SBT today. will extubate straight to BiPAP given how significantly he de-recruits and has atelectasis. will attempt to wean from BiPAP after this. good diuresis and net negative fluid balance. still alkalotic- will hold lasix today but keep diamox to prevent further alkalosis and compensatory hypoventilation. 08/29: successfully extubated yesterday and remains extubated. CXR with worse atelectasis, but expected due to body habitus. remains on intermittent BiPAP. net negative 2L/24h with associated improvement in renal function. remains high risk for reintubation. Hospitalist Notes: 08/31: Seen in his bedroom he is been followed by ID specialist, recommended to continue Oral Levaquin, to try to reduce fluid overload likely ongoing aspiration, followed by educational specialist, with diagnosis of Hypoxic hypercapnic respiratory failure, status post extubation COPD, continue Bronchodilator, Mucolytic and incentive spirometry, BiPAP at night, continue antibiotics and Diuresis, discussed with nurse Miss Rankin she states the patient had increased right hemiparesis asked for CT brain and Neurology specialist consult. No nausea, vomit or diarrhea. Physical Exam Vital signs: Vital Signs 08/30/18 12:00 08/30/18 13:00 08/30/18 14:00 Temperature 98.6 F Pulse Rate 90 92 H 90 Respiratory Rate 26 H 29 H 23 Blood Pressure 128/72 126/72 128/72 Pulse Oximetry 90 L 90 L 90 L 08/30/18 15:00 08/30/18 16:00 08/30/18 18:00 Temperature 97.8 F Pulse Rate 86 100 H 108 H Respiratory Rate 27 H 24 Blood Pressure 127/78 139/83 Pulse Oximetry 92 L 92 L 08/30/18 19:00 08/30/18 19:54 08/30/18 20:00 Temperature 98 F Pulse Rate 109 H Respiratory Rate 20 Blood Pressure 135/86 Pulse Oximetry 90 L 89 L 90 L 08/30/18 20:34 08/30/18 22:00 08/31/18 00:00 Temperature 97.8 F Pulse Rate 106 H 99 H 90 Respiratory Rate 24 18 Blood Pressure 128/78 Pulse Oximetry 90 L 08/31/18 00:31 08/31/18 02:00 08/31/18 03:15 Temperature Pulse Rate 80 Respiratory Rate Blood Pressure Pulse Oximetry 89 L 91 L 08/31/18 04:00 08/31/18 06:00 08/31/18 07:48 Temperature 98 F Pulse Rate 74 68 Respiratory Rate 16 Blood Pressure 103/62 Pulse Oximetry 89 L 100 08/31/18 08:00 08/31/18 10:45 Temperature Pulse Rate 75 Respiratory Rate 21 Blood Pressure Pulse Oximetry 91 L Intake & Output 08/30/18 08/31/18 08/31/18 18:59 06:59 18:59 Intake Total 550 / 550 670 / 670 Output Total 1200 / 1200 Balance 550 / 550 -530 / -530 Weight 104.5 kg Intake: Oral 0 / 0 Tube Feeding 550 / 550 450 / 450 Tube Irrigant 20 / 20 Water Bolus Amount 200 / 200 Output: Urine 600 / 600 Urine Amount (Catheter) 0 / 0 Indwelling Urethral Catheter 0 / 0 Urine Amount (Stoma) 600 / 600 Nephrostomy Tube 600 / 600 Other: # Voids 2 2 # Incontinent Voids 0 Date of Last Bowel Movement 08/24/18 08/24/18 08/24/18 # Bowel Movements 1 # Incontinent Bowel Movements 0 Narrative: GENERAL: Well-developed patient, in no apparent distress. CARDIOVASCULAR: Regular rate and rhythm without murmurs, gallops, or rubs. RESPIRATORY: Severe decreased breath sounds bilateral, expiratory wheezing and soft inspiratory crackles. GASTROINTESTINAL: Abdomen soft, non-tender, nondistended. Normal active bowel sounds MUSCULOSKELETAL: Edema 2+ NEURO: Alert & Oriented x4 to person, place, time, situation. Moves all ext x4 - Urinary Catheter Management Indwelling Urethral Catheter Cath placed during this visit: yes, but has since been removed by the nurse Reason for continuing: Decision to DC catheter Removal date: 08/17/18 Removal time: 16:30 Coude Cath placed during this visit: no Results - Labs CBC & Chem 7: 09/01/18 06:07 09/01/18 06:07 Laboratory Results - last 24 hr 08/30/18 08/30/18 08/31/18 13:11 17:31 00:47 WBC RBC Hgb Hct MCV MCH MCHC RDW Plt Count MPV Neut % (Auto) Lymph % (Auto) [place] % (Auto) Eos % (Auto) Baso % (Auto) Neut # (Auto) Lymph # (Auto) [place] # (Auto) Eos # (Auto) Baso # (Auto) WBC Differential Differential Comment Sodium Potassium Chloride Carbon Dioxide Anion Gap BUN Creatinine Estimated GFR POC Glucose 127 H 138 H 135 H Random Glucose Calcium Phosphorus Magnesium 08/31/18 08/31/18 08/31/18 04:35 04:35 04:38 WBC 22.4 H RBC 5.41 Hgb 18.0 H Hct 56.1 H MCV 103.6 H MCH 33.3 MCHC 32.1 RDW 14.5 Plt Count 149 L MPV 12.7 H Neut % (Auto) 92.8 H Lymph % (Auto) 1.2 L [place] % (Auto) 5.9 Eos % (Auto) 0.0 Baso % (Auto) 0.1 Neut # (Auto) 20.8 H Lymph # (Auto) 0.3 L [place] # (Auto) 1.3 H Eos # (Auto) 0.0 Baso # (Auto) 0.0 WBC Differential . Differential Comment Auto diff final Sodium 148 H Potassium 3.2 L Chloride 105 Carbon Dioxide 31.5 Anion Gap 12 BUN 118 H Creatinine 1.68 H Estimated GFR 41 L POC Glucose 157 H Random Glucose 167 H Calcium 9.5 D Phosphorus 3.4 D Magnesium 2.8 H - Imaging Impressions Chest CT 08/30/18 00:00 CONCLUSION: 1. Persistent left lower lobe volume loss/collapse with likely some degree of consolidation. This is very similar to the prior examination. No significant pleural effusion is present. The fluidlike material is visualized within the left main bronchus suggesting aspiration. 2. Slightly increased consolidation/volume loss in the right lower lobe. 3. Stable enlarged main pulmonary artery suggesting pulmonary arterial hypertension. 4. Stable 3.3 cm left thyroid nodule. Assessment and Plan - Plan This patient is a 68-year-old male with a diagnosis of COPD, systolic CHF with an ejection fraction of approximately 35%. The patient initially presented to [place] emergency department with shortness of breath and acute encephalopathy. The patient was found to be in acute hypoxic hypercapnic respiratory failure. CT scan of the chest showed nearly complete opacification of the left hemithorax and severe cardiomegaly. He was then transferred to [facility] intensive care unit for higher level of care. 1. Acute hypoxic hypercapnic respiratory failure secondary nearly complete opacification of the left hemithorax status post bronchoscopy 2. COPD 3. Tobacco smoking The patient says he feels better than he did yesterday. WBC count is elevated at 23. No fevers overnight. Continue supplemental oxygen, educational specialist following. Continue with breathing treatments as needed. to continue Bronchodilator, Mucolytic incentive spirometry, Status post repeat bronchoscopy 08/23 and mucous plugs suctioned from the left. There are collapsing pires of the left upper lobe which makes the lumen narrow. BiPAP at night, ID specialist following recommended to continue Oral Levaquin, to try to reduce fluid overload he was advised not to smoke, 4. Systolic CHF exacerbation Ejection fraction is approximately 33%. Diffuse Hpokinesis, Grade 1 Diastolic dysfunction, RV with decreased systolic function. PA 31 mm Hg. Continue IV diuresis with Diamox as the patient's bicarb has been continuously elevating. Once the patient is diuresed he would benefit from being started on a beta- jose and aspirin. No KARINA inhibitor as the patient is currently in what appears to be acute kidney injury. 5. Depression to continue Bupropion 50 mg daily. decreased Gabapentin 200 mg BID for GFR on Thiamine 100 mg BID. 6. Transaminitis/Indeterminate Hepatitis A IgM, Tube feeds, formal swallow eval , PPIs, Liver US -revealed enlarged liver likely hepatic steatosis versus inflammatory Hepatitis panel: Hep A IgM Indeterminate, KUB abdomen: There are no features to indicate ileus. No acute abdominal abnormality is identified. Nonspecific 18 mm density in the left pelvis represent a calcification or could represent material within the sigmoid colon 7. CJ CT abd/pelvis 08/23: Severe left hydronephrosis and hydroureter caused by a 2 cm stone in the distal left ureter. s/p Nephrostomy tube placement by IR 08/23 , On Free water, decrease to 200ml Q8, sodium improving.Renal ultrasound revealed bilateral renal cyst. No hydronephrosis, Nephrology following Dr. Olivares. 8. Leukocytosis Cefepime, ID following, discontinued Vancomycin and Azithromycin. Repeat bronch 08/23, follow up on bronch cx from 08/23 Negative UA 08/17. Negative sputum 08/17 Bronchoscopy samples from left upper lobe 08/19. Gram stain negative Bronch washing [employer] pending . right Hemiparesis asked for CT brain negative, seen by neurology specialist started the patient on Aspirin 81 mg and recommended for MRI brain. failed swallow test and will need PT at Rehab Lovenox for DVT prophylaxis, continue with GI prophylaxis as well. Overall Poor short term prognosis. Code Status: Full code. Discussed Condition With: Patient and Nurse. Discharge Planning: Not yet cleared by specialists.
--- NOTE | 2018-08-31 13:09 | P.PNID ---
Subjective Remarks: ID [facility] for is a 68-year-old white male who has a history of COPD. The patient was found with altered mental status and unresponsive later on while sitting in his garage. He was brought to [facility] and then subsequently transferred here to [facility]. The patient was noted to be hypoxic and a CT scan of the chest showed significant volume loss on the left lung with almost entire collapse of the left lung. He was subsequently intubated. He underwent bronchoscopy with lavage of the left lung. There was thick mucus plugs noted. ID consult requested for Fever and worsening leukocytosis. Successfully extubated yesterday Remains extubated. CXR and CT with persistent/worsening atelectasis and fluid in bronchus ? aspiration. High risk for aspiration based on these findings. s/p nephrostomy tube placement. Awake and alert and responsive. Denies pain. Afebrile. Cultures have no growth so far. Antibiotics: Levaquin oral Lines: Lines ok Past Medical History: COPD Allergies/Adverse Reactions: Allergies No Known Allergies Allergy (Unverified 08/16/18 16:33) Objective Vital Signs 08/30/18 14:00 08/30/18 15:00 08/30/18 16:00 Temperature 97.8 F Pulse Rate 90 86 100 H Respiratory Rate 23 27 H 24 Blood Pressure 128/72 127/78 139/83 Pulse Oximetry 90 L 92 L 92 L 08/30/18 18:00 08/30/18 19:00 08/30/18 19:54 Temperature Pulse Rate 108 H Respiratory Rate Blood Pressure Pulse Oximetry 90 L 89 L 08/30/18 20:00 08/30/18 20:34 08/30/18 22:00 Temperature 98 F Pulse Rate 109 H 106 H 99 H Respiratory Rate 20 24 Blood Pressure 135/86 Pulse Oximetry 90 L 08/31/18 00:00 08/31/18 00:31 08/31/18 02:00 Temperature 97.8 F Pulse Rate 90 80 Respiratory Rate 18 Blood Pressure 128/78 Pulse Oximetry 90 L 89 L 08/31/18 03:15 08/31/18 04:00 08/31/18 06:00 Temperature 98 F Pulse Rate 74 68 Respiratory Rate 16 Blood Pressure 103/62 Pulse Oximetry 91 L 89 L 08/31/18 07:48 08/31/18 08:00 08/31/18 10:00 Temperature Pulse Rate 75 76 Respiratory Rate 21 Blood Pressure Pulse Oximetry 100 08/31/18 10:45 Temperature Pulse Rate Respiratory Rate Blood Pressure Pulse Oximetry 91 L Intake & Output 08/30/18 08/31/18 08/31/18 18:59 06:59 18:59 Intake Total 550 / 550 670 / 670 Output Total 1200 / 1200 Balance 550 / 550 -530 / -530 Weight 104.5 kg Intake: Oral 0 / 0 Tube Feeding 550 / 550 450 / 450 Tube Irrigant 20 / 20 Water Bolus Amount 200 / 200 Output: Urine 600 / 600 Urine Amount (Catheter) 0 / 0 Indwelling Urethral Catheter 0 / 0 Urine Amount (Stoma) 600 / 600 Nephrostomy Tube 600 / 600 Other: # Voids 2 2 # Incontinent Voids 0 Date of Last Bowel Movement 08/24/18 08/24/18 08/24/18 # Bowel Movements 1 # Incontinent Bowel Movements 0 Lab - Hematology Results 08/30/18 08/31/18 03:42 04:35 WBC 23.9 H 22.4 H RBC 5.35 5.41 Hgb 17.8 H 18.0 H Hct 54.8 H 56.1 H MCV 102.5 H 103.6 H MCH 33.3 33.3 MCHC 32.5 32.1 RDW 14.6 14.5 Plt Count 154 149 L MPV 12.5 H 12.7 H Neut % (Auto) 92.8 H Lymph % (Auto) 1.2 L [place] % (Auto) 5.9 Eos % (Auto) 0.0 Baso % (Auto) 0.1 Neut # (Auto) 20.8 H Lymph # (Auto) 0.3 L [place] # (Auto) 1.3 H Eos # (Auto) 0.0 Baso # (Auto) 0.0 WBC Differential . Differential Comment Auto diff final Lab - Chemistry Results 08/29/18 08/29/18 08/29/18 14:58 17:33 23:39 Sodium Potassium 4.2 D Chloride Carbon Dioxide Anion Gap BUN Creatinine Estimated GFR POC Glucose 127 H 107 Random Glucose Calcium Phosphorus Magnesium 08/30/18 08/30/18 08/30/18 03:42 05:49 05:50 Sodium 144 Potassium 3.7 Chloride 100 Carbon Dioxide 34.0 H Anion Gap 10 BUN 103 H Creatinine 1.50 H Estimated GFR 47 L POC Glucose 159 H 157 H Random Glucose 146 H Calcium 8.7 Phosphorus 4.6 D Magnesium 2.9 H 08/30/18 08/30/18 08/31/18 13:11 17:31 00:47 Sodium Potassium Chloride Carbon Dioxide Anion Gap BUN Creatinine Estimated GFR POC Glucose 127 H 138 H 135 H Random Glucose Calcium Phosphorus Magnesium 08/31/18 08/31/18 04:35 04:38 Sodium 148 H Potassium 3.2 L Chloride 105 Carbon Dioxide 31.5 Anion Gap 12 BUN 118 H Creatinine 1.68 H Estimated GFR 41 L POC Glucose 157 H Random Glucose 167 H Calcium 9.5 D Phosphorus 3.4 D Magnesium 2.8 H Imaging: ITS Impressions Abdomen Ultrasound 08/19/18 00:00 CONCLUSION: 1. Hepatomegaly with diffuse hyperechoic texture characteristic of steatosis or diffuse hepatocellular disease. 2. Bilateral renal cysts. 3. Nonvisualization of the gallbladder and pancreas. 4. No evidence of hydronephrosis or abnormal fluid collections. Abdomen X-Ray 08/22/18 07:03 CONCLUSION: 1. There are no features to indicate ileus. No acute abdominal abnormality is identified. 2. Nonspecific 18 mm density in the left pelvis represent a calcification or could represent material within the sigmoid colon. 3. Opacity at the left lung base. Please refer to today's chest x-ray for further description. Abdomen/Pelvis CT 08/23/18 00:00 CONCLUSION: 1. Severe left hydronephrosis and hydroureter caused by a 2 cm stone in the distal left ureter. 2. Trace air within the bladder lumen. Although nonspecific this may be related to a recent catheterization. 3. Nonacute findings include multiple bilateral renal cysts, mild atherosclerotic disease, and mild hepatic steatosis. Nephrostomy 08/23/18 00:00 CONCLUSION: 1. Uncomplicated nephrostomy tube placement as above. Chest X-Ray 08/29/18 05:00 CONCLUSION: Interval extubation. Otherwise stable abnormal chest Chest CT 08/30/18 00:00 CONCLUSION: 1. Persistent left lower lobe volume loss/collapse with likely some degree of consolidation. This is very similar to the prior examination. No significant pleural effusion is present. The fluidlike material is visualized within the left main bronchus suggesting aspiration. 2. Slightly increased consolidation/volume loss in the right lower lobe. 3. Stable enlarged main pulmonary artery suggesting pulmonary arterial hypertension. 4. Stable 3.3 cm left thyroid nodule. Physical Exam: PHYSICAL EXAMINATION: GENERAL: Awake and in no distress. HEAD: Head is atraumatic. Extraocular movements appear grossly intact. No icterus. Oropharynx, moist mucosa. NECK: Supple without swelling or adenopathy. LUNGS: Diminished breath sounds bilateral. HEART: Normal S1 and S2, without audible murmurs, rubs or gallops. ABDOMEN: Bowel sounds present, distended, soft, no tenderness. left nephrostomy tube in place. No purulence. EXTREMITIES: No clubbing or cyanosis or edema. SKIN: Rash petechial type and occ.. macular rash spots NEURO: Unable to fully assess. Assessment and Plan - Plan IMPRESSION: 1. Pneumonia. The patient with whiteout of the left lung. Status post bronchoscopy. Sputum culture pending. 2. Leukocytosis probably secondary to pneumonia. 3. Acute respiratory failure. 4. Chronic obstructive pulmonary disease. 5. Obstructive uropathy. Rash ? Drug rash RECOMMENDATIONS: Continue Levaquin oral (will help reduce fluid overload) At risk for recurrent aspiration and reintubation based on CT and clinical findings today. No need to recheck procalcitonin today as likely ongoing aspiration. Follow cultures. Follow the clinical status. lesli RN No family in room.
--- NOTE | 2018-08-31 16:23 | CT ---
EXAM DATE: 08/31/2018 3:29 PM EDT AGE/SEX: 68 years / Male INDICATIONS: Hemiparesis. CLINICAL DATA: This is the patient's initial encounter. Patient reports that signs and symptoms have been present for 1 day and indicates a pain score of 0/10. MEDICAL/SURGICAL HISTORY: Chronic obstructive pulmonary disease. None. RADIATION DOSE: 55.39 CTDI (mGy) ; Patient motion COMPARISON: CT brain 08/16/2018. TECHNIQUE: CT of the head without contrast. Using automated exposure control and adjustment of the mA and/or kV according to patient size, radiation dose was kept as low as reasonably achievable to ob tain optimal diagnostic quality images. DICOM format image data is available electronically for revi ew and comparison. FINDINGS: Cerebrum: The ventricles are normal for age. No evidence of midline shift, mass lesion, hemorrhage or acute infarction. No extraaxial fluid collections are seen. Posterior Fossa: The cerebellum and brainstem are intact. The 4th ventricle is midline. The cerebe llopontine angle is unremarkable. Extracranial: The visualized portion of the orbits is intact. Skull: The calvaria is intact. No evidence of skull fracture. CONCLUSION: 1. No acute intracranial abnormality. . Electronically signed by: Juan Carlos Gutierrez MD 08/31/2018 4:22 PM EDT
--- NOTE | 2018-08-31 17:25 | XR ---
EXAM DATE: 08/31/2018 4:55 PM EDT AGE/SEX: 68 years / Male INDICATIONS: NG tube placement. CLINICAL DATA: This is the patient's initial encounter. Patient reports that signs and symptoms have been present for 1 day and indicates a pain score of Nonresponsive. MEDICAL/SURGICAL HISTORY: . Chronic obstructive pulmonary disease. None. COMPARISON: Abdominal x-ray 08/22/2018. FINDINGS: A single portable frontal view of the abdomen omitted the inferior portion of the abdomen and pelvis. A weighted feeding tube is seen within the abdomen with the tip low within the right lower quadrant likely within the antrum of 8 J-shaped stomach. No dilated loops of bowel within the visualized porti ons the abdomen. A cope style drainage catheter overlies the left side. Bony structures are unremarka ble. CONCLUSION: Given the feeding tube felt to be within the antrum of a long J-shaped stomach. Electronically signed by: Juan Carlos Gutierrez MD 08/31/2018 5:24 PM EDT
--- NOTE | 2018-08-31 18:55 | MB ---
cc: Earline Espinoza MD DATE: 08/31/2018 REASON FOR CONSULTATION: Right-sided weakness. HISTORY OF PRESENT ILLNESS: This is a 68-year-old man admitted to the hospital on 08/16/2018, apparently with altered mental status, shortness of breath. He has a known history of COPD, hypertension, bipolar disease and cirrhosis. He was on high-flow oxygen initially and now on BiPAP. He had what looked like an opacification, left hemithorax. CT chest without showed severe cardiomegaly. He was transferred to the ICU for ongoing care. He was extubated on 08/29/2018. Apparently, it was noted today that a friend of his stated that he was not using his right side very well, concerning for possible stroke. Neurology is consulted. He just had a CT of the head that did not show anything acute thus far. PHYSICAL EXAMINATION: VITAL SIGNS: Temperature 98.0, pulse is 76, saturating 92% on FiO2 40% earlier. He is on BiPAP right now. Blood pressure is 103/62. NEUROLOGIC: He is awake and alert and slow to respond, but follows commands. His pupils are reactive. There is some question of attenuated right nasolabial fold. He does slump to the right, but when you straighten him up, the fold changes, but there still may be a very slight asymmetry in the right face. He does not really smile on command well. He tries to lift up his right arm. 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 The right, he can shrug shoulder and pick the elbow up, but cannot pick his hand up off the bed. He wiggles his toes, cannot lift his legs up. His DTRs are trace to 1+. Toes, he withdraws. As stated, he does try to follow commands. Speech: He is nonverbal right now. LABORATORY DATA: Reviewed. White count is 22.4, hematocrit 56.1, hemoglobin 18, platelets 149,000. Chemistry: Sodium 148, potassium 3.2, glucose is 104, magnesium 2.8, creatinine 1.68, GFR 41. MICROBIOLOGY: No growth noted. IMAGING: CT head: No acute findings. IMPRESSION: Possible stroke, some mild right-sided weakness. PLAN: I would recommend placing him on a baby aspirin if no contraindication and I did order that it could be given via the Dobbhoff tube also. If stable, please have him go down for an MRI of the brain. Will look at the diffusion imaging, that will tell us if there is a stroke or not. Depending on the findings, if there is a stroke, then we will look at carotid ultrasound as well as getting an MRA of the diomede and making further recommendations. There is an echo. Echo was done on 08/17/2018. Unfortunately, I cannot get the results from this computer, but it does not need to be repeated in any case. Depending on MRI results, further recommendations will be made accordingly. MD ROMIE Moreno/rik , 04:39 PM , 04:49 PM
--- NOTE | 2018-08-31 19:38 | P.PNPL ---
Subjective Interval history: 68 YOWM with VDRF, COPD Extubated ,on NC Had Decreased mentation CT brain Neg Physical Exam Vital signs: Vital Signs 08/30/18 19:54 08/30/18 20:00 08/30/18 20:34 Temperature 98 F Pulse Rate 109 H 106 H Respiratory Rate 20 24 Blood Pressure 135/86 Pulse Oximetry 89 L 90 L 08/30/18 22:00 08/31/18 00:00 08/31/18 00:31 Temperature 97.8 F Pulse Rate 99 H 90 Respiratory Rate 18 Blood Pressure 128/78 Pulse Oximetry 90 L 89 L 08/31/18 02:00 08/31/18 03:15 08/31/18 04:00 Temperature 98 F Pulse Rate 80 74 Respiratory Rate 16 Blood Pressure 103/62 Pulse Oximetry 91 L 89 L 08/31/18 06:00 08/31/18 07:48 08/31/18 08:00 Temperature 97.7 F Pulse Rate 68 75 Respiratory Rate 16 Blood Pressure 117/71 Pulse Oximetry 100 89 L 08/31/18 10:00 08/31/18 10:45 08/31/18 12:00 Temperature 98.1 F Pulse Rate 76 89 Respiratory Rate 16 Blood Pressure 115/17 L Pulse Oximetry 91 L 89 L 08/31/18 14:00 08/31/18 16:00 08/31/18 16:24 Temperature 97.9 F Pulse Rate 92 H 100 H Respiratory Rate 16 Blood Pressure 118/73 Pulse Oximetry 89 L 92 L 08/31/18 18:00 Temperature Pulse Rate 88 Respiratory Rate Blood Pressure Pulse Oximetry Intake & Output 08/31/18 08/31/18 09/01/18 06:59 18:59 06:59 Intake Total 670 / 670 Output Total 1200 / 1200 Balance -530 / -530 Weight 104.5 kg Intake: Oral 0 / 0 Tube Feeding 450 / 450 Tube Irrigant 20 / 20 Water Bolus Amount 200 / 200 Output: Urine 600 / 600 Urine Amount (Catheter) 0 / 0 Indwelling Urethral Catheter 0 / 0 Urine Amount (Stoma) 600 / 600 Nephrostomy Tube 600 / 600 Other: # Voids 2 # Incontinent Voids 0 Date of Last Bowel Movement 08/24/18 08/24/18 # Bowel Movements 1 # Incontinent Bowel Movements 0 GENERAL: Elderly Wm, on BIPAP SKIN: Warm and dry. HEAD: Normocephalic. EYES: No scleral icterus. No injection or drainage. NECK: Supple, trachea midline. No JVD or lymphadenopathy. CARDIOVASCULAR: Regular rate and rhythm without murmurs, gallops, or rubs. RESPIRATORY: Breath sounds equal bilaterally. No accessory muscle use. GASTROINTESTINAL: Abdomen soft, non-tender, nondistended. MUSCULOSKELETAL: No cyanosis, or edema. BACK: Nontender without obvious deformity. No CVA tenderness. - Urinary Catheter Management Indwelling Urethral Catheter Cath placed during this visit: yes, but has since been removed by the nurse Reason for continuing: Decision to DC catheter Removal date: 08/17/18 Removal time: 16:30 Coude Cath placed during this visit: no Assessment and Plan - Plan IMPRESSION: 1. Hypoxic, hypercapnic respiratory failure., s/p extubation 2. Left lung volume loss, possible atelectasis or infiltrate. 3. Left lung nodule. 4. Chronic obstructive pulmonary disease. 5. Renal insufficiency. 6. Atelactesis left lung PLAN: Aerosol nebs Mucomyst nebs Cont Abx Diurease BIPAP at night and PRN For MRI Brain
[2018-08-31] MEDS: Enoxaparin Inj 40 MG/0.4 ML Syringe SQ SCH (21:34)
[2018-09-01] MEDS: Oral Hygiene Kit OROPHARYNG SCH ×4 (00:24→17:02)
[2018-09-01] MEDS: Insulin NovoLIN Regular Correctional Sugar Inj SQ SCH ×4 (00:24→18:06)
[2018-09-01 06:59] LABS: Hematocrit 59.4 % (39.0-51.0); Hemoglobin 18.9 gm/dL (13.0-17.0); Mean Corpuscular HGB Conc 31.8 % (32.0-36.0); Mean Corpuscular Hemoglobin 32.9 pg (27.0-34.0); Mean Corpuscular Volume 103.4 fL (80.0-100.0); Platelet Count 151 th/mm3 (150-450); Red Blood Count 5.74 mil/mm3 (4.50-5.90); Red Cell Distribution Width 14.7 % (11.6-17.2); White Blood Count 27.1 th/mm3 (4.0-11.0)
[2018-09-01 07:12] LABS: Calcium 10.6 mg/dL (8.5-10.1); Carbon Dioxide 31.7 meq/L (21.0-32.0); Magnesium 2.6 mg/dL (1.5-2.5); Phosphorus 3.1 mg/dL (2.5-4.9)
[2018-09-01] MEDS: Chlorhexidine 0.12% Oral Kit 15 ML UDC OROPHARYNG SCH ×2 (07:16→21:24)
[2018-09-01] MEDS: MethylPREDNISolone Sod Succinate Inj 40 MG/ML Vial IV.PUSH SCH ×3 (07:17→21:23)
[2018-09-01 07:30] LABS: Potassium 2.9 meq/L (3.5-5.1)
[2018-09-01] MEDS: levoFLOXacin 500 MG Tablet PO SCH (08:38)
[2018-09-01] MEDS: Senna/Docusate Sodium 8.6/50 MG Tablet PO SCH ×2 (08:38→21:23)
[2018-09-01] MEDS: Gabapentin 100 MG Capsule PO SCH ×2 (08:38→21:23)
[2018-09-01] MEDS: buPROPion 150 MG 12 HR Tablet PO SCH (08:39)
[2018-09-01] MEDS: Carboxymethylcellulose 0.5% Opth Drops 15 ML Bottle EACH EYE SCH ×3 (08:39→18:06)
[2018-09-01 11:28] LABS: ABG Base Excess 7.5 mmol/L (-2-2); ABG PCO2 53 mmHg (38-42); ABG PO2 64 mmHG (61-120)
[2018-09-01] MEDS: Potassium Chlor 20 mEq Premix 20 MEQ/100 ML PIGGYBACK IV.SIG PRN ×5 (12:19→18:19)
--- NOTE | 2018-09-01 15:41 | P.PN ---
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 The patient went to congregational this morning and returned on the bus and sat in the garage. The lady that takes care of him did talk to him and he said he was fine and sat down in his chair in the garage. He however did not come to his lunch and she went out and found him unresponsive with labored breathing. This occurred at 2 PM today. Patient was brought into the emergency department with altered mental status and respiratory distress. Pulse ox was in the 60s. Patient was put on high flow oxygen and later changed to BiPAP with improvement in mentation and oxygenation. The chest x-ray obtained in the emergency department shows almost complete opacification of left hemithorax. The CT without contrast shows severe cardiomegaly and no pleural effusion or pericardial effusion. The patient has been transferred to [facility] ICU for higher level of care. 08/17: no improvement in respiratory distress- mental status worsened. abg no improvement. clinically declined and emergently intubated. on bedside echo, very difficult windows due to lung disease and obesity, but dilated ivc without respiratory variation and no pericardial effusion. formal echo pending. 08/18: remains intubated. abg slowly improving. tran removed yesterday but unable to straight cath. 08/19: FiO2 down to 55%. Will re-CT the chest today. Likely just a gigantic heart causing opacification left hemithorax.. No other issues overnight. Creatinine slowly increasing. 08/20: Febrile. Status post bronchoscopy yesterday due to mucous plug in the left lungs. Improved aeration currently 50% FiO2. We will continue to wean today. Tolerating tube feeding. Creatinine improving. 08/21 Patient remains intubated and sedated with Diprivan. Afebrile. 08/22 No events overnight off sedation tolerated CPAP for several hrs yesterday. T:100.7 last night 08/23 Patient remains intubated off sedation. T:101.4 last night. 08/24 Patient remains intubated on no sedation awake and follows commands. Had CT abdomen yesterday showed left hydronephrosis 2nd cm stone in distal left ureter s/p left nephrostomy tube placement by IR. Renal function continue to improve with Cr: 1.35 today from 1.72. Underwent bronch by mucous plugs suctioned from left lung. 08/25: tolerating 10/5 psv, but cxr much less aerated. may not do well off ventilator: significant OHS and derecruits easily. 08/26: CXR significantly improved with APRV ventilation, but clearly going to be a difficult wean from mechanical ventilation. wbc improving. still very volume overloaded, and net+ fluid balance yesterday. needs aggressive diuresis. 08/27: pulmonary mechanics appear somewhat improving. still net+ fluid balance despite aggressive diuresis attempts. Cr slightly worse, but still have not achieved a negative fluid balance. will add metolazone today. continue to wean APRV pressure as tolerated. 08/28: passed SBT today. will extubate straight to BiPAP given how significantly he de-recruits and has atelectasis. will attempt to wean from BiPAP after this. good diuresis and net negative fluid balance. still alkalotic- will hold lasix today but keep diamox to prevent further alkalosis and compensatory hypoventilation. 08/29: successfully extubated yesterday and remains extubated. CXR with worse atelectasis, but expected due to body habitus. remains on intermittent BiPAP. net negative 2L/24h with associated improvement in renal function. remains high risk for reintubation. Hospitalist Notes: 08/31: Seen in his bedroom he is been followed by ID specialist, recommended to continue Oral Levaquin, to try to reduce fluid overload likely ongoing aspiration, followed by intranet specialist, with diagnosis of Hypoxic hypercapnic respiratory failure, status post extubation COPD, continue Bronchodilator, Mucolytic and incentive spirometry, BiPAP at night, continue antibiotics and Diuresis, discussed with nurse Miss Rankin she states the patient had increased right hemiparesis asked for CT brain and Neurology specialist consult. 09/01: Stable in his bedroom discussed with nurse Miss Loera, no new issues, stable in his bedroom, asked for MRI not yet performed. No nausea, vomit or diarrhea. Physical Exam Vital signs: Vital Signs 08/31/18 16:00 08/31/18 16:24 08/31/18 18:00 Temperature 97.9 F Pulse Rate 100 H 88 Respiratory Rate 16 Blood Pressure 118/73 Pulse Oximetry 89 L 92 L 08/31/18 19:00 08/31/18 20:00 08/31/18 20:14 Temperature 98.7 F Pulse Rate 95 H Respiratory Rate 21 Blood Pressure 125/76 Pulse Oximetry 100 96 96 08/31/18 22:00 08/31/18 23:50 09/01/18 00:00 Temperature 97.9 F Pulse Rate 97 H 100 H Respiratory Rate 16 Blood Pressure 127/79 Pulse Oximetry 96 96 09/01/18 02:00 09/01/18 04:00 09/01/18 06:00 Temperature 97.0 F L Pulse Rate 93 H 86 86 Respiratory Rate 16 Blood Pressure 116/73 Pulse Oximetry 100 09/01/18 07:00 09/01/18 07:34 09/01/18 07:57 Temperature Pulse Rate 77 Respiratory Rate Blood Pressure Pulse Oximetry 100 91 L 09/01/18 08:00 09/01/18 10:00 09/01/18 12:00 Temperature 98.3 F 99.2 F Pulse Rate 77 88 97 H Respiratory Rate 35 H 24 Blood Pressure 122/81 134/82 Pulse Oximetry 95 91 L 09/01/18 13:09 09/01/18 14:00 Temperature Pulse Rate 97 H Respiratory Rate Blood Pressure Pulse Oximetry 90 L Intake & Output 08/31/18 09/01/18 09/01/18 18:59 06:59 18:59 Intake Total 560 / 560 357 / 357 200 / 200 Output Total 1225 / 1225 550 / 550 Balance -665 / -665 -193 / -193 200 / 200 Weight 104.5 kg Intake: IV 200 / 200 KCl 20 mEq Premix Inj 20 meq In 200 / 200 100 ml @ 50 mls/hr IV.SIG Q2H PRN Rx#:[id number] Oral 0 / 0 0 / 0 Tube Feeding 300 / 300 357 / 357 Tube Irrigant 60 / 60 Water Bolus Amount 200 / 200 Output: Urine 700 / 700 Urine Amount (Stoma) 525 / 525 550 / 550 Nephrostomy Tube 525 / 525 550 / 550 Other: # Voids 3 2 # Incontinent Voids 0 2 Date of Last Bowel Movement 08/24/18 08/24/18 08/31/18 # Bowel Movements 2 # Incontinent Bowel Movements 0 Narrative: GENERAL: Well-developed patient, in no apparent distress. CARDIOVASCULAR: Regular rate and rhythm without murmurs, gallops, or rubs. RESPIRATORY: Severe decreased breath sounds bilateral, expiratory wheezing and soft inspiratory crackles. GASTROINTESTINAL: Abdomen soft, non-tender, nondistended. Normal active bowel sounds MUSCULOSKELETAL: Edema 2+ NEURO: Alert & Oriented x4 to person, place, time, situation. Moves all ext x4 - Urinary Catheter Management Indwelling Urethral Catheter Cath placed during this visit: yes, but has since been removed by the nurse Reason for continuing: Decision to DC catheter Removal date: 08/17/18 Removal time: 16:30 Coude Cath placed during this visit: no Results - Labs CBC & Chem 7: 09/01/18 06:07 09/01/18 06:07 Laboratory Results - last 24 hr 08/31/18 09/01/18 09/01/18 18:31 00:22 06:07 WBC 27.1 H RBC 5.74 Hgb 18.9 H Hct 59.4 H MCV 103.4 H MCH 32.9 MCHC 31.8 L RDW 14.7 Plt Count 151 MPV 12.0 H Puncture Site Patient Temperature O2 Saturation ABG pH ABG pCO2 ABG pO2 ABG HCO3 ABG O2 Content ABG Base Excess ABG Methemoglobin Hemoglobin Carboxyhemoglobin O2 Delivery Device Liter Flow Critical Value Sodium Potassium Chloride Carbon Dioxide Anion Gap BUN Creatinine Estimated GFR POC Glucose 106 146 H Random Glucose Calcium Phosphorus Magnesium 09/01/18 09/01/18 09/01/18 06:07 06:58 11:20 WBC RBC Hgb Hct MCV MCH MCHC RDW Plt Count MPV Puncture Site Left brachial Patient Temperature 98.6 O2 Saturation 90 ABG pH 7.40 ABG pCO2 53 H* ABG pO2 64 ABG HCO3 32 H ABG O2 Content 24.8 H ABG Base Excess 7.5 H ABG Methemoglobin 1.4 Hemoglobin 19.6 H Carboxyhemoglobin 1.0 O2 Delivery Device Nasal cannula Liter Flow 3.00 Critical Value Yes Sodium 151 H Potassium 2.9 L* Chloride 110 H Carbon Dioxide 31.7 Anion Gap 9 BUN 109 H Creatinine 1.42 H Estimated GFR 50 L POC Glucose 164 H Random Glucose 168 H Calcium 10.6 H D Phosphorus 3.1 Magnesium 2.6 H - Imaging Impressions Head CT 08/31/18 13:07 CONCLUSION: 1. No acute intracranial abnormality. . Abdomen X-Ray 08/31/18 16:55 CONCLUSION: Given the feeding tube felt to be within the antrum of a long J-shaped stomach. Assessment and Plan - Plan This patient is a 68-year-old male with a diagnosis of COPD, systolic CHF with an ejection fraction of approximately 35%. The patient initially presented to [facility] emergency department with shortness of breath and acute encephalopathy. The patient was found to be in acute hypoxic hypercapnic respiratory failure. CT scan of the chest showed nearly complete opacification of the left hemithorax and severe cardiomegaly. He was then transferred to [facility] intensive care unit for higher level of care. 1. Acute hypoxic hypercapnic respiratory failure secondary nearly complete opacification of the left hemithorax status post bronchoscopy 2. COPD 3. Tobacco smoking The patient says he feels better than he did yesterday. WBC count is elevated at 23. No fevers overnight. Continue supplemental oxygen, intranet specialist following. Continue with breathing treatments as needed. to continue Bronchodilator, Mucolytic incentive spirometry, Status post repeat bronchoscopy 08/23 and mucous plugs suctioned from the left. There are collapsing pires of the left upper lobe which makes the lumen narrow. BiPAP at night, ID specialist following recommended to continue Oral Levaquin, to try to reduce fluid overload he was advised not to smoke, 4. Systolic CHF exacerbation Ejection fraction is approximately 33%. Diffuse Hpokinesis, Grade 1 Diastolic dysfunction, RV with decreased systolic function. PA 31 mm Hg. Continue IV diuresis with Diamox as the patient's bicarb has been continuously elevating. Once the patient is diuresed he would benefit from being started on a beta- jose and aspirin. No KARINA inhibitor as the patient is currently in what appears to be acute kidney injury. 5. Depression to continue Bupropion 50 mg daily. decreased Gabapentin 200 mg BID for GFR on Thiamine 100 mg BID. 6. Transaminitis/Indeterminate Hepatitis A IgM, Tube feeds, formal swallow eval , PPIs, Liver US -revealed enlarged liver likely hepatic steatosis versus inflammatory Hepatitis panel: Hep A IgM Indeterminate, KUB abdomen: There are no features to indicate ileus. No acute abdominal abnormality is identified. Nonspecific 18 mm density in the left pelvis represent a calcification or could represent material within the sigmoid colon 7. CJ CT abd/pelvis 08/23: Severe left hydronephrosis and hydroureter caused by a 2 cm stone in the distal left ureter. s/p Nephrostomy tube placement by IR 08/23 , On Free water, decrease to 200ml Q8, sodium improving.Renal ultrasound revealed bilateral renal cyst. No hydronephrosis, Nephrology following Dr. Olivares. 8. Leukocytosis Cefepime, ID following, discontinued Vancomycin and Azithromycin. Repeat bronch 08/23, follow up on bronch cx from 08/23 Negative UA 08/17. Negative sputum 08/17 Bronchoscopy samples from left upper lobe 08/19. Gram stain negative Bronch washing AFB pending 9. right Hemiparesis asked for CT brain negative, seen by neurology specialist started the patient on Aspirin 81 mg and recommended for MRI brain. failed swallow test and will need PT at Rehab 10. Hypokalemia replaced and following. will get a new Potassium level at 1700 hours today. Lovenox for DVT prophylaxis, continue with GI prophylaxis as well. Overall Poor short term prognosis. Code Status: full Code. Discussed Condition With: patient and Nurse Miss Loera. Discharge Planning: Not yet cleared by specialists.
--- NOTE | 2018-09-01 16:30 | MR ---
EXAM DATE: 09/01/2018 7:26 AM EDT AGE/SEX: 68 years / Male INDICATIONS: . Encephalopathy. CLINICAL DATA: This is the patient's initial encounter. Patient reports that signs and symptoms have been present for 2 days and indicates a pain score of Nonresponsive. MEDICAL/SURGICAL HISTORY: Chronic obstructive pulmonary disease. . Renal stent COMPARISON: . TECHNIQUE: Multiplanar, multisequence examination of the brain was performed without contrast. FINDINGS: Cerebrum: The ventricles are normal for age. No evidence of midline shift, mass lesion, hemorrhage or acute infarction. No extraaxial fluid collections are seen. The pituitary gland and suprasellar cistern are normal in configuration. White Matter: A few scattered foci of bright T2 signal abnormalities are seen in the white matter. Posterior Fossa: The cerebellum and brainstem are intact. The 4th ventricle is midline. The cerebel lopontine angle is unremarkable. The cerebellar tonsils are normal in position. Diffusion Imaging: No focal areas of restricted diffusion are seen. No evidence of acute infarction . Extracranial: The visualized portions of the orbits and paranasal sinuses are unremarkable. CONCLUSION: 1. Minimal nonspecific white matter changes. 2. No acute intracranial abnormality. Electronically signed by: Ryan Mak MD 09/01/2018 4:29 PM EDT
--- NOTE | 2018-09-01 18:48 | P.PNPL ---
Subjective Interval history: 68 YOWM with VDRF, COPD Extubated ,on NC Had Decreased mentation Went for MRI, after that lethargic Put back on BIPAP Physical Exam Vital signs: Vital Signs 08/31/18 19:00 08/31/18 20:00 08/31/18 20:14 Temperature 98.7 F Pulse Rate 95 H Respiratory Rate 21 Blood Pressure 125/76 Pulse Oximetry 100 96 96 08/31/18 22:00 08/31/18 23:50 09/01/18 00:00 Temperature 97.9 F Pulse Rate 97 H 100 H Respiratory Rate 16 Blood Pressure 127/79 Pulse Oximetry 96 96 09/01/18 02:00 09/01/18 04:00 09/01/18 06:00 Temperature 97.0 F L Pulse Rate 93 H 86 86 Respiratory Rate 16 Blood Pressure 116/73 Pulse Oximetry 100 09/01/18 07:00 09/01/18 07:34 09/01/18 07:57 Temperature Pulse Rate 77 Respiratory Rate Blood Pressure Pulse Oximetry 100 91 L 09/01/18 08:00 09/01/18 10:00 09/01/18 12:00 Temperature 98.3 F 99.2 F Pulse Rate 77 88 97 H Respiratory Rate 35 H 24 Blood Pressure 122/81 134/82 Pulse Oximetry 95 91 L 09/01/18 13:09 09/01/18 14:00 09/01/18 16:00 Temperature 98.6 F Pulse Rate 97 H 97 H Respiratory Rate 17 Blood Pressure 103/60 Pulse Oximetry 90 L 90 L 09/01/18 16:36 09/01/18 18:00 Temperature Pulse Rate 93 H Respiratory Rate Blood Pressure Pulse Oximetry 89 L Intake & Output 08/31/18 09/01/18 09/01/18 18:59 06:59 18:59 Intake Total 560 / 560 357 / 357 1234 / 1234 Output Total 1225 / 1225 550 / 550 450 / 450 Balance -665 / -665 -193 / -193 784 / 784 Weight 104.5 kg Intake: IV 400 / 400 KCl 20 mEq Premix Inj 20 meq In 400 / 400 100 ml @ 50 mls/hr IV.SIG Q2H PRN Rx#:[id number] Oral 0 / 0 0 / 0 Tube Feeding 300 / 300 357 / 357 434 / 434 Tube Irrigant 60 / 60 Water Bolus Amount 200 / 200 400 / 400 Output: Urine 700 / 700 Urine Amount (Stoma) 525 / 525 550 / 550 450 / 450 Nephrostomy Tube 525 / 525 550 / 550 450 / 450 Other: # Voids 3 2 2 # Incontinent Voids 0 2 Date of Last Bowel Movement 08/24/18 08/24/18 08/31/18 # Bowel Movements 2 # Incontinent Bowel Movements 0 GENERAL: WBWN WM, mild sob SKIN: Warm and dry. HEAD: Normocephalic. EYES: No scleral icterus. No injection or drainage. NECK: Supple, trachea midline. No JVD or lymphadenopathy. CARDIOVASCULAR: Regular rate and rhythm without murmurs, gallops, or rubs. RESPIRATORY: Breath sounds equal bilaterally. No accessory muscle use. GASTROINTESTINAL: Abdomen soft, non-tender, nondistended. MUSCULOSKELETAL: No cyanosis, or edema. BACK: Nontender without obvious deformity. No CVA tenderness. - Urinary Catheter Management Indwelling Urethral Catheter Cath placed during this visit: yes, but has since been removed by the nurse Reason for continuing: Decision to DC catheter Removal date: 08/17/18 Removal time: 16:30 Coude Cath placed during this visit: no Assessment and Plan - Plan IMPRESSION: 1. Hypoxic, hypercapnic respiratory failure., s/p extubation 2. Left lung volume loss, possible atelectasis or infiltrate. 3. Left lung nodule. 4. Chronic obstructive pulmonary disease. 5. Renal insufficiency. 6. Atelactesis left lung PLAN: Aerosol nebs Mucomyst nebs Cont Abx Diurease Cont BIPAP Tube feeding.
[2018-09-01] MEDS: Enoxaparin Inj 40 MG/0.4 ML Syringe SQ SCH (21:23)
[2018-09-01 23:06] LABS: Calcium 9.9 mg/dL (8.5-10.1); Carbon Dioxide 29.8 meq/L (21.0-32.0); Magnesium 2.5 mg/dL (1.5-2.5); Phosphorus 2.4 mg/dL (2.5-4.9); Potassium 4.3 meq/L (3.5-5.1)
[2018-09-02] MEDS: Insulin NovoLIN Regular Correctional Sugar Inj SQ SCH ×4 (00:22→18:06)
[2018-09-02] MEDS: Oral Hygiene Kit OROPHARYNG SCH ×4 (00:23→16:32)
[2018-09-02] MEDS: MethylPREDNISolone Sod Succinate Inj 40 MG/ML Vial IV.PUSH SCH ×3 (05:06→21:05)
[2018-09-02] MEDS: buPROPion 150 MG 12 HR Tablet PO SCH (08:17)
[2018-09-02] MEDS: Gabapentin 100 MG Capsule PO SCH ×2 (08:17→21:04)
[2018-09-02] MEDS: Carboxymethylcellulose 0.5% Opth Drops 15 ML Bottle EACH EYE SCH ×3 (08:17→18:07)
[2018-09-02] MEDS: Senna/Docusate Sodium 8.6/50 MG Tablet PO SCH ×2 (08:18→21:06)
[2018-09-02] MEDS: levoFLOXacin 500 MG Tablet PO SCH (08:18)
[2018-09-02] MEDS: Chlorhexidine 0.12% Oral Kit 15 ML UDC OROPHARYNG SCH ×2 (08:18→20:14)
[2018-09-02 08:52] LABS: Hematocrit 58.5 % (39.0-51.0); Hemoglobin 18.7 gm/dL (13.0-17.0); Mean Corpuscular HGB Conc 31.9 % (32.0-36.0); Mean Corpuscular Hemoglobin 33.1 pg (27.0-34.0); Mean Corpuscular Volume 103.8 fL (80.0-100.0); Platelet Count 151 th/mm3 (150-450); Red Blood Count 5.64 mil/mm3 (4.50-5.90); Red Cell Distribution Width 15.3 % (11.6-17.2); White Blood Count 24.5 th/mm3 (4.0-11.0)
--- NOTE | 2018-09-02 10:09 | P.PN ---
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 The patient went to [employer] this morning and returned on the bus and sat in the garage. The lady that takes care of him did talk to him and he said he was fine and sat down in his chair in the garage. He however did not come to his lunch and she went out and found him unresponsive with labored breathing. This occurred at 2 PM today. Patient was brought into the emergency department with altered mental status and respiratory distress. Pulse ox was in the 60s. Patient was put on high flow oxygen and later changed to BiPAP with improvement in mentation and oxygenation. The chest x-ray obtained in the emergency department shows almost complete opacification of left hemithorax. The CT without contrast shows severe cardiomegaly and no pleural effusion or pericardial effusion. The patient has been transferred to [facility] ICU for higher level of care. 08/17: no improvement in respiratory distress- mental status worsened. abg no improvement. clinically declined and emergently intubated. on bedside echo, very difficult windows due to lung disease and obesity, but dilated ivc without respiratory variation and no pericardial effusion. formal echo pending. 08/18: remains intubated. abg slowly improving. tran removed yesterday but unable to straight cath. 08/19: FiO2 down to 55%. Will re-CT the chest today. Likely just a gigantic heart causing opacification left hemithorax.. No other issues overnight. Creatinine slowly increasing. 08/20: Febrile. Status post bronchoscopy yesterday due to mucous plug in the left lungs. Improved aeration currently 50% FiO2. We will continue to wean today. Tolerating tube feeding. Creatinine improving. 08/21 Patient remains intubated and sedated with Diprivan. Afebrile. 08/22 No events overnight off sedation tolerated CPAP for several hrs yesterday. T:100.7 last night 08/23 Patient remains intubated off sedation. T:101.4 last night. 08/24 Patient remains intubated on no sedation awake and follows commands. Had CT abdomen yesterday showed left hydronephrosis 2nd cm stone in distal left ureter s/p left nephrostomy tube placement by IR. Renal function continue to improve with Cr: 1.35 today from 1.72. Underwent bronch by mucous plugs suctioned from left lung. 08/25: tolerating 10/5 psv, but cxr much less aerated. may not do well off ventilator: significant OHS and derecruits easily. 08/26: CXR significantly improved with APRV ventilation, but clearly going to be a difficult wean from mechanical ventilation. wbc improving. still very volume overloaded, and net+ fluid balance yesterday. needs aggressive diuresis. 08/27: pulmonary mechanics appear somewhat improving. still net+ fluid balance despite aggressive diuresis attempts. Cr slightly worse, but still have not achieved a negative fluid balance. will add metolazone today. continue to wean APRV pressure as tolerated. 08/28: passed SBT today. will extubate straight to BiPAP given how significantly he de-recruits and has atelectasis. will attempt to wean from BiPAP after this. good diuresis and net negative fluid balance. still alkalotic- will hold lasix today but keep diamox to prevent further alkalosis and compensatory hypoventilation. 08/29: successfully extubated yesterday and remains extubated. CXR with worse atelectasis, but expected due to body habitus. remains on intermittent BiPAP. net negative 2L/24h with associated improvement in renal function. remains high risk for reintubation. Hospitalist Notes: 08/31: Seen in his bedroom he is been followed by ID specialist, recommended to continue Oral Levaquin, to try to reduce fluid overload likely ongoing aspiration, followed by utilization review specialist, with diagnosis of Hypoxic hypercapnic respiratory failure, status post extubation COPD, continue Bronchodilator, Mucolytic and incentive spirometry, BiPAP at night, continue antibiotics and Diuresis, discussed with nurse Miss Rankin she states the patient had increased right hemiparesis asked for CT brain and Neurology specialist consult. 09/01: Stable in his bedroom discussed with nurse Miss Loera, no new issues, stable in his bedroom, asked for MRI not yet performed. 09/02: as per utilization review specialist recommended to continue present care no changes. seen by ID specialist recommended to continue Levaquin by mouth, was recommended for [facility] in am but I have been told this won't be possible due to Insurance issues, continue management inside Intensive care with Poor short term prognosis. no nausea, vomit or diarrhea. Physical Exam Vital signs: Vital Signs 09/01/18 11:00 09/01/18 12:00 09/01/18 13:00 Temperature 99.2 F Pulse Rate 94 H 97 H 100 H Respiratory Rate 23 49 H 29 H Blood Pressure 134/82 124/85 Pulse Oximetry 87 L 91 L 92 L 09/01/18 13:09 09/01/18 14:00 09/01/18 15:00 Temperature Pulse Rate 97 H 97 H Respiratory Rate 26 H 28 H Blood Pressure 116/70 124/77 Pulse Oximetry 90 L 92 L 91 L 09/01/18 16:00 09/01/18 16:01 09/01/18 16:02 Temperature 98.6 F Pulse Rate 96 H 97 H Respiratory Rate 17 Blood Pressure 103/60 141/65 H Pulse Oximetry 89 L 87 L 09/01/18 16:30 09/01/18 16:32 09/01/18 16:36 Temperature Pulse Rate 97 H 97 H Respiratory Rate 52 H 32 H Blood Pressure 110/65 105/63 Pulse Oximetry 86 L 85 L 89 L 09/01/18 17:00 09/01/18 18:00 09/01/18 19:00 Temperature Pulse Rate 97 H 96 H 95 H Respiratory Rate 23 28 H 30 H Blood Pressure 103/60 105/69 97/60 L Pulse Oximetry 90 L 90 L 91 L 09/01/18 20:00 09/01/18 20:05 09/01/18 21:00 Temperature 97.9 F Pulse Rate 95 H 85 Respiratory Rate 23 40 H Blood Pressure 101/77 98/58 L Pulse Oximetry 90 L 92 L 91 L 09/01/18 22:00 09/01/18 23:00 09/02/18 00:00 Temperature 97.8 F Pulse Rate 84 91 H 76 Respiratory Rate 36 H 28 H 34 H Blood Pressure 108/61 119/81 110/69 Pulse Oximetry 92 L 90 L 09/02/18 01:00 09/02/18 02:00 09/02/18 03:00 Temperature Pulse Rate 75 72 80 Respiratory Rate 30 H 29 H 26 H Blood Pressure 107/70 110/69 124/80 Pulse Oximetry 94 L 97 96 09/02/18 04:00 09/02/18 04:07 09/02/18 05:00 Temperature 97.9 F Pulse Rate 80 76 Respiratory Rate 22 26 H Blood Pressure 130/81 115/69 Pulse Oximetry 96 96 92 L 09/02/18 06:00 09/02/18 07:00 09/02/18 08:00 Temperature 98.5 F Pulse Rate 73 72 75 Respiratory Rate 19 19 18 Blood Pressure 124/72 137/80 125/70 Pulse Oximetry 96 96 94 L 09/02/18 08:59 09/02/18 09:00 Temperature Pulse Rate 86 Respiratory Rate 38 H Blood Pressure 136/83 Pulse Oximetry Intake & Output 09/01/18 09/02/18 09/02/18 18:59 06:59 18:59 Intake Total 1234 / 1234 1190 / 1190 Output Total 450 / 450 400 / 400 Balance 784 / 784 790 / 790 Weight 104.5 kg Intake: IV 400 / 400 100 / 100 KCl 20 mEq Premix Inj 20 meq In 400 / 400 100 / 100 100 ml @ 50 mls/hr IV.SIG Q2H PRN Rx#:[id number] Tube Feeding 434 / 434 540 / 540 Tube Irrigant 150 / 150 Water Bolus Amount 400 / 400 400 / 400 Output: Urine Amount (Stoma) 450 / 450 400 / 400 Nephrostomy Tube 450 / 450 400 / 400 Other: # Voids 2 3 Date of Last Bowel Movement 08/31/18 09/02/18 09/02/18 # Bowel Movements 1 Narrative: GENERAL: Obese patient, in no apparent distress. CARDIOVASCULAR: Regular rate and rhythm without murmurs, gallops, or rubs. RESPIRATORY: Severe decreased breath sounds bilateral, expiratory wheezing and soft inspiratory crackles. GASTROINTESTINAL: Abdomen soft, non-tender, nondistended. Normal active bowel sounds MUSCULOSKELETAL: no clubbing, cyanosis or edema. NEURO: Alert not able to speak in full sentences but looks oriented. - Urinary Catheter Management Indwelling Urethral Catheter Cath placed during this visit: yes, but has since been removed by the nurse Reason for continuing: Decision to DC catheter Removal date: 08/17/18 Removal time: 16:30 Coude Cath placed during this visit: no Results - Labs CBC & Chem 7: 09/02/18 04:25 09/01/18 22:30 Laboratory Results - last 24 hr 09/01/18 09/01/18 09/01/18 11:20 17:27 22:30 WBC RBC Hgb Hct MCV MCH MCHC RDW Plt Count MPV Puncture Site Left brachial Patient Temperature 98.6 O2 Saturation 90 ABG pH 7.40 ABG pCO2 53 H* ABG pO2 64 ABG HCO3 32 H ABG O2 Content 24.8 H ABG Base Excess 7.5 H ABG Methemoglobin 1.4 Hemoglobin 19.6 H Carboxyhemoglobin 1.0 O2 Delivery Device Nasal cannula Liter Flow 3.00 Critical Value Yes Sodium 150 H Potassium 4.3 D Chloride 114 H Carbon Dioxide 29.8 Anion Gap 6 BUN 89 H Creatinine 1.40 H Estimated GFR 51 L POC Glucose 121 H Random Glucose 154 H Calcium 9.9 Phosphorus 2.4 L Magnesium 2.5 09/02/18 09/02/18 09/02/18 00:21 04:25 05:06 WBC 24.5 H RBC 5.64 Hgb 18.7 H Hct 58.5 H MCV 103.8 H MCH 33.1 MCHC 31.9 L RDW 15.3 Plt Count 151 MPV 12.0 H Puncture Site Patient Temperature O2 Saturation ABG pH ABG pCO2 ABG pO2 ABG HCO3 ABG O2 Content ABG Base Excess ABG Methemoglobin Hemoglobin Carboxyhemoglobin O2 Delivery Device Liter Flow Critical Value Sodium Potassium Chloride Carbon Dioxide Anion Gap BUN Creatinine Estimated GFR POC Glucose 123 H 144 H Random Glucose Calcium Phosphorus Magnesium - Imaging Impressions Head MRI 09/01/18 07:04 CONCLUSION: 1. Minimal nonspecific white matter changes. 2. No acute intracranial abnormality. Assessment and Plan - Plan This patient is a 68-year-old male with a diagnosis of COPD, systolic CHF with an ejection fraction of approximately 35%. The patient initially presented to [facility] emergency department with shortness of breath and acute encephalopathy. The patient was found to be in acute hypoxic hypercapnic respiratory failure. CT scan of the chest showed nearly complete opacification of the left hemithorax and severe cardiomegaly. He was then transferred to [facility] intensive care unit for higher level of care. 1. Acute hypoxic hypercapnic respiratory failure secondary nearly complete opacification of the left hemithorax status post bronchoscopy 2. COPD 3. Tobacco smoking Continue supplemental oxygen, utilization review specialist following. Continue with breathing treatments as needed. to continue Bronchodilator, Mucolytic incentive spirometry, Status post repeat bronchoscopy 08/23 and mucous plugs suctioned from the left. There are collapsing pires of the left upper lobe which makes the lumen narrow. BiPAP at night, ID specialist following recommended to continue Oral Levaquin, to try to reduce fluid overload he was advised not to smoke 4. Systolic CHF exacerbation Ejection fraction is approximately 33%. Diffuse Hpokinesis, Grade 1 Diastolic dysfunction, RV with decreased systolic function. PA 31 mm Hg. Continue IV diuresis with Diamox as the patient's bicarb has been continuously elevating. Once the patient is diuresed he would benefit from being started on a beta- jose and aspirin. No KARINA inhibitor as the patient is currently in what appears to be acute kidney injury. 5. Depression to continue Bupropion 50 mg daily. decreased Gabapentin 200 mg BID for GFR on Thiamine 100 mg BID. 6. Transaminitis/Indeterminate Hepatitis A IgM, Tube feeds, formal swallow eval , PPIs, Liver US -revealed enlarged liver likely hepatic steatosis versus inflammatory Hepatitis panel: Hep A IgM Indeterminate, KUB abdomen: There are no features to indicate ileus. No acute abdominal abnormality is identified. Nonspecific 18 mm density in the left pelvis represent a calcification or could represent material within the sigmoid colon 7. CJ CT abd/pelvis 08/23: Severe left hydronephrosis and hydroureter caused by a 2 cm stone in the distal left ureter. s/p Nephrostomy tube placement by IR 08/23 , On Free water, decrease to 200ml Q8, sodium improving.Renal ultrasound revealed bilateral renal cyst. No hydronephrosis, Nephrology following Dr. Olivares. 8. Leukocytosis Cefepime, ID following, discontinued Vancomycin and Azithromycin. Repeat bronch 08/23, follow up on bronch cx from 08/23 Negative UA 08/17. Negative sputum 08/17 Bronchoscopy samples from left upper lobe 08/19. Gram stain negative Bronch washing AFB pending On Levaquin by mouth. 9. right Hemiparesis asked for CT brain negative, seen by neurology specialist started the patient on Aspirin 81 mg and recommended for MRI brain. failed swallow test and will need PT at Rehab 10. Hypokalemia replaced last potassium was 4.3 Lovenox for DVT prophylaxis, continue with GI prophylaxis as well. Overall Poor short term prognosis. Code Status: DNR Discussed Condition With: Patient and nurse Discharge Planning: Not yet cleared by specialists.
--- NOTE | 2018-09-02 12:07 | P.PNID ---
Subjective Remarks: is a 68-year-old white male who has a history of COPD. The patient was found with altered mental status and unresponsive later on while sitting in his garage. He was brought to [facility] and then subsequently transferred here to [facility]. The patient was noted to be hypoxic and a CT scan of the chest showed significant volume loss on the left lung with almost entire collapse of the left lung. He was subsequently intubated. He underwent bronchoscopy with lavage of the left lung. There was thick mucus plugs noted. ID consult requested for Fever and worsening leukocytosis. Patient is currently on BiPAP. He is awake and alert. Response to commands. Denies pain. Afebrile. Discussed overnight issues with RN. Antibiotics: Levaquin oral Lines: Lines ok Past Medical History: COPD Allergies/Adverse Reactions: Allergies No Known Allergies Allergy (Unverified 08/16/18 16:33) Objective Vital Signs 09/01/18 13:00 09/01/18 13:09 09/01/18 14:00 Temperature Pulse Rate 100 H 97 H Respiratory Rate 29 H 26 H Blood Pressure 124/85 116/70 Pulse Oximetry 92 L 90 L 92 L 09/01/18 15:00 09/01/18 16:00 09/01/18 16:01 Temperature 98.6 F Pulse Rate 97 H 96 H 97 H Respiratory Rate 28 H 17 Blood Pressure 124/77 103/60 Pulse Oximetry 91 L 89 L 87 L 09/01/18 16:02 09/01/18 16:30 09/01/18 16:32 Temperature Pulse Rate 97 H 97 H Respiratory Rate 52 H 32 H Blood Pressure 141/65 H 110/65 105/63 Pulse Oximetry 86 L 85 L 09/01/18 16:36 09/01/18 17:00 09/01/18 18:00 Temperature Pulse Rate 97 H 96 H Respiratory Rate 23 28 H Blood Pressure 103/60 105/69 Pulse Oximetry 89 L 90 L 90 L 09/01/18 19:00 09/01/18 20:00 09/01/18 20:05 Temperature 97.9 F Pulse Rate 95 H 95 H Respiratory Rate 30 H 23 Blood Pressure 97/60 L 101/77 Pulse Oximetry 91 L 90 L 92 L 09/01/18 21:00 09/01/18 22:00 09/01/18 23:00 Temperature Pulse Rate 85 84 91 H Respiratory Rate 40 H 36 H 28 H Blood Pressure 98/58 L 108/61 119/81 Pulse Oximetry 91 L 92 L 09/02/18 00:00 09/02/18 01:00 09/02/18 02:00 Temperature 97.8 F Pulse Rate 76 75 72 Respiratory Rate 34 H 30 H 29 H Blood Pressure 110/69 107/70 110/69 Pulse Oximetry 90 L 94 L 97 09/02/18 03:00 09/02/18 04:00 09/02/18 04:07 Temperature 97.9 F Pulse Rate 80 80 Respiratory Rate 26 H 22 Blood Pressure 124/80 130/81 Pulse Oximetry 96 96 96 09/02/18 05:00 09/02/18 06:00 09/02/18 07:00 Temperature Pulse Rate 76 73 72 Respiratory Rate 26 H 19 19 Blood Pressure 115/69 124/72 137/80 Pulse Oximetry 92 L 96 96 09/02/18 08:00 09/02/18 08:59 09/02/18 09:00 Temperature 98.5 F Pulse Rate 75 86 Respiratory Rate 18 38 H Blood Pressure 125/70 136/83 Pulse Oximetry 94 L 09/02/18 10:00 Temperature Pulse Rate 88 Respiratory Rate Blood Pressure Pulse Oximetry Intake & Output 09/01/18 09/02/18 09/02/18 18:59 06:59 18:59 Intake Total 1234 / 1234 1190 / 1190 Output Total 450 / 450 400 / 400 Balance 784 / 784 790 / 790 Weight 104.5 kg Intake: IV 400 / 400 100 / 100 KCl 20 mEq Premix Inj 20 meq In 400 / 400 100 / 100 100 ml @ 50 mls/hr IV.SIG Q2H PRN Rx#:[id number] Tube Feeding 434 / 434 540 / 540 Tube Irrigant 150 / 150 Water Bolus Amount 400 / 400 400 / 400 Output: Urine Amount (Stoma) 450 / 450 400 / 400 Nephrostomy Tube 450 / 450 400 / 400 Other: # Voids 2 3 Date of Last Bowel Movement 08/31/18 09/02/18 09/02/18 # Bowel Movements 1 Lab - Hematology Results 09/01/18 09/02/18 06:07 04:25 WBC 27.1 H 24.5 H RBC 5.74 5.64 Hgb 18.9 H 18.7 H Hct 59.4 H 58.5 H MCV 103.4 H 103.8 H MCH 32.9 33.1 MCHC 31.8 L 31.9 L RDW 14.7 15.3 Plt Count 151 151 MPV 12.0 H 12.0 H Lab - Chemistry Results 08/31/18 08/31/18 09/01/18 13:17 18:31 00:22 Sodium Potassium Chloride Carbon Dioxide Anion Gap BUN Creatinine Estimated GFR POC Glucose 104 106 146 H Random Glucose Calcium Phosphorus Magnesium 09/01/18 09/01/18 09/01/18 06:07 06:58 17:27 Sodium 151 H Potassium 2.9 L* Chloride 110 H Carbon Dioxide 31.7 Anion Gap 9 BUN 109 H Creatinine 1.42 H Estimated GFR 50 L POC Glucose 164 H 121 H Random Glucose 168 H Calcium 10.6 H D Phosphorus 3.1 Magnesium 2.6 H 09/01/18 09/02/18 09/02/18 22:30 00:21 05:06 Sodium 150 H Potassium 4.3 D Chloride 114 H Carbon Dioxide 29.8 Anion Gap 6 BUN 89 H Creatinine 1.40 H Estimated GFR 51 L POC Glucose 123 H 144 H Random Glucose 154 H Calcium 9.9 Phosphorus 2.4 L Magnesium 2.5 09/02/18 11:57 Sodium Potassium Chloride Carbon Dioxide Anion Gap BUN Creatinine Estimated GFR POC Glucose 177 H Random Glucose Calcium Phosphorus Magnesium Imaging: ITS Impressions Abdomen Ultrasound 08/19/18 00:00 CONCLUSION: 1. Hepatomegaly with diffuse hyperechoic texture characteristic of steatosis or diffuse hepatocellular disease. 2. Bilateral renal cysts. 3. Nonvisualization of the gallbladder and pancreas. 4. No evidence of hydronephrosis or abnormal fluid collections. Abdomen/Pelvis CT 08/23/18 00:00 CONCLUSION: 1. Severe left hydronephrosis and hydroureter caused by a 2 cm stone in the distal left ureter. 2. Trace air within the bladder lumen. Although nonspecific this may be related to a recent catheterization. 3. Nonacute findings include multiple bilateral renal cysts, mild atherosclerotic disease, and mild hepatic steatosis. Nephrostomy 08/23/18 00:00 CONCLUSION: 1. Uncomplicated nephrostomy tube placement as above. Chest X-Ray 08/29/18 05:00 CONCLUSION: Interval extubation. Otherwise stable abnormal chest Chest CT 08/30/18 00:00 CONCLUSION: 1. Persistent left lower lobe volume loss/collapse with likely some degree of consolidation. This is very similar to the prior examination. No significant pleural effusion is present. The fluidlike material is visualized within the left main bronchus suggesting aspiration. 2. Slightly increased consolidation/volume loss in the right lower lobe. 3. Stable enlarged main pulmonary artery suggesting pulmonary arterial hypertension. 4. Stable 3.3 cm left thyroid nodule. Head CT 08/31/18 13:07 CONCLUSION: 1. No acute intracranial abnormality. . Abdomen X-Ray 08/31/18 16:55 CONCLUSION: Given the feeding tube felt to be within the antrum of a long J-shaped stomach. Head MRI 09/01/18 07:04 CONCLUSION: 1. Minimal nonspecific white matter changes. 2. No acute intracranial abnormality. Physical Exam: PHYSICAL EXAMINATION: GENERAL: Patient is in no distress. HEAD: Head is atraumatic. Extraocular movements appear grossly intact. No icterus. Oropharynx, moist mucosa. NECK: Supple without swelling or adenopathy. LUNGS: Decreased breath sounds. HEART: Normal S1 and S2, without audible murmurs, rubs or gallops. ABDOMEN: Bowel sounds present, distended, soft, no tenderness. left nephrostomy tube in place. No purulence. EXTREMITIES: No clubbing or cyanosis or edema. SKIN: Petechial rash. NEURO: Unable to fully assess. Assessment and Plan - Plan IMPRESSION: 1. Pneumonia. The patient with whiteout of the left lung. Status post bronchoscopy. Sputum culture pending. 2. Leukocytosis probably secondary to pneumonia. 3. Acute respiratory failure. 4. Chronic obstructive pulmonary disease. 5. Obstructive uropathy. Rash ? Drug rash RECOMMENDATIONS: Continue Levaquin oral (will help reduce fluid overload) At risk for recurrent aspiration and reintubation based on CT and clinical findings today. No need to recheck procalcitonin today as likely ongoing aspiration. Follow cultures. Follow the clinical status. lesli [facility] Okay to [facility] the [facility] from infectious disease standpoint.
--- NOTE | 2018-09-02 19:43 | P.PNPL ---
Subjective Interval history: 68 YOWM with VDRF, COPD Extubated ,on NC Had Decreased mentation Was more alert, awake Now, sleeping Using BIPAP Physical Exam Vital signs: Vital Signs 09/01/18 20:00 09/01/18 20:05 09/01/18 21:00 Temperature 97.9 F Pulse Rate 95 H 85 Respiratory Rate 23 40 H Blood Pressure 101/77 98/58 L Pulse Oximetry 90 L 92 L 91 L 09/01/18 22:00 09/01/18 23:00 09/02/18 00:00 Temperature 97.8 F Pulse Rate 84 91 H 76 Respiratory Rate 36 H 28 H 34 H Blood Pressure 108/61 119/81 110/69 Pulse Oximetry 92 L 90 L 09/02/18 01:00 09/02/18 02:00 09/02/18 03:00 Temperature Pulse Rate 75 72 80 Respiratory Rate 30 H 29 H 26 H Blood Pressure 107/70 110/69 124/80 Pulse Oximetry 94 L 97 96 09/02/18 04:00 09/02/18 04:07 09/02/18 05:00 Temperature 97.9 F Pulse Rate 80 76 Respiratory Rate 22 26 H Blood Pressure 130/81 115/69 Pulse Oximetry 96 96 92 L 09/02/18 06:00 09/02/18 07:00 09/02/18 08:00 Temperature 98.5 F Pulse Rate 73 72 75 Respiratory Rate 19 19 18 Blood Pressure 124/72 137/80 125/70 Pulse Oximetry 96 96 94 L 09/02/18 08:59 09/02/18 09:00 09/02/18 10:00 Temperature Pulse Rate 86 86 88 Respiratory Rate 38 H 38 H 17 Blood Pressure 136/83 130/80 Pulse Oximetry 96 09/02/18 11:00 09/02/18 12:00 09/02/18 13:00 Temperature 97.7 F Pulse Rate 89 85 89 Respiratory Rate 25 H 13 16 Blood Pressure 135/86 126/91 H 130/88 Pulse Oximetry 96 96 95 09/02/18 14:00 09/02/18 15:00 09/02/18 16:00 Temperature 98.2 F Pulse Rate 87 88 91 H Respiratory Rate 23 24 27 H Blood Pressure 136/83 136/83 139/89 Pulse Oximetry 93 L 97 95 09/02/18 18:00 Temperature Pulse Rate 96 H Respiratory Rate Blood Pressure Pulse Oximetry Intake & Output 09/02/18 09/02/18 09/03/18 06:59 18:59 06:59 Intake Total 1190 / 1190 586 / 586 Output Total 400 / 400 350 / 350 Balance 790 / 790 236 / 236 Weight 104.5 kg Intake: IV 100 / 100 KCl 20 mEq Premix Inj 20 meq In 100 / 100 100 ml @ 50 mls/hr IV.SIG Q2H PRN Rx#:[id number] Tube Feeding 540 / 540 586 / 586 Tube Irrigant 150 / 150 Water Bolus Amount 400 / 400 Output: Urine Amount (Stoma) 400 / 400 350 / 350 Nephrostomy Tube 400 / 400 350 / 350 Other: # Voids 3 2 Date of Last Bowel Movement 09/02/18 09/02/18 # Bowel Movements 1 1 GENERAL: WBWN WM, Mild sob SKIN: Warm and dry. HEAD: Normocephalic. EYES: No scleral icterus. No injection or drainage. NECK: Supple, trachea midline. No JVD or lymphadenopathy. CARDIOVASCULAR: Regular rate and rhythm without murmurs, gallops, or rubs. RESPIRATORY: Breath sounds equal bilaterally. No accessory muscle use. GASTROINTESTINAL: Abdomen soft, non-tender, nondistended. MUSCULOSKELETAL: No cyanosis, or edema. BACK: Nontender without obvious deformity. No CVA tenderness. - Urinary Catheter Management Indwelling Urethral Catheter Cath placed during this visit: yes, but has since been removed by the nurse Reason for continuing: Decision to DC catheter Removal date: 08/17/18 Removal time: 16:30 Coude Cath placed during this visit: no Assessment and Plan - Plan IMPRESSION: 1. Hypoxic, hypercapnic respiratory failure., s/p extubation 2. Left lung volume loss, possible atelectasis or infiltrate. 3. Left lung nodule. 4. Chronic obstructive pulmonary disease. 5. Renal insufficiency. 6. Atelactesis left lung PLAN: Aerosol nebs Mucomyst nebs Cont Abx Diurease Cont BIPAP Wean 02 to keep sat 88-92% Tube feeding.
[2018-09-02] MEDS: Enoxaparin Inj 40 MG/0.4 ML Syringe SQ SCH (21:04)
[2018-09-03] MEDS: Insulin NovoLIN Regular Correctional Sugar Inj SQ SCH ×4 (00:12→18:26)
[2018-09-03] MEDS: Oral Hygiene Kit OROPHARYNG SCH ×4 (00:13→16:53)
[2018-09-03] MEDS: MethylPREDNISolone Sod Succinate Inj 40 MG/ML Vial IV.PUSH SCH ×3 (05:38→21:53)
[2018-09-03] MEDS: Chlorhexidine 0.12% Oral Kit 15 ML UDC OROPHARYNG SCH ×2 (07:31→20:47)
[2018-09-03] MEDS: buPROPion 150 MG 12 HR Tablet PO SCH (08:38)
[2018-09-03] MEDS: Senna/Docusate Sodium 8.6/50 MG Tablet PO SCH ×2 (08:38→21:53)
[2018-09-03] MEDS: Gabapentin 100 MG Capsule PO SCH ×2 (08:39→21:53)
[2018-09-03] MEDS: Carboxymethylcellulose 0.5% Opth Drops 15 ML Bottle EACH EYE SCH ×3 (08:39→18:27)
[2018-09-03] MEDS: levoFLOXacin 500 MG Tablet PO SCH (08:39)
--- NOTE | 2018-09-03 12:32 | P.DIET ---
Nutritional Evaluation Type of nutrition evaluation: follow-up Nutrition consult regarding: Tube Feeding Objective - Diagnosis Respiratory Failure with CO2 retention, white out - Objective [place] body weight: 78 kg % IBW: 147 (IBW = 172#) Body Weight Used for Calculations: IBW (78.2 kg) Energy Needs - Lower Range (kCal/kg): 25 Energy Needs - Upper Range (kCal/kg): 30 Lower Limit kCal/kg (kCals): 1,955 Upper Limit kCal/kg (kCals): 2,346 Lower Limit Protein Factor (Grams per Kg): 1.0 Upper Limit Protein Factor (Grams per Kg): 1.5 Lower Protein Needs (Protein): 78 Upper Protein Needs (Protein): 117 Dietitian Reviewed in Medical Record: Curent medications, Intake & Output, Labs , Medical history, Tube feeding Assessment Assessment: Pt. with +BM, wt. now stable last 4 days and +UOP out of stoma. Per speech, patient continues with severe dysphagia deficits with a high risk of aspiration. Per RN may be placed on a partial rebreather today. Agree with current TF of Nepro @ 50mls/hr. Continue to monitor TFing tolerance, speech recs and labs. Recommendations: 1. Agree with current TF of Nepro @ 50mls/hr. 2. Continue to monitor TFing tolerance, speech recs and labs. . Dietitian to Monitor: Lab values, Renal labs, Intake & Output, Tube feeding tolerance, Weight change, Medical course
--- NOTE | 2018-09-03 12:53 | P.CONPAL ---
Consult Service: Palliative Care Requesting Physician: Wiliam Echevarria Reason for Consult: a. To assist with evaluation and management of symptoms including: Dyspnea, weakness b. To assist medical decision maker(s) with: better understanding of current medical conditions; weighing benefits/burdens of medical treatment options; making medical treatment decisions. Primary Care Provider: UNKNOWN History of Present Illness History of Present Illness: This is a 68-year old male with a past medical history of COPD with chronic cough who is attempting to quit smoking using bupropion and Chantix, who was found unresponsive by his caregiver on 08/16/2018 and transported by EMS to [place] emergency department and [place]. He had been to [facility] that morning and then returned home and sat in the garage. At that time his caregiver was able to converse with him however at lunchtime he did not come in and was unresponsive in the garage and so EMS was summoned. His mental status was altered, he was in respiratory distress and pulse oximetry registered saturations in the 60s. 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 He was evaluated by Dr. Grider and found to have a COPD exacerbation, obesity hypoventilation syndrome, severe cardiomegaly and given IV steroids, DuoNeb, BiPAP and antibiotic. Pulmonary consultation was requested for possible lung nodule and 2D echocardiogram was requested to evaluate cardiac function. Clinical findings on admission. * 2D echocardiogram showed left ventricular systolic function severely reduced with an estimated EF of 30-35%, moderately dilated left ventricle with diffuse global hypokinesis consistent with grade 1 diastolic dysfunction. RV moderately enlarged with decreased systolic function. Estimated mean pulmonary artery pressure at 31 mmHg. Small pericardial effusion present. Study limited by body habitus limiting accuracy. * Chest x-ray showed left pleural effusion with consolidation and/or compressive collapse, almost completely opacified left hemithorax. Underlying mass difficult to exclude. Tiny right pleural effusion and mild prominence of the central markings. * EKG showed sinus tachycardia, possible left atrial enlargement, incomplete right bundle branch block, right ventricular hypertrophy. * CT of the chest without contrast shows significant volume loss of the left hemithorax with cardiomegaly which accounts for much of the opacification of the left hemithorax on chest x-ray. Abnormal air bronchograms formation and consolidative opacity in the left upper lung with more confluent soft tissue possibly related to atelectasis or mass. * CT of the head without contrast shows no acute findings, evidence of intracranial contrast within the vasculature. * Labs on his admission WBC 11.8, hemoglobin 17.2, hematocrit 54.5, platelets 203, TSH 1.910, serum alcohol less than 3, sodium 145, potassium 4.5, BUN 31, creatinine 2.40, total bilirubin 1.6, AST 469, ALT 306, ammonia 39, troponin 0 0.18, B natruretic peptide 2120. Arterial blood gas shows pH 7.21, PCO2 82, PaO2 105, HCO3 32, base excess +4.0, saturation 96% on BiPAP 100% FiO2, PSVT 12/ PEEP +5. Urinalysis shows a cloudy orange specimen with a pH of 5.5, specific gravity greater than 1.030, protein 300 or greater, small occult blood, positive nitrate, moderate bilirubin, positive ictotest, trace leukocyte esterase, RBC 4-15, WBC 21-50, bacteria occasional, culture indicated. On 08/17 he continued to decline and was emergently intubated. Transaminases remained elevated so ultrasound of the abdomen was done showing hepatomegaly with diffuse hyperechoic texture characteristic of steatosis or diffuse hepatocellular disease with bilateral renal cysts, nonvisualization of the gallbladder and pancreas no evidence of hydronephrosis or abnormal fluid collections. Follow-up CT of the chest done 08/19 showed progressive airspace consolidation and collapse involving now nearly the entire left lung with only minimal residual variation of the left lung apex. Air bronchograms are noted throughout the left lung making a significant endobronchial lesion less likely. There is a progressive mediastinal shift to the left with no evidence for hydropneumothorax. Scattered subcentimeter mediastinal nodes noted as nonspecific and possibly reactive in etiology. On 08/19, following CT, fiberoptic bronchoscopy both diagnostic and therapeutic was completed showing thick white secretions of the helen, left upper lobe with thick mucous plugs in the lingula/lower lobe. Normal mucosa was seen with no masses noted copious mucous plugs were lavaged in the right upper middle and lower lobes with cultures sent. On 08/23 CT of the abdomen and pelvis without IV contrast showed severe left hydronephrosis and hydroureter caused by a 2 cm stone distal left ureter. A nephrostomy tube was subsequently placed. Repeat CT of the chest without IV contrast showed continued volume loss/collapse of the left upper lobe with mild atelectasis in the left upper lobe, improved variation compared to previous study with new volume loss in the right lower lobe. Stable enlargement of the main pulmonary artery possibly indicating pulmonary arterial hypertension and findings consistent with prior granulomatous infection. CT of the chest without contrast done 08/30 showed persistent left lower lobe volume loss/ collapse with likely some degree of consolidation similar to prior exam. Fluid like material visualized within the left main bronchus suggestive aspiration. Increased consolidation/volume loss with a stable 3.3 cm left thyroid nodule. On 08/28 he was successfully extubated to BiPAP and continues to require intermittent BiPAP. He is seen today up in a stretcher chair wearing a simple mask, saturating adequately. He appears very weak and fatigued but opens his eyes to his name. He nods yes to questions regarding weakness and shortness of breath. When queried regarding any family members he shakes his head no to questions regarding having a , children or any living brothers or sisters. He again shakes his head no question of any other living relatives. He nods yes to the question asking if he wishes his form builder, Janie, to be his medical decision maker. To confirm this with a witness, I requested his nurse, Monserrat Post RN, to ask him the same question to which he consistently nodded yes as witnessed by both Monserrat and myself. Healthcare surrogate was completed at his request, however he is too weak to sign the form so it was witnessed as a verbal consent. Also in the presence of his nurse asked him if his breathing were to worsen would he want to be placed back on the ventilator and he shook his head no. I then asked if his heart stopped would he want to be resuscitated with CPR and he again shook his head no. I then reiterated to him that I would place a DO NOT RESUSCITATE order on his chart and he nodded yes. He has significantly dyspneic moderate to severe, constant, worsening with movement or reduction in oxygen rest and maximum oxygen support short of intubation. He shows some accessory muscle use when trying to communicate. He is profoundly weak, barely able to lift his hands off the pillow or keep his eyes open. Weakness is severe unknown chronicity, constant with no modifying or relieving factors. Past medical history COPD Chronic renal insufficiency Morbid obesity Obesity hypoventilation syndrome Surgical history Unknown Social history Chronic tobacco user, attempting cessation on admission. Family history Unobtainable . Review of Systems Patient is extremely weak and unable to provide their own ROS. A 12 part ROS taken as best as possible from medical record and available family. Constitutional: Reports fatigue, Reports weakness Ears, Nose, Mouth, and Throat: Reports difficulty swallowing Cardiovascular: Reports shortness of breath Respiratory: Reports cough, Reports shortness of breath Musculoskeletal: Reports muscle weakness PMFSH - History History Provided By: Friend - Medical History Medical History: Medical History (Last Reviewed 09/03/18 @ 08:38 by Josiane Morris) COPD (chronic obstructive pulmonary disease) Surgical history unknown - Tobacco History Tobacco Use In Past 30 Days: Yes Smoking Status: Smoker, status unknown Tobacco Type: Cigarettes - Alcohol History How Often Do You Have a Drink Containing Alcohol: Unable to Obtain - Substance Use History Substance History: Unable to Obtain Medications and Allergies Active Medications: Active Medications Acetaminophen (Tylenol) 650 mg PO Q6H PRN PRN Reason: PAIN 1-10 AND/OR FEVER >101F Acetazolamide Sodium (Diamox Inj) 500 mg IV.PUSH Q8H [facility] Last Admin: 09/03/18 07:31 Dose: 500 mg Al Hydroxide/Mg Hydroxide (Milk Of Bo Chavez) 30 ml PO Q12H PRN PRN Reason: Mild Constipation Albuterol (Albuterol Neb (Prn)) 2.5 mg NEB Q2HR NEB PRN PRN Reason: DYSPNEA Last Admin: 08/30/18 20:34 Dose: 2.5 mg Artificial Tears (Refresh Tears 0.5% Opth Drops) 1 drop EACH EYE TID [facility] Last Admin: 09/03/18 08:39 Dose: 1 drop Aspirin (Ecotrin) 81 mg PO DAILY [facility] Last Admin: 09/03/18 08:39 Dose: 81 mg Bisacodyl (Dulcolax Supp) 10 mg RECTAL DAILY PRN PRN Reason: SEVERE CONSITIPATION Bupropion HCl (Wellbutrin Sr) 150 mg PO DAILY [facility] Last Admin: 09/03/18 08:38 Dose: 150 mg Chlorhexidine Gluconate (Peridex 0.12% Oral Kit) 15 ml OROPHARYNG BID@0800, 2000 [facility] Last Admin: 09/03/18 07:31 Dose: 15 ml Dextrose (D50w Vial) 50 ml IV.PUSH UNSCH PRN PRN Reason: PER HYPOGLYCEMIA PROTOCOL Enoxaparin Sodium (Lovenox Inj) 40 mg SQ Q24H [facility] Last Admin: 09/02/18 21:04 Dose: 40 mg Gabapentin (Neurontin) 200 mg PO BID [facility] Last Admin: 09/03/18 08:39 Dose: 200 mg Glucagon (Glucagon Inj) 1 mg OTHER PRN PRN PRN Reason: for Hypoglycemia Protocol Magnesium Sulfate 4 gm/ Sodium (Chloride) 100 mls @ 50 mls/hr IV.SIG UNSCH PRN PRN Reason: For Magnesium 0.9 - 1.1 mg/dL Magnesium Sulfate 2 gm/ Sodium (Chloride) 100 mls @ 50 mls/hr IV.SIG UNSCH PRN PRN Reason: For Magnesium 1.2 - 1.6 mg/dL Potassium Chloride (Kcl 20 Meq Premix Inj) 20 meq in 100 mls @ 50 mls/hr IV.SIG Q2H PRN PRN Reason: For Potassium 3.3 - 3.5 mEq/L Last Infusion: 08/28/18 14:04 Dose: Infused Potassium Chloride (Kcl 40 Meq Premix Inj) 40 meq in 100 mls @ 25 mls/hr IV.SIG UNSCH PRN PRN Reason: For Potassium 3.3 - 3.5 mEq/L Potassium Chloride (Kcl 20 Meq Premix Inj) 20 meq in 100 mls @ 50 mls/hr IV.SIG Q2H PRN PRN Reason: For Potassium 2.8 - 3.2 mEq/L Last Infusion: 09/01/18 21:00 Dose: Infused Potassium Phosphate 30 mmol/ (Sodium Chloride) 260 mls @ 42 mls/hr IV.SIG UNSCH PRN PRN Reason: SEE LABEL COMMENTS Sodium Phosphate 30 mmol/ (Sodium Chloride) 260 mls @ 42 mls/hr IV.SIG UNSCH PRN PRN Reason: For Phosphorus < 2.5 mg/dL Potassium Chloride (Kcl 40 Meq Premix Inj) 40 meq in 100 mls @ 25 mls/hr IV.SIG Q2H PRN PRN Reason: For Potassium 2.8 - 3.2 mEq/L Insulin Human Regular (Novolin R Correctional Sugar Inj) 0 units SQ Q6HR [facility]; Protocol Last Admin: 09/03/18 05:38 Dose: Not Given Lactulose (Lactulose Liq) 30 ml PO DAILY PRN PRN Reason: SEVERE CONSITIPATION Lansoprazole (Prevacid Solutab) 30 mg NG/OG DAILY [facility] Last Admin: 09/03/18 08:39 Dose: 30 mg Levofloxacin (Levaquin) 500 mg PO DAILY [facility] Last Admin: 09/03/18 08:39 Dose: 500 mg Magnesium Oxide (Mag-Ox) 800 mg PO UNSCH PRN PRN Reason: For Magnesium 1.2 - 1.6 mg/dL Methylprednisolone Sodium Succinate (Solumedrol Inj) 40 mg IV.PUSH Q8HR [facility] Last Admin: 09/03/18 05:38 Dose: 40 mg Miscellaneous Medication () 1 each OROPHARYNG 0000,0400,1200,1600 [facility] Last Admin: 09/03/18 04:10 Dose: Not Given Ondansetron HCl (Zofran Inj) 4 mg IV.PUSH Q6H PRN PRN Reason: NAUSEA OR VOMITING Potassium Bicarb/Potassium Chloride (K-Lyte Cl Eff) 50 meq PO UNSCH PRN PRN Reason: For Potassium 3.3 - 3.5 mEq/L Last Admin: 08/29/18 09:52 Dose: 50 meq Potassium Phosphate (K-Phos Original) 2,000 mg PO Q4H PRN PRN Reason: Phosphorus Less Than 2.5 mg/dL Potassium Phosphate (K-Phos Original) 2,000 mg PO UNSCH PRN PRN Reason: SEE LABEL COMMENTS Senna/Docusate Sodium (Clare-Colace) 1 tab PO BID [facility] Last Admin: 09/03/18 08:38 Dose: 1 tab Sennosides (Senokot) 17.2 mg PO Q12H PRN PRN Reason: Moderate Constipation Sodium Chloride (Ns Flush) 2 ml IV.FLUSH BID [facility] Last Admin: 09/03/18 08:39 Dose: 2 ml Sodium Chloride (Ns Flush) 2 ml IV.FLUSH PRN PRN PRN Reason: FLUSH AFTER USING IV ACCESS Last Admin: 08/23/18 09:16 Dose: 2 ml Sterile Water (Free Water) 200 ml G-TUBE Q8HR [facility] Last Admin: 09/03/18 05:39 Dose: 200 ml Thiamine HCl (Vitamin B1) 100 mg PO BID [facility] Last Admin: 09/03/18 08:39 Dose: 100 mg Allergies Allergy/AdvReac Type Severity Reaction Status Date / Time No Known Allergies Allergy Unverified 08/16/18 16:33 Home Medications Medication Instructions Recorded Confirmed Type bupropion HCl (smoking deter) 150 mg PO DAILY 08/16/18 08/16/18 History gabapentin 600 mg PO BID 08/16/18 08/16/18 History ibuprofen 800 mg PO TID 08/16/18 08/16/18 History varenicline [Chantix] 1 mg PO BID 08/16/18 08/16/18 History Physical Exam Vital Signs: Vital Signs - 24 hr 09/02/18 13:00 09/02/18 14:00 09/02/18 15:00 Temperature Pulse Rate 89 87 88 Respiratory Rate 16 23 24 Blood Pressure 130/88 136/83 136/83 Pulse Oximetry 95 93 L 97 09/02/18 16:00 09/02/18 18:00 09/02/18 19:00 Temperature 98.2 F Pulse Rate 91 H 96 H Respiratory Rate 27 H Blood Pressure 139/89 Pulse Oximetry 95 87 L 09/02/18 19:45 09/02/18 20:00 09/02/18 22:00 Temperature 98.6 F Pulse Rate 86 81 Respiratory Rate 21 22 Blood Pressure 141/85 H 136/85 Pulse Oximetry 86 L 09/03/18 00:00 09/03/18 00:24 09/03/18 02:00 Temperature 98.9 F Pulse Rate 87 92 H Respiratory Rate 22 Blood Pressure 140/85 145/88 H Pulse Oximetry 93 L 97 09/03/18 03:00 09/03/18 03:30 09/03/18 04:00 Temperature 98.2 F Pulse Rate 92 H 84 90 Respiratory Rate 24 27 H 32 H Blood Pressure 148/91 H 134/91 H Pulse Oximetry 96 98 98 09/03/18 04:30 09/03/18 05:00 09/03/18 05:09 Temperature Pulse Rate 87 87 88 Respiratory Rate 25 H 20 20 Blood Pressure 119/85 Pulse Oximetry 95 97 97 09/03/18 05:30 09/03/18 05:41 09/03/18 06:00 Temperature Pulse Rate 89 87 Respiratory Rate 24 23 Blood Pressure Pulse Oximetry 98 97 96 09/03/18 06:01 09/03/18 06:30 09/03/18 07:00 Temperature Pulse Rate 87 86 86 Respiratory Rate 20 22 21 Blood Pressure 137/93 H 143/93 H Pulse Oximetry 95 96 96 09/03/18 07:30 09/03/18 07:46 09/03/18 08:00 Temperature 97.9 F Pulse Rate 87 86 Respiratory Rate 24 24 Blood Pressure 143/86 H Pulse Oximetry 94 L 91 L 91 L 09/03/18 10:00 09/03/18 10:48 Temperature Pulse Rate 93 H Respiratory Rate Blood Pressure Pulse Oximetry 90 L I&O: Intake & Output 09/01/18 09/02/18 09/03/18 09/04/18 06:59 06:59 06:59 06:59 Intake Total 917 / 917 2424 / 2424 1520 / 1520 Output Total 1775 / 1775 850 / 850 750 / 750 Balance -858 / -858 1574 / 1574 770 / 770 Weight 230 lb 6.129 oz 230 lb 6.129 oz 229 lb 4.492 oz Physical Exam: CONSTITUTIONAL/GENERAL: This is a morbidly obese patient, sitting up in stretcher chair in no acute distress. TUBES/LINES/DRAINS: PIV x2 SKIN: No jaundice, rashes, or lesions. Ecchymoses on upper extremities. No wounds seen anteriorly. Skin temperature appropriate. Not diaphoretic. HEAD: Atraumatic. Normocephalic. EYES: Pupils equal and round and reactive. Extraocular motions intact. No scleral icterus. No injection or drainage. Fundi not examined. ENT: Hearing grossly normal. Nose without bleeding or purulent drainage. Throat without visible erythema, exudates, masses, or lesions. NECK: Trachea midline. Supple, nontender. No palpable thyroid enlargement or nodularity. CARDIOVASCULAR: Regular rate and rhythm without murmurs, gallops, or rubs. No JVD. Peripheral pulses symmetric. RESPIRATORY/CHEST: Symmetric, unlabored respirations. Clear, diminished to auscultation. Breath sounds equal bilaterally. No wheezes, rales, or rhonchi. GASTROINTESTINAL: Abdomen obese, non-tender, nondistended. No guarding. Bowel sounds present. GENITOURINARY: Without palpable bladder distension. Nephrostomy tube draining to bedside drainage. MUSCULOSKELETAL: Extremities without clubbing, cyanosis, or edema. 2/5 weakness in all 4 extremities. Chronic skin changes of peripheral vascular disease. No mottling or clubbing. LYMPHATICS: No palpable cervical or supraclavicular adenopathy. NEUROLOGICAL: Lethargic, able to nod yes/no, responds appropriately and consistently answering the same question with consistent responses for multiple examiners. PSYCHIATRIC: Flat affect. . Diagnostic Tests Laboratory: Laboratory Results - last 72 hr 08/31/18 08/31/18 09/01/18 13:17 18:31 00:22 WBC RBC Hgb Hct MCV MCH MCHC RDW Plt Count MPV Puncture Site Patient Temperature O2 Saturation ABG pH ABG pCO2 ABG pO2 ABG HCO3 ABG O2 Content ABG Base Excess ABG Methemoglobin Hemoglobin Carboxyhemoglobin O2 Delivery Device Liter Flow Critical Value Sodium Potassium Chloride Carbon Dioxide Anion Gap BUN Creatinine Estimated GFR POC Glucose 104 106 146 H Random Glucose Calcium Phosphorus Magnesium 09/01/18 09/01/18 09/01/18 06:07 06:07 06:58 WBC 27.1 H RBC 5.74 Hgb 18.9 H Hct 59.4 H MCV 103.4 H MCH 32.9 MCHC 31.8 L RDW 14.7 Plt Count 151 MPV 12.0 H Puncture Site Patient Temperature O2 Saturation ABG pH ABG pCO2 ABG pO2 ABG HCO3 ABG O2 Content ABG Base Excess ABG Methemoglobin Hemoglobin Carboxyhemoglobin O2 Delivery Device Liter Flow Critical Value Sodium 151 H Potassium 2.9 L* Chloride 110 H Carbon Dioxide 31.7 Anion Gap 9 BUN 109 H Creatinine 1.42 H Estimated GFR 50 L POC Glucose 164 H Random Glucose 168 H Calcium 10.6 H D Phosphorus 3.1 Magnesium 2.6 H 09/01/18 09/01/18 09/01/18 11:20 17:27 22:30 WBC RBC Hgb Hct MCV MCH MCHC RDW Plt Count MPV Puncture Site Left brachial Patient Temperature 98.6 O2 Saturation 90 ABG pH 7.40 ABG pCO2 53 H* ABG pO2 64 ABG HCO3 32 H ABG O2 Content 24.8 H ABG Base Excess 7.5 H ABG Methemoglobin 1.4 Hemoglobin 19.6 H Carboxyhemoglobin 1.0 O2 Delivery Device Nasal cannula Liter Flow 3.00 Critical Value Yes Sodium 150 H Potassium 4.3 D Chloride 114 H Carbon Dioxide 29.8 Anion Gap 6 BUN 89 H Creatinine 1.40 H Estimated GFR 51 L POC Glucose 121 H Random Glucose 154 H Calcium 9.9 Phosphorus 2.4 L Magnesium 2.5 10/09/1009/02/18 09/02/18 00:21 04:25 05:06 WBC 24.5 H RBC 5.64 Hgb 18.7 H Hct 58.5 H MCV 103.8 H MCH 33.1 MCHC 31.9 L RDW 15.3 Plt Count 151 MPV 12.0 H Puncture Site Patient Temperature O2 Saturation ABG pH ABG pCO2 ABG pO2 ABG HCO3 ABG O2 Content ABG Base Excess ABG Methemoglobin Hemoglobin Carboxyhemoglobin O2 Delivery Device Liter Flow Critical Value Sodium Potassium Chloride Carbon Dioxide Anion Gap BUN Creatinine Estimated GFR POC Glucose 123 H 144 H Random Glucose Calcium Phosphorus Magnesium 09/02/18 09/02/18 09/03/18 11:57 17:44 00:09 WBC RBC Hgb Hct MCV MCH MCHC RDW Plt Count MPV Puncture Site Patient Temperature O2 Saturation ABG pH ABG pCO2 ABG pO2 ABG HCO3 ABG O2 Content ABG Base Excess ABG Methemoglobin Hemoglobin Carboxyhemoglobin O2 Delivery Device Liter Flow Critical Value Sodium Potassium Chloride Carbon Dioxide Anion Gap BUN Creatinine Estimated GFR POC Glucose 177 H 142 H 110 Random Glucose Calcium Phosphorus Magnesium 09/03/18 05:28 WBC RBC Hgb Hct MCV MCH MCHC RDW Plt Count MPV Puncture Site Patient Temperature O2 Saturation ABG pH ABG pCO2 ABG pO2 ABG HCO3 ABG O2 Content ABG Base Excess ABG Methemoglobin Hemoglobin Carboxyhemoglobin O2 Delivery Device Liter Flow Critical Value Sodium Potassium Chloride Carbon Dioxide Anion Gap BUN Creatinine Estimated GFR POC Glucose 121 H Random Glucose Calcium Phosphorus Magnesium Result Diagrams: 09/06/18 03:46 09/06/18 03:46 Microbiology: Microbiology 08/19/18 15:09 Fungal Smear - Final Bronchial Washings - Left Upper Lobe No fungal elements seen Fungal Culture - Preliminary No growth in 2 weeks 08/19/18 15:09 Acid Fast Bacilli Smear - Final Bronchial Washings - Left Upper Lobe No acid fast bacilli seen Mycobacterial Culture - Preliminary No growth in 2 weeks Imaging: Chest X-Ray 08/17/18 08:41 CONCLUSION: 1. ETT in good position. NGT beyond the GE junction. 2. Improved aeration of the left upper lung zone with persistent pleural- parenchymal disease in the left lower lung zone and worsening patchy airspace disease in the right lower lung zone, presumably atelectasis. Chest X-Ray 08/18/18 05:00 CONCLUSION: 1. Marked interval increase in left hemithorax opacity with near complete opacification of the left hemithorax. Air-fluid level is seen at the top of the opacity. Findings may represent a hydropneumothorax and left lung collapse versus postsurgical change. 2. Right lung base consolidation versus atelectasis and small pleural effusion now seen. Abdomen Ultrasound 08/19/18 00:00 CONCLUSION: 1. Hepatomegaly with diffuse hyperechoic texture characteristic of steatosis or diffuse hepatocellular disease. 2. Bilateral renal cysts. 3. Nonvisualization of the gallbladder and pancreas. 4. No evidence of hydronephrosis or abnormal fluid collections. Chest CT 08/19/18 12:41 CONCLUSION: 1. Progressive airspace consolidation and collapse involving now nearly the entire left lung with only minimal residual aeration of the left lung apex. Air bronchograms are noted throughout the left lung making a significant endobronchial lesion less likely. There is progressive mediastinal shift to the left. 2. No evidence for hydropneumothorax as questioned. 3. Scattered subcentimeter mediastinal nodes are nonspecific and may be reactive in etiology. Chest X-Ray 08/19/18 15:17 CONCLUSION: 1. Improved aeration of the left upper lung zone following bronchoscopy without pneumothorax. Chest X-Ray 08/21/18 06:00 CONCLUSION: Mild consolidation and small effusions at each lung base, not significantly changed on the right and improved on the left. Chest X-Ray 08/22/18 07:02 CONCLUSION: Increased left basilar opacity characteristic of pleural effusion with associated volume loss and/or airspace consolidation. There is very small volume of right pleural fluid with likely atelectasis at the right base. Abdomen X-Ray 08/22/18 07:03 CONCLUSION: 1. There are no features to indicate ileus. No acute abdominal abnormality is identified. 2. Nonspecific 18 mm density in the left pelvis represent a calcification or could represent material within the sigmoid colon. 3. Opacity at the left lung base. Please refer to today's chest x-ray for further description. Abdomen/Pelvis CT 08/23/18 00:00 CONCLUSION: 1. Severe left hydronephrosis and hydroureter caused by a 2 cm stone in the distal left ureter. 2. Trace air within the bladder lumen. Although nonspecific this may be related to a recent catheterization. 3. Nonacute findings include multiple bilateral renal cysts, mild atherosclerotic disease, and mild hepatic steatosis. Chest CT 08/23/18 00:00 CONCLUSION: 1. There is continued volume loss/collapse of the left upper lobe with mild atelectasis in the left upper lobe. Aeration is improved compared to the study from 4 days ago and stable compared to the most recent chest x-ray. There is also volume loss in the right lower lobe. No pleural effusion is present. 2. Stable enlargement of the main pulmonary artery which may indicate pulmonary arterial hypertension. 3. Findings consistent with prior granulomatous infection. Please refer to abdomen and CT report for description of the subdiaphragmatic findings. Nephrostomy 08/23/18 00:00 CONCLUSION: 1. Uncomplicated nephrostomy tube placement as above. Chest X-Ray 08/25/18 00:00 CONCLUSION: 1. Stable ETT and NGT. 2. Cardiomegaly with worsening positive fluid balance. 3. Worsening bilateral, left greater than right, small pleural effusions and associated lower lung zone airspace disease. Chest X-Ray 08/26/18 01:53 CONCLUSION: 1. Stable ETT and NGT. 2. Cardiomegaly with positive fluid balance. 3. Stable bilateral, left greater than right, small pleural effusions and associated lower lung zone airspace disease. Chest X-Ray 08/29/18 00:00 CONCLUSION: 1. There is a Dobbhoff feeding tube in the patient's stomach. 2. There continues to be bibasilar parenchymal consolidation without significant change, left greater than right. Chest X-Ray 08/29/18 05:00 CONCLUSION: Interval extubation. Otherwise stable abnormal chest Chest CT 08/30/18 00:00 CONCLUSION: 1. Persistent left lower lobe volume loss/collapse with likely some degree of consolidation. This is very similar to the prior examination. No significant pleural effusion is present. The fluidlike material is visualized within the left main bronchus suggesting aspiration. 2. Slightly increased consolidation/volume loss in the right lower lobe. 3. Stable enlarged main pulmonary artery suggesting pulmonary arterial hypertension. 4. Stable 3.3 cm left thyroid nodule. Head CT 08/31/18 13:07 CONCLUSION: 1. No acute intracranial abnormality. . Abdomen X-Ray 08/31/18 16:55 CONCLUSION: Given the feeding tube felt to be within the antrum of a long J-shaped stomach. Head MRI 09/01/18 07:04 CONCLUSION: 1. Minimal nonspecific white matter changes. 2. No acute intracranial abnormality. Procedures: 08/17: Intubation 08/19: Bronchoscopy 08/23 left nephrostomy tube placement 08/24: Bronchoscopy Patient/Family Conference Present at Family Conference: No one available at bedside. Placed call to patient's caregiver Janie, pending return call. Issues Discussed: * Palliative care role, purpose, approach * Additional medical, psychosocial, and spiritual history * Patients general health, functional status, and cognitive changes in the months leading up to the current hospitalization * Patient/family understanding of the current medical problems * Patient/family understanding of prognosis * Patients goals of care as best understood from advance directives and/or conversations and/or values * Current medical treatment options and benefits/burdens of those options * Likely scenarios comparing ongoing aggressive care with a transition to comfort measures only * Questions answered to the best of my ability * Palliative care contact information provided Assessment and Plan Pertinent Non-Medical Issues: Psychosocial: Lives in [place]. Requires a full-time caregiver. Denies any , children or living family. Spiritual: [employer] available Legal: A verbal healthcare surrogate was witnessed by myself and Monserrat Post RN. Patient answering appropriately but very weak. Ethical issues impacting care: None noted. . Important Contacts: Skating Rink Manager/HCS: Janie Whittington . Prognosis: His prognosis is guarded. He spent several days intubated and was a difficult extubation. He remains on a high level of oxygen and intermittently requires BiPAP. He is extremely weak and does not wish to be reintubated or resuscitated. He has severe COPD, hypoxic, hypercapnic respiratory failure, pneumonia lung nodule and renal insufficiency. In spite of aggressive pulmonary toilet, bronchoscopies, antibiotics, nebulizers and steroids, his respiratory status is extremely fragile and he is at high risk for respiratory failure. . Code Status: No Code DNR Plan: PLAN: Legal decision maker: Patient is oriented but very weak and defers decision making to his caregiver, Janie. Goals: Comfort oriented CODE STATUS: DO NOT RESUSCITATE SYMPTOMS: * Dyspnea: Multifactorial to include pneumonia, severe cardiomegaly, COPD and hypoventilation obesity syndrome. He remains on a Venturi mask at 6 L and intermittently requires BiPAP. He is intermittently tachypneic with shallow breathing. He is currently receiving Solu-Medrol, levofloxacin, DuoNeb and Diamox. He shows increased work of breathing with some accessory muscle use. He is at elevated risk of continued respiratory decline but has made himself a DO NOT RESUSCITATE do not reintubate. * Weakness: Likely multifactorial to include chronic debility from sedentary lifestyle, hypoxia, extended hospitalization with bedbound status. He is failing swallow evaluations and his weakness is likely a significant factor in that. He is receiving tube feeding as well as vitamin B1. If he survives this hospitalization he will most certainly extended physical therapy and aggressive rehabilitation. Summary This is a 68-year-old morbidly beast male history of tobacco abuse who presents toxic, hypercarbic respiratory failure. 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 He is declining reintubation or cardiac resuscitation and given his current fragile respiratory status he is at significant risk for continued complications, decline and possible . Palliative care will continue to follow the patient during hospital course as condition evolves, to assist patient/decision-maker with understanding of their medical conditions, weighing benefits/burdens of treatment options, for clarification of goals of treatment. Additionally will assist with any symptoms of palliative concern. . Appreciation Thank you for the opportunity to participate in the care of Ben Menchaca. Attestation Attestation: To help prompt me to consider important information that might be impacting today's encounter and assessment, information from prior notes written by myself or my colleagues may have been "brought forward" into today's note. My signature on this note, however, is an attestation that I personally performed the exam, history, and/or decision-making noted today, and, unless otherwise indicated, the interactions with patient, family, and staff as well as the review of records all occurred today. I also attest that the listed assessment and stated plan reflect my best clinical judgment today based on the combination of historical information, prior notes, and today's exam/ interactions. When time spent is documented, it refers only to time spent today by the signer, or if indicated, combined time spent today by collaborating physician/nurse practitioner. .
--- NOTE | 2018-09-03 14:52 | P.PN ---
Subjective Interval history: configuration management specialist Notes: 68-year-old gentleman with COPD and chronic cough who continues to smoke presented to [place] emergency department for an evaluation of altered mental status and shortness of breath. The patient went to [employer] this morning and returned on the bus and sat in the garage. The lady that takes care of him did talk to him and he said he was fine and sat down in his chair in the garage. He however did not come to his lunch and she went out and found him unresponsive with labored breathing. This occurred at 2 PM today. Patient was brought into the emergency department with altered mental status and respiratory distress. Pulse ox was in the 60s. Patient was put on high flow oxygen and later changed to BiPAP with improvement in mentation and oxygenation. The chest x-ray obtained in the emergency department shows almost complete opacification of left hemithorax. The CT without contrast shows severe cardiomegaly and no pleural effusion or pericardial effusion. The patient has been transferred to [facility] ICU for higher level of care. 08/17: no improvement in respiratory distress- mental status worsened. abg no improvement. clinically declined and emergently intubated. on bedside echo, very difficult windows due to lung disease and obesity, but dilated ivc without respiratory variation and no pericardial effusion. formal echo pending. 08/18: remains intubated. abg slowly improving. tran removed yesterday but unable to straight cath. 08/19: FiO2 down to 55%. Will re-CT the chest today. Likely just a gigantic heart causing opacification left hemithorax.. No other issues overnight. Creatinine slowly increasing. 08/20: Febrile. Status post bronchoscopy yesterday due to mucous plug in the left lungs. Improved aeration currently 50% FiO2. We will continue to wean today. Tolerating tube feeding. Creatinine improving. 08/21 Patient remains intubated and sedated with Diprivan. Afebrile. 08/22 No events overnight off sedation tolerated CPAP for several hrs yesterday. T:100.7 last night 08/23 Patient remains intubated off sedation. T:101.4 last night. 08/24 Patient remains intubated on no sedation awake and follows commands. Had CT abdomen yesterday showed left hydronephrosis 2nd cm stone in distal left ureter s/p left nephrostomy tube placement by IR. Renal function continue to improve with Cr: 1.35 today from 1.72. Underwent bronch by mucous plugs suctioned from left lung. 08/25: tolerating 10/5 psv, but cxr much less aerated. may not do well off ventilator: significant OHS and derecruits easily. 08/26: CXR significantly improved with APRV ventilation, but clearly going to be a difficult wean from mechanical ventilation. wbc improving. still very volume overloaded, and net+ fluid balance yesterday. needs aggressive diuresis. 08/27: pulmonary mechanics appear somewhat improving. still net+ fluid balance despite aggressive diuresis attempts. Cr slightly worse, but still have not achieved a negative fluid balance. will add metolazone today. continue to wean APRV pressure as tolerated. 08/28: passed SBT today. will extubate straight to BiPAP given how significantly he de-recruits and has atelectasis. will attempt to wean from BiPAP after this. good diuresis and net negative fluid balance. still alkalotic- will hold lasix today but keep diamox to prevent further alkalosis and compensatory hypoventilation. 08/29: successfully extubated yesterday and remains extubated. CXR with worse atelectasis, but expected due to body habitus. remains on intermittent BiPAP. net negative 2L/24h with associated improvement in renal function. remains high risk for reintubation. Hospitalist Notes: 08/31: Seen in his bedroom he is been followed by ID specialist, recommended to continue Oral Levaquin, to try to reduce fluid overload likely ongoing aspiration, followed by peer support specialist, with diagnosis of Hypoxic hypercapnic respiratory failure, status post extubation COPD, continue Bronchodilator, Mucolytic and incentive spirometry, BiPAP at night, continue antibiotics and Diuresis, discussed with nurse Miss Rankin she states the patient had increased right hemiparesis asked for CT brain and Neurology specialist consult. 09/01: Stable in his bedroom discussed with nurse Miss Loera, no new issues, stable in his bedroom, asked for MRI not yet performed. 09/02: as per peer support specialist recommended to continue present care no changes. seen by ID specialist recommended to continue Levaquin by mouth, was recommended for [facility] in am but I have been told this won't be possible due to Insurance issues, continue management inside Intensive care with Poor short term prognosis. 09/03: Stable in his bedroom, discussed with nurse Miss German, not authorized for [facility] care, no nausea, vomit or diarrhea, at this time on Non rebreather mask. Physical Exam Vital signs: Vital Signs 09/02/18 15:00 09/02/18 16:00 09/02/18 18:00 Temperature 98.2 F Pulse Rate 88 91 H 96 H Respiratory Rate 24 27 H Blood Pressure 136/83 139/89 Pulse Oximetry 97 95 09/02/18 19:00 09/02/18 19:45 09/02/18 20:00 Temperature 98.6 F Pulse Rate 86 Respiratory Rate 21 Blood Pressure 141/85 H Pulse Oximetry 87 L 86 L 09/02/18 22:00 09/03/18 00:00 09/03/18 00:24 Temperature 98.9 F Pulse Rate 81 87 Respiratory Rate 22 22 Blood Pressure 136/85 140/85 Pulse Oximetry 93 L 09/03/18 02:00 09/03/18 03:00 09/03/18 03:30 Temperature Pulse Rate 92 H 92 H 84 Respiratory Rate 24 27 H Blood Pressure 145/88 H 148/91 H Pulse Oximetry 97 96 98 09/03/18 04:00 09/03/18 04:30 09/03/18 05:00 Temperature 98.2 F Pulse Rate 90 87 87 Respiratory Rate 32 H 25 H 20 Blood Pressure 134/91 H Pulse Oximetry 98 95 97 09/03/18 05:09 09/03/18 05:30 09/03/18 05:41 Temperature Pulse Rate 88 89 Respiratory Rate 20 24 Blood Pressure 119/85 Pulse Oximetry 97 98 97 09/03/18 06:00 09/03/18 06:01 09/03/18 06:30 Temperature Pulse Rate 87 87 86 Respiratory Rate 23 20 22 Blood Pressure 137/93 H Pulse Oximetry 96 95 96 09/03/18 07:00 09/03/18 07:30 09/03/18 07:46 Temperature Pulse Rate 86 87 Respiratory Rate 21 24 Blood Pressure 143/93 H Pulse Oximetry 96 94 L 91 L 09/03/18 08:00 09/03/18 08:30 09/03/18 09:00 Temperature 97.9 F Pulse Rate 86 86 89 Respiratory Rate 24 22 28 H Blood Pressure 143/86 H 139/89 Pulse Oximetry 91 L 95 95 09/03/18 09:30 09/03/18 10:00 09/03/18 10:30 Temperature Pulse Rate 87 93 H 94 H Respiratory Rate 30 H 29 H 26 H Blood Pressure 130/85 Pulse Oximetry 98 94 L 94 L 09/03/18 10:48 09/03/18 11:00 09/03/18 11:30 Temperature Pulse Rate 97 H 97 H Respiratory Rate 28 H 31 H Blood Pressure 134/82 Pulse Oximetry 90 L 90 L 94 L 09/03/18 12:00 09/03/18 12:30 09/03/18 13:00 Temperature 96.9 F L Pulse Rate 98 H 102 H 101 H Respiratory Rate 25 H 30 H 26 H Blood Pressure 139/85 131/84 Pulse Oximetry 98 99 98 09/03/18 13:30 09/03/18 14:00 09/03/18 14:30 Temperature Pulse Rate 104 H 104 H 104 H Respiratory Rate 27 H 29 H 28 H Blood Pressure 121/73 Pulse Oximetry 94 L 91 L 94 L Intake & Output 09/02/18 09/03/18 09/03/18 18:59 06:59 18:59 Intake Total 586 / 586 934 / 934 Output Total 350 / 350 400 / 400 Balance 236 / 236 534 / 534 Weight 104 kg Intake: Tube Feeding 586 / 586 534 / 534 Water Bolus Amount 400 / 400 Output: Urine Amount (Stoma) 350 / 350 400 / 400 Nephrostomy Tube 350 / 350 400 / 400 Other: # Voids 2 # Incontinent Voids 2 Date of Last Bowel Movement 09/02/18 09/03/18 09/03/18 # Bowel Movements 1 2 # Incontinent Bowel Movements 2 Narrative: GENERAL: Obese patient, in no apparent distress. CARDIOVASCULAR: Regular rate and rhythm without murmurs, gallops, or rubs. RESPIRATORY: Severe decreased breath sounds bilateral, expiratory wheezing and soft inspiratory crackles. GASTROINTESTINAL: Abdomen soft, non-tender, nondistended. Normal active bowel sounds MUSCULOSKELETAL: no clubbing, cyanosis or edema. NEURO: Alert not able to speak in full sentences but looks oriented. - Urinary Catheter Management Indwelling Urethral Catheter Cath placed during this visit: yes, but has since been removed by the nurse Reason for continuing: Decision to DC catheter Removal date: 08/17/18 Removal time: 16:30 Coude Cath placed during this visit: no Results - Labs CBC & Chem 7: 09/02/18 04:25 09/01/18 22:30 Laboratory Results - last 24 hr 09/02/18 09/03/18 09/03/18 17:44 00:09 05:28 POC Glucose 142 H 110 121 H 09/03/18 13:21 POC Glucose 134 H Microbiology 08/19/18 15:09 Bronchial Washings - Left Upper Lobe Fungal Smear - Final No fungal elements seen 08/19/18 15:09 Bronchial Washings - Left Upper Lobe Fungal Culture - Preliminary No growth in 2 weeks 08/19/18 15:09 Bronchial Washings - Left Upper Lobe Acid Fast Bacilli Smear - Final No acid fast bacilli seen 08/19/18 15:09 Bronchial Washings - Left Upper Lobe Mycobacterial Culture - Preliminary No growth in 2 weeks Assessment and Plan - Plan This patient is a 68-year-old male with a diagnosis of COPD, systolic CHF with an ejection fraction of approximately 35%. The patient initially presented to [facility] emergency department with shortness of breath and acute encephalopathy. The patient was found to be in acute hypoxic hypercapnic respiratory failure. CT scan of the chest showed nearly complete opacification of the left hemithorax and severe cardiomegaly. He was then transferred to [facility] intensive care unit for higher level of care. 1. Acute hypoxic hypercapnic respiratory failure secondary nearly complete opacification of the left hemithorax status post bronchoscopy 2. COPD 3. Tobacco smoking Continue supplemental oxygen, peer support specialist following. Continue with breathing treatments as needed. to continue Bronchodilator, Mucolytic incentive spirometry, Status post repeat bronchoscopy 08/23 and mucous plugs suctioned from the left. There are collapsing pires of the left upper lobe which makes the lumen narrow. BiPAP at night, ID specialist following recommended to continue Oral Levaquin, to try to reduce fluid overload he was advised not to smoke 4. Systolic CHF exacerbation Ejection fraction is approximately 33%. Diffuse Hpokinesis, Grade 1 Diastolic dysfunction, RV with decreased systolic function. PA 31 mm Hg. Continue IV diuresis with Diamox as the patient's bicarb has been continuously elevating. Once the patient is diuresed he would benefit from being started on a beta- jose and aspirin. No KARINA inhibitor due to CJ. 5. Depression to continue Bupropion 50 mg daily. decreased Gabapentin 200 mg BID for GFR on Thiamine 100 mg BID. 6. Transaminitis/Indeterminate Hepatitis A IgM, Tube feeds, formal swallow eval , PPIs, Liver US -revealed enlarged liver likely hepatic steatosis versus inflammatory Hepatitis panel: Hep A IgM Indeterminate, KUB abdomen: There are no features to indicate ileus. No acute abdominal abnormality is identified. Nonspecific 18 mm density in the left pelvis represent a calcification or could represent material within the sigmoid colon 7. CJ CT abd/pelvis 08/23: Severe left hydronephrosis and hydroureter caused by a 2 cm stone in the distal left ureter. s/p Nephrostomy tube placement by IR 08/23 , On Free water, decrease to 200ml Q8, sodium improving.Renal ultrasound revealed bilateral renal cyst. No hydronephrosis, Nephrology following Dr. Olivares. 8. Leukocytosis Cefepime, ID following, discontinued Vancomycin and Azithromycin. Repeat bronch 08/23, follow up on bronch cx from 08/23 Negative UA 08/17. Negative sputum 08/17 Bronchoscopy samples from left upper lobe 08/19. Gram stain negative Bronch washing AFB pending On Levaquin by mouth. 9. right Hemiparesis asked for CT brain negative, seen by neurology specialist started the patient on Aspirin 81 mg and recommended for MRI brain. failed swallow test and will need PT at Rehab 10. Hypokalemia replaced last potassium was 4.3 follow in am tomorrow with new laboratory. Lovenox for DVT prophylaxis, continue with GI prophylaxis as well. Overall Poor short term prognosis. Code Status: DNR Discussed Condition With: Patient and Nurse Miss German. Discharge Planning: Not yet cleared by specialists.
--- NOTE | 2018-09-03 15:14 | P.PNPL ---
Subjective Interval history: 68 YOWM with VDRF, COPD Was more alert, awake Now, sleeping Using BIPAP Physical Exam Vital signs: Vital Signs 09/02/18 16:00 09/02/18 18:00 09/02/18 19:00 Temperature 98.2 F Pulse Rate 91 H 96 H Respiratory Rate 27 H Blood Pressure 139/89 Pulse Oximetry 95 87 L 09/02/18 19:45 09/02/18 20:00 09/02/18 22:00 Temperature 98.6 F Pulse Rate 86 81 Respiratory Rate 21 22 Blood Pressure 141/85 H 136/85 Pulse Oximetry 86 L 09/03/18 00:00 09/03/18 00:24 09/03/18 02:00 Temperature 98.9 F Pulse Rate 87 92 H Respiratory Rate 22 Blood Pressure 140/85 145/88 H Pulse Oximetry 93 L 97 09/03/18 03:00 09/03/18 03:30 09/03/18 04:00 Temperature 98.2 F Pulse Rate 92 H 84 90 Respiratory Rate 24 27 H 32 H Blood Pressure 148/91 H 134/91 H Pulse Oximetry 96 98 98 09/03/18 04:30 09/03/18 05:00 09/03/18 05:09 Temperature Pulse Rate 87 87 88 Respiratory Rate 25 H 20 20 Blood Pressure 119/85 Pulse Oximetry 95 97 97 09/03/18 05:30 09/03/18 05:41 09/03/18 06:00 Temperature Pulse Rate 89 87 Respiratory Rate 24 23 Blood Pressure Pulse Oximetry 98 97 96 09/03/18 06:01 09/03/18 06:30 09/03/18 07:00 Temperature Pulse Rate 87 86 86 Respiratory Rate 20 22 21 Blood Pressure 137/93 H 143/93 H Pulse Oximetry 95 96 96 09/03/18 07:30 09/03/18 07:46 09/03/18 08:00 Temperature 97.9 F Pulse Rate 87 86 Respiratory Rate 24 24 Blood Pressure 143/86 H Pulse Oximetry 94 L 91 L 91 L 09/03/18 08:30 09/03/18 09:00 09/03/18 09:30 Temperature Pulse Rate 86 89 87 Respiratory Rate 22 28 H 30 H Blood Pressure 139/89 Pulse Oximetry 95 95 98 09/03/18 10:00 09/03/18 10:30 09/03/18 10:48 Temperature Pulse Rate 93 H 94 H Respiratory Rate 29 H 26 H Blood Pressure 130/85 Pulse Oximetry 94 L 94 L 90 L 09/03/18 11:00 09/03/18 11:30 09/03/18 12:00 Temperature 96.9 F L Pulse Rate 97 H 97 H 98 H Respiratory Rate 28 H 31 H 25 H Blood Pressure 134/82 139/85 Pulse Oximetry 90 L 94 L 98 09/03/18 12:30 09/03/18 13:00 09/03/18 13:30 Temperature Pulse Rate 102 H 101 H 104 H Respiratory Rate 30 H 26 H 27 H Blood Pressure 131/84 Pulse Oximetry 99 98 94 L 09/03/18 14:00 09/03/18 14:30 Temperature Pulse Rate 104 H 104 H Respiratory Rate 29 H 28 H Blood Pressure 121/73 Pulse Oximetry 91 L 94 L Intake & Output 09/02/18 09/03/18 09/03/18 18:59 06:59 18:59 Intake Total 586 / 586 934 / 934 Output Total 350 / 350 400 / 400 Balance 236 / 236 534 / 534 Weight 104 kg Intake: Tube Feeding 586 / 586 534 / 534 Water Bolus Amount 400 / 400 Output: Urine Amount (Stoma) 350 / 350 400 / 400 Nephrostomy Tube 350 / 350 400 / 400 Other: # Voids 2 # Incontinent Voids 2 Date of Last Bowel Movement 09/02/18 09/03/18 09/03/18 # Bowel Movements 1 2 # Incontinent Bowel Movements 2 GENERAL: WBWN,Mod sob SKIN: Warm and dry. HEAD: Normocephalic. EYES: No scleral icterus. No injection or drainage. NECK: Supple, trachea midline. No JVD or lymphadenopathy. CARDIOVASCULAR: Regular rate and rhythm without murmurs, gallops, or rubs. RESPIRATORY: Breath sounds equal bilaterally. No accessory muscle use. GASTROINTESTINAL: Abdomen soft, non-tender, nondistended. MUSCULOSKELETAL: No cyanosis, or edema. BACK: Nontender without obvious deformity. No CVA tenderness. - Urinary Catheter Management Indwelling Urethral Catheter Cath placed during this visit: yes, but has since been removed by the nurse Reason for continuing: Decision to DC catheter Removal date: 08/17/18 Removal time: 16:30 Coude Cath placed during this visit: no Assessment and Plan - Plan IMPRESSION: 1. Hypoxic, hypercapnic respiratory failure., s/p extubation 2. Left lung volume loss, possible atelectasis or infiltrate. 3. Left lung nodule. 4. Chronic obstructive pulmonary disease. 5. Renal insufficiency. 6. Atelactesis left lung PLAN: Aerosol nebs Mucomyst nebs Cont Abx Diurease Cont BIPAP Wean 02 to keep sat 88-92% Tube feeding. DNR Palliative care consulted
[2018-09-03] MEDS: Enoxaparin Inj 40 MG/0.4 ML Syringe SQ SCH (21:53)
[2018-09-04] MEDS: Insulin NovoLIN Regular Correctional Sugar Inj SQ SCH ×4 (00:37→17:26)
[2018-09-04] MEDS: Oral Hygiene Kit OROPHARYNG SCH ×4 (00:38→15:26)
[2018-09-04] MEDS: MethylPREDNISolone Sod Succinate Inj 40 MG/ML Vial IV.PUSH SCH ×2 (06:01→15:09)
[2018-09-04 08:41] LABS: Calcium 9.9 mg/dL (8.5-10.1); Carbon Dioxide 31.7 meq/L (21.0-32.0); Magnesium 2.8 mg/dL (1.5-2.5); Potassium 3.7 meq/L (3.5-5.1)
[2018-09-04] MEDS: Senna/Docusate Sodium 8.6/50 MG Tablet PO SCH ×2 (09:37→21:38)
[2018-09-04] MEDS: Chlorhexidine 0.12% Oral Kit 15 ML UDC OROPHARYNG SCH ×2 (09:37→21:49)
[2018-09-04] MEDS: Gabapentin 100 MG Capsule PO SCH ×2 (09:37→21:35)
[2018-09-04] MEDS: levoFLOXacin 500 MG Tablet PO SCH (09:37)
[2018-09-04] MEDS: Carboxymethylcellulose 0.5% Opth Drops 15 ML Bottle EACH EYE SCH ×3 (09:38→17:27)
--- NOTE | 2018-09-04 11:24 | P.PNPL ---
Subjective Interval history: 68 YOWM with VDRF, COPD Lethargic, barely opens eyes Using BIPAP, Fi02 40 % No fever Physical Exam Vital signs: Vital Signs 09/03/18 11:30 09/03/18 12:00 09/03/18 12:30 Temperature 96.9 F L Pulse Rate 97 H 98 H 102 H Respiratory Rate 31 H 25 H 30 H Blood Pressure 139/85 Pulse Oximetry 94 L 98 99 09/03/18 13:00 09/03/18 13:30 09/03/18 14:00 Temperature Pulse Rate 101 H 104 H 104 H Respiratory Rate 26 H 27 H 29 H Blood Pressure 131/84 121/73 Pulse Oximetry 98 94 L 91 L 09/03/18 14:30 09/03/18 15:00 09/03/18 15:30 Temperature Pulse Rate 104 H 101 H 103 H Respiratory Rate 28 H 29 H 25 H Blood Pressure 131/81 Pulse Oximetry 94 L 93 L 94 L 09/03/18 15:34 09/03/18 16:00 09/03/18 16:30 Temperature 98.5 F Pulse Rate 104 H 106 H Respiratory Rate 26 H 26 H Blood Pressure 121/81 Pulse Oximetry 95 98 94 L 09/03/18 17:00 09/03/18 17:30 09/03/18 18:00 Temperature Pulse Rate 107 H 111 H 112 H Respiratory Rate 26 H 29 H 28 H Blood Pressure 126/86 135/88 Pulse Oximetry 93 L 95 94 L 09/03/18 18:30 09/03/18 19:00 09/03/18 19:15 Temperature Pulse Rate 113 H 116 H Respiratory Rate 26 H 37 H Blood Pressure 148/91 H Pulse Oximetry 92 L 92 L 92 L 09/03/18 19:30 09/03/18 20:00 09/03/18 20:30 Temperature 98.9 F Pulse Rate 116 H 109 H 109 H Respiratory Rate 33 H 23 25 H Blood Pressure 143/90 H Pulse Oximetry 95 94 L 97 09/03/18 21:00 09/03/18 21:30 09/03/18 22:00 Temperature Pulse Rate 107 H 104 H 104 H Respiratory Rate 25 H 23 27 H Blood Pressure 142/91 H 157/89 H Pulse Oximetry 98 98 97 09/03/18 22:30 09/03/18 23:00 09/03/18 23:30 Temperature Pulse Rate 97 H 96 H 95 H Respiratory Rate 20 20 21 Blood Pressure 135/89 Pulse Oximetry 97 97 97 09/04/18 00:00 09/04/18 00:30 09/04/18 01:00 Temperature 98.9 F Pulse Rate 93 H 93 H 96 H Respiratory Rate 16 14 21 Blood Pressure 138/90 139/87 Pulse Oximetry 97 98 99 09/04/18 01:30 09/04/18 02:00 09/04/18 02:30 Temperature Pulse Rate 96 H 92 H 95 H Respiratory Rate 24 19 24 Blood Pressure 136/85 Pulse Oximetry 93 L 95 96 09/04/18 03:00 09/04/18 03:30 09/04/18 04:00 Temperature 97.9 F Pulse Rate 90 93 H 92 H Respiratory Rate 20 25 H 21 Blood Pressure 124/81 120/80 Pulse Oximetry 97 88 L 95 09/04/18 04:19 09/04/18 04:30 09/04/18 05:00 Temperature Pulse Rate 90 82 Respiratory Rate 22 19 Blood Pressure 112/75 Pulse Oximetry 97 97 98 09/04/18 05:30 09/04/18 06:00 09/04/18 06:01 Temperature Pulse Rate 84 87 87 Respiratory Rate 22 22 22 Blood Pressure 143/88 H Pulse Oximetry 89 L 99 98 09/04/18 06:30 09/04/18 07:48 Temperature Pulse Rate 85 Respiratory Rate 19 Blood Pressure Pulse Oximetry 97 94 L Intake & Output 09/03/18 09/04/18 09/04/18 18:59 06:59 18:59 Intake Total 675 / 675 421 / 421 Output Total 325 / 325 450 / 450 Balance 350 / 350 -29 / -29 Weight 100.4 kg Intake: Tube Feeding 675 / 675 421 / 421 Output: Urine Amount (Stoma) 325 / 325 450 / 450 Nephrostomy Tube 325 / 325 450 / 450 Other: # Voids 2 Date of Last Bowel Movement 09/03/18 09/04/18 # Bowel Movements 1 GENERAL: Obese WM, on BIPAP, lethargic SKIN: Warm and dry. HEAD: Normocephalic. EYES: No scleral icterus. No injection or drainage. NECK: Supple, trachea midline. No JVD or lymphadenopathy. CARDIOVASCULAR: Regular rate and rhythm without murmurs, gallops, or rubs. RESPIRATORY: Breath sounds equal bilaterally. No accessory muscle use. GASTROINTESTINAL: Abdomen soft, non-tender, nondistended. MUSCULOSKELETAL: No cyanosis, or edema. BACK: Nontender without obvious deformity. No CVA tenderness. - Urinary Catheter Management Indwelling Urethral Catheter Cath placed during this visit: yes, but has since been removed by the nurse Reason for continuing: Decision to DC catheter Removal date: 08/17/18 Removal time: 16:30 Coude Cath placed during this visit: no Assessment and Plan - Plan IMPRESSION: 1. Hypoxic, hypercapnic respiratory failure., s/p extubation 2. Left lung volume loss, possible atelectasis or infiltrate. 3. Left lung nodule. 4. Chronic obstructive pulmonary disease. 5. Renal insufficiency. 6. Atelactesis left lung PLAN: Aerosol nebs Mucomyst nebs Cont Abx Cont BIPAP Wean 02 to keep sat 88-92% Tube feeding. DNR Palliative care consulted Prognosis gacharlotteded
--- NOTE | 2018-09-04 12:42 | P.PN ---
Subjective Interval history: medical front desk specialist Notes: 68-year-old gentleman with COPD and chronic cough who continues to smoke presented to [place] emergency department for an evaluation of altered mental status and shortness of breath. The patient went to [employer] this morning and returned on the bus and sat in the garage. The lady that takes care of him did talk to him and he said he was fine and sat down in his chair in the garage. He however did not come to his lunch and she went out and found him unresponsive with labored breathing. This occurred at 2 PM today. Patient was brought into the emergency department with altered mental status and respiratory distress. Pulse ox was in the 60s. Patient was put on high flow oxygen and later changed to BiPAP with improvement in mentation and oxygenation. The chest x-ray obtained in the emergency department shows almost complete opacification of left hemithorax. The CT without contrast shows severe cardiomegaly and no pleural effusion or pericardial effusion. The patient has been transferred to [facility] ICU for higher level of care. 08/17: no improvement in respiratory distress- mental status worsened. abg no improvement. clinically declined and emergently intubated. on bedside echo, very difficult windows due to lung disease and obesity, but dilated ivc without respiratory variation and no pericardial effusion. formal echo pending. 08/18: remains intubated. abg slowly improving. tran removed yesterday but unable to straight cath. 08/19: FiO2 down to 55%. Will re-CT the chest today. Likely just a gigantic heart causing opacification left hemithorax.. No other issues overnight. Creatinine slowly increasing. 08/20: Febrile. Status post bronchoscopy yesterday due to mucous plug in the left lungs. Improved aeration currently 50% FiO2. We will continue to wean today. Tolerating tube feeding. Creatinine improving. 08/21 Patient remains intubated and sedated with Diprivan. Afebrile. 08/22 No events overnight off sedation tolerated CPAP for several hrs yesterday. T:100.7 last night 08/23 Patient remains intubated off sedation. T:101.4 last night. 08/24 Patient remains intubated on no sedation awake and follows commands. Had CT abdomen yesterday showed left hydronephrosis 2nd cm stone in distal left ureter s/p left nephrostomy tube placement by IR. Renal function continue to improve with Cr: 1.35 today from 1.72. Underwent bronch by mucous plugs suctioned from left lung. 08/25: tolerating 10/5 psv, but cxr much less aerated. may not do well off ventilator: significant OHS and derecruits easily. 08/26: CXR significantly improved with APRV ventilation, but clearly going to be a difficult wean from mechanical ventilation. wbc improving. still very volume overloaded, and net+ fluid balance yesterday. needs aggressive diuresis. 08/27: pulmonary mechanics appear somewhat improving. still net+ fluid balance despite aggressive diuresis attempts. Cr slightly worse, but still have not achieved a negative fluid balance. will add metolazone today. continue to wean APRV pressure as tolerated. 08/28: passed SBT today. will extubate straight to BiPAP given how significantly he de-recruits and has atelectasis. will attempt to wean from BiPAP after this. good diuresis and net negative fluid balance. still alkalotic- will hold lasix today but keep diamox to prevent further alkalosis and compensatory hypoventilation. 08/29: successfully extubated yesterday and remains extubated. CXR with worse atelectasis, but expected due to body habitus. remains on intermittent BiPAP. net negative 2L/24h with associated improvement in renal function. remains high risk for reintubation. Hospitalist Notes: 08/31: Seen in his bedroom he is been followed by ID specialist, recommended to continue Oral Levaquin, to try to reduce fluid overload likely ongoing aspiration, followed by engagement specialist, with diagnosis of Hypoxic hypercapnic respiratory failure, status post extubation COPD, continue Bronchodilator, Mucolytic and incentive spirometry, BiPAP at night, continue antibiotics and Diuresis, discussed with nurse Miss Rankin she states the patient had increased right hemiparesis asked for CT brain and Neurology specialist consult. 09/01: Stable in his bedroom discussed with nurse Miss Loera, no new issues, stable in his bedroom, asked for MRI not yet performed. 09/02: as per engagement specialist recommended to continue present care no changes. seen by ID specialist recommended to continue Levaquin by mouth, was recommended for [facility] in am but I have been told this won't be possible due to Insurance issues, continue management inside Intensive care with Poor short term prognosis. 09/03: Stable in his bedroom, discussed with nurse Miss German, not authorized for [facility] care, at this time on Non rebreather mask. 09/04: Seen in his bedroom, worsening his respiratory status during the night and on BiPAP at this time, no nausea, vomit or diarrhea. Physical Exam Vital signs: Vital Signs 09/03/18 13:00 09/03/18 13:30 09/03/18 14:00 Temperature Pulse Rate 101 H 104 H 104 H Respiratory Rate 26 H 27 H 29 H Blood Pressure 131/84 121/73 Pulse Oximetry 98 94 L 91 L 09/03/18 14:30 09/03/18 15:00 09/03/18 15:30 Temperature Pulse Rate 104 H 101 H 103 H Respiratory Rate 28 H 29 H 25 H Blood Pressure 131/81 Pulse Oximetry 94 L 93 L 94 L 09/03/18 15:34 09/03/18 16:00 09/03/18 16:30 Temperature 98.5 F Pulse Rate 104 H 106 H Respiratory Rate 26 H 26 H Blood Pressure 121/81 Pulse Oximetry 95 98 94 L 09/03/18 17:00 09/03/18 17:30 09/03/18 18:00 Temperature Pulse Rate 107 H 111 H 112 H Respiratory Rate 26 H 29 H 28 H Blood Pressure 126/86 135/88 Pulse Oximetry 93 L 95 94 L 09/03/18 18:30 09/03/18 19:00 09/03/18 19:15 Temperature Pulse Rate 113 H 116 H Respiratory Rate 26 H 37 H Blood Pressure 148/91 H Pulse Oximetry 92 L 92 L 92 L 09/03/18 19:30 09/03/18 20:00 09/03/18 20:30 Temperature 98.9 F Pulse Rate 116 H 109 H 109 H Respiratory Rate 33 H 23 25 H Blood Pressure 143/90 H Pulse Oximetry 95 94 L 97 09/03/18 21:00 09/03/18 21:30 09/03/18 22:00 Temperature Pulse Rate 107 H 104 H 104 H Respiratory Rate 25 H 23 27 H Blood Pressure 142/91 H 157/89 H Pulse Oximetry 98 98 97 09/03/18 22:30 09/03/18 23:00 09/03/18 23:30 Temperature Pulse Rate 97 H 96 H 95 H Respiratory Rate 20 20 21 Blood Pressure 135/89 Pulse Oximetry 97 97 97 09/04/18 00:00 09/04/18 00:30 09/04/18 01:00 Temperature 98.9 F Pulse Rate 93 H 93 H 96 H Respiratory Rate 16 14 21 Blood Pressure 138/90 139/87 Pulse Oximetry 97 98 99 09/04/18 01:30 09/04/18 02:00 09/04/18 02:30 Temperature Pulse Rate 96 H 92 H 95 H Respiratory Rate 24 19 24 Blood Pressure 136/85 Pulse Oximetry 93 L 95 96 09/04/18 03:00 09/04/18 03:30 09/04/18 04:00 Temperature 97.9 F Pulse Rate 90 93 H 92 H Respiratory Rate 20 25 H 21 Blood Pressure 124/81 120/80 Pulse Oximetry 97 88 L 95 09/04/18 04:19 09/04/18 04:30 09/04/18 05:00 Temperature Pulse Rate 90 82 Respiratory Rate 22 19 Blood Pressure 112/75 Pulse Oximetry 97 97 98 09/04/18 05:30 09/04/18 06:00 09/04/18 06:01 Temperature Pulse Rate 84 87 87 Respiratory Rate 22 22 22 Blood Pressure 143/88 H Pulse Oximetry 89 L 99 98 09/04/18 06:30 09/04/18 07:48 Temperature Pulse Rate 85 Respiratory Rate 19 Blood Pressure Pulse Oximetry 97 94 L Intake & Output 09/03/18 09/04/18 09/04/18 18:59 06:59 18:59 Intake Total 675 / 675 421 / 421 Output Total 325 / 325 450 / 450 Balance 350 / 350 -29 / -29 Weight 100.4 kg Intake: Tube Feeding 675 / 675 421 / 421 Output: Urine Amount (Stoma) 325 / 325 450 / 450 Nephrostomy Tube 325 / 325 450 / 450 Other: # Voids 2 Date of Last Bowel Movement 09/03/18 09/04/18 # Bowel Movements 1 Narrative: GENERAL: Obese patient, in no apparent distress. CARDIOVASCULAR: Regular rate and rhythm without murmurs, gallops, or rubs. RESPIRATORY: Severe decreased breath sounds bilateral, expiratory wheezing and soft inspiratory crackles. GASTROINTESTINAL: Abdomen soft, non-tender, nondistended. Normal active bowel sounds MUSCULOSKELETAL: no clubbing, cyanosis or edema. NEURO: Alert not able to speak in full sentences but looks oriented. - Urinary Catheter Management Indwelling Urethral Catheter Cath placed during this visit: yes, but has since been removed by the nurse Reason for continuing: Decision to DC catheter Removal date: 08/17/18 Removal time: 16:30 Coude Cath placed during this visit: no Results - Labs CBC & Chem 7: 09/02/18 04:25 09/04/18 04:42 Laboratory Results - last 24 hr 09/03/18 09/03/18 09/04/18 13:21 18:18 00:35 Sodium Potassium Chloride Carbon Dioxide Anion Gap BUN Creatinine Estimated GFR POC Glucose 134 H 122 H 145 H Random Glucose Calcium Magnesium 09/04/18 09/04/18 09/04/18 04:42 06:02 12:18 Sodium 159 H* Potassium 3.7 Chloride 115 H Carbon Dioxide 31.7 Anion Gap 12 BUN 96 H Creatinine 1.33 H Estimated GFR 54 L POC Glucose 127 H 119 H Random Glucose 133 H Calcium 9.9 Magnesium 2.8 H Assessment and Plan - Plan This patient is a 68-year-old male with a diagnosis of COPD, systolic CHF with an ejection fraction of approximately 35%. The patient initially presented to [place] emergency department with shortness of breath and acute encephalopathy. The patient was found to be in acute hypoxic hypercapnic respiratory failure. CT scan of the chest showed nearly complete opacification of the left hemithorax and severe cardiomegaly. He was then transferred to [facility] intensive care unit for higher level of care. 1. Acute hypoxic hypercapnic respiratory failure secondary nearly complete opacification of the left hemithorax status post bronchoscopy 2. COPD 3. Tobacco smoking Continue supplemental oxygen, Patient worsening during the night at this time on BiPAP, engagement specialist following. Continue with breathing treatments as needed. to continue Bronchodilator, Mucolytic incentive spirometry, Status post repeat bronchoscopy 08/23 and mucous plugs suctioned from the left. There are collapsing pires of the left upper lobe which makes the lumen narrow. BiPAP at night, ID specialist following recommended to continue Oral Levaquin, to try to reduce fluid overload he was advised not to smoke 4. Systolic CHF exacerbation Ejection fraction is approximately 33%. Diffuse Hpokinesis, Grade 1 Diastolic dysfunction, RV with decreased systolic function. PA 31 mm Hg. Continue IV diuresis with Diamox as the patient's bicarb has been continuously elevating. Once the patient is diuresed he would benefit from being started on a beta- jose and aspirin. No KARINA inhibitor due to CJ. 5. Depression to continue Bupropion 50 mg daily. decreased Gabapentin 200 mg BID for GFR on Thiamine 100 mg BID. 6. Transaminitis/Indeterminate Hepatitis A IgM, Tube feeds, formal swallow eval , PPIs, Liver US -revealed enlarged liver likely hepatic steatosis versus inflammatory Hepatitis panel: Hep A IgM Indeterminate, KUB abdomen: There are no features to indicate ileus. No acute abdominal abnormality is identified. Nonspecific 18 mm density in the left pelvis represent a calcification or could represent material within the sigmoid colon 7. CJ CT abd/pelvis 08/23: Severe left hydronephrosis and hydroureter caused by a 2 cm stone in the distal left ureter. s/p Nephrostomy tube placement by IR 08/23 , On Free water, decrease to 200ml Q8, sodium improving.Renal ultrasound revealed bilateral renal cyst. No hydronephrosis, Nephrology following Dr. Olivares. 8. Leukocytosis Cefepime, ID following, discontinued Vancomycin and Azithromycin. Repeat bronch 08/23, follow up on bronch cx from 08/23 Negative UA 08/17. Negative sputum 08/17 Bronchoscopy samples from left upper lobe 08/19. Gram stain negative Bronch washing AFB pending On Levaquin by mouth. 9. right Hemiparesis asked for CT brain negative, seen by neurology specialist started the patient on Aspirin 81 mg and recommended for MRI brain. failed swallow test and will need PT at Rehab 10. Hypokalemia replaced today 3.7 following may need replacement tomorrow. 11. Hypernatremia will need free water with his Tube feedings. Lovenox for DVT prophylaxis, continue with GI prophylaxis as well. Overall Poor short term prognosis. Code Status: DNR Discussed Condition With: Patient and nurse. Discharge Planning: Not yet cleared by specialists.
--- NOTE | 2018-09-04 14:06 | P.PNPAL ---
Reason for Visit Reason for visit: a. To assist with evaluation and management of symptoms including: Dyspnea, weakness b. To assist medical decision maker(s) with: better understanding of current medical conditions; weighing benefits/burdens of medical treatment options; making medical treatment decisions. Subjective Subjective/Interval History: Patient seen for follow-up of symptom management of weakness and dyspnea and goals of medical treatment. He is too weak to transfer to a stretcher chair today. He cannot lift his arms against gravity but does have minimal ability to reposition his arms and legs in bed. His weakness is severe, constant, profound, unable to fully open his eyes. He is bedbound at this time, and is too weak to sit up. He remains on BiPAP with 40% FiO2 for severe dyspnea, saturating at 94%. He remains tachypneic, breathing 26 bpm at this evaluation. Dyspnea is moderate to severe , constant, worsening with activity, improved by oxygen via BiPAP, worsening with any oxygen weaning. . Family/Friend Interactions: No family is at bedside. Patient had made his longtime caregiver, Janie Whittington, his healthcare surrogate. Attempts to contact her by phone have been unsuccessful. Message was left for her yesterday which was not returned. Attempted to recontact her today however the voice mailbox is full and not accepting messages. . Objective Vital Signs: Vital Signs 09/03/18 14:00 09/03/18 14:30 09/03/18 15:00 Temperature Pulse Rate 104 H 104 H 101 H Respiratory Rate 29 H 28 H 29 H Blood Pressure 121/73 131/81 Pulse Oximetry 91 L 94 L 93 L 09/03/18 15:30 09/03/18 15:34 09/03/18 16:00 Temperature 98.5 F Pulse Rate 103 H 104 H Respiratory Rate 25 H 26 H Blood Pressure 121/81 Pulse Oximetry 94 L 95 98 09/03/18 16:30 09/03/18 17:00 09/03/18 17:30 Temperature Pulse Rate 106 H 107 H 111 H Respiratory Rate 26 H 26 H 29 H Blood Pressure 126/86 Pulse Oximetry 94 L 93 L 95 09/03/18 18:00 09/03/18 18:30 09/03/18 19:00 Temperature Pulse Rate 112 H 113 H 116 H Respiratory Rate 28 H 26 H 37 H Blood Pressure 135/88 148/91 H Pulse Oximetry 94 L 92 L 92 L 09/03/18 19:15 09/03/18 19:30 09/03/18 20:00 Temperature 98.9 F Pulse Rate 116 H 109 H Respiratory Rate 33 H 23 Blood Pressure 143/90 H Pulse Oximetry 92 L 95 94 L 09/03/18 20:30 09/03/18 21:00 09/03/18 21:30 Temperature Pulse Rate 109 H 107 H 104 H Respiratory Rate 25 H 25 H 23 Blood Pressure 142/91 H Pulse Oximetry 97 98 98 09/03/18 22:00 09/03/18 22:30 09/03/18 23:00 Temperature Pulse Rate 104 H 97 H 96 H Respiratory Rate 27 H 20 20 Blood Pressure 157/89 H 135/89 Pulse Oximetry 97 97 97 09/03/18 23:30 09/04/18 00:00 09/04/18 00:30 Temperature 98.9 F Pulse Rate 95 H 93 H 93 H Respiratory Rate 21 16 14 Blood Pressure 138/90 Pulse Oximetry 97 97 98 09/04/18 01:00 09/04/18 01:30 09/04/18 02:00 Temperature Pulse Rate 96 H 96 H 92 H Respiratory Rate 21 24 19 Blood Pressure 139/87 136/85 Pulse Oximetry 99 93 L 95 09/04/18 02:30 09/04/18 03:00 09/04/18 03:30 Temperature Pulse Rate 95 H 90 93 H Respiratory Rate 24 20 25 H Blood Pressure 124/81 Pulse Oximetry 96 97 88 L 09/04/18 04:00 09/04/18 04:19 09/04/18 04:30 Temperature 97.9 F Pulse Rate 92 H 90 Respiratory Rate 21 22 Blood Pressure 120/80 Pulse Oximetry 95 97 97 09/04/18 05:00 09/04/18 05:30 09/04/18 06:00 Temperature Pulse Rate 82 84 87 Respiratory Rate 19 22 22 Blood Pressure 112/75 Pulse Oximetry 98 89 L 99 09/04/18 06:01 09/04/18 06:30 09/04/18 07:48 Temperature Pulse Rate 87 85 Respiratory Rate 22 19 Blood Pressure 143/88 H Pulse Oximetry 98 97 94 L Intake & Output 09/03/18 09/04/18 09/04/18 18:59 06:59 18:59 Intake Total 675 / 675 421 / 421 Output Total 325 / 325 450 / 450 Balance 350 / 350 -29 / -29 Weight 221 lb 5.506 oz Intake: Tube Feeding 675 / 675 421 / 421 Output: Urine Amount (Stoma) 325 / 325 450 / 450 Nephrostomy Tube 325 / 325 450 / 450 Other: # Voids 2 Date of Last Bowel Movement 09/03/18 09/04/18 # Bowel Movements 1 Physical Exam: CONSTITUTIONAL/GENERAL: This is a morbidly obese patient, lying in bed in no acute distress. TUBES/LINES/DRAINS: PIV x2 CARDIOVASCULAR: Regular rate and rhythm without murmurs, gallops, or rubs. No JVD. Peripheral pulses symmetric. RESPIRATORY/CHEST: Mildly tachypneic, lungs diminished, tight with scattered wheezes. GASTROINTESTINAL: Abdomen obese, non-tender, nondistended. No guarding. Bowel sounds present. GENITOURINARY: Without palpable bladder distension. Nephrostomy tube draining to bedside drainage. MUSCULOSKELETAL: Extremities without clubbing, cyanosis, or edema. 2/5 weakness in all 4 extremities. Chronic skin changes of peripheral vascular disease. No mottling or clubbing. LYMPHATICS: No palpable cervical or supraclavicular adenopathy. NEUROLOGICAL: Lethargic, able to nod yes/no, responds appropriately and consistently answering the same question with consistent responses for multiple examiners. PSYCHIATRIC: Flat affect. . Diagnostic Tests Laboratory: Laboratory Results - last 72 hr 09/01/18 09/01/18 09/02/18 17:27 22:30 00:21 WBC RBC Hgb Hct MCV MCH MCHC RDW Plt Count MPV Sodium 150 H Potassium 4.3 D Chloride 114 H Carbon Dioxide 29.8 Anion Gap 6 BUN 89 H Creatinine 1.40 H Estimated GFR 51 L POC Glucose 121 H 123 H Random Glucose 154 H Calcium 9.9 Phosphorus 2.4 L Magnesium 2.5 09/02/18 09/02/18 09/02/18 04:25 05:06 11:57 WBC 24.5 H RBC 5.64 Hgb 18.7 H Hct 58.5 H MCV 103.8 H MCH 33.1 MCHC 31.9 L RDW 15.3 Plt Count 151 MPV 12.0 H Sodium Potassium Chloride Carbon Dioxide Anion Gap BUN Creatinine Estimated GFR POC Glucose 144 H 177 H Random Glucose Calcium Phosphorus Magnesium 09/02/18 09/03/18 09/03/18 17:44 00:09 05:28 WBC RBC Hgb Hct MCV MCH MCHC RDW Plt Count MPV Sodium Potassium Chloride Carbon Dioxide Anion Gap BUN Creatinine Estimated GFR POC Glucose 142 H 110 121 H Random Glucose Calcium Phosphorus Magnesium 09/03/18 09/03/18 09/04/18 13:21 18:18 00:35 WBC RBC Hgb Hct MCV MCH MCHC RDW Plt Count MPV Sodium Potassium Chloride Carbon Dioxide Anion Gap BUN Creatinine Estimated GFR POC Glucose 134 H 122 H 145 H Random Glucose Calcium Phosphorus Magnesium 09/04/18 09/04/18 09/04/18 04:42 06:02 12:18 WBC RBC Hgb Hct MCV MCH MCHC RDW Plt Count MPV Sodium 159 H* Potassium 3.7 Chloride 115 H Carbon Dioxide 31.7 Anion Gap 12 BUN 96 H Creatinine 1.33 H Estimated GFR 54 L POC Glucose 127 H 119 H Random Glucose 133 H Calcium 9.9 Phosphorus Magnesium 2.8 H Result Diagrams: 09/02/18 04:25 09/04/18 04:42 Microbiology: Microbiology 08/19/18 15:09 Fungal Smear - Final Bronchial Washings - Left Upper Lobe No fungal elements seen Fungal Culture - Preliminary No growth in 2 weeks 08/19/18 15:09 Acid Fast Bacilli Smear - Final Bronchial Washings - Left Upper Lobe No acid fast bacilli seen Mycobacterial Culture - Preliminary No growth in 2 weeks Imaging: Chest X-Ray 08/17/18 08:41 CONCLUSION: 1. ETT in good position. NGT beyond the GE junction. 2. Improved aeration of the left upper lung zone with persistent pleural- parenchymal disease in the left lower lung zone and worsening patchy airspace disease in the right lower lung zone, presumably atelectasis. Chest X-Ray 08/18/18 05:00 CONCLUSION: 1. Marked interval increase in left hemithorax opacity with near complete opacification of the left hemithorax. Air-fluid level is seen at the top of the opacity. Findings may represent a hydropneumothorax and left lung collapse versus postsurgical change. 2. Right lung base consolidation versus atelectasis and small pleural effusion now seen. Abdomen Ultrasound 08/19/18 00:00 CONCLUSION: 1. Hepatomegaly with diffuse hyperechoic texture characteristic of steatosis or diffuse hepatocellular disease. 2. Bilateral renal cysts. 3. Nonvisualization of the gallbladder and pancreas. 4. No evidence of hydronephrosis or abnormal fluid collections. Chest CT 08/19/18 12:41 CONCLUSION: 1. Progressive airspace consolidation and collapse involving now nearly the entire left lung with only minimal residual aeration of the left lung apex. Air bronchograms are noted throughout the left lung making a significant endobronchial lesion less likely. There is progressive mediastinal shift to the left. 2. No evidence for hydropneumothorax as questioned. 3. Scattered subcentimeter mediastinal nodes are nonspecific and may be reactive in etiology. Chest X-Ray 08/19/18 15:17 CONCLUSION: 1. Improved aeration of the left upper lung zone following bronchoscopy without pneumothorax. Chest X-Ray 08/21/18 06:00 CONCLUSION: Mild consolidation and small effusions at each lung base, not significantly changed on the right and improved on the left. Chest X-Ray 08/22/18 07:02 CONCLUSION: Increased left basilar opacity characteristic of pleural effusion with associated volume loss and/or airspace consolidation. There is very small volume of right pleural fluid with likely atelectasis at the right base. Abdomen X-Ray 08/22/18 07:03 CONCLUSION: 1. There are no features to indicate ileus. No acute abdominal abnormality is identified. 2. Nonspecific 18 mm density in the left pelvis represent a calcification or could represent material within the sigmoid colon. 3. Opacity at the left lung base. Please refer to today's chest x-ray for further description. Abdomen/Pelvis CT 08/23/18 00:00 CONCLUSION: 1. Severe left hydronephrosis and hydroureter caused by a 2 cm stone in the distal left ureter. 2. Trace air within the bladder lumen. Although nonspecific this may be related to a recent catheterization. 3. Nonacute findings include multiple bilateral renal cysts, mild atherosclerotic disease, and mild hepatic steatosis. Chest CT 08/23/18 00:00 CONCLUSION: 1. There is continued volume loss/collapse of the left upper lobe with mild atelectasis in the left upper lobe. Aeration is improved compared to the study from 4 days ago and stable compared to the most recent chest x-ray. There is also volume loss in the right lower lobe. No pleural effusion is present. 2. Stable enlargement of the main pulmonary artery which may indicate pulmonary arterial hypertension. 3. Findings consistent with prior granulomatous infection. Please refer to abdomen and CT report for description of the subdiaphragmatic findings. Nephrostomy 08/23/18 00:00 CONCLUSION: 1. Uncomplicated nephrostomy tube placement as above. Chest X-Ray 08/25/18 00:00 CONCLUSION: 1. Stable ETT and NGT. 2. Cardiomegaly with worsening positive fluid balance. 3. Worsening bilateral, left greater than right, small pleural effusions and associated lower lung zone airspace disease. Chest X-Ray 08/26/18 01:53 CONCLUSION: 1. Stable ETT and NGT. 2. Cardiomegaly with positive fluid balance. 3. Stable bilateral, left greater than right, small pleural effusions and associated lower lung zone airspace disease. Chest X-Ray 08/29/18 00:00 CONCLUSION: 1. There is a Dobbhoff feeding tube in the patient's stomach. 2. There continues to be bibasilar parenchymal consolidation without significant change, left greater than right. Chest X-Ray 08/29/18 05:00 CONCLUSION: Interval extubation. Otherwise stable abnormal chest Chest CT 08/30/18 00:00 CONCLUSION: 1. Persistent left lower lobe volume loss/collapse with likely some degree of consolidation. This is very similar to the prior examination. No significant pleural effusion is present. The fluidlike material is visualized within the left main bronchus suggesting aspiration. 2. Slightly increased consolidation/volume loss in the right lower lobe. 3. Stable enlarged main pulmonary artery suggesting pulmonary arterial hypertension. 4. Stable 3.3 cm left thyroid nodule. Head CT 08/31/18 13:07 CONCLUSION: 1. No acute intracranial abnormality. . Abdomen X-Ray 08/31/18 16:55 CONCLUSION: Given the feeding tube felt to be within the antrum of a long J-shaped stomach. Head MRI 09/01/18 07:04 CONCLUSION: 1. Minimal nonspecific white matter changes. 2. No acute intracranial abnormality. Procedures: 08/17: Intubation 08/19: Bronchoscopy 08/23 left nephrostomy tube placement 08/24: Bronchoscopy Assessment and Plan - Disease Oriented Problem List (1) Systolic and diastolic CHF, acute on chronic (2) Chronic kidney disease (3) COPD (chronic obstructive pulmonary disease) (4) Pneumonia (5) Respiratory failure (6) Abnormal liver function Pertinent Non-Medical Issues: Psychosocial: Lives in [place]. Requires a full-time caregiver. Denies any , children or living family. Spiritual: Book Agent available Legal: A verbal healthcare surrogate was witnessed by myself and Monserrat Post RN. Patient answering appropriately but very weak. Ethical issues impacting care: None noted. . Important Contacts: Locomotive Engineer/HCS: Janie Whittington . Prognosis: His prognosis is guarded. He spent several days intubated and was a difficult extubation. He remains on a high level of oxygen and intermittently requires BiPAP. He is extremely weak and does not wish to be reintubated or resuscitated. He has severe COPD, hypoxic, hypercapnic respiratory failure, pneumonia lung nodule and renal insufficiency. In spite of aggressive pulmonary toilet, bronchoscopies, antibiotics, nebulizers and steroids, his respiratory status is extremely fragile and he is at high risk for respiratory failure. . Code Status: No Code DNR Plan: PLAN: Legal decision maker: Patient is oriented but very weak and defers decision making to his caregiver, Janie. Goals: Comfort oriented CODE STATUS: DO NOT RESUSCITATE SYMPTOMS: * Dyspnea: Multifactorial to include pneumonia, severe cardiomegaly, COPD and hypoventilation obesity syndrome. He is currently requiring BiPAP at 40% FiO2 to maintain saturations of 94%. He is intermittently tachypneic with shallow breathing. He is currently receiving Solu-Medrol, levofloxacin, DuoNeb and Diamox. He shows increased work of breathing with some accessory muscle use. He is at elevated risk of continued respiratory decline but has made himself a DO NOT RESUSCITATE do not reintubate. * Weakness: Likely multifactorial to include chronic debility from sedentary lifestyle, hypoxia, extended hospitalization with bedbound status. He is failing swallow evaluations and his weakness is likely a significant factor in that. He is receiving tube feeding as well as vitamin B1. If he survives this hospitalization he will most certainly extended physical therapy and aggressive rehabilitation, however this will be limited by his severely compromised respiratory status. At this time he is too weak to transfer from bed to stretcher chair so will remain in the unit at this time. Palliative care will continue to follow the patient during hospital course as condition evolves, to assist patient/decision-maker with understanding of their medical conditions, weighing benefits/burdens of treatment options, for clarification of goals of treatment. Additionally will assist with any symptoms of palliative concern. . Attestation Attestation: To help prompt me to consider important information that might be impacting today's encounter and assessment, information from prior notes written by myself or my colleagues may have been "brought forward" into today's note. My signature on this note, however, is an attestation that I personally performed the exam, history, and/or decision-making noted today, and, unless otherwise indicated, the interactions with patient, family, and staff as well as the review of records all occurred today. I also attest that the listed assessment and stated plan reflect my best clinical judgment today based on the combination of historical information, prior notes, and today's exam/ interactions. When time spent is documented, it refers only to time spent today by the signer, or if indicated, combined time spent today by collaborating physician/nurse practitioner. .
--- NOTE | 2018-09-04 14:19 | P.PNID ---
Subjective Remarks: is a 68-year-old white male who has a history of COPD. The patient was found with altered mental status and unresponsive later on while sitting in his garage. He was brought to [facility] and then subsequently transferred here to [facility]. The patient was noted to be hypoxic and a CT scan of the chest showed significant volume loss on the left lung with almost entire collapse of the left lung. He was subsequently intubated. He underwent bronchoscopy with lavage of the left lung. There was thick mucus plugs noted. ID consult requested for Fever and worsening leukocytosis. Notes reviewed. Patient is currently on BiPAP. Difficult to wean O2. Lethargic. Afebrile. Discussed with RN. Antibiotics: Levaquin oral Lines: Lines ok Past Medical History: COPD Allergies/Adverse Reactions: Allergies No Known Allergies Allergy (Unverified 08/16/18 16:33) Objective Vital Signs 09/04/18 01:30 09/04/18 02:00 09/04/18 02:30 Temperature Pulse Rate 96 H 92 H 95 H Respiratory Rate 24 19 24 Blood Pressure 136/85 Pulse Oximetry 93 L 95 96 09/04/18 03:00 09/04/18 03:30 09/04/18 04:00 Temperature 97.9 F Pulse Rate 90 93 H 92 H Respiratory Rate 20 25 H 21 Blood Pressure 124/81 120/80 Pulse Oximetry 97 88 L 95 09/04/18 04:19 09/04/18 04:30 09/04/18 05:00 Temperature Pulse Rate 90 82 Respiratory Rate 22 19 Blood Pressure 112/75 Pulse Oximetry 97 97 98 09/04/18 05:30 09/04/18 06:00 09/04/18 06:01 Temperature Pulse Rate 84 87 87 Respiratory Rate 22 22 22 Blood Pressure 143/88 H Pulse Oximetry 89 L 99 98 09/04/18 06:30 09/04/18 07:48 Temperature Pulse Rate 85 Respiratory Rate 19 Blood Pressure Pulse Oximetry 97 94 L Intake & Output 09/03/18 09/04/18 09/04/18 18:59 06:59 18:59 Intake Total 675 / 675 421 / 421 Output Total 325 / 325 450 / 450 Balance 350 / 350 -29 / -29 Weight 100.4 kg Intake: Tube Feeding 675 / 675 421 / 421 Output: Urine Amount (Stoma) 325 / 325 450 / 450 Nephrostomy Tube 325 / 325 450 / 450 Other: # Voids 2 Date of Last Bowel Movement 09/03/18 09/04/18 # Bowel Movements 1 08/19/18 15:09 Bronchial Washings - Left Upper Lobe Fungal Smear - Final No fungal elements seen 08/19/18 15:09 Bronchial Washings - Left Upper Lobe Fungal Culture - Preliminary No growth in 2 weeks 08/19/18 15:09 Bronchial Washings - Left Upper Lobe Acid Fast Bacilli Smear - Final No acid fast bacilli seen 08/19/18 15:09 Bronchial Washings - Left Upper Lobe Mycobacterial Culture - Preliminary No growth in 2 weeks Lab - Chemistry Results 09/02/18 09/03/18 09/03/18 17:44 00:09 05:28 Sodium Potassium Chloride Carbon Dioxide Anion Gap BUN Creatinine Estimated GFR POC Glucose 142 H 110 121 H Random Glucose Calcium Magnesium 09/03/18 09/03/18 09/04/18 13:21 18:18 00:35 Sodium Potassium Chloride Carbon Dioxide Anion Gap BUN Creatinine Estimated GFR POC Glucose 134 H 122 H 145 H Random Glucose Calcium Magnesium 09/04/18 09/04/18 09/04/18 04:42 06:02 12:18 Sodium 159 H* Potassium 3.7 Chloride 115 H Carbon Dioxide 31.7 Anion Gap 12 BUN 96 H Creatinine 1.33 H Estimated GFR 54 L POC Glucose 127 H 119 H Random Glucose 133 H Calcium 9.9 Magnesium 2.8 H Imaging: ITS Impressions Abdomen Ultrasound 08/19/18 00:00 CONCLUSION: 1. Hepatomegaly with diffuse hyperechoic texture characteristic of steatosis or diffuse hepatocellular disease. 2. Bilateral renal cysts. 3. Nonvisualization of the gallbladder and pancreas. 4. No evidence of hydronephrosis or abnormal fluid collections. Abdomen/Pelvis CT 08/23/18 00:00 CONCLUSION: 1. Severe left hydronephrosis and hydroureter caused by a 2 cm stone in the distal left ureter. 2. Trace air within the bladder lumen. Although nonspecific this may be related to a recent catheterization. 3. Nonacute findings include multiple bilateral renal cysts, mild atherosclerotic disease, and mild hepatic steatosis. Nephrostomy 08/23/18 00:00 CONCLUSION: 1. Uncomplicated nephrostomy tube placement as above. Chest X-Ray 08/29/18 05:00 CONCLUSION: Interval extubation. Otherwise stable abnormal chest Chest CT 08/30/18 00:00 CONCLUSION: 1. Persistent left lower lobe volume loss/collapse with likely some degree of consolidation. This is very similar to the prior examination. No significant pleural effusion is present. The fluidlike material is visualized within the left main bronchus suggesting aspiration. 2. Slightly increased consolidation/volume loss in the right lower lobe. 3. Stable enlarged main pulmonary artery suggesting pulmonary arterial hypertension. 4. Stable 3.3 cm left thyroid nodule. Head CT 08/31/18 13:07 CONCLUSION: 1. No acute intracranial abnormality. . Abdomen X-Ray 08/31/18 16:55 CONCLUSION: Given the feeding tube felt to be within the antrum of a long J-shaped stomach. Head MRI 09/01/18 07:04 CONCLUSION: 1. Minimal nonspecific white matter changes. 2. No acute intracranial abnormality. Physical Exam: PHYSICAL EXAMINATION: GENERAL: Patient is in no distress. HEAD: Head is atraumatic. No icterus. Oropharynx, moist mucosa. NECK: Supple without swelling or adenopathy. LUNGS: Decreased breath sounds. HEART: Normal S1 and S2, without audible murmurs, rubs or gallops. ABDOMEN: Bowel sounds present, distended, soft, no tenderness. left nephrostomy tube in place. No purulence. EXTREMITIES: No clubbing or cyanosis or edema. The feet are cold to touch. Hands are warm. SKIN: Petechial rash. NEURO: Unable to fully assess. Assessment and Plan - Plan IMPRESSION: 1. Pneumonia. The patient with whiteout of the left lung. Status post bronchoscopy. Sputum culture pending. 2. Leukocytosis probably secondary to pneumonia/steroids. 3. Acute respiratory failure. 4. Chronic obstructive pulmonary disease. 5. Obstructive uropathy. 6. Rash resolved. RECOMMENDATIONS: Continue Levaquin oral (will help reduce fluid overload) Follow cultures. Follow the clinical status. lesli RN Seen by palliative care - health care surrogate to decide on aggressiveness of care.
[2018-09-04] MEDS: buPROPion 75 MG Tablet NG/OG SCH ×2 (15:25→21:35)
[2018-09-04] MEDS: Enoxaparin Inj 40 MG/0.4 ML Syringe SQ SCH (21:35)
[2018-09-05] MEDS: MethylPREDNISolone Sod Succinate Inj 40 MG/ML Vial IV.PUSH SCH ×4 (01:44→23:01)
[2018-09-05] MEDS: Oral Hygiene Kit OROPHARYNG SCH ×4 (01:45→16:49)
[2018-09-05] MEDS: Insulin NovoLIN Regular Correctional Sugar Inj SQ SCH ×4 (01:49→18:18)
[2018-09-05 06:23] LABS: Calcium 10.1 mg/dL (8.5-10.1); Carbon Dioxide 30.8 meq/L (21.0-32.0); Potassium 3.7 meq/L (3.5-5.1)
[2018-09-05] MEDS: levoFLOXacin 500 MG Tablet PO SCH (09:08)
[2018-09-05] MEDS: Gabapentin 100 MG Capsule PO SCH ×2 (09:08→20:05)
[2018-09-05] MEDS: Senna/Docusate Sodium 8.6/50 MG Tablet PO SCH ×2 (09:09→20:08)
[2018-09-05] MEDS: buPROPion 75 MG Tablet NG/OG SCH ×2 (09:09→20:05)
[2018-09-05] MEDS: Carboxymethylcellulose 0.5% Opth Drops 15 ML Bottle EACH EYE SCH ×3 (09:12→18:18)
--- NOTE | 2018-09-05 10:48 | P.PNIM ---
Subjective Interval history: Juan Manuel blood in stool this morning. BiPAP needed overnight due to respiratory distress. Patient can interact but is overall obtunded. Physical Exam Vital signs: Vital Signs 09/04/18 11:00 09/04/18 12:00 09/04/18 13:00 Temperature 97.9 F 97.9 F 98.1 F Pulse Rate 82 81 84 Respiratory Rate 21 26 H 21 Blood Pressure 120/82 125/86 119/82 Pulse Oximetry 97 98 98 09/04/18 14:00 09/04/18 15:00 09/04/18 16:00 Temperature 97.9 F 98.1 F 98.1 F Pulse Rate 81 88 87 Respiratory Rate 17 21 19 Blood Pressure 125/80 131/84 132/87 Pulse Oximetry 96 96 95 09/04/18 16:03 09/04/18 17:00 09/04/18 18:00 Temperature 98.2 F Pulse Rate 90 90 Respiratory Rate 19 Blood Pressure 142/91 H Pulse Oximetry 97 97 09/04/18 18:01 09/04/18 19:00 09/04/18 20:00 Temperature 98.4 F 98.4 F 98.4 F Pulse Rate 92 H 92 H 92 H Respiratory Rate 19 17 23 Blood Pressure 124/76 Pulse Oximetry 96 97 100 09/04/18 20:01 09/04/18 21:00 09/04/18 21:18 Temperature 98.4 F 98.6 F Pulse Rate 92 H 92 H Respiratory Rate 23 19 Blood Pressure 140/64 129/82 Pulse Oximetry 100 99 97 09/04/18 22:00 09/04/18 23:00 09/05/18 00:00 Temperature 98.6 F 98.6 F 98.6 F Pulse Rate 94 H 91 H 89 Respiratory Rate 20 23 17 Blood Pressure 121/81 116/79 119/77 Pulse Oximetry 97 96 97 09/05/18 00:26 09/05/18 01:00 09/05/18 02:00 Temperature 98.6 F 98.6 F Pulse Rate 91 H 91 H Respiratory Rate 18 26 H Blood Pressure 120/79 131/86 Pulse Oximetry 95 100 87 L 09/05/18 03:00 09/05/18 04:00 09/05/18 04:12 Temperature 98.4 F 98.2 F Pulse Rate 87 89 Respiratory Rate 18 23 Blood Pressure 129/83 138/85 Pulse Oximetry 98 98 98 09/05/18 06:00 09/05/18 07:00 09/05/18 07:32 Temperature Pulse Rate 93 H Respiratory Rate Blood Pressure Pulse Oximetry 100 95 Intake & Output 09/04/18 09/05/18 09/05/18 18:59 06:59 18:59 Intake Total 728 / 728 1022 / 1022 Output Total 700 / 700 1000 / 1000 Balance Weight 100.5 kg Intake: Tube Feeding 528 / 528 622 / 622 Water Bolus Amount 200 / 200 400 / 400 Output: Urine 350 / 350 550 / 550 Urine Amount (Stoma) 350 / 350 450 / 450 Nephrostomy Tube 350 / 350 450 / 450 Other: Date of Last Bowel Movement 09/04/18 09/05/18 # Bowel Movements 1 Narrative: GENERAL: NAD, A&Ox1, obtunded HEAD: Normocephalic. NECK: Supple, trachea midline. No lymphadenopathy. EYES: No scleral icterus. No injection or drainage. CARDIOVASCULAR: Regular rate and rhythm without murmurs, gallops, or rubs. RESPIRATORY: Breath sounds equal bilaterally. No accessory muscle use. GASTROINTESTINAL: Abdomen soft, non-tender, nondistended. MUSCULOSKELETAL: No cyanosis, or edema. SKIN: Warm and dry. NEURO: No focal neurological deficits. - Urinary Catheter Management Indwelling Urethral Catheter Cath placed during this visit: yes, but has since been removed by the nurse Reason for continuing: Decision to DC catheter Removal date: 08/17/18 Removal time: 16:30 Coude Cath placed during this visit: no Results - Labs CBC & Chem 7: 09/02/18 04:25 09/05/18 05:25 Laboratory Results - last 24 hr 09/04/18 09/04/18 09/05/18 12:18 17:25 01:48 Sodium Potassium Chloride Carbon Dioxide Anion Gap BUN Creatinine Estimated GFR POC Glucose 119 H 131 H 126 H Random Glucose Calcium 09/05/18 09/05/18 09/05/18 05:25 06:38 08:11 Sodium 154 H Potassium 3.7 Chloride 116 H Carbon Dioxide 30.8 Anion Gap 7 BUN 102 H Creatinine 1.20 Estimated GFR 60 L POC Glucose 173 H 146 H Random Glucose 157 H Calcium 10.1 Assessment and Plan - Plan 68-year-old male admitted secondary to respiratory failure, with underlying colic congestive heart failure Acute GI bleed Lovenox held Aspirin held Lovenox held Check hemoglobin level Patient is not a good candidate for endoscopy or colonoscopy, will consider GI consult if bleeding persists despite holding anticoagulants Acute hypoxic hypercapnic respiratory failure Leukocytosis nearly complete opacification of the left hemithorax status post bronchoscopy Continue oxygen as needed Continue BiPAP Tube feeds due to aspiration risk ID following Pulmonology following Follow respiratory status in ICU, risk for decompensation Continue cefepime COPD Nicotine dependence Patient counseled to quit Systolic congestive heart failure Systolic congestive heart failure exacerbation Exacerbation resolving Follow fluid balance clinically Aspirin held due to GI bleed Continue beta-jose Depression Continue bupropion Transaminitis Hepatitis Follow CMP Acute kidney injury Renal Cysts Follow renal function next line avoid nephrotoxins Hypokalemia Monitor and replace as needed Hypernatremia Free water with tube feedings Right hemiparesis Neurology following Aspirin had to be held due to GI bleeding Tube feeds, patient failed swallow test Will need rehab at discharge DVT prophylaxis SCDs Lovenox and aspirin are held due to GI bleed Discharge planning Poor prognosis Palliative care consult has been placed
[2018-09-05 11:06] LABS: Hematocrit 55.7 % (39.0-51.0); Hemoglobin 18.1 gm/dL (13.0-17.0)
[2018-09-05] MEDS: Chlorhexidine 0.12% Oral Kit 15 ML UDC OROPHARYNG SCH ×2 (12:06→20:04)
--- NOTE | 2018-09-05 15:21 | P.PN ---
Subjective Interval history: He is awake and seems lethargic. On O2 4 L. Sats 90. Good output. Physical Exam Vital signs: Vital Signs 09/04/18 16:00 09/04/18 16:03 09/04/18 17:00 Temperature 98.1 F 98.2 F Pulse Rate 87 90 Respiratory Rate 19 19 Blood Pressure 132/87 142/91 H Pulse Oximetry 95 97 97 09/04/18 18:00 09/04/18 18:01 09/04/18 19:00 Temperature 98.4 F 98.4 F Pulse Rate 90 92 H 92 H Respiratory Rate 19 17 Blood Pressure 124/76 Pulse Oximetry 96 97 09/04/18 20:00 09/04/18 20:01 09/04/18 21:00 Temperature 98.4 F 98.4 F 98.6 F Pulse Rate 92 H 92 H 92 H Respiratory Rate 23 23 19 Blood Pressure 140/64 129/82 Pulse Oximetry 100 100 99 09/04/18 21:18 09/04/18 22:00 09/04/18 23:00 Temperature 98.6 F 98.6 F Pulse Rate 94 H 91 H Respiratory Rate 20 23 Blood Pressure 121/81 116/79 Pulse Oximetry 97 97 96 09/05/18 00:00 09/05/18 00:26 09/05/18 01:00 Temperature 98.6 F 98.6 F Pulse Rate 89 91 H Respiratory Rate 17 18 Blood Pressure 119/77 120/79 Pulse Oximetry 97 95 100 09/05/18 02:00 09/05/18 03:00 09/05/18 04:00 Temperature 98.6 F 98.4 F 98.2 F Pulse Rate 91 H 87 89 Respiratory Rate 26 H 18 23 Blood Pressure 131/86 129/83 138/85 Pulse Oximetry 87 L 98 98 09/05/18 04:12 09/05/18 05:00 09/05/18 06:00 Temperature 98.2 F 98.2 F Pulse Rate 90 93 H Respiratory Rate 21 22 Blood Pressure 146/87 H 159/92 H Pulse Oximetry 98 99 99 09/05/18 07:00 09/05/18 07:01 09/05/18 07:32 Temperature 98.2 F Pulse Rate 92 H Respiratory Rate 22 Blood Pressure 129/82 Pulse Oximetry 100 99 95 09/05/18 08:00 09/05/18 09:00 09/05/18 10:00 Temperature 98.2 F 98.4 F Pulse Rate 94 H 100 H 96 H Respiratory Rate 24 25 H 25 H Blood Pressure 140/86 142/82 H 123/81 Pulse Oximetry 95 86 L 90 L 09/05/18 11:00 09/05/18 12:00 09/05/18 14:00 Temperature 98.1 F Pulse Rate 95 H 94 H 94 H Respiratory Rate 27 H 24 Blood Pressure 126/88 121/67 Pulse Oximetry 92 L 89 L Intake & Output 09/04/18 09/05/18 09/05/18 18:59 06:59 18:59 Intake Total 728 / 728 1022 / 1022 Output Total 700 / 700 1000 / 1000 Balance Weight 100.5 kg Intake: Tube Feeding 528 / 528 622 / 622 Water Bolus Amount 200 / 200 400 / 400 Output: Urine 350 / 350 550 / 550 Urine Amount (Stoma) 350 / 350 450 / 450 Nephrostomy Tube 350 / 350 450 / 450 Other: Date of Last Bowel Movement 09/04/18 09/05/18 09/05/18 # Bowel Movements 1 Narrative: GENERAL: Awake but lethargic HEAD: Normocephalic. NECK: Supple, trachea midline. No lymphadenopathy. EYES: No scleral icterus. No injection or drainage. CARDIOVASCULAR: Regular rate and rhythm without murmurs, gallops, or rubs. RESPIRATORY: Breath sounds equal bilaterally. Occ Crackles at bases. No accessory muscle use. GASTROINTESTINAL: Abdomen soft, non-tender, nondistended. MUSCULOSKELETAL: No cyanosis, or edema. SKIN: Warm and dry. NEURO: sleepy. - Urinary Catheter Management Indwelling Urethral Catheter Cath placed during this visit: yes, but has since been removed by the nurse Reason for continuing: Decision to DC catheter Removal date: 08/17/18 Removal time: 16:30 Coude Cath placed during this visit: no Results - Labs CBC & Chem 7: 09/05/18 10:50 09/05/18 05:25 Laboratory Results - last 24 hr 09/04/18 09/05/18 09/05/18 17:25 01:48 05:25 Hgb Hct Sodium 154 H Potassium 3.7 Chloride 116 H Carbon Dioxide 30.8 Anion Gap 7 BUN 102 H Creatinine 1.20 Estimated GFR 60 L POC Glucose 131 H 126 H Random Glucose 157 H Calcium 10.1 09/05/18 09/05/18 09/05/18 06:38 08:11 10:50 Hgb 18.1 H Hct 55.7 H Sodium Potassium Chloride Carbon Dioxide Anion Gap BUN Creatinine Estimated GFR POC Glucose 173 H 146 H Random Glucose Calcium 09/05/18 12:01 Hgb Hct Sodium Potassium Chloride Carbon Dioxide Anion Gap BUN Creatinine Estimated GFR POC Glucose 125 H Random Glucose Calcium Assessment and Plan - Assessment (1) Acute renal failure Code(s): N17.9 - Acute kidney failure, unspecified Status: Acute (2) Chronic kidney disease Code(s): N18.9 - Chronic kidney disease, unspecified Status: Acute (3) COPD (chronic obstructive pulmonary disease) Code(s): J44.9 - Chronic obstructive pulmonary disease, unspecified Status: Acute (4) Pneumonia Code(s): J18.9 - Pneumonia, unspecified organism Status: Acute (5) Congestive heart failure Code(s): I50.9 - Heart failure, unspecified Status: Acute (6) Respiratory failure Code(s): J96.90 - Respiratory failure, unspecified, unspecified whether with hypoxia or hypercapnia Status: Acute (7) Abnormal liver function Code(s): K76.89 - Other specified diseases of liver Status: Acute (8) Systolic and diastolic CHF, acute on chronic Code(s): I50.43 - Acute on chronic combined systolic (congestive) and diastolic (congestive) heart failure Status: Acute - Plan 1. O2 at 6 L with Oxymask. 2. Continue antibiotics Levaquin as ordered. 3. Duoneb nebs qid. 4. Continue solumedrol 40 mg IV q8h 5. CBC,BMP 6. Diamox 500 mg BID
[2018-09-06] MEDS: Insulin NovoLIN Regular Correctional Sugar Inj SQ SCH ×5 (00:53→23:51)
[2018-09-06] MEDS: Oral Hygiene Kit OROPHARYNG SCH ×5 (00:54→23:51)
[2018-09-06 04:07] LABS: Baso # (Auto) 0.1 th/mm3 (0.0-0.2); Baso % (Auto) 0.6 % (0.0-2.0); Hematocrit 55.9 % (39.0-51.0); Hemoglobin 17.8 gm/dL (13.0-17.0); Lymph # (Auto) 0.2 th/mm3 (1.0-4.8); Lymph % (Auto) 0.8 % (9.0-44.0); Mean Corpuscular HGB Conc 31.8 % (32.0-36.0); Mean Corpuscular Hemoglobin 33.2 pg (27.0-34.0); Mean Corpuscular Volume 104.3 fL (80.0-100.0); Mean Platelet Volume 11.5 fL (7.0-11.0); Mono % (Auto) 4.2 % (0.0-8.0); Neut # (Auto) 22.5 th/mm3 (1.8-7.7); Neut % (Auto) 94.4 % (16.0-70.0); Platelet Count 113 th/mm3 (150-450); Red Blood Count 5.35 mil/mm3 (4.50-5.90); Red Cell Distribution Width 15.1 % (11.6-17.2); White Blood Count 23.9 th/mm3 (4.0-11.0)
[2018-09-06 04:34] LABS: Alanine Aminotransferase 177 U/L (12-78); Albumin 2.6 g/dL (3.4-5.0); Anion Gap 4 meq/L (5-15); Aspartate Aminotransferase 61 U/L (15-37); Blood Urea Nitrogen 104 mg/dL (7-18); Calcium 9.8 mg/dL (8.5-10.1); Chloride 115 meq/L (98-107); Glomerular Filtration Rate 59 mL/min (>89); Glucose,Random 162 mg/dL (74-106); Potassium 3.9 meq/L (3.5-5.1); Sodium 152 meq/L (136-145)
[2018-09-06 04:37] LABS: Alkaline Phosphatase 108 U/L (45-117)
[2018-09-06] MEDS: MethylPREDNISolone Sod Succinate Inj 40 MG/ML Vial IV.PUSH SCH ×3 (06:54→22:54)
[2018-09-06] MEDS: Senna/Docusate Sodium 8.6/50 MG Tablet PO SCH ×2 (08:08→20:58)
[2018-09-06] MEDS: levoFLOXacin 500 MG Tablet PO SCH (08:08)
[2018-09-06] MEDS: Gabapentin 100 MG Capsule PO SCH ×2 (08:09→20:57)
[2018-09-06] MEDS: Chlorhexidine 0.12% Oral Kit 15 ML UDC OROPHARYNG SCH ×2 (08:25→20:57)
[2018-09-06] MEDS: Carboxymethylcellulose 0.5% Opth Drops 15 ML Bottle EACH EYE SCH ×3 (08:25→17:16)
[2018-09-06] MEDS: buPROPion 75 MG Tablet NG/OG SCH ×2 (08:28→20:57)
--- NOTE | 2018-09-06 10:20 | P.PNIM ---
Subjective Interval history: No significant change compared to previous day. Patient is BiPAP dependent when seen this morning, and needed BiPAP again overnight. No complaints from patient. Physical Exam Vital signs: Vital Signs 09/05/18 11:00 09/05/18 12:00 09/05/18 13:00 Temperature 98.1 F Pulse Rate 95 H 94 H 91 H Respiratory Rate 27 H 24 22 Blood Pressure 126/88 121/67 129/80 Pulse Oximetry 92 L 89 L 90 L 09/05/18 14:00 09/05/18 15:00 09/05/18 16:00 Temperature 98.0 F Pulse Rate 93 H 96 H 99 H Respiratory Rate 25 H 23 22 Blood Pressure 128/83 139/79 130/79 Pulse Oximetry 93 L 92 L 90 L 09/05/18 17:00 09/05/18 18:00 09/05/18 19:00 Temperature Pulse Rate 99 H 96 H Respiratory Rate 24 Blood Pressure 132/63 124/78 Pulse Oximetry 90 L 09/05/18 20:00 09/05/18 20:19 09/05/18 20:44 Temperature 99.0 F Pulse Rate 94 H 95 H Respiratory Rate 26 H 24 Blood Pressure Pulse Oximetry 88 L 89 L 88 L 09/05/18 21:00 09/05/18 22:00 09/05/18 23:00 Temperature Pulse Rate 97 H 99 H 99 H Respiratory Rate 24 21 23 Blood Pressure 132/89 129/85 135/87 Pulse Oximetry 89 L 90 L 91 L 09/05/18 23:30 09/06/18 00:00 09/06/18 01:00 Temperature 97.9 F Pulse Rate 95 H 95 H Respiratory Rate 24 24 Blood Pressure 124/82 130/82 Pulse Oximetry 91 L 90 L 92 L 09/06/18 02:00 09/06/18 02:09 09/06/18 03:00 Temperature Pulse Rate 96 H 96 H 99 H Respiratory Rate 24 24 25 H Blood Pressure 125/81 128/80 Pulse Oximetry 90 L 92 L 09/06/18 03:31 09/06/18 04:00 09/06/18 05:00 Temperature 98.4 F Pulse Rate 100 H 101 H Respiratory Rate 29 H 32 H Blood Pressure 126/78 129/81 Pulse Oximetry 88 L 90 L 90 L 09/06/18 06:00 09/06/18 07:00 09/06/18 08:00 Temperature Pulse Rate 96 H 98 H Respiratory Rate Blood Pressure Pulse Oximetry 97 09/06/18 08:51 Temperature Pulse Rate Respiratory Rate Blood Pressure Pulse Oximetry 95 Intake & Output 09/05/18 09/06/18 09/06/18 18:59 06:59 18:59 Intake Total 1101 / 1101 948 / 948 Output Total 1250 / 1250 350 / 350 Balance -149 / -149 598 / 598 Weight 101 kg Intake: Tube Feeding 501 / 501 548 / 548 Water Bolus Amount 600 / 600 400 / 400 Output: Urine 800 / 800 Urine Amount (Stoma) 450 / 450 350 / 350 Nephrostomy Tube 450 / 450 350 / 350 Other: # Voids 1 Date of Last Bowel Movement 09/05/18 09/05/18 09/05/18 # Incontinent Bowel Movements 3 1 Narrative: GENERAL: NAD, A&Ox1, lethargic HEAD: Normocephalic. NECK: Supple, trachea midline. No lymphadenopathy. EYES: No scleral icterus. No injection or drainage. CARDIOVASCULAR: Regular rate and rhythm without murmurs, gallops, or rubs. RESPIRATORY: Breath sounds equal bilaterally. No accessory muscle use. GASTROINTESTINAL: Abdomen soft, non-tender, nondistended. MUSCULOSKELETAL: No cyanosis, or edema. SKIN: Warm and dry. NEURO: No focal neurological deficits. - Urinary Catheter Management Indwelling Urethral Catheter Cath placed during this visit: yes, but has since been removed by the nurse Reason for continuing: Decision to DC catheter Removal date: 08/17/18 Removal time: 16:30 Coude Cath placed during this visit: no Results - Labs CBC & Chem 7: 09/06/18 03:46 09/06/18 03:46 Laboratory Results - last 24 hr 09/05/18 09/05/18 09/05/18 10:50 12:01 15:31 WBC RBC Hgb 18.1 H Hct 55.7 H MCV MCH MCHC RDW Plt Count MPV Neut % (Auto) Lymph % (Auto) [place] % (Auto) Eos % (Auto) Baso % (Auto) Neut # (Auto) Lymph # (Auto) [place] # (Auto) Eos # (Auto) Baso # (Auto) WBC Differential Differential Comment Sodium Potassium Chloride Carbon Dioxide Anion Gap BUN Creatinine Estimated GFR POC Glucose 125 H 132 H Random Glucose Calcium Total Bilirubin AST ALT Alkaline Phosphatase Total Protein Albumin 09/05/18 09/06/18 09/06/18 23:59 03:46 03:46 WBC 23.9 H RBC 5.35 Hgb 17.8 H Hct 55.9 H MCV 104.3 H MCH 33.2 MCHC 31.8 L RDW 15.1 Plt Count 113 L MPV 11.5 H Neut % (Auto) 94.4 H Lymph % (Auto) 0.8 L [place] % (Auto) 4.2 Eos % (Auto) 0.0 Baso % (Auto) 0.6 Neut # (Auto) 22.5 H Lymph # (Auto) 0.2 L [place] # (Auto) 1.0 H Eos # (Auto) 0.0 Baso # (Auto) 0.1 WBC Differential . Differential Comment Auto diff final Sodium 152 H Potassium 3.9 Chloride 115 H Carbon Dioxide 33.0 H Anion Gap 4 L BUN 104 H Creatinine 1.23 Estimated GFR 59 L POC Glucose 127 H Random Glucose 162 H Calcium 9.8 Total Bilirubin 0.8 AST 61 H ALT 177 H Alkaline Phosphatase 108 Total Protein 6.0 L Albumin 2.6 L 09/06/18 05:28 WBC RBC Hgb Hct MCV MCH MCHC RDW Plt Count MPV Neut % (Auto) Lymph % (Auto) [place] % (Auto) Eos % (Auto) Baso % (Auto) Neut # (Auto) Lymph # (Auto) [place] # (Auto) Eos # (Auto) Baso # (Auto) WBC Differential Differential Comment Sodium Potassium Chloride Carbon Dioxide Anion Gap BUN Creatinine Estimated GFR POC Glucose 133 H Random Glucose Calcium Total Bilirubin AST ALT Alkaline Phosphatase Total Protein Albumin Assessment and Plan - Plan 68-year-old male admitted secondary to respiratory failure, with underlying colic congestive heart failure No significant improvement. Continue to monitor in ICU. Risk for respiratory failure. Continue BiPAP as needed. Acute GI bleed Lovenox held Aspirin held Lovenox held Check hemoglobin level Patient is not a good candidate for endoscopy or colonoscopy, will consider GI consult if bleeding persists despite holding anticoagulants Acute hypoxic hypercapnic respiratory failure Leukocytosis nearly complete opacification of the left hemithorax status post bronchoscopy Continue oxygen as needed Continue BiPAP Tube feeds due to aspiration risk ID following Pulmonology following Follow respiratory status in ICU, risk for decompensation Continue cefepime COPD Nicotine dependence Patient counseled to quit Systolic congestive heart failure Systolic congestive heart failure exacerbation Exacerbation resolving Follow fluid balance clinically Aspirin held due to GI bleed Continue beta-jose Depression Continue bupropion Transaminitis Hepatitis Follow CMP Acute kidney injury Renal Cysts Follow renal function next line avoid nephrotoxins Hypokalemia Monitor and replace as needed Hypernatremia Free water with tube feedings Right hemiparesis Neurology following Aspirin had to be held due to GI bleeding Tube feeds, patient failed swallow test Will need rehab at discharge DVT prophylaxis SCDs Lovenox and aspirin are held due to GI bleed Discharge planning Poor prognosis Palliative care consult has been placed
--- NOTE | 2018-09-06 14:23 | P.PN ---
Subjective Interval history: He is weak and lethargic. On BIPAP FIo2 40 % No change overall. No Fever. Physical Exam Vital signs: Vital Signs 09/05/18 15:00 09/05/18 16:00 09/05/18 17:00 Temperature 98.0 F Pulse Rate 96 H 99 H Respiratory Rate 23 22 Blood Pressure 139/79 130/79 132/63 Pulse Oximetry 92 L 90 L 09/05/18 18:00 09/05/18 19:00 09/05/18 20:00 Temperature 99.0 F Pulse Rate 99 H 96 H 94 H Respiratory Rate 24 26 H Blood Pressure 124/78 Pulse Oximetry 90 L 88 L 09/05/18 20:19 09/05/18 20:44 09/05/18 21:00 Temperature Pulse Rate 95 H 97 H Respiratory Rate 24 24 Blood Pressure 132/89 Pulse Oximetry 89 L 88 L 89 L 09/05/18 22:00 09/05/18 23:00 09/05/18 23:30 Temperature Pulse Rate 99 H 99 H Respiratory Rate 21 23 Blood Pressure 129/85 135/87 Pulse Oximetry 90 L 91 L 91 L 09/06/18 00:00 09/06/18 01:00 09/06/18 02:00 Temperature 97.9 F Pulse Rate 95 H 95 H 96 H Respiratory Rate 24 24 24 Blood Pressure 124/82 130/82 125/81 Pulse Oximetry 90 L 92 L 90 L 09/06/18 02:09 09/06/18 03:00 09/06/18 03:31 Temperature Pulse Rate 96 H 99 H Respiratory Rate 24 25 H Blood Pressure 128/80 Pulse Oximetry 92 L 88 L 09/06/18 04:00 09/06/18 05:00 09/06/18 06:00 Temperature 98.4 F Pulse Rate 100 H 101 H 96 H Respiratory Rate 29 H 32 H Blood Pressure 126/78 129/81 Pulse Oximetry 90 L 90 L 09/06/18 07:00 09/06/18 08:00 09/06/18 08:51 Temperature 97.9 F Pulse Rate 94 H Respiratory Rate 24 Blood Pressure 129/79 Pulse Oximetry 97 96 95 09/06/18 10:00 09/06/18 12:00 09/06/18 12:52 Temperature 98.7 F Pulse Rate 98 H 97 H Respiratory Rate 24 Blood Pressure 120/77 Pulse Oximetry 99 99 Intake & Output 09/05/18 09/06/18 09/06/18 18:59 06:59 18:59 Intake Total 1101 / 1101 948 / 948 Output Total 1250 / 1250 350 / 350 Balance -149 / -149 598 / 598 Weight 101 kg Intake: Tube Feeding 501 / 501 548 / 548 Water Bolus Amount 600 / 600 400 / 400 Output: Urine 800 / 800 Urine Amount (Stoma) 450 / 450 350 / 350 Nephrostomy Tube 450 / 450 350 / 350 Other: # Voids 1 Date of Last Bowel Movement 09/05/18 09/05/18 09/05/18 # Incontinent Bowel Movements 3 1 Narrative: GENERAL: NAD, A&Ox1, lethargic HEAD: Normocephalic. NECK: Supple, trachea midline. No lymphadenopathy. EYES: No scleral icterus. No injection or drainage. CARDIOVASCULAR: Irregular rate and rhythm without murmurs, gallops, or rubs. RESPIRATORY: Breath sounds equal bilaterally.Few wheezes bilaterally. No accessory muscle use. GASTROINTESTINAL: Abdomen soft, non-tender, nondistended. MUSCULOSKELETAL: No cyanosis, or edema. SKIN: Warm and dry. NEURO: Sleepy. - Urinary Catheter Management Indwelling Urethral Catheter Cath placed during this visit: yes, but has since been removed by the nurse Reason for continuing: Decision to DC catheter Removal date: 08/17/18 Removal time: 16:30 Coude Cath placed during this visit: no Results - Labs CBC & Chem 7: 09/06/18 03:46 09/06/18 03:46 Laboratory Results - last 24 hr 09/05/18 09/05/18 09/06/18 15:31 23:59 03:46 WBC 23.9 H RBC 5.35 Hgb 17.8 H Hct 55.9 H MCV 104.3 H MCH 33.2 MCHC 31.8 L RDW 15.1 Plt Count 113 L MPV 11.5 H Neut % (Auto) 94.4 H Lymph % (Auto) 0.8 L [place] % (Auto) 4.2 Eos % (Auto) 0.0 Baso % (Auto) 0.6 Neut # (Auto) 22.5 H Lymph # (Auto) 0.2 L [place] # (Auto) 1.0 H Eos # (Auto) 0.0 Baso # (Auto) 0.1 WBC Differential . Differential Comment Auto diff final Sodium Potassium Chloride Carbon Dioxide Anion Gap BUN Creatinine Estimated GFR POC Glucose 132 H 127 H Random Glucose Calcium Total Bilirubin AST ALT Alkaline Phosphatase Total Protein Albumin 09/06/18 09/06/18 09/06/18 03:46 05:28 12:32 WBC RBC Hgb Hct MCV MCH MCHC RDW Plt Count MPV Neut % (Auto) Lymph % (Auto) [place] % (Auto) Eos % (Auto) Baso % (Auto) Neut # (Auto) Lymph # (Auto) [place] # (Auto) Eos # (Auto) Baso # (Auto) WBC Differential Differential Comment Sodium 152 H Potassium 3.9 Chloride 115 H Carbon Dioxide 33.0 H Anion Gap 4 L BUN 104 H Creatinine 1.23 Estimated GFR 59 L POC Glucose 133 H 117 H Random Glucose 162 H Calcium 9.8 Total Bilirubin 0.8 AST 61 H ALT 177 H Alkaline Phosphatase 108 Total Protein 6.0 L Albumin 2.6 L Assessment and Plan - Assessment (1) Acute renal failure Code(s): N17.9 - Acute kidney failure, unspecified Status: Acute (2) Chronic kidney disease Code(s): N18.9 - Chronic kidney disease, unspecified Status: Acute (3) COPD (chronic obstructive pulmonary disease) Code(s): J44.9 - Chronic obstructive pulmonary disease, unspecified Status: Acute (4) Pneumonia Code(s): J18.9 - Pneumonia, unspecified organism Status: Acute (5) Congestive heart failure Code(s): I50.9 - Heart failure, unspecified Status: Acute (6) Respiratory failure Code(s): J96.90 - Respiratory failure, unspecified, unspecified whether with hypoxia or hypercapnia Status: Acute (7) Abnormal liver function Code(s): K76.89 - Other specified diseases of liver Status: Acute (8) Systolic and diastolic CHF, acute on chronic Code(s): I50.43 - Acute on chronic combined systolic (congestive) and diastolic (congestive) heart failure Status: Acute - Plan 1. O2 at 4 L N/C , Keep sat >90 2. Continue antibiotics Levaquin as ordered. 3. Duoneb nebs qid. 4. Continue solumedrol 40 mg IV q8h 5. BiPAP 15/5 CM at HS and PRN. 6. Diamox 500 mg BID 7. CBC,BMP in am
[2018-09-07] MEDS: Oral Hygiene Kit OROPHARYNG SCH ×3 (04:56→15:00)
[2018-09-07] MEDS: MethylPREDNISolone Sod Succinate Inj 40 MG/ML Vial IV.PUSH SCH ×2 (05:41→13:46)
[2018-09-07] MEDS: Insulin NovoLIN Regular Correctional Sugar Inj SQ SCH ×2 (05:41→12:55)
[2018-09-07] MEDS: Carboxymethylcellulose 0.5% Opth Drops 15 ML Bottle EACH EYE SCH ×2 (08:10→13:46)
[2018-09-07] MEDS: Senna/Docusate Sodium 8.6/50 MG Tablet PO SCH (08:10)
[2018-09-07] MEDS: levoFLOXacin 500 MG Tablet PO SCH (08:10)
[2018-09-07] MEDS: Chlorhexidine 0.12% Oral Kit 15 ML UDC OROPHARYNG SCH (08:10)
[2018-09-07] MEDS: buPROPion 75 MG Tablet NG/OG SCH (08:10)
[2018-09-07] MEDS: Gabapentin 100 MG Capsule PO SCH (08:11)
--- NOTE | 2018-09-07 10:05 | P.PNIM ---
Subjective Interval history: Patient weaned off BiPAP and is currently on a Venturi mask. No complaints. Lethargy remains. Physical Exam Vital signs: Vital Signs 09/06/18 12:00 09/06/18 12:52 09/06/18 14:00 Temperature 98.7 F Pulse Rate 97 H 99 H Respiratory Rate 24 Blood Pressure 120/77 Pulse Oximetry 99 99 09/06/18 16:00 09/06/18 16:14 09/06/18 18:00 Temperature 97.8 F Pulse Rate 95 H 98 H Respiratory Rate 26 H Blood Pressure 124/79 Pulse Oximetry 97 97 09/06/18 19:00 09/06/18 19:34 09/06/18 19:43 Temperature Pulse Rate 103 H Respiratory Rate 35 H Blood Pressure Pulse Oximetry 91 L 92 L 09/06/18 20:00 09/06/18 22:00 09/06/18 23:39 Temperature 98.3 F Pulse Rate 102 H 106 H 101 H Respiratory Rate 24 20 Blood Pressure 129/83 Pulse Oximetry 94 L 88 L 09/07/18 00:00 09/07/18 02:00 09/07/18 03:59 Temperature 98.4 F Pulse Rate 99 H 93 H Respiratory Rate 22 Blood Pressure 129/83 Pulse Oximetry 95 96 09/07/18 04:00 09/07/18 06:00 09/07/18 06:05 Temperature 98.5 F Pulse Rate 93 H 96 H Respiratory Rate 24 Blood Pressure 125/79 Pulse Oximetry 95 92 L 09/07/18 07:00 09/07/18 08:00 Temperature Pulse Rate 98 H Respiratory Rate Blood Pressure Pulse Oximetry 92 L Intake & Output 09/06/18 09/07/18 09/07/18 18:59 06:59 18:59 Intake Total 986 / 986 936 / 936 Output Total 325 / 325 600 / 600 Balance 661 / 661 336 / 336 Weight 103.5 kg Intake: Tube Feeding 586 / 586 536 / 536 Water Bolus Amount 400 / 400 400 / 400 Output: Urine 200 / 200 Urine Amount (Stoma) 325 / 325 400 / 400 Nephrostomy Tube 325 / 325 400 / 400 Other: # Incontinent Voids 2 Date of Last Bowel Movement 09/05/18 09/05/18 09/05/18 # Bowel Movements 0 Narrative: GENERAL: NAD, A&Ox, lethargic HEAD: Normocephalic. NECK: Supple, trachea midline. No lymphadenopathy. EYES: No scleral icterus. No injection or drainage. CARDIOVASCULAR: Regular rate and rhythm without murmurs, gallops, or rubs. RESPIRATORY: Breath sounds equal bilaterally. No accessory muscle use. GASTROINTESTINAL: Abdomen soft, non-tender, nondistended. MUSCULOSKELETAL: No cyanosis, or edema. SKIN: Warm and dry. NEURO: No focal neurological deficits. - Urinary Catheter Management Indwelling Urethral Catheter Cath placed during this visit: yes, but has since been removed by the nurse Reason for continuing: Decision to DC catheter Removal date: 08/17/18 Removal time: 16:30 Coude Cath placed during this visit: no Results - Labs CBC & Chem 7: 09/06/18 03:46 09/06/18 03:46 Laboratory Results - last 24 hr 09/06/18 09/06/18 09/06/18 12:32 17:22 23:35 POC Glucose 117 H 120 H 141 H 09/07/18 05:34 POC Glucose 150 H Assessment and Plan - Plan 68-year-old male admitted secondary to respiratory failure, with underlying colic congestive heart failure Wean to Venturi mask. Monitor respiratory status. Continue to monitor in ICU. Risk for respiratory failure. Continue BiPAP as needed. Acute GI bleed Lovenox held Aspirin held Lovenox held Check hemoglobin level Patient is not a good candidate for endoscopy or colonoscopy, will consider GI consult if bleeding persists despite holding anticoagulants Acute hypoxic hypercapnic respiratory failure Leukocytosis nearly complete opacification of the left hemithorax status post bronchoscopy Continue oxygen as needed Continue BiPAP Tube feeds due to aspiration risk ID following Pulmonology following Follow respiratory status in ICU, risk for decompensation Continue cefepime COPD Nicotine dependence Patient counseled to quit Systolic congestive heart failure Systolic congestive heart failure exacerbation Exacerbation resolving Follow fluid balance clinically Aspirin held due to GI bleed Continue beta-jose Depression Continue bupropion Transaminitis Hepatitis Follow CMP Acute kidney injury Renal Cysts Follow renal function next line avoid nephrotoxins Hypokalemia Monitor and replace as needed Hypernatremia Free water with tube feedings Right hemiparesis Neurology following Aspirin had to be held due to GI bleeding Tube feeds, patient failed swallow test Will need rehab at discharge DVT prophylaxis SCDs Lovenox and aspirin are held due to GI bleed Discharge planning Poor prognosis Palliative care consult has been placed
--- NOTE | 2018-09-07 11:14 | P.PNID ---
Subjective Remarks: Notes reviewed. Patient patient remains lethargic but is more responsive. He is on oxygen via facemask. He is upright in bed and raises his head when I talked to him. Looks around and follows commands. White blood cell count remains markedly elevated. Afebrile. 68-year-old white male who has a history of COPD. The patient was found with altered mental status and unresponsive later on while sitting in his garage. He was brought to [facility] and then subsequently transferred here to [facility]. The patient was noted to be hypoxic and a CT scan of the chest showed significant volume loss on the left lung with almost entire collapse of the left lung. He was subsequently intubated. He underwent bronchoscopy with lavage of the left lung. There was thick mucus plugs noted. ID consult requested for Fever and worsening leukocytosis. Antibiotics: Levaquin oral Lines: Lines ok Past Medical History: COPD Allergies/Adverse Reactions: Allergies No Known Allergies Allergy (Unverified 08/16/18 16:33) Objective Vital Signs 09/06/18 12:00 09/06/18 12:52 09/06/18 14:00 Temperature 98.7 F Pulse Rate 97 H 99 H Respiratory Rate 24 Blood Pressure 120/77 Pulse Oximetry 99 99 09/06/18 16:00 09/06/18 16:14 09/06/18 18:00 Temperature 97.8 F Pulse Rate 95 H 98 H Respiratory Rate 26 H Blood Pressure 124/79 Pulse Oximetry 97 97 09/06/18 19:00 09/06/18 19:34 09/06/18 19:43 Temperature Pulse Rate 103 H Respiratory Rate 35 H Blood Pressure Pulse Oximetry 91 L 92 L 09/06/18 20:00 09/06/18 22:00 09/06/18 23:39 Temperature 98.3 F Pulse Rate 102 H 106 H 101 H Respiratory Rate 24 20 Blood Pressure 129/83 Pulse Oximetry 94 L 88 L 09/07/18 00:00 09/07/18 02:00 09/07/18 03:59 Temperature 98.4 F Pulse Rate 99 H 93 H Respiratory Rate 22 Blood Pressure 129/83 Pulse Oximetry 95 96 09/07/18 04:00 09/07/18 06:00 09/07/18 06:05 Temperature 98.5 F Pulse Rate 93 H 96 H Respiratory Rate 24 Blood Pressure 125/79 Pulse Oximetry 95 92 L 09/07/18 07:00 09/07/18 08:00 Temperature Pulse Rate 98 H Respiratory Rate Blood Pressure Pulse Oximetry 92 L Intake & Output 09/06/18 09/07/18 09/07/18 18:59 06:59 18:59 Intake Total 986 / 986 936 / 936 Output Total 325 / 325 600 / 600 Balance 661 / 661 336 / 336 Weight 103.5 kg Intake: Tube Feeding 586 / 586 536 / 536 Water Bolus Amount 400 / 400 400 / 400 Output: Urine 200 / 200 Urine Amount (Stoma) 325 / 325 400 / 400 Nephrostomy Tube 325 / 325 400 / 400 Other: # Incontinent Voids 2 Date of Last Bowel Movement 09/05/18 09/05/18 09/05/18 # Bowel Movements 0 Lab - Hematology Results 09/05/18 09/06/18 10:50 03:46 WBC 23.9 H RBC 5.35 Hgb 18.1 H 17.8 H Hct 55.7 H 55.9 H MCV 104.3 H MCH 33.2 MCHC 31.8 L RDW 15.1 Plt Count 113 L MPV 11.5 H Neut % (Auto) 94.4 H Lymph % (Auto) 0.8 L [place] % (Auto) 4.2 Eos % (Auto) 0.0 Baso % (Auto) 0.6 Neut # (Auto) 22.5 H Lymph # (Auto) 0.2 L [place] # (Auto) 1.0 H Eos # (Auto) 0.0 Baso # (Auto) 0.1 WBC Differential . Differential Comment Auto diff final Lab - Chemistry Results 09/05/18 09/05/18 09/05/18 12:01 15:31 23:59 Sodium Potassium Chloride Carbon Dioxide Anion Gap BUN Creatinine Estimated GFR POC Glucose 125 H 132 H 127 H Random Glucose Calcium Total Bilirubin AST ALT Alkaline Phosphatase Total Protein Albumin 09/06/18 09/06/18 09/06/18 03:46 05:28 12:32 Sodium 152 H Potassium 3.9 Chloride 115 H Carbon Dioxide 33.0 H Anion Gap 4 L BUN 104 H Creatinine 1.23 Estimated GFR 59 L POC Glucose 133 H 117 H Random Glucose 162 H Calcium 9.8 Total Bilirubin 0.8 AST 61 H ALT 177 H Alkaline Phosphatase 108 Total Protein 6.0 L Albumin 2.6 L 09/06/18 09/06/18 09/07/18 17:22 23:35 05:34 Sodium Potassium Chloride Carbon Dioxide Anion Gap BUN Creatinine Estimated GFR POC Glucose 120 H 141 H 150 H Random Glucose Calcium Total Bilirubin AST ALT Alkaline Phosphatase Total Protein Albumin Imaging: ITS Impressions Abdomen Ultrasound 08/19/18 00:00 CONCLUSION: 1. Hepatomegaly with diffuse hyperechoic texture characteristic of steatosis or diffuse hepatocellular disease. 2. Bilateral renal cysts. 3. Nonvisualization of the gallbladder and pancreas. 4. No evidence of hydronephrosis or abnormal fluid collections. Abdomen/Pelvis CT 08/23/18 00:00 CONCLUSION: 1. Severe left hydronephrosis and hydroureter caused by a 2 cm stone in the distal left ureter. 2. Trace air within the bladder lumen. Although nonspecific this may be related to a recent catheterization. 3. Nonacute findings include multiple bilateral renal cysts, mild atherosclerotic disease, and mild hepatic steatosis. Nephrostomy 08/23/18 00:00 CONCLUSION: 1. Uncomplicated nephrostomy tube placement as above. Chest X-Ray 08/29/18 05:00 CONCLUSION: Interval extubation. Otherwise stable abnormal chest Chest CT 08/30/18 00:00 CONCLUSION: 1. Persistent left lower lobe volume loss/collapse with likely some degree of consolidation. This is very similar to the prior examination. No significant pleural effusion is present. The fluidlike material is visualized within the left main bronchus suggesting aspiration. 2. Slightly increased consolidation/volume loss in the right lower lobe. 3. Stable enlarged main pulmonary artery suggesting pulmonary arterial hypertension. 4. Stable 3.3 cm left thyroid nodule. Head CT 08/31/18 13:07 CONCLUSION: 1. No acute intracranial abnormality. . Abdomen X-Ray 08/31/18 16:55 CONCLUSION: Given the feeding tube felt to be within the antrum of a long J-shaped stomach. Head MRI 09/01/18 07:04 CONCLUSION: 1. Minimal nonspecific white matter changes. 2. No acute intracranial abnormality. Physical Exam: PHYSICAL EXAMINATION: GENERAL: Patient is lethargic but responsive. HEAD: Head is atraumatic. Extraocular movements grossly intact. Pupils reactive to light. No icterus. Oropharynx, moist mucosa. NECK: Supple without swelling or adenopathy. LUNGS: Decreased breath sounds bilateral. HEART: Normal S1 and S2, without audible murmurs, rubs or gallops. ABDOMEN: Bowel sounds present, distended, soft, no tenderness. left nephrostomy tube in place. Starla colored drainage.. EXTREMITIES: No clubbing or cyanosis or edema. SKIN: No rash. NEURO: Unable to fully assess. Patient is lethargic. Assessment and Plan - Plan IMPRESSION: 1. Pneumonia. The patient with whiteout of the left lung. Status post bronchoscopy. Sputum culture pending. 2. Leukocytosis probably secondary to pneumonia/steroids. White blood cell count remain elevated. 3. Acute respiratory failure. 4. Chronic obstructive pulmonary disease. 5. Obstructive uropathy. 6. Rash resolved. Patient appears to have improved from respiratory standpoint over the past couple of days. RECOMMENDATIONS: Continue Levaquin oral. Repeat chest x-ray to evaluate the lung infiltrate. Monitor the white blood cell count. Monitor the clinical status.
--- NOTE | 2018-09-07 11:40 | XR ---
EXAM DATE: 09/07/2018 11:06 AM EDT AGE/SEX: 68 years / Male INDICATIONS: Shortness of breath. CLINICAL DATA: This is the patient's subsequent encounter. Patient reports that signs and symptoms h ave been present for 1 week and indicates a pain score of Nonresponsive. MEDICAL/SURGICAL HISTORY: Chronic obstructive pulmonary disease. . Renal stent. COMPARISON: [facility] [place]ST 1V SINGLE AP, 08/29/2018. . FINDINGS: Nasoenteric catheter coursing beyond the GE junction. Left lower lobe airspace consolidation with pro bable trace pleural effusion. Mild patchy right lower lobe airspace disease. Cardiomediastinal contou rs are within normal limits given portable technique. Remainder of the exam is unchanged. CONCLUSION: 1. Improved left lower lobe airspace consolidation and probable trace pleural effusion. 2. Persistent patchy right lower lobe airspace disease. Electronically signed by: Pollo Harris MD 09/07/2018 11:38 AM EDT
[2018-09-07 12:08] VITALS: RESP 27; O2SAT 98
--- NOTE | 2018-09-07 14:28 | P.DS ---
Date of admission: 08/16/18 22:20 Primary care physician: UNKNOWN Brief History from admission: 68-year-old gentleman with COPD and chronic cough who continues to smoke presented to [facility] emergency department for an evaluation of altered mental status and shortness of breath. The patient went [place] this [place] and returned on the bus and sat in the garage. The lady that takes care of him did talk to him and he said he was fine and sat down in his chair in the garage. He however did not come to his lunch and she went out and found him unresponsive with labored breathing. This occurred at 2 PM today. Patient was brought into the emergency department with altered mental status and respiratory distress. Pulse ox was in the 60s. Patient was put on high flow oxygen and later changed to BiPAP with improvement in mentation and oxygenation. The chest x-ray obtained in the emergency department shows almost complete opacification of left hemithorax. The CT without contrast shows severe cardiomegaly and no pleural effusion or pericardial effusion. The patient has been transferred to [facility] ICU for higher level of care. DS: Medications - Discharge Medications Prescriptions: albuterol sulfate 2.5 mg NEB Q4H PRN #30 vial PRN Reason: Dyspnea bupropion HCl 150 mg NG/OG BID #60 tab carboxymethylcellulose sodium [Refresh Tears] 1 drop EACH EYE TID #1 bottle gabapentin 200 mg FEEDING TUBE BID #120 tab levofloxacin 500 mg FEEDING TUBE DAILY 2 Days #2 tab prednisone 0 pack FEEDING TUBE PER PKG DIR #1 pack DS: Summary Hospital Course: Mr. Menchaca is a 68-year-old male. He has a past medical history of CHF and COPD. He was admitted secondary to respiratory failure with hypoxia. Initially he had to be intubated and was extubated approximately 48 hours after intubation. This patient has not been thriving and is not expected to thrive long-term. He has poor long-term prognosis. Initially off ventilation he was BiPAP dependent but he has been weaned down to a Venturi mask. Further improvement in respiratory status is not anticipated. [facility] has been contacted and has accepted this patient. [facility] is a facility which can manage his unstable respiratory status. This patient returning back to home is not likely. Family has made Mr. Menchaca DNR. While here he was treated with Levaquin empirically due to her leukocytosis. He has 2 more days of this treatment left. Case has been discussed with ID and pulmonology. This patient at this point is clear for discharge to [facility] care. - Time Spent with Patient Total time spent providing and/or coordinating discharge services: Greater than 30 minutes Exam Vital signs: Vital Signs 09/06/18 15:00 09/06/18 16:00 09/06/18 16:14 Temperature 97.8 F Pulse Rate 93 H 95 H Respiratory Rate 22 29 H Blood Pressure 113/75 124/79 Pulse Oximetry 98 97 97 09/06/18 17:00 09/06/18 18:00 09/06/18 19:00 Temperature Pulse Rate 92 H 98 H 101 H Respiratory Rate 20 27 H 28 H Blood Pressure 123/75 129/82 131/83 Pulse Oximetry 92 L 93 L 89 L 09/06/18 19:34 09/06/18 19:43 09/06/18 20:00 Temperature 98.3 F Pulse Rate 103 H 102 H Respiratory Rate 35 H 29 H Blood Pressure 129/83 Pulse Oximetry 92 L 94 L 09/06/18 21:00 09/06/18 22:00 09/06/18 23:00 Temperature Pulse Rate 105 H 106 H 102 H Respiratory Rate 24 28 H 25 H Blood Pressure 135/86 126/82 131/86 Pulse Oximetry 94 L 80 L 96 09/06/18 23:39 09/07/18 00:00 09/07/18 01:00 Temperature 98.4 F Pulse Rate 101 H 99 H 93 H Respiratory Rate 20 22 19 Blood Pressure 129/83 124/78 Pulse Oximetry 95 97 09/07/18 02:00 09/07/18 03:00 09/07/18 03:59 Temperature Pulse Rate 93 H 92 H Respiratory Rate 20 20 Blood Pressure 129/85 125/79 Pulse Oximetry 98 98 96 09/07/18 04:00 09/07/18 05:00 09/07/18 06:00 Temperature 98.5 F Pulse Rate 93 H 96 H 96 H Respiratory Rate 26 H 24 26 H Blood Pressure 125/79 128/80 129/81 Pulse Oximetry 95 95 94 L 09/07/18 06:05 09/07/18 07:00 09/07/18 08:00 Temperature 97.7 F Pulse Rate 97 H 98 H Respiratory Rate 23 25 H Blood Pressure 140/78 126/78 Pulse Oximetry 92 L 92 L 92 L 10/15/18 09:00 09/07/18 10:00 09/07/18 11:00 Temperature Pulse Rate 104 H 103 H 100 H Respiratory Rate 27 H 29 H 24 Blood Pressure 131/86 118/75 117/77 Pulse Oximetry 93 L 96 96 09/07/18 12:00 Temperature 97.8 F Pulse Rate 100 H Respiratory Rate 27 H Blood Pressure 128/79 Pulse Oximetry 98 Intake & Output 09/06/18 09/07/18 09/07/18 18:59 06:59 18:59 Intake Total 986 / 986 936 / 936 Output Total 325 / 325 600 / 600 Balance 661 / 661 336 / 336 Weight 103.5 kg Intake: Tube Feeding 586 / 586 536 / 536 Water Bolus Amount 400 / 400 400 / 400 Output: Urine 200 / 200 Urine Amount (Stoma) 325 / 325 400 / 400 Nephrostomy Tube 325 / 325 400 / 400 Other: # Incontinent Voids 2 Date of Last Bowel Movement 09/05/18 09/05/18 09/05/18 # Bowel Movements 0 Results Procedures completed during hospitalization: intubation/ventilation/extubation Labs on day of discharge: Labs from last 24 hours 09/07/18 09/07/18 09/06/18 13:28 05:34 23:35 POC Glucose 138 H 150 H 141 H 09/06/18 17:22 POC Glucose 120 H Preliminary micro results at discharge 08/19/18 15:09 Fungal Culture - Preliminary Bronchial Washings - Left Upper Lobe No growth in 2 weeks 08/19/18 15:09 Mycobacterial Culture - Preliminary Bronchial Washings - Left Upper Lobe No growth in 2 weeks - Impressions ITS Impressions Abdomen Ultrasound 08/19/18 00:00 CONCLUSION: 1. Hepatomegaly with diffuse hyperechoic texture characteristic of steatosis or diffuse hepatocellular disease. 2. Bilateral renal cysts. 3. Nonvisualization of the gallbladder and pancreas. 4. No evidence of hydronephrosis or abnormal fluid collections. Abdomen/Pelvis CT 08/23/18 00:00 CONCLUSION: 1. Severe left hydronephrosis and hydroureter caused by a 2 cm stone in the distal left ureter. 2. Trace air within the bladder lumen. Although nonspecific this may be related to a recent catheterization. 3. Nonacute findings include multiple bilateral renal cysts, mild atherosclerotic disease, and mild hepatic steatosis. Nephrostomy 08/23/18 00:00 CONCLUSION: 1. Uncomplicated nephrostomy tube placement as above. Chest CT 08/30/18 00:00 CONCLUSION: 1. Persistent left lower lobe volume loss/collapse with likely some degree of consolidation. This is very similar to the prior examination. No significant pleural effusion is present. The fluidlike material is visualized within the left main bronchus suggesting aspiration. 2. Slightly increased consolidation/volume loss in the right lower lobe. 3. Stable enlarged main pulmonary artery suggesting pulmonary arterial hypertension. 4. Stable 3.3 cm left thyroid nodule. Head CT 08/31/18 13:07 CONCLUSION: 1. No acute intracranial abnormality. . Abdomen X-Ray 08/31/18 16:55 CONCLUSION: Given the feeding tube felt to be within the antrum of a long J-shaped stomach. Head MRI 09/01/18 07:04 CONCLUSION: 1. Minimal nonspecific white matter changes. 2. No acute intracranial abnormality. Chest X-Ray 09/07/18 11:06 CONCLUSION: 1. Improved left lower lobe airspace consolidation and probable trace pleural effusion. 2. Persistent patchy right lower lobe airspace disease. Discharge Plan - Discharge Disposition Patient Disposition: 70 Transfer To Other Facility - Discharge Condition Condition: Serious - Discharge Order Discharge Orders: Discharge Order (Routine); Ordered 09/07/18 Ordered By: Jose Queen - Discharge Details Anticipated Discharge Date: 09/07/18 - Physicians Team Primary Care Provider: UNKNOWN, Attending Provider: Jose Queen Other Providers: [employer] ; Randall Ott MD ; Nicolás Olviares MD ; Damon Jauregui MD ; Hemant Kay MD ; [facility] ; Earline Espinoza MD ; Erik Gaspar MD ; Олег Peña MD - Rxs /Orders / Referrals /Forms Prescriptions: New albuterol sulfate 2.5 mg /3 mL (0.083 %) Solution For Nebulization 2.5 mg NEB Q4H PRN (Reason: Dyspnea) Qty: 30 RF: 0 bupropion HCl 75 mg Tablet 150 mg NG/OG BID Qty: 60 RF: 0 carboxymethylcellulose sodium [Refresh Tears] 0.5 % Drops 1 drop EACH EYE TID Qty: 1 RF: 0 gabapentin 100 mg Capsule 200 mg Feeding Tube BID Qty: 120 RF: 0 levofloxacin 500 mg Tablet 500 mg Feeding Tube DAILY 2 Days Qty: 2 RF: 0 prednisone 10 mg Tablets,Dose Pack 0 pack Feeding Tube PER PKG DIR Qty: 1 RF: 0 Discontinued bupropion HCl (smoking deter) 150 mg Tablet Extended Release 12 Hr 150 mg PO DAILY gabapentin 600 mg Tablet 600 mg PO BID ibuprofen 800 mg Tablet 800 mg PO TID varenicline [Chantix] 1 mg Tablet 1 mg PO BID Referrals: Trace Chung [Other] - See Instructions UNKNOWN, [Primary Care Provider] - See Instructions
[2018-09-07 16:11] VITALS: BP 146/88; PULSE 104; TEMP 97.9
== END 2018-09-07 16:40 | disposition short-term general hospital (02) ==
LOC: NEDDLT 16:22 → HIMC 22:20
PROVIDERS: ADMIT Hospitalist; ATTEND Hospitalist